=== PATIENT | male | born 1950 | race Caucasian/White ===

== ENCOUNTER 2019-10-09 19:00 | Observation (INO) | payer MEDICARE ==
[2019-10-09] MEDS ORDERED: MECLIZINE 25 MG TAB PO STA (19:27)
[2019-10-09 19:47] LABS: Basophils # (A) 0.1 k/uL (0-0.2); Basophils % (A) 1 %; Eosinophils # (A) 0.2 k/uL (0-0.7); Eosinophils % (A) 3 %; HCT 42.6 % (39.0-53.0); HGB 14.5 gm/dL (13.0-17.5); Lymphocytes # (A) 2.7 k/uL (1.0-4.8); Lymphocytes % (A) 36 %; MCH 31.7 pg (25.0-35.0); MCV 93.2 fL (80.0-100.0); Monocytes # (A) 0.6 k/uL (0-1.0); Monocytes % (A) 8 %; Neutrophils # (A) 3.7 k/uL (1.3-7.7); Neutrophils % (A) 49 %; Platelet Count 371 k/uL (150-450); RBC 4.57 m/uL (4.30-5.90); RDW 12.8 % (11.5-15.5); WBC 7.6 k/uL (3.8-10.6)
[2019-10-09 19:49] LABS: ALT 38 U/L (4-49); AST 36 U/L (17-59); African American GFR (CKD) >90 (>60 ml/min/1.73 sqM); Albumin 4.3 g/dL (3.5-5.0); Alkaline Phosphatase 101 U/L (38-126); Anion Gap 11 mmol/L; Blood Urea Nitrogen 11 mg/dL (9-20); Carbon Dioxide 23 mmol/L (22-30); Chloride 105 mmol/L (98-107); Glucose 142 mg/dL (74-99); Non-African American GFR(CKD) 87 (>60 ml/min/1.73 sqM); Potassium 4.5 mmol/L (3.5-5.1); Sodium 139 mmol/L (137-145); Total Bilirubin 0.5 mg/dL (0.2-1.3); Total Protein 7.1 g/dL (6.3-8.2)
--- NOTE | 2019-10-09 19:49 | ED ---
General Adult HPI - General Chief complaint: Dizziness Stated complaint: Dizziness,Nausea Time Seen by Provider: 10/09/19 19:05 Source: patient, EMS, RN notes reviewed, old records reviewed Mode of arrival: EMS Limitations: no limitations - History of Present Illness Initial comments: This is a 69-year-old male who comes in stating he's been dizzy for the last couple weeks. Patient states he is unsteady wasn't sure if it was going to pass out. Patient states he was recently admitted the hospital for heat exhaustion. Patient states he went home still hasn't been feeling well followed up with his doctor and continues to be dizzy and became dizzy and very nauseated. Patient states he had no pain at any time. Patient states he has had a couple episodes of significant diaphoresis. Patient denies a headache. Patient denies numbness weakness. Patient denies chest pain palpitations difficulty breathing first breath. Patient denies abdominal pain. Patient denies vomiting or diarrhea. Patient denies any recent fever chills or cough. Patient denies any swelling to the legs or calf tenderness. Patient states while lying in bed it doesn't seem like he is that dizzy but when he sits up it does get dizzy - Related Data Allergies Allergy/AdvReac Type Severity Reaction Status Date / Time No Known Allergies Allergy Verified 10/09/19 20:34 Review of Systems ROS Statement: Those systems with pertinent positive or pertinent negative responses have been documented in the HPI. ROS Other: All systems not noted in ROS Statement are negative. Past Medical History Past Medical History: Hypertension, Myocardial Infarction ([place]) History of Any Multi-Drug Resistant Organisms: None Reported Past Surgical History: Appendectomy Past Psychological History: No Psychological Hx Reported Smoking Status: Former smoker Past Alcohol Use History: None Reported Past Drug Use History: None Reported General Exam - General Exam Comments Initial Comments: GENERAL: Patient is well-developed and well-nourished. Patient is nontoxic and well- hydrated and is in mild distress. ENT: Neck is soft and supple. No significant lymphadenopathy is noted. Oropharynx is clear. Moist mucous membranes. Neck has full range of motion without eliciting any pain. EYES: The sclera were anicteric and conjunctiva were pink and moist. Extraocular movements were intact and pupils were equal round and reactive to light. Eyelids were unremarkable. PULMONARY: Unlabored respirations. Good breath sounds bilaterally. No audible rales rhonchi or wheezing was noted. CARDIOVASCULAR: There is a regular rate and rhythm without any murmurs gallops or rubs. ABDOMEN: Soft and nontender with normal bowel sounds. SKIN: Skin is clear with no lesions or rashes and otherwise unremarkable. NEUROLOGIC: Patient is alert and oriented x3. Cranial nerves II through XII are grossly intact. Motor and sensory are also intact. Normal speech, volume and content. Symmetrical smile. MUSCULOSKELETAL: Normal extremities with adequate strength and full range of motion. LYMPHATICS: No significant lymphadenopathy is noted PSYCHIATRIC: Normal psychiatric evaluation. Limitations: no limitations Course Vital Signs 10/09/19 19:03 Temperature 98.8 F Pulse Rate 78 Respiratory 18 Rate Blood Pressure 152/92 O2 Sat by Pulse 91 L Oximetry Medical Decision Making - Medical Decision Making EKG shows a normal sinus rhythm at 76 bpm KS interval is on a 52 QRS is 90 QT intervals 46 QTC is 456. There is no ST segment elevation or depression. CT of the brain shows no acute normalities. Chest x-ray shows no acute abnormality. - Lab Data Result diagrams: 10/09/19 19:27 10/09/19 19:27 Lab Results 10/09/19 10/09/19 10/09/19 Range/Units 19:27 19:27 19:27 WBC 7.6 (3.8-10.6) k/uL RBC 4.57 (4.30-5.90) m/uL Hgb 14.5 (13.0-17.5) gm/dL Hct 42.6 (39.0-53.0) % MCV 93.2 (80.0-100.0) fL MCH 31.7 (25.0-35.0) pg MCHC 34.0 (31.0-37.0) g/dL RDW 12.8 (11.5-15.5) % Plt Count 371 (150-450) k/uL Neutrophils % 49 % Lymphocytes % 36 % Monocytes % 8 % Eosinophils % 3 % Basophils % 1 % Neutrophils # 3.7 (1.3-7.7) k/uL Lymphocytes # 2.7 (1.0-4.8) k/uL Monocytes # 0.6 (0-1.0) k/uL Eosinophils # 0.2 (0-0.7) k/uL Basophils # 0.1 (0-0.2) k/uL PT 10.0 (9.0-12.0) sec INR 1.0 (<1.2) APTT 22.7 (22.0-30.0) sec Sodium 139 (137-145) mmol/L Potassium 4.5 (3.5-5.1) mmol/L Chloride 105 (98-107) mmol/L Carbon Dioxide 23 (22-30) mmol/L Anion Gap 11 mmol/L BUN 11 (9-20) mg/dL Creatinine 0.89 (0.66-1.25) mg/dL Est GFR (CKD-EPI)AfAm >90 (>60 ml/min/1.73 sqM) Est GFR (CKD-EPI)NonAf 87 (>60 ml/min/1.73 sqM) Glucose 142 H (74-99) mg/dL Calcium 9.0 (8.4-10.2) mg/dL Magnesium 2.0 (1.6-2.3) mg/dL Total Bilirubin 0.5 (0.2-1.3) mg/dL AST 36 (17-59) U/L ALT 38 (4-49) U/L Alkaline Phosphatase 101 (38-126) U/L Troponin I (0.000-0.034) ng/mL Total Protein 7.1 (6.3-8.2) g/dL Albumin 4.3 (3.5-5.0) g/dL 10/09/19 Range/Units 19:27 WBC (3.8-10.6) k/uL RBC (4.30-5.90) m/uL Hgb (13.0-17.5) gm/dL Hct (39.0-53.0) % MCV (80.0-100.0) fL MCH (25.0-35.0) pg MCHC (31.0-37.0) g/dL RDW (11.5-15.5) % Plt Count (150-450) k/uL Neutrophils % % Lymphocytes % % Monocytes % % Eosinophils % % Basophils % % Neutrophils # (1.3-7.7) k/uL Lymphocytes # (1.0-4.8) k/uL Monocytes # (0-1.0) k/uL Eosinophils # (0-0.7) k/uL Basophils # (0-0.2) k/uL PT (9.0-12.0) sec INR (<1.2) APTT (22.0-30.0) sec Sodium (137-145) mmol/L Potassium (3.5-5.1) mmol/L Chloride (98-107) mmol/L Carbon Dioxide (22-30) mmol/L Anion Gap mmol/L BUN (9-20) mg/dL Creatinine (0.66-1.25) mg/dL Est GFR (CKD-EPI)AfAm (>60 ml/min/1.73 sqM) Est GFR (CKD-EPI)NonAf (>60 ml/min/1.73 sqM) Glucose (74-99) mg/dL Calcium (8.4-10.2) mg/dL Magnesium (1.6-2.3) mg/dL Total Bilirubin (0.2-1.3) mg/dL AST (17-59) U/L ALT (4-49) U/L Alkaline Phosphatase (38-126) U/L Troponin I <0.012 (0.000-0.034) ng/mL Total Protein (6.3-8.2) g/dL Albumin (3.5-5.0) g/dL Disposition Clinical Impression: Near syncope, Diaphoresis Disposition: ADMITTED IP TO THIS HOSP Referrals: Sandy Frey DO [Primary Care Provider] - 1-2 days Time of Disposition: 20:31
[2019-10-09 19:50] LABS: Partial Thromboplastin Time 22.7 sec (22.0-30.0)
--- NOTE | 2019-10-09 19:53 | XR ---
EXAMINATION TYPE: XR chest 2V DATE OF EXAM: 10/09/2019 COMPARISON: NONE HISTORY: Dizziness and nausea TECHNIQUE: FINDINGS: Heart and mediastinum are normal. There is some linear density in the left midlung. This is probably calcified cartilage. The other lung allen are clear. There are no hilar masses. There is n o pulmonary consolidation. There is no pleural effusion. Bony thorax is intact.. IMPRESSION: No active cardiopulmonary disease. Normal heart.
--- NOTE | 2019-10-09 20:04 | CT ---
EXAMINATION TYPE: CT brain wo con DATE OF EXAM: 10/09/2019 COMPARISON: None HISTORY: Dizziness and nausea. CT DLP: 1098.4 mGycm Automated exposure control for dose reduction was used. There is cerebral cortical atrophy. There is no mass effect nor midline shift. There is no sign of in tracranial hemorrhage. The calvarium is intact. There is no evidence of cerebral edema. IMPRESSION: Cerebral atrophy. No acute intracranial abnormality.
[2019-10-09] MEDS ORDERED: SODIUM CHLORIDE 0.9% 1,000 ML IV ONE (20:32)
[2019-10-09] MEDS ORDERED: ACETAMINOPHEN TAB 500 MG TAB PO PRN (23:27)
[2019-10-09] MEDS ORDERED: TEMAZEPAM 15 MG CAP PO PRN (23:27)
[2019-10-09] MEDS ORDERED: ALPRAZolam 0.25 MG TAB PO PRN (23:27)
[2019-10-09 23:52] LABS: Appearance,Urine Clear (Clear); Bilirubin,Urine Negative (Negative); Blood,Urine Negative (Negative); Color,Urine Light Yellow; Glucose,Urine (UA) Negative (Negative); Ketones,Urine Negative (Negative); Leukocyte Esterase,Urine Negative (Negative); Nitrite,Urine Negative (Negative); Protein,Urine Negative (Negative); Specific Gravity,Urine 1.008 (1.001-1.035); Urobilinogen,Urine <2.0 mg/dL (<2.0)
[2019-10-10] MEDS ORDERED: HYDROcodone/APAP 5-325MG 1 EACH TAB PO PRN
[2019-10-10] MEDS: SODIUM CHLORIDE 0.9% 1,000 ML IV SCH ×3 (00:08→21:35)
[2019-10-10] MEDS: PANTOPRAZOLE 40 MG/10 ML VIAL IVP SCH ×2 (00:09→10:46)
--- NOTE | 2019-10-10 00:25 | HP ---
HISTORY AND PHYSICAL DATE OF SERVICE: 10/09/2019 CHIEF COMPLAINT: Dizziness and nausea. HISTORY OF PRESENT ILLNESS: This 69-year-old gentleman with a past medical history of multiple medical problems including hypertension, myocardial infarction, appendectomy, remote history of nicotine dependence, being followed by Dr. 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 The patient went to [place]. About 2 weeks ago, the patient had episode of heat exhaustion and was admitted in the hospital, but subsequently patient also recently went to [place] and went to [facility] and recently came back like 2 days ago. The patient was feeling more dizzy and nauseous and was unable to keep anything down and because of weakness and patient also had a couple episodes of significant diaphoresis, patient came to [facility] and admitted for further evaluation and treatment. There is no history of chest pain, palpitation. No history of cough, sputum. No history of any contact with any ill individuals even though patient has been to [place]. The patient reports the patient apparently spends time in his truck. PAST MEDICAL HISTORY: Hypertension, myocardial infarction, appendectomy. MEDICATIONS: Medications prior to admission include: 1. Norvasc 5 mg p.o. daily. 2. Prilosec 20 mg p.o. daily. 3. Ecotrin 81 mg. 4. Zyloprim 300 mg daily. ALLERGIES: None. FAMILY HISTORY: No history of heart disease or strokes in the family. SOCIAL HISTORY: Previous history of smoking. No history of alcohol intake. REVIEW OF SYSTEMS: ENT: No diminished hearing or diminished vision CARDIOVASCULAR SYSTEM: As mentioned earlier. RESPIRATORY SYSTEM: As mentioned earlier. GI: No nausea. : No dysuria. NERVOUS SYSTEM: No numbness or weakness. ALLERGY/IMMUNOLOGY: No asthma. MUSCULOSKELETAL: As mentioned earlier. HEMATOLOGY/ONCOLOGY: No history of anemia. ENDOCRINE: No history of diabetes or hypothyroidism. CONSTITUTIONAL: As mentioned earlier. DERMATOLOGY: Negative. RHEUMATOLOGY: Negative. PSYCHIATRY: As mentioned earlier. PHYSICAL EXAMINATION: The patient is alert and oriented x3. Pulse 86, blood pressure is 158/92, respiration 18, temperature 97.4, pulse ox 97% on 2 L. HEENT: Conjunctivae normal. NECK: No jugular venous distention. CARDIOVASCULAR: S1, S2 muffled. RESPIRATORY: Breath sounds diminished at the bases. No rhonchi, no crackles. ABDOMEN: Soft, nontender. LEGS: No edema, no swelling. NERVOUS SYSTEM: Higher functions as mentioned. Moves all 4 limbs. No focal motor or sensory deficit. LYMPHATICS: No lymphadenopathy of the neck, axillae or groin. SKIN: No ulcer, rash or bleeding. JOINTS: No active deforming arthropathy. LABS: CBC within normal limits. Glucose 142. ASSESSMENT: 1. Dizziness and nausea for evaluation, rule out acute coronary syndrome. 2. Rule out COVID-19. 3. Hypertension. 4. History of myocardial infarction. 5. History of appendectomy. 6. Remote history of nicotine dependence. 7. Obesity with body mass of 38.7. RECOMMENDATIONS AND DISCUSSION: This 69-year-old gentleman who presented with multiple complex medical issues, will monitor the patient closely. Continue the current medications. Continues symptomatic treatment. Will obtain cardiology consultation. Otherwise, IV fluids. COVID-19 as requested. Resume the home medications. Symptomatic treatment. Prognosis guarded because of multiple complex medical issues. Further recommendations to follow. A copy of dictation forwarded to Dr. Frey, who is the primary physician. MMODL / IJN: [id number] /
[2019-10-10 01:03] LABS: Uric Acid 4.8 mg/dL (3.5-8.5)
[2019-10-10 06:24] LABS: Basophils # (A) 0.1 k/uL (0-0.2); Basophils % (A) 1 %; Eosinophils # (A) 0.2 k/uL (0-0.7); Eosinophils % (A) 3 %; HGB 13.8 gm/dL (13.0-17.5); Lymphocytes # (A) 1.9 k/uL (1.0-4.8); Lymphocytes % (A) 33 %; MCH 31.8 pg (25.0-35.0); MCHC 32.9 g/dL (31.0-37.0); MCV 96.5 fL (80.0-100.0); Mean Platelet Volume 6.9; Monocytes # (A) 0.5 k/uL (0-1.0); Monocytes % (A) 9 %; Neutrophils # (A) 3.1 k/uL (1.3-7.7); Neutrophils % (A) 52 %; Platelet Count 339 k/uL (150-450); RBC 4.35 m/uL (4.30-5.90); RDW 12.8 % (11.5-15.5); WBC 5.8 k/uL (3.8-10.6)
[2019-10-10 06:39] LABS: African American GFR (CKD) >90 (>60 ml/min/1.73 sqM); Anion Gap 8 mmol/L; Blood Urea Nitrogen 12 mg/dL (9-20); C Reactive Protein 6.9 mg/L (<10.0); Calcium 8.8 mg/dL (8.4-10.2); Carbon Dioxide 25 mmol/L (22-30); Chloride 104 mmol/L (98-107); Creatine Kinase 51 U/L (55-170); Glucose 172 mg/dL (74-99); LDH 447 U/L (313-618); Non-African American GFR(CKD) 79 (>60 ml/min/1.73 sqM); Potassium 4.3 mmol/L (3.5-5.1); Sodium 137 mmol/L (137-145)
[2019-10-10 07:08] LABS: Erythrocyte Sedimentation Rate 22 mm/hr (0-15)
[2019-10-10] MEDS ORDERED: REGADENOSON 0.4 MG/5 ML SYRINGE IV ONE (08:24)
[2019-10-10] MEDS ORDERED: AMINOPHYLLINE 500 MG/20 ML VIAL IV PRN (08:24)
[2019-10-10] MEDS ORDERED: CAFFEINE CITRATE 60 MG/3 ML VIAL IV PRN (08:24)
--- NOTE | 2019-10-10 08:37 | US ---
EXAMINATION TYPE: US carotid duplex BILAT DATE OF EXAM: 10/10/2019 COMPARISON: NONE CLINICAL HISTORY: stroke. Dizziness, nausea EXAM MEASUREMENTS: RIGHT: Peak Systolic Velocity (PSV) cm/sec ----- Right CCA: 66.3 ----- Right ICA: 80.7 ----- Right ECA: 77.6 ICA/CCA ratio: 1.2 RIGHT: End Diastole cm/sec ----- Right CCA: 17.6 ----- Right ICA: 29.5 ----- Right ECA: 17.1 LEFT: Peak Systolic Velocity (PSV) cm/sec ----- Left CCA: 72.7 ----- Left ICA: 85.6 ----- Left ECA: 106.8 ICA/CCA ratio: 1.2 LEFT: End Diastole cm/sec ----- Left CCA: 19.3 ----- Left ICA: 35.1 ----- Left ECA: 16.9 VERTEBRALS (direction of flow): Right Vertebral: Antegrade Left Vertebral: Antegrade Rhythm: Normal Bilateral intimal thickening, minimal plaque bilateral bulb, no elevated velocities, no significant s tenosis. IMPRESSION: 1. Bilateral intimal thickening with no significant hemodynamic stenosis by carotid Doppler ultrasoun d. Criteria for Assigning % of Stenosis / Diameter reduction (Estimation based on the indirect measurements of the internal carotid artery velocities (ICA PSV). 1. Normal (no stenosis)=ICA PSV < 125 cm/s: ratio < 2.0: ICA EDV<40 cm/s. 2. Less than 50% stenosis=ICA PSV < 125 cm/s: ratio < 2.0: ICA EDV<40 cm/s. 3. 50 to 69% stenosis=ICA PSV of 125 to 230 cm/s: ration 2.0 ? 4.0: ICA EDV 40-100 cm/s. 4. Greater than 70% stenosis to near occlusion= ICA PSV > 230 cm/s: ratio > 4.0: ICA EDV > 100 cm/s. 5. Near occlusion= ICA PSV velocities may be low or undetectable: variable ratio and ICA EDV. 6. Total occlusion=unable to detect flow.
[2019-10-10] MEDS ORDERED: PANTOPRAZOLE 40 MG TABLET PO SCH (09:00)
[2019-10-10] MEDS ORDERED: HEPARIN SODIUM,PORCINE 5,000 UNIT/ML 1 ML VIAL SQ SCH (09:00)
--- NOTE | 2019-10-10 09:22 | CT ---
EXAMINATION TYPE: CT angio chest DATE OF EXAM: 10/10/2019 9:12 AM COMPARISON: HISTORY: Elevated d-dimer CT DLP: 544.4 mGycm Automated exposure control for dose reduction was used. CONTRAST: CTA scan of the thorax is performed with IV Contrast, patient injected with 100 mL of Isovue 370, pul monary embolism protocol. . FINDINGS: LUNGS: Biapical pleural thickening and diffuse emphysematous changes. There is a suspicious mass in t he right upper lobe on axial image 45 measuring 1.4 cm. Additional nodule right upper lobe axial imag e 79 measuring 2 mm no pleural effusion or pneumothorax. No overt failure. Groundglass changes quality control tech iorly most typical of atelectasis. This MEDIASTINUM: There is pathologic adenopathy in the right hilum measuring short axis of 1.4 cm. Aguiar ry artery calcification is seen in the heart is enlarged. Atherosclerotic change of the aorta but no evidence of aneurysm. Trace of pericardial fluid noted. Assessment of the pulmonary arteries is somewhat limited due to artifact. Within the left upper lobe branch there is incomplete filling of the pulmonary artery distally suggestive of a small left upper lobe pulmonary embolism. OTHER: Hypertrophic and degenerative change of the spine. No obvious destructive changes. Low attenu ation in the liver and suggestive of fatty infiltration. There is a small hiatal hernia. Right upper pole right renal lesion measures 10 Hounsfield units suggestive of a cyst. IMPRESSION: 1. There is a filling defect within a left upper lobe pulmonary arterial branch suspicious for a smal l pulmonary embolism correlate clinically. 2. There is a mass in the right upper lobe suspicious for malignancy measuring 1.4 cm. Recommend PET scan and pulmonology consultation. Right hilar adenopathy noted. 3. Additional 2 mm nodule lateral segment right upper lobe. 4. COPD.
--- NOTE | 2019-10-10 10:00 | ECHOF ---
Referral Reason:Stroke MEASUREMENTS -------- HEIGHT: 182.9 cm WEIGHT: 122.5 kg BP: RVIDd: 3.8 cm (< 3.3) IVSd: 1.3 cm (0.6 - 1.1) LVIDd: 4.9 cm (3.9 - 5.3) LVPWd: 1.7 cm (0.6 - 1.1) IVSs: 1.6 cm LVIDs: 3.5 cm LVPWs: 2.1 cm LA Diam: 3.8 cm (2.7 - 3.8) LAESV Index (A-L): 25.87 ml/m Ao Diam: 3.1 cm (2.0 - 3.7) AV Cusp: 2.3 cm (1.5 - 2.6) LA Diam: 3.9 cm (2.7 - 3.8) MV EXCURSION: 22.646 mm (> 18.000) MV EF SLOPE: 72 mm/s (70 - 150) EPSS: 1.4 cm MV E Jer: 0.52 m/s MV DecT: 237 ms MV A Jer: 0.65 m/s MV E/A Ratio: 0.80 RAP: 5.00 mmHg RVSP: 12.36 mmHg FINDINGS -------- Sinus rhythm. Morbid Obesity The left ventricular size is normal. There is mild concentric left ventricular hypertrophy. Overa ll left ventricular systolic function is low-normal with, an EF between 50 - 55 %. The right ventricle is normal in size. The left atrial size is normal. The right atrial size is normal. 5.0mg OF Lumason UTLIZED: 2 OR MORE WALL SEGMENTS NOT VISUALIZED. The aortic valve was not well visualized. Mild mitral regurgitation is present. Mild tricuspid regurgitation present. Right ventricular systolic pressure is normal at < 35 mmHg. The pulmonic valve was not well visualized. The aortic root size is normal. There is no pericardial effusion. CONCLUSIONS -------- 1. Sinus rhythm. 2. Morbid Obesity 3. The left ventricular size is normal. 4. There is mild concentric left ventricular hypertrophy. 5. Overall left ventricular systolic function is low-normal with, an EF between 50 - 55 %. 6. The right ventricle is normal in size. 7. The left atrial size is normal. 8. The right atrial size is normal. 9. 5.0mg OF Lumason UTLIZED: 2 OR MORE WALL SEGMENTS NOT VISUALIZED. 10. The aortic valve was not well visualized. 11. Mild mitral regurgitation is present. 12. Mild tricuspid regurgitation present. 13. Right ventricular systolic pressure is normal at < 35 mmHg. 14. The pulmonic valve was not well visualized. PRODUCT SAFETY TECHNICIAN: Sandrita Fournier RDCS
--- NOTE | 2019-10-10 10:01 | P.CRDCN ---
History of Present Illness History of present illness: HISTORY OF PRESENTING ILLNESS This is a pleasant 69-year-old male past medical history significant for coronary artery disease according to the patient he had a cardiac catheteri zation in [place] about 6 years ago he was told he had a myocardial infarction but had collateral circulation. He also has been diagnosed with hypertension in the past. 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 We have been asked to see in consultation for syncope. He states approximately 2 weeks ago he had an episode of feeling overheated. He was dizzy and light headed for no particular reason. Since that time he has been feeling fatigued and having persistent dizziness when he changes positions. No chest pain, shortness of breath, palpitations, diaphoresis or nausea. Yesterday he had another episode of feeling dizzy and lightheaded and he changes positions. He has had no loss of consciousness or syncopal episodes. 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 He states his symptoms he is experiencing are similar to what he experienced 6 years ago when he had a myocardial infarction. DIAGNOSTICS EKG reveals sinus mechanism with left axis deviation. Chest xray negative for an acute cardiopulmonary process. CT of the brain is negative for an acute intracranial process. Laboratory reviewed, CBC unremarkable, d-dimer 1.19, sodium 137, potassium 4.3, creatinine 0.97, magnesium 2.0, cardiac enzymes negative 3. Current cardiac medications include amlodipine 5 mg daily and aspirin 81 mg daily. REVIEW OF SYSTEMS At the time of my exam: CONSTITUTIONAL: Denies fever or chills. CARDIOVASCULAR: Denies chest pain, shortness of breath, orthopnea, PND or palpitations. RESPIRATORY: Denies cough. GASTROINTESTINAL: Denies abdominal pain, diarrhea, constipation, nausea or vomiting. MUSCULOSKELETAL: Denies myalgias. NEUROLOGIC: Denies numbness, tingling or weakness. ENDOCRINE: Denies fatigue, weight change, polydipsia or polyurina. GENITOURINARY: Denies burning, hematuria or urgency with micturation. HEMATOLOGIC: Denies history of anemia or bleeding. PHYSICAL EXAMINATION Blood pressure 157/91 heart rate 74 afebrile and maintaining oxygen saturation on room air. CONSTITUTIONAL: No apparent distress. Obese. HEENT: Head is normocephalic. Pupils are equal, round. Sclerae anicteric. Mucous membranes of the mouth are moist. No JVD. No carotid bruit. CHEST EXAMINATION: Lungs are clear to auscultation. No chest wall tenderness is noted on palpation or with deep breathing. HEART EXAMINATION: Regular rate and rhythm. S1, S2 heard. No murmurs, gallops or rub. ABDOMEN: Soft, nontender. Positive bowel sounds. EXTREMITIES: 2+ peripheral pulses, no lower extremity edema and no calf tenderness. NEUROLOGIC EXAMINATION: Patient is awake, alert and oriented x3. ASSESSMENT Dizziness History of myocardial infarction Hypertension Obesity, BMI 38 PLAN Acute coronary event has been ruled out. D-dimer is elevated we will obtain a CT angios the chest to rule out pulmonary embolism. If negative for pulmonary embolism we will proceed with a Lexiscan stress test to assess for reversible cardiac ischemia. Echocardiogram has been ordered and will reviewed. Thank you kindly for this consultation. Nurse Practitioner note has been reviewed, I agree with a documented findings and plan of care. Patient was seen and examined. Past Medical History Past Medical History: Hypertension, Myocardial Infarction ([place]) Last Myocardial Infarction Date:: History of Any Multi-Drug Resistant Organisms: None Reported Past Surgical History: Appendectomy Additional Past Surgical History / Comment(s): pt states appendectomy 30-40 years ago. 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 Past Psychological History: No Psychological Hx Reported Smoking Status: Former smoker Past Alcohol Use History: None Reported Past Drug Use History: None Reported Medications and Allergies Home Medications Medication Instructions Recorded Confirmed Type Allopurinol [Zyloprim] 300 mg PO DAILY 10/09/19 10/09/19 History Aspirin EC [Ecotrin Low Dose] 81 mg PO DAILY 10/09/19 10/09/19 History Omeprazole Magnesium [PriLOSEC OTC] 20 mg PO DAILY 10/09/19 10/09/19 History amLODIPine [Norvasc] 5 mg PO DAILY 10/09/19 10/09/19 History Allergies Allergy/AdvReac Type Severity Reaction Status Date / Time No Known Allergies Allergy Verified 10/09/19 20:34 Physical Exam Vitals: Vital Signs Temp Pulse Pulse Resp BP BP BP 10/10/19 07:49 98.1 F 74 16 157/91 10/10/19 03:00 76 10/10/19 02:29 98 F 76 138/78 10/09/19 23:23 163/90 10/09/19 22:05 97.5 F L 86 158/92 10/09/19 21:06 98.4 F 76 18 146/86 10/09/19 19:03 98.8 F 78 18 152/92 BP BP Pulse Ox 10/10/19 07:49 98 10/10/19 03:00 10/10/19 02:29 98 10/09/19 23:23 135/84 151/82 10/09/19 22:05 97 10/09/19 21:06 98 10/09/19 19:03 91 L Intake and Output 10/09/19 10/10/19 10/10/19 22:59 06:59 14:59 Output Total 1100 Balance -1100 Output: Urine 1100 Other: Voiding Method Toilet # Voids 1 Weight 122.47 kg Results 10/10/19 06:06 10/10/19 06:06 Cardiac Enzymes 10/09/19 10/09/19 10/09/19 Range/Units 19:27 19:27 21:19 AST 36 (17-59) U/L Lactate Dehydrogenase (313-618) U/L Troponin I <0.012 <0.012 (0.000-0.034) ng/mL 10/10/19 10/10/19 Range/Units 00:40 06:06 AST (17-59) U/L Lactate Dehydrogenase 447 (313-618) U/L Troponin I <0.012 (0.000-0.034) ng/mL Coagulation 10/09/19 Range/Units 19:27 PT 10.0 (9.0-12.0) sec APTT 22.7 (22.0-30.0) sec CBC 10/09/19 10/10/19 Range/Units 19:27 06:06 WBC 7.6 5.8 (3.8-10.6) k/uL RBC 4.57 4.35 (4.30-5.90) m/uL Hgb 14.5 13.8 (13.0-17.5) gm/dL Hct 42.6 42.0 (39.0-53.0) % Plt Count 371 339 (150-450) k/uL Comprehensive Metabolic Panel 10/09/19 10/10/19 Range/Units 19:27 06:06 Sodium 139 137 (137-145) mmol/L Potassium 4.5 4.3 (3.5-5.1) mmol/L Chloride 105 104 (98-107) mmol/L Carbon Dioxide 23 25 (22-30) mmol/L BUN 11 12 (9-20) mg/dL Creatinine 0.89 0.97 (0.66-1.25) mg/dL Glucose 142 H 172 H (74-99) mg/dL Calcium 9.0 8.8 (8.4-10.2) mg/dL AST 36 (17-59) U/L ALT 38 (4-49) U/L Alkaline Phosphatase 101 (38-126) U/L Total Protein 7.1 (6.3-8.2) g/dL Albumin 4.3 (3.5-5.0) g/dL Current Medications Generic Name Dose Route Start Last Admin Trade Name Freq PRN Reason Stop Dose Admin Acetaminophen 500 mg 10/09/19 23:27 Tylenol Tab PO Q6HR PRN Fever and/ or Pain Hydrocodone Bitart/Acetaminophen 1 each 10/10/19 00:00 [place] 5-325 PO Q6HR PRN Pain Allopurinol 300 mg 10/10/19 09:00 Zyloprim PO DAILY [facility] Alprazolam 0.25 mg 10/09/19 23:27 Xanax PO TID PRN Anxiety Amlodipine Besylate 5 mg 10/10/19 09:00 Norvasc PO DAILY [facility] Aspirin 81 mg 10/10/19 09:00 Aspirin PO DAILY [facility] Heparin Sodium (Porcine) 5,000 unit 10/10/19 09:00 Heparin SQ Q12HR [facility] Sodium Chloride 1,000 mls @ 100 mls/hr 10/09/19 23:30 10/10/19 00:08 Saline 0.9% IV 100 mls/hr .Q10H [facility]IL[facility] Administration Pantoprazole Sodium 40 mg 10/09/19 23:30 10/10/19 00:09 Protonix IVP 40 mg DAILY [facility]ILC[facility] Administration Temazepam 15 mg 10/09/19 23:27 Restoril PO HS PRN Insomnia Intake and Output 10/09/19 10/10/19 10/10/19 22:59 06:59 14:59 Output Total 1100 Balance -1100 Output: Urine 1100 Other: Voiding Method Toilet # Voids 1 Weight 122.47 kg 10/10/19 06:06 10/10/19 06:06
[2019-10-10] MEDS: allopurinoL 300 MG TAB PO SCH (10:45)
[2019-10-10] MEDS: ASPIRIN 81 MG PO SCH (10:46)
[2019-10-10] MEDS: amLODIPine 5 MG TAB PO SCH (10:46)
--- NOTE | 2019-10-10 11:00 | US ---
EXAMINATION TYPE: US venous doppler duplex LE DATE OF EXAM: 10/10/2019 10:47 AM COMPARISON: CT chest CLINICAL HISTORY: pe, assess for dvt. SIDE PERFORMED: Bilateral TECHNIQUE: The lower extremity deep venous system is examined utilizing real time linear array sonog reanna with graded compression, doppler sonography and color-flow sonography. VESSELS IMAGED: Common Femoral Vein Deep Femoral Vein Greater Saphenous Vein * Femoral Vein Popliteal Vein Small Saphenous Vein * Proximal Calf Veins (* superficial vessels) Right Leg: Negative for DVT Left Leg: Negative for DVT IMPRESSION: Grayscale, color doppler, spectral doppler imaging performed of the deep veins of the lo wer extremities. There is normal flow, compressibility, vascular waveforms.
--- NOTE | 2019-10-10 12:10 | P.CNPUL ---
History of Present Illness Consult date: 10/10/19 Requesting physician: Shawn Omalley Reason for consult: dyspnea, abnormal CXR/CT Chief complaint: Shortness of breath, weakness History of present illness: This is a very pleasant 69-year-old gentleman who follows with Dr. Elliott as his primary care provider. He has a history of hypertension, gastroesophageal reflux disease, gout. Over the past couple of weeks he was having complaints of increasing weakness and fatigue. He felt he may have developed heat stroke. 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 He was feeling unsteady and feeling as though he may pass out. He's also had issues with nausea. He did have some diaphoresis as well. Computed tomography scan of the brain revealed no acute intracranial abnormality. Chest x-ray revealed no acute cardiopulmonary process. EKG revealed normal sinus rhythm. Echocardiogram revealed preserved left ventricular systolic function with ejection fraction 50-50%. No significant valvular abnormalities. Carotid Dopplers revealed no significant hemodynamic stenosis. White count 5.8. Hemoglobin 13.8. Platelets 339. D- dimer 1.19. Sodium 137. Potassium 4.3. Bicarb 25. Creatinine 0.97. Blood glucose 172. Troponins negative 3. Amylase 49. Lipase 116. LDH 447. Creatinine kinase 51. Dopplers of the lower extremity were negative for DVT. CT angiogram revealed a filling defect within the left upper lobe pulmonary arterial branch suspicious for a small pulmonary embolism. There was incidental finding of a mass in the right upper lobe suspicious for malignancy measuring 1.4 cm. Additional 2 mm nodule lateral segment right upper lobe. Evidence of COPD. We're consulted for the same. He is seen today in consultation on the cardiac observation unit. He is awake and alert in no acute distress. Sitting up in a chair at the bedside. Maintaining O2 saturations in the upper 90s on room air. He's been having afebrile. Hemodynamically stable. No current chest pain or palpitations. No worsening shortness of breath. No recent weight loss. No hemoptysis. The patient has remote history of chronic tobacco dependence however quit over 30 years ago. Review of Systems REVIEW OF SYSTEMS: CONSTITUTIONAL: Denies any recent significant weight loss or weight gain. EYES: Denies change in vision. EARS, NOSE, MOUTH, THROAT: Denies headaches, denies sore throat. CARDIOVASCULAR: Positive for dizziness, lightheadedness, near syncope. Denies chest pain, palpitations. RESPIRATORY: Positive for shortness of breath, no cough, congestion or hemoptysis. GASTROINTESTINAL: Denies change in appetite, denies abdominal pain GENITOURINARY: Denies hematuria, denies infections. MUSKULOSKELETAL: Denies pain, denies swelling. INTEGUMENTARY: Denies rash, denies eczema. NEUROLOGICAL: Denies recent memory loss, no recent seizure activity. PSYCHIATRIC: Denies anxiety, denies depression. HEMATOLOGIC/LYMPHATIC: Denies anemia, denies enlarged lymph nodes. Past Medical History Past Medical History: Hypertension, Myocardial Infarction ([place]) Additional Past Medical History / Comment(s): Gout Last Myocardial Infarction Date:: History of Any Multi-Drug Resistant Organisms: None Reported Past Surgical History: Appendectomy Additional Past Surgical History / Comment(s): pt states appendectomy 30-40 years ago. pt states he doesn't know when his last [place] was, because he was in jail at the time he also said it was about 6 years ago. Past Psychological History: No Psychological Hx Reported Smoking Status: Former smoker Past Alcohol Use History: None Reported Past Drug Use History: None Reported Additional History: Denies any significant family history. Medications and Allergies Home Medications Medication Instructions Recorded Confirmed Type Allopurinol [Zyloprim] 300 mg PO DAILY 10/09/19 10/09/19 History Aspirin EC [Ecotrin Low Dose] 81 mg PO DAILY 10/09/19 10/09/19 History Omeprazole Magnesium [PriLOSEC OTC] 20 mg PO DAILY 10/09/19 10/09/19 History amLODIPine [Norvasc] 5 mg PO DAILY 10/09/19 10/09/19 History Allergies Allergy/AdvReac Type Severity Reaction Status Date / Time No Known Allergies Allergy Verified 10/09/19 20:34 Physical Exam Vitals: Vital Signs Temp Pulse Pulse Resp BP BP BP 10/10/19 08:11 74 16 10/10/19 07:49 98.1 F 74 16 157/91 10/10/19 03:00 76 10/10/19 02:29 98 F 76 138/78 10/09/19 23:23 163/90 10/09/19 22:05 97.5 F L 86 158/92 10/09/19 21:06 98.4 F 76 18 146/86 10/09/19 19:03 98.8 F 78 18 152/92 BP BP Pulse Ox 10/10/19 08:11 10/10/19 07:49 98 10/10/19 03:00 10/10/19 02:29 98 10/09/19 23:23 135/84 151/82 10/09/19 22:05 97 10/09/19 21:06 98 10/09/19 19:03 91 L Intake and Output 10/09/19 10/10/19 10/10/19 22:59 06:59 14:59 Output Total 1100 Balance -1100 Output: Urine 1100 Other: Voiding Method Toilet Toilet # Voids 1 Weight 122.47 kg GENERAL EXAM: Alert, active, comfortable 69-year-old gentleman, on room air, in no apparent distress. HEAD: Normocephalic. EYES: Normal reaction of pupils, equal size. NOSE: Clear with pink turbinates. THROAT: No erythema or exudates. NECK: No masses, no JVD. CHEST: No chest wall deformity. LUNGS: Equal air entry with no crackles, wheeze, rhonchi or dullness. CVS: S1 and S2 normal with no audible murmur, regular rhythm. ABDOMEN: No hepatosplenomegaly, normal bowel sounds, no guarding or rigidity. SPINE: No scoliosis or deformity SKIN: No rashes CENTRAL NERVOUS SYSTEM: No focal deficits, tone is normal in all 4 extremities. EXTREMITIES: There is no peripheral edema. No clubbing, no cyanosis. Peripheral pulses are intact. Results - Laboratory Findings CBC and BMP: 10/10/19 06:06 10/10/19 06:06 PT/INR, D-dimer PT 10.0 sec (9.0-12.0) 10/09/19 19:27 INR 1.0 (<1.2) 10/09/19 19: D-Dimer 1.19 mg/L FEU (<0.60) H 10/10/19 06:06 Abnormal lab findings: Abnormal Labs 10/09/19 10/10/19 10/10/19 19:27 06:06 06:06 ESR 22 H D-Dimer Glucose 142 H 172 H Creatine Kinase 51 L 10/10/19 06:06 ESR D-Dimer 1.19 H Glucose Creatine Kinase - Diagnostic Findings Chest x-ray: image reviewed CT scan - chest: image reviewed Assessment and Plan Assessment: 1 Dizziness with nausea of unclear etiology. Doubt related to a possible small pulmonary emboli in the left upper lobe 2 1.4 cm mass in the right upper lobe suspicious for malignancy 3 Remote history of chronic tobacco dependence 4 Hypertension 5 History of gout 6 History of coronary artery disease, troponins negative, preserved left ventricular systolic function Plan: The patient was seen and evaluated by Dr. Kim Chest x-ray, CAT scan and labs reviewed Possible small pulmonary emboli in the left upper lobe Initiated Xarelto Will need follow-up regarding the suspicious right upper lobe mass We'll plan for a PET scan in the outpatient setting and possible navigational bronchoscopy with biopsy Cleared for discharge once cleared by cardiology Follow-up in our office in 1-2 weeks' time I, the cosigning physician, performed a history & physical examination of the patient. Lungs sounds are clear. Maintaining good O2 saturations in the 90s on room air. I discussed the assessment and plan of care with my nurse Magdalena galvan. I attest to the above consultation as dictated by her. Time with Patient: Greater than 30
[2019-10-10] MEDS: RIVAROXABAN 15 MG TAB PO SCH ×2 (14:18→21:29)
--- NOTE | 2019-10-10 16:20 | PN ---
PROGRESS NOTE DATE OF SERVICE: 10/10/2019 This 69-year-old gentleman who was admitted with dizziness and nausea was thought to have some dehydration also. The patient had multiple evaluations and a 2D echo with Doppler was done today that showed ejection fraction about 50% to 55% and no other major abnormalities. The patient had a carotid Doppler which showed bilateral intimal thickening with no hemodynamically significant stenosis. A chest CT was also done which showed evidence of a filling defect in the left upper lobe pulmonary artery branch suspicious for a small pulmonary embolism and a mass in the right upper lobe suspicious for malignancy measuring about 1.4 cm. A 2 mm nodule in the lateral segment of the right upper lobe was also noted. COPD was also re-demonstrated. A venous study in the lower legs was done which was negative for DVT. The patient was also seen by Cardiology as well as Pulmonology. Dr. Kim has recommended PET scan in the outpatient setting and possibly navigational bronchoscopy and biopsy. The basic labs: ESR is 22. D-dimer was 1.19. Uric acid was 4.8, glucose 172. The CRP was only 6.9. Amylase and lipase were also normal. Troponins are negative. LDH was only 447, which is within normal limits. Past medical history reviewed. REVIEW OF SYSTEMS: CARDIOVASCULAR SYSTEM: No angina, palpitations. RESPIRATORY SYSTEM: As mentioned earlier. GI: Nausea is slightly better. NERVOUS SYSTEM: As mentioned earlier. Still weak. CURRENT MEDICATIONS: 1. Tylenol. 2. Lane. 3. Zyloprim. 4. Xanax. 5. Norvasc. 6. Aspirin. 7. Protonix. 8. Xarelto. 9. Restoril. PHYSICAL EXAMINATION: Patient is alert, oriented x3. Pulse 75, blood pressure 157/91, respirations 16, temperature 98.1, pulse ox 98% on room air. HEENT: Conjunctivae normal. NECK: No jugular venous distention. CARDIOVASCULAR SYSTEM: S1, S2 muffled. RESPIRATORY SYSTEM: Breath sounds diminished at the bases. A few scattered rhonchi. ABDOMEN: Soft, non-tender. NERVOUS SYSTEM: No focal deficit. LABS: CBC within normal limits. ESR is 22. D-dimer is 1.19 and glucose is 172. Troponins are negative. Creatine kinase was normal. LDH was normal. ASSESSMENT: 1. Dizziness and nausea of undetermined etiology. 2. Small pulmonary embolism in the left upper lobe, pulmonary artery branch. 3. Mass in the right upper lobe suspicious for malignancy measuring 1.4 cm; in addition, a 2 mm nodule in the lateral segment of the right upper lobe. 4. Rule out COVID-19. 5. Hypertension. 6. History of myocardial infarction. 7. History of appendectomy. 8. Remote history of nicotine dependence. 9. Obesity with body mass index of 38.7. 10.Possible dehydration, present on admission. 11.History of recent heat exhaustion. RECOMMENDATIONS AND DISCUSSION: In this 69-year-old gentleman who presented with multiple complex medical issues, we will monitor the patient closely, continue the current medications, continue symptomatic treatment. Xarelto has been initiated. We will continue the IV fluids at this time. Repeat labs in the morning. Increase ambulation. Otherwise, continue to follow with multiple consultants, including Neurology, Pulmonology and Cardiology. The prognosis is guarded because of multiple complex medical issues. Further recommendations to follow. MMODL / IJN: [id number] /
--- NOTE | 2019-10-10 18:52 | P.CNNES ---
History of Present Illness Consult date: 10/10/19 Requesting physician: Shawn Omalley Reason for Consult: Near syncope History of Present Illness: Patient is a 69-year-old male who came to the hospital because he has been feeling dizzy for the last couple weeks. Patient states that about couple weeks ago he was overheated. He did not seek any medical attention for that. 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 Since that episode of overheating, he has not been feeling well, felt woozy, felt "blah", and as if would blackout. Also has been feeling nauseous. As his symptoms persisted, he decided to come to the ER. His blood pressure on arrival was 152/92, pulse rate 78, temperature 98.8. Patient underwent CT head showed cerebral atrophy with no acute intracranial abnormality. Chest x-ray showed no active cardiopulmonary disease. Normal heart. 2-D echo showed sinus rhythm, morbid obesity. Normal liver left- ventricular size. Mild concentric LVH. EF is 50-55%. Right ventricle is normal in size. Left atrial size is normal. Aortic valve was not well- visualized. Carotid Doppler showed bilateral intimal thickening with no significant hemodynamic stenosis. Antegrade flow in both vertebral arteries. CT of the chest showed a filling defect within the left upper lobe pulmonary arterial branches suspicious for a small pulmonary embolism. There is a mass in the right upper lobe suspicious for malignancy 1.4 cm. Recommend PET scan in pulmonary consultation. I'd hilar adenopathy noted. Additional 2 mm no unilateral segment right upper lobe. COPD. Venous Doppler of bilateral lower limbs negative for DVT. EKG shows normal sinus rhythm with left axis deviation. Patient has been seen by pulmonary, who are recommending Xarelto for PE and also recommending outpatient PET scan for lung mass. Patient denies diabetes. He has hypertension. He has smoked 1 pack per day for 10-15 years, quit 34 years ago. Review of Systems Completely unremarkable except as mentioned above. All 14 point of review of systems unremarkable. Patient denies any slurred speech facial droop, double vision, loss of vision or blurred vision. Denies any focal numbness tingling, focal weakness. No syncopal spell. No seizure. Past Medical History Past Medical History: Hypertension, Myocardial Infarction ([place]) Additional Past Medical History / Comment(s): Gout Last Myocardial Infarction Date:: History of Any Multi-Drug Resistant Organisms: None Reported Past Surgical History: Appendectomy Additional Past Surgical History / Comment(s): pt states appendectomy 30-40 years ago. pt states he doesn't know when his last [place] was, because he was in [facility] at the time he also said it was about 6 years ago. Past Psychological History: No Psychological Hx Reported Smoking Status: Former smoker Past Alcohol Use History: None Reported Past Drug Use History: None Reported Medications and Allergies Home Medications Medication Instructions Recorded Confirmed Type Allopurinol [Zyloprim] 300 mg PO DAILY 10/09/19 10/09/19 History Aspirin EC [Ecotrin Low Dose] 81 mg PO DAILY 10/09/19 10/09/19 History Omeprazole Magnesium [PriLOSEC OTC] 20 mg PO DAILY 10/09/19 10/09/19 History amLODIPine [Norvasc] 5 mg PO DAILY 10/09/19 10/09/19 History Allergies Allergy/AdvReac Type Severity Reaction Status Date / Time No Known Allergies Allergy Verified 10/09/19 20:34 Physical Examination - Vital Signs Vital Signs: Vital Signs Temp Pulse Pulse Resp BP BP BP 10/10/19 15:00 98.9 F 87 16 149/88 10/10/19 08:11 74 16 10/10/19 07:49 98.1 F 74 16 157/91 10/10/19 03:00 76 10/10/19 02:29 98 F 76 138/78 10/09/19 23:23 163/90 10/09/19 22:05 97.5 F L 86 158/92 10/09/19 21:06 98.4 F 76 18 146/86 10/09/19 19:03 98.8 F 78 18 152/92 BP BP Pulse Ox 10/10/19 15:00 96 10/10/19 08:11 10/10/19 07:49 98 10/10/19 03:00 10/10/19 02:29 98 10/09/19 23:23 135/84 151/82 10/09/19 22:05 97 10/09/19 21:06 98 10/09/19 19:03 91 L Intake and Output 10/10/19 10/10/19 10/10/19 06:59 14:59 22:59 Output Total 1100 1500 Balance -1100 -1500 Output: Urine 1100 1500 Other: Voiding Method Toilet Toilet Toilet # Voids 1 1 On examination patient is an elderly male, in no acute distress. Shauna ent is alert and awake oriented to time place and person. Speech and language functions are normal. Attention and concentration, fund of knowledge is adequate. On cranial nerve examination pupils are round and reacting to light. Visual allen are full. Extraocular muscles are intact with no nystagmus. Face is symmetric, tongue protrudes the midline. Palatal elevation and sensation normal. Hearing and shoulder shrug normal. On muscle strength testing there is no pronator drift and the strength is normal in arms and legs distally and proximally. Reflexes are 1+ and plantars downgoing. Sensory touch is equal. No ataxia for [id number] testing. Tone and bulk of muscles normal. Gait normal. No carotid bruit, S1 and S2 audible. Abdomen soft nontender, chest is clear. Results - Laboratory Findings CBC and BMP: 10/10/19 06:06 10/10/19 06:06 Abnormal Lab Findings: Abnormal Labs 10/09/19 10/10/19 10/10/19 19:27 06:06 06:06 ESR 22 H D-Dimer Glucose 142 H 172 H Creatine Kinase 51 L 10/10/19 06:06 ESR D-Dimer 1.19 H Glucose Creatine Kinase Assessment and Plan Assessment: * Dizziness, with near syncopal spell. * Pulmonary embolism * Lung mass * Obesity. Plan: * Patient had a normal carotid Doppler and computed tomography scan of the head. No further workup indicated. Patient's neurological examination is normal. * Patient has been started on Xarelto for PE. * Patient undergoing placement of event monitor to rule out arrhythmia. * Neurology will sign off. Please call neurology if any other concerns.
[2019-10-11] MEDS: SODIUM CHLORIDE 0.9% 1,000 ML IV SCH (00:30)
[2019-10-11] MEDS: RIVAROXABAN 15 MG TAB PO SCH (06:33)
[2019-10-11 07:16] LABS: Basophils # (A) 0.1 k/uL (0-0.2); Basophils % (A) 1 %; Eosinophils # (A) 0.2 k/uL (0-0.7); Eosinophils % (A) 3 %; HCT 43.9 % (39.0-53.0); HGB 14.8 gm/dL (13.0-17.5); Lymphocytes # (A) 1.9 k/uL (1.0-4.8); Lymphocytes % (A) 29 %; MCH 32.2 pg (25.0-35.0); MCHC 33.7 g/dL (31.0-37.0); MCV 95.3 fL (80.0-100.0); Mean Platelet Volume 6.8; Monocytes # (A) 0.4 k/uL (0-1.0); Monocytes % (A) 6 %; Neutrophils # (A) 3.9 k/uL (1.3-7.7); Neutrophils % (A) 59 %; Platelet Count 336 k/uL (150-450); RDW 12.8 % (11.5-15.5); WBC 6.5 k/uL (3.8-10.6)
[2019-10-11 07:29] LABS: African American GFR (CKD) >90 (>60 ml/min/1.73 sqM); Anion Gap 8 mmol/L; Blood Urea Nitrogen 13 mg/dL (9-20); Calcium 8.8 mg/dL (8.4-10.2); Carbon Dioxide 24 mmol/L (22-30); Chloride 106 mmol/L (98-107); Glucose 162 mg/dL (74-99); Non-African American GFR(CKD) 89 (>60 ml/min/1.73 sqM); Potassium 4.4 mmol/L (3.5-5.1); Sodium 138 mmol/L (137-145)
[2019-10-11] MEDS: allopurinoL 300 MG TAB PO SCH (09:30)
[2019-10-11] MEDS: ASPIRIN 81 MG PO SCH (09:30)
[2019-10-11] MEDS: PANTOPRAZOLE 40 MG/10 ML VIAL IVP SCH (09:31)
[2019-10-11] MEDS: amLODIPine 5 MG TAB PO SCH (09:31)
[2019-10-11 10:38] VITALS: BP 165/96; PULSE 73; RESP 14; TEMP 98
--- NOTE | 2019-10-11 11:27 | P.PN ---
Subjective Progress Note Date: 10/11/19 Principal diagnosis: Dizziness This is a very pleasant 69-year-old gentleman who follows with Dr. Elliott as his primary care provider. He has a history of hypertension, gastroesophageal reflux disease, gout. Over the past couple of weeks he was having complaints of increasing weakness and fatigue. He felt he may have developed heat stroke. 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 He was feeling unsteady and feeling as though he may pass out. He's also had issues with nausea. He did have some diaphoresis as well. Computed tomography scan of the brain revealed no acute intracranial abnormality. Chest x-ray revealed no acute cardiopulmonary process. EKG revealed normal sinus rhythm. Echocardiogram revealed preserved left ventricular systolic function with ejection fraction 50-50%. No significant valvular abnormalities. Carotid Dopplers revealed no significant hemodynamic stenosis. White count 5.8. Hemoglobin 13.8. Platelets 339. D- dimer 1.19. Sodium 137. Potassium 4.3. Bicarb 25. Creatinine 0.97. Blood glucose 172. Troponins negative 3. Amylase 49. Lipase 116. LDH 447. Creatinine kinase 51. Dopplers of the lower extremity were negative for DVT. CT angiogram revealed a filling defect within the left upper lobe pulmonary arterial branch suspicious for a small pulmonary embolism. There was incidental finding of a mass in the right upper lobe suspicious for malignancy measuring 1.4 cm. Additional 2 mm nodule lateral segment right upper lobe. Evidence of COPD. We're consulted for the same. He is seen today in consultation on the cardiac observation unit. He is awake and alert in no acute distress. Sitting up in a chair at the bedside. Maintaining O2 saturations in the upper 90s on room air. He's been having afebrile. Hemodynamically stable. No current chest pain or palpitations. No worsening shortness of breath. No recent weight loss. No hemoptysis. The patient has remote history of chronic tobacco dependence however quit over 30 years ago. The patient is seen today 10/11/2019 in follow-up on the cardiac observation unit. He is resting comfortably in bed. Awake and alert in no acute distress. No shortness of breath, cough or congestion. No hemoptysis. No further dizziness or lightheadedness. He is maintaining good O2 saturations in the mid 90s on room air. He's been afebrile. White count 6.5. Hemoglobin 14.8. Sodium 138. Potassium 4.4. Creatinine 0.84. He has been initiated on Xarelto. Objective - Vital Signs Vital signs: Vital Signs Temp 98.0 F 10/11/19 07:41 Pulse 73 10/11/19 09:00 Resp 14 10/11/19 09:00 BP 165/96 10/11/19 07:41 Pulse Ox 94 L 10/11/19 07:41 Intake & Output 10/10/19 10/11/19 10/11/19 18:59 06:59 18:59 Intake Total 100 240 Output Total 1500 Balance -1500 100 240 Intake: Oral 100 240 Output: Urine 1500 Other: Voiding Method Toilet Toilet Toilet # Voids 1 2 - Exam GENERAL EXAM: Alert, pleasant 69-year-old gentleman, on room air, comfortable in no apparent distress. HEAD: Normocephalic. EYES: Normal reaction of pupils, equal size. NOSE: Clear with pink turbinates. THROAT: No erythema or exudates. NECK: No masses, no JVD. CHEST: No chest wall deformity. LUNGS: Equal air entry with no crackles, wheeze, rhonchi or dullness. CVS: S1 and S2 normal with no audible murmur, regular rhythm. ABDOMEN: No hepatosplenomegaly, normal bowel sounds, no guarding or rigidity. SPINE: No scoliosis or deformity SKIN: No rashes CENTRAL NERVOUS SYSTEM: No focal deficits, tone is normal in all 4 extremities. EXTREMITIES: There is no peripheral edema. No clubbing, no cyanosis. Peripheral pulses are intact. - Labs CBC & Chem 7: 10/11/19 06:46 10/11/19 06:46 Labs: Abnormal Lab Results - Last 24 Hours (Table) 10/11/19 Range/Units 06:46 Glucose 162 H (74-99) mg/dL Assessment and Plan Assessment: 1 Dizziness with nausea of unclear etiology. Doubt related to a possible small pulmonary emboli in the left upper lobe 2 1.4 cm mass in the right upper lobe suspicious for malignancy 3 Remote history of chronic tobacco dependence 4 Hypertension 5 History of gout 6 History of coronary artery disease, troponins negative, preserved left ventricular systolic function Plan: The patient was seen and evaluated by Dr. Julio Mariscal for discharge from the pulmonary standpoint Initiated on Xarelto He will need follow-up regarding the suspicious right upper lobe mass We'll plan for a PET scan in the outpatient setting and possible navigational bronchoscopy with biopsy Follow-up in our office in 1-2 weeks' time I, the cosigning physician, performed a history & physical examination of the patient. Lungs sounds are clear. Maintaining good O2 saturations in the 90s on room air. I discussed the assessment and plan of care with my nurse practitioner, Magdalena Hutchison. I attest to the above consultation as dictated by her.
--- NOTE | 2019-10-11 13:02 | P.PN ---
Subjective HISTORY OF PRESENTING ILLNESS This is a pleasant 69-year-old male past medical history significant for coronary artery disease according to the patient he had a cardiac catheterization in [place] about 6 years ago he was told he had a myocardial infarction but had collateral circulation. He also has been diagnosed with hypertension in the past. 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 computed tomography scan performed yesterday revealed evidence of small pulmonary embolism. He has been seen by pulmonology and started on Xarelto. There was also a pulmonary nodule that they plan to follow as an outpatient. Bilateral lower extremity Doppler was negative for DVT. He is seen and examined resting comfortably sitting up in bed in no acute distress. He states he has been up and ambulating to the bathroom and has had no symptoms of dizziness. He denies chest pain, shortness of breath or palpitations. Blood pressure 165/96 heart rate 73 afebrile maintaining oxygen saturation on nasal cannula. Laboratory data reviewed, CBC unremarkable, sodium 138, potassium 4.4, creatinine 0.84. Echocardiogram reveals preserved LV systolic function with ejection fraction 50-55%, mild concentric LVH, mild MR and mild TR. PHYSICAL EXAMINATION CONSTITUTIONAL: No apparent distress. Obese. HEENT: Head is normocephalic. Pupils are equal, round. Sclerae anicteric. Mucous membranes of the mouth are moist. No JVD. No carotid bruit. CHEST EXAMINATION: Lungs are clear to auscultation. No chest wall tenderness is noted on palpation or with deep breathing. HEART EXAMINATION: Regular rate and rhythm. S1, S2 heard. No murmurs, gallops or rub. EXTREMITIES: 2+ peripheral pulses, no lower extremity edema and no calf tenderness. ASSESSMENT Dizziness Acute pulmonary embolism History of myocardial infarction Hypertension Obesity, BMI 38 PLAN Stable from a cardiac perspective. Recommend outpatient follow-up and stress testing in 3-4 weeks. Nurse Practitioner note has been reviewed, I agree with a documented findings and plan of care. Patient was seen and examined. Objective - Vital Signs Vital signs: Vital Signs Temp 98.0 F 10/11/19 07:41 Pulse 73 10/11/19 09:00 Resp 14 10/11/19 09:00 BP 165/96 10/11/19 07:41 Pulse Ox 94 L 10/11/19 07:41 Intake & Output 10/10/19 10/11/19 10/11/19 18:59 06:59 18:59 Intake Total 100 240 Output Total 1500 Balance -1500 100 240 Intake: Oral 100 240 Output: Urine 1500 Other: Voiding Method Toilet Toilet Toilet # Voids 1 2 - Labs CBC & Chem 7: 10/11/19 06:46 10/11/19 06:46 Labs: Abnormal Lab Results - Last 24 Hours (Table) 10/11/19 Range/Units 06:46 Glucose 162 H (74-99) mg/dL
--- NOTE | 2019-10-12 05:09 | DS ---
DISCHARGE SUMMARY DATE OF SERVICE: 10/11/2019 FINAL DIAGNOSES: 1. Dizziness and nausea, possible acute gastritis, improved. 2. Small pulmonary embolism in the left upper lobe pulmonary artery branch. 3. Mass in the right upper lobe suspicious for malignancy measuring 1.4 cm; in addition, a 2 mm nodule in the lateral segment of the right upper lobe. 4. COVID-19 ruled out. 5. Hypertension. 6. History of myocardial infarction. 7. History of appendectomy. 8. Remote history of nicotine dependence. 9. Obesity with body mass index of 38.7. 10.Dehydration, present on admission. 11.History of recent heat exhaustion. DISCHARGE DISPOSITION: The patient will be discharged in stable condition with guarded prognosis. HISTORY OF PRESENT ILLNESS: This 69-year-old gentleman with a past medical history of multiple medical problems admitted with dizziness and nausea with acute gastritis. Further evaluation showed possibility of pulmonary embolism and as well as mass in the right upper lobe. Dr. Kim recommended outpatient followup and as well as further evaluation including PET scan. Otherwise, Neurology saw the patient. Patient improved significantly. On exam, vitals are stable. CARDIOVASCULAR: S1, S2 muffled. ABDOMEN: Soft. NERVOUS SYSTEM: No focal deficits. D-Dimer was 1.19. DISCHARGE ADVICE: 1. Diet is cardiac diet. 2. Activity limited until followup. 3. Follow up with Dr. Frey in 2 to 3 days. 4. Follow up with Dr. Kim as recommended. 5. Follow up with Cardiology as recommended. Medications are: 1. Ecotrin 81 mg p.o. daily. 2. Norvasc 5 mg p.o. daily. 3. Zyloprim 300 mg p.o. daily. 4. Protonix 40 mg p.o. b.i.d. 5. Xarelto starter pack 15 mg p.o. b.i.d. for 3 weeks and then 20 mg p.o. daily. Once again, the patient will be discharged in a stable condition with guarded prognosis. MMODL / IJN: [id number] /
[2019-10-12] MEDS ORDERED: PANTOPRAZOLE 40 MG TABLET PO SCH (07:30)
== END 2019-10-11 13:17 | disposition home or self-care (01) ==
LOC: EC 19:00 → 3NCARDOBS 20:32 → OBSVTOIN 10-10 15:10 → INTOOBSV 10-10 15:10 → UNDODISIN 10-11 13:17
PROVIDERS: ADMIT Hospitalist; ATTEND Hospitalist
DX: R42 Dizziness and giddiness (principal); R11.0 Nausea; R55 Syncope and collapse; R61 Generalized hyperhidrosis; I26.99 Other pulmonary embolism without acute cor pulmonale; R91.1 Solitary pulmonary nodule; Z20.828 Contact with and (suspected) exposure to other viral communicable diseases; I10 Essential (primary) hypertension; I25.2 Old myocardial infarction; E66.01 Morbid (severe) obesity due to excess calories; Z68.38 Body mass index [BMI] 38.0-38.9, adult; E86.0 Dehydration; R91.8 Other nonspecific abnormal finding of lung field; K21.9 Gastro-esophageal reflux disease without esophagitis; M10.9 Gout, unspecified; I25.10 Atherosclerotic heart disease of native coronary artery without angina pectoris; Z90.49 Acquired absence of other specified parts of digestive tract; Z79.899 Other long term (current) drug therapy; Z79.82 Long term (current) use of aspirin; Z87.891 Personal history of nicotine dependence
CPT/HCPCS: 96361; 96372; 96374; 96376 ×2; 99285; 36415; 93005; 85379; 80053; 80048 ×2; 85652; 82150; 82550; 83615; 83690; 83735; 84550; 84484 ×2; 85025 ×3; 85610; 85730; 86140; 81003; 71046; 93880; 93970; 70450; 71275; G0378 ×3; C8929; U0003; J1644; J2785; C9113 ×2; Q9950; Q9967; 93306

== ENCOUNTER → 2019-10-26 | Outpatient (CLI) | payer MEDICARE ==
--- NOTE | 2019-10-29 07:48 | PE ---
Nuclear medicine PET/CT HISTORY: Lung carcinoma, solitary pulmonary nodule, initial Patient received 10 mCi F-18 FDG intravenously in delayed scanning was performed from the skull base to the mid thighs. Localization and attenuation correction CT scan was performed. Correlation to CT scan of the chest dated 10/10/2019 Chest and neck: There is no cervical or supraclavicular adenopathy. Superior mediastinal adenopathy w ith associated hypermetabolic uptake is noted, superior mediastinal node anterior to the innominate v ein shows uptake. There is right hilar uptake present, right hilar adenopathy. Left upper lobe lung n odule shows associated uptake. There are coronary artery calcifications present. Emphysematous change s are present within the lungs, there is no pleural or pericardial effusion. ABDOMEN: There is no evident adrenal mass or liver mass. There is no ascites. There is a node present in the portal region which shows some mild uptake. Aorta shows atheromatous change. There is a small hiatal hernia. Upper pole the right kidney shows an exophytic probable cyst. Osseous structures are within normal limits. IMPRESSION: Findings compatible with lung carcinoma as described.
== END | disposition home or self-care (01) ==
LOC: RADPETMAIN 15:36
PROVIDERS: ATTEND Family Medicine
DX: R91.8 Other nonspecific abnormal finding of lung field (principal)
CPT/HCPCS: 78815; A9552

== ENCOUNTER → 2020-01-11 | Outpatient (CLI) | payer MEDICARE ==
[2020-01-11 10:29] LABS: African American GFR (CKD) >90 (>60 ml/min/1.73 sqM); Blood Urea Nitrogen 13 mg/dL (9-20); Non-African American GFR(CKD) 80 (>60 ml/min/1.73 sqM)
--- NOTE | 2020-01-11 12:36 | CT ---
EXAMINATION TYPE: CT chest w con DATE OF EXAM: 01/11/2020 COMPARISON: Prior chest CT dated 10/10/2019, chest x-ray 12/18/2019, PET/CT 10/26/2019 HISTORY: Abnormal lung field, prior CT and PET CT DLP: 660.8 mGycm Automated exposure control for dose reduction was used. CONTRAST: CT scan of the chest is performed with IV Contrast, patient injected with 100 mL of Isovue 300. FINDINGS: LUNGS: The right upper lobe lung nodule is decreased slightly in size measuring only approximately 1 cm down from approximately 16 to 17 mm. On axial image 14 in the right upper lobe there is a 8mm nodu le which was not seen on prior exam, irregular margins are present There is no pleural effusion or pn eumothorax seen. The tracheobronchial tree is patent. Emphysematous changes are again noted. There i s some pleural thickening the right upper lobe, axial image #17 not seen on prior exams MEDIASTINUM: There are no greater than 1 cm hilar or mediastinal lymph nodes. Mild prominence of pul monary artery, consider pulmonary artery hypertension, there are coronary artery calcifications. No p ericardial effusion is seen. AORTA: No additional significant abnormality is seen. OTHER: No additional significant abnormality is seen. IMPRESSION: There is decreased size of the right upper lobe pulmonary nodule, improvement in mediast inal and right hilar adenopathy. New subcentimeter nodule right upper lobe.
== END | disposition home or self-care (01) ==
LOC: RADCTMAIN 09:36
PROVIDERS: ATTEND Internal Medicine
DX: R91.1 Solitary pulmonary nodule (principal); R59.0 Localized enlarged lymph nodes
CPT/HCPCS: 82565; 84520; 71260; 36415; Q9967

== ENCOUNTER 2020-02-23 12:48 | Inpatient (IN) | payer MEDICARE ==
[2020-02-23 13:13] LABS: Glucose,Whole Blood 343 mg/dL (75-99)
[2020-02-23] MEDS ORDERED: SODIUM CHLORIDE 0.9% 500 ML 500 ML IV STA (13:35)
[2020-02-23] MEDS ORDERED: SODIUM CHLORIDE 0.9% 1,000 ML IV STA (13:35)
--- NOTE | 2020-02-23 13:56 | ED ---
General Adult HPI - General Chief complaint: Weakness Stated complaint: Weakness Time Seen by Provider: 02/23/20 13:26 Source: patient, EMS, RN notes reviewed, old records reviewed Mode of arrival: EMS Limitations: no limitations - History of Present Illness Initial comments: 69-year-old male with 1 week of fatigue, generalized weakness. States he has been sleeping upwards of 20 hours a day. He has had a poor appetite and has not had much to eat. Denies cough or URI symptoms. Denies dysuria or hematuria. Denies abdominal pain. Denies chest pain. He was noted to have blood sugar over 400 by EMS. He does not have history of diabetes. Not currently on steroids. He does report fever over this time. - Related Data Home Medications Medication Instructions Recorded Confirmed Allopurinol [Zyloprim] 300 mg PO DAILY 10/09/19 02/23/20 amLODIPine [Norvasc] 5 mg PO BID 10/09/19 02/23/20 Metoprolol Succinate [Toprol XL] 50 mg PO DAILY 02/23/20 02/23/20 Naproxen Sodium [Naprelan] 500 mg PO BID PRN 02/23/20 02/23/20 Omeprazole 20 mg PO DAILY 02/23/20 02/23/20 Rivaroxaban [Xarelto] 20 mg PO DAILY 02/23/20 02/23/20 Allergies Allergy/AdvReac Type Severity Reaction Status Date / Time No Known Allergies Allergy Verified 02/23/20 15:10 Review of Systems ROS Statement: Those systems with pertinent positive or pertinent negative responses have been documented in the HPI. ROS Other: All systems not noted in ROS Statement are negative. Past Medical History Past Medical History: Hypertension, Myocardial Infarction (UT) Additional Past Medical History / Comment(s): Gout Last Myocardial Infarction Date:: History of Any Multi-Drug Resistant Organisms: None Reported Past Surgical History: Appendectomy Additional Past Surgical History / Comment(s): pt states appendectomy 30-40 years ago. pt states he doesn't know when his last UT was, because he was in custodial at the time he also said it was about 6 years ago. Past Psychological History: No Psychological Hx Reported Smoking Status: Former smoker Past Alcohol Use History: None Reported Past Drug Use History: None Reported General Exam Limitations: no limitations General appearance: alert, in no apparent distress Head exam: Present: atraumatic, normocephalic Eye exam: Present: normal appearance ENT exam: Present: normal exam. Absent: mucous membranes dry Neck exam: Present: normal inspection Respiratory exam: Present: normal lung sounds bilaterally. Absent: respiratory distress, wheezes Cardiovascular Exam: Present: regular rate, normal rhythm GI/Abdominal exam: Present: soft. Absent: distended, tenderness, guarding, rebound Extremities exam: Present: normal inspection, normal capillary refill. Absent: pedal edema Neurological exam: Present: alert, oriented X3, CN II-XII intact. Absent: motor sensory deficit Psychiatric exam: Present: normal affect, normal mood Skin exam: Present: warm, dry, intact. Absent: cyanosis, diaphoretic Course Vital Signs 02/23/20 02/23/20 12:53 14:38 Temperature 99.7 F H Pulse Rate 90 87 Respiratory 18 18 Rate Blood Pressure 145/83 150/94 O2 Sat by Pulse 95 96 Oximetry EKG Findings - EKG Comments: EKG Findings:: EKG: Normal sinus rhythm, low voltage, rate of 89, WV interval 150, QRS duration 86, QTC [address] segment elevation. Medical Decision Making - Medical Decision Making 69-year-old male with generalized weakness, fatigue, hyperglycemia. No cough or dyspnea. Patient does have coronavirus this was suspected given his symptoms. He is hyperglycemic with initial blood sugar in the 400s. This is down trending with insulin and IV fluids. Patient does not feel that he can manage at home given the level of weakness and fatigue. His chest x-ray is negative for focal pneumonia. He will be admitted for rehydration, glucose monitoring. Case discussed with Dr. Kaur who will admit. - Lab Data Result diagrams: 02/23/20 13:35 02/23/20 13:35 Lab Results 02/23/20 02/23/20 02/23/20 Range/Units 13:01 13:35 13:35 WBC 3.9 (3.8-10.6) k/uL RBC 4.52 (4.30-5.90) m/uL Hgb 14.1 (13.0-17.5) gm/dL Hct 40.7 (39.0-53.0) % MCV 90.2 (80.0-100.0) fL MCH 31.1 (25.0-35.0) pg MCHC 34.5 (31.0-37.0) g/dL RDW 12.0 (11.5-15.5) % Plt Count 166 (150-450) k/uL MPV 7.3 Neutrophils % 73 % Lymphocytes % 18 % Monocytes % 6 % Eosinophils % 0 % Basophils % 2 % Neutrophils # 2.8 (1.3-7.7) k/uL Lymphocytes # 0.7 L (1.0-4.8) k/uL Monocytes # 0.2 (0-1.0) k/uL Eosinophils # 0.0 (0-0.7) k/uL Basophils # 0.1 (0-0.2) k/uL PT 11.2 (9.0-12.0) sec INR 1.1 (<1.2) APTT 29.2 (22.0-30.0) sec Sodium (137-145) mmol/L Potassium (3.5-5.1) mmol/L Chloride (98-107) mmol/L Carbon Dioxide (22-30) mmol/L Anion Gap mmol/L BUN (9-20) mg/dL Creatinine (0.66-1.25) mg/dL Est GFR (CKD-EPI)AfAm (>60 ml/min/1.73 sqM) Est GFR (CKD-EPI)NonAf (>60 ml/min/1.73 sqM) Glucose (74-99) mg/dL POC Glucose (mg/dL) 343 H (75-99) mg/dL POC Glu Egyptologist ID Vivi Ordoñez Plasma Lactic Acid Fredy (0.7-2.0) mmol/L Calcium (8.4-10.2) mg/dL Magnesium (1.6-2.3) mg/dL Total Bilirubin (0.2-1.3) mg/dL AST (17-59) U/L ALT (4-49) U/L Alkaline Phosphatase (38-126) U/L Troponin I (0.000-0.034) ng/mL Total Protein (6.3-8.2) g/dL Albumin (3.5-5.0) g/dL Acetone, Qual (Negative) Coronavirus (PCR) (Not Detectd) 02/23/20 02/23/20 02/23/20 Range/Units 13:35 13:35 13:35 WBC (3.8-10.6) k/uL RBC (4.30-5.90) m/uL Hgb (13.0-17.5) gm/dL Hct (39.0-53.0) % MCV (80.0-100.0) fL MCH (25.0-35.0) pg MCHC (31.0-37.0) g/dL RDW (11.5-15.5) % Plt Count (150-450) k/uL MPV Neutrophils % % Lymphocytes % % Monocytes % % Eosinophils % % Basophils % % Neutrophils # (1.3-7.7) k/uL Lymphocytes # (1.0-4.8) k/uL Monocytes # (0-1.0) k/uL Eosinophils # (0-0.7) k/uL Basophils # (0-0.2) k/uL PT (9.0-12.0) sec INR (<1.2) APTT (22.0-30.0) sec Sodium 131 L (137-145) mmol/L Potassium 3.9 (3.5-5.1) mmol/L Chloride 103 (98-107) mmol/L Carbon Dioxide 20 L (22-30) mmol/L Anion Gap 8 mmol/L BUN 15 (9-20) mg/dL Creatinine 0.93 (0.66-1.25) mg/dL Est GFR (CKD-EPI)AfAm >90 (>60 ml/min/1.73 sqM) Est GFR (CKD-EPI)NonAf 83 (>60 ml/min/1.73 sqM) Glucose 331 H (74-99) mg/dL POC Glucose (mg/dL) (75-99) mg/dL POC Glu Egyptologist ID Plasma Lactic Acid Fredy 2.0 (0.7-2.0) mmol/L Calcium 7.5 L (8.4-10.2) mg/dL Magnesium 1.5 L (1.6-2.3) mg/dL Total Bilirubin 0.6 (0.2-1.3) mg/dL AST 30 (17-59) U/L ALT 17 (4-49) U/L Alkaline Phosphatase 53 (38-126) U/L Troponin I <0.012 (0.000-0.034) ng/mL Total Protein 6.1 L (6.3-8.2) g/dL Albumin 3.3 L (3.5-5.0) g/dL Acetone, Qual Negative (Negative) Coronavirus (PCR) (Not Detectd) 02/23/20 Range/Units 14:06 WBC (3.8-10.6) k/uL RBC (4.30-5.90) m/uL Hgb (13.0-17.5) gm/dL Hct (39.0-53.0) % MCV (80.0-100.0) fL MCH (25.0-35.0) pg MCHC (31.0-37.0) g/dL RDW (11.5-15.5) % Plt Count (150-450) k/uL MPV Neutrophils % % Lymphocytes % % Monocytes % % Eosinophils % % Basophils % % Neutrophils # (1.3-7.7) k/uL Lymphocytes # (1.0-4.8) k/uL Monocytes # (0-1.0) k/uL Eosinophils # (0-0.7) k/uL Basophils # (0-0.2) k/uL PT (9.0-12.0) sec INR (<1.2) APTT (22.0-30.0) sec Sodium (137-145) mmol/L Potassium (3.5-5.1) mmol/L Chloride (98-107) mmol/L Carbon Dioxide (22-30) mmol/L Anion Gap mmol/L BUN (9-20) mg/dL Creatinine (0.66-1.25) mg/dL Est GFR (CKD-EPI)AfAm (>60 ml/min/1.73 sqM) Est GFR (CKD-EPI)NonAf (>60 ml/min/1.73 sqM) Glucose (74-99) mg/dL POC Glucose (mg/dL) (75-99) mg/dL POC Glu Egyptologist ID Plasma Lactic Acid Fredy (0.7-2.0) mmol/L Calcium (8.4-10.2) mg/dL Magnesium (1.6-2.3) mg/dL Total Bilirubin (0.2-1.3) mg/dL AST (17-59) U/L ALT (4-49) U/L Alkaline Phosphatase (38-126) U/L Troponin I (0.000-0.034) ng/mL Total Protein (6.3-8.2) g/dL Albumin (3.5-5.0) g/dL Acetone, Qual (Negative) Coronavirus (PCR) Detected A (Not Detectd) Disposition Clinical Impression: Dehydration, Hyperglycemia, COVID-19 Disposition: ADMITTED IP TO THIS [facility] Condition: Stable Is patient prescribed a controlled substance at d/c from ED?: No Referrals: Sandy Frey DO [Primary Care Provider] - 1-2 days Decision to Admit Reason: Admit from EC Decision Date: 02/23/20 Decision Time: 15:37
[2020-02-23 14:10] LABS: Basophils # (A) 0.1 k/uL (0-0.2); Basophils % (A) 2 %; Eosinophils % (A) 0 %; HCT 40.7 % (39.0-53.0); HGB 14.1 gm/dL (13.0-17.5); Lymphocytes # (A) 0.7 k/uL (1.0-4.8); Lymphocytes % (A) 18 %; MCH 31.1 pg (25.0-35.0); MCHC 34.5 g/dL (31.0-37.0); MCV 90.2 fL (80.0-100.0); Mean Platelet Volume 7.3; Monocytes # (A) 0.2 k/uL (0-1.0); Monocytes % (A) 6 %; Neutrophils # (A) 2.8 k/uL (1.3-7.7); Neutrophils % (A) 73 %; Platelet Count 166 k/uL (150-450); RBC 4.52 m/uL (4.30-5.90); WBC 3.9 k/uL (3.8-10.6)
[2020-02-23 14:18] LABS: INR 1.1 (<1.2); Partial Thromboplastin Time 29.2 sec (22.0-30.0); Prothrombin Time 11.2 sec (9.0-12.0)
[2020-02-23 14:25] LABS: ALT 17 U/L (4-49); AST 30 U/L (17-59); African American GFR (CKD) >90 (>60 ml/min/1.73 sqM); Albumin 3.3 g/dL (3.5-5.0); Alkaline Phosphatase 53 U/L (38-126); Anion Gap 8 mmol/L; Blood Urea Nitrogen 15 mg/dL (9-20); Calcium 7.5 mg/dL (8.4-10.2); Carbon Dioxide 20 mmol/L (22-30); Chloride 103 mmol/L (98-107); Glucose 331 mg/dL (74-99); Magnesium 1.5 mg/dL (1.6-2.3); Non-African American GFR(CKD) 83 (>60 ml/min/1.73 sqM); Sodium 131 mmol/L (137-145); Total Bilirubin 0.6 mg/dL (0.2-1.3); Total Protein 6.1 g/dL (6.3-8.2)
[2020-02-23 14:26] LABS: Potassium 3.9 mmol/L (3.5-5.1)
--- NOTE | 2020-02-23 14:30 | XR ---
EXAMINATION TYPE: XR chest 2V DATE OF EXAM: 02/23/2020 COMPARISON: 12/18/2019 HISTORY: Weakness TECHNIQUE: 2 views FINDINGS: Heart and mediastinum are normal. Lungs are clear. Diaphragm is normal. Bony thorax is norm al. There are chest leads. IMPRESSION: Normal chest. Normal heart. No change.
[2020-02-23] MEDS ORDERED: MAGNESIUM SULFATE-D5W PMX 1 GM in DEXTROSE/WATER 1 100ML.BAG IVPB ONE (14:38)
[2020-02-23] MEDS ORDERED: INSULIN REGULAR 100 UNIT/ML VIAL IV ONE (15:22)
[2020-02-23] MEDS ORDERED: NALOXONE 0.4 MG/ML 1 ML VIAL IV PRN (15:32)
[2020-02-23 15:34] LABS: Appearance,Urine Clear (Clear); Bilirubin,Urine Negative (Negative); Blood,Urine Trace (Negative); Color,Urine Yellow; Glucose,Urine (UA) 4+ (Negative); Hyaline Casts,Urine 1 /lpf (0-2); Leukocyte Esterase,Urine Negative (Negative); Mucus,Urine Rare /hpf; Nitrite,Urine Negative (Negative); PH, Urine 5.5 (5.0-8.0); Protein,Urine 1+ (Negative); RBC,Urine 2 /hpf (0-5); Specific Gravity,Urine 1.038 (1.001-1.035); Urobilinogen,Urine <2.0 mg/dL (<2.0); WBC,Urine <1 /hpf (0-5)
[2020-02-23 15:41] LABS: Ketones,Urine 2+ (Negative)
[2020-02-23] MEDS ORDERED: SODIUM CHLORIDE 0.9% 1,000 ML IV SCH (15:45)
[2020-02-23] MEDS: ACETAMINOPHEN TAB 325 MG TAB PO PRN (21:18)
[2020-02-23] MEDS ORDERED: NAPROXEN 250 MG TAB PO PRN (23:05)
--- NOTE | 2020-02-23 23:46 | P.HPIM ---
History of Present Illness H&P Date: 02/23/20 Chief Complaint: Fatigue and generalized weakness Mr. Davis is a 69-year-old male, who is a patient of Dr. Frey with a past medical history of hypertension,OR coming in with a chief complaint of fatigue and generalized weakness that have been ongoing for past 1 week. Patient states that he has been having poor appetite loss of smell and loss of taste for the past 1 week. He states that he has been sleeping for more than 20 hours a day. Patient denies having any cough or difficulty in breathing. He denies having any chest pain or palpitations. He denies having any dysuria or hematuria. Patient denies having any history of diabetes but his blood sugars are in 300s to 400s. In the emergency room patient had a chest x-ray showing no acute cardiopulmonary process and an EKG showing normal sinus rhythm. He had labs done showing white count of 3.9, hemoglobin 14.4, platelets 166. Sodium 131, potassium 3.9, chloride. BUN 15, creatinine 0.93 C-reactive protein 59, albumin 3.3 coronavirus PCR positive. Review of Systems Constitutional: + ve for generalized weakness HEENT: Denies blurred vision, vision changes, or eye pain. GI: Patient denied nausea vomiting and diarrhea and abdominal pain. Cardiovascular: Patient denies any chest pain or short of breath no palpitations. Respiratory: patient denied any cough or sputum production. No shortness of breath Neurologic: Patient denied any numbness or tingling headache. Musculoskeletal: myalgia Skin: No rash Psychiatric: No anxiety or depression Endocrine: No heat or cold intolerance. Genitourinary: No dysuria or hematuria. All other 14 point ROS negative except the above Past Medical History Past Medical History: Hypertension, Myocardial Infarction ([place]) Additional Past Medical History / Comment(s): Gout Last Myocardial Infarction Date:: History of Any Multi-Drug Resistant Organisms: None Reported Past Surgical History: Appendectomy Additional Past Surgical History / Comment(s): pt states appendectomy 30-40 years ago. pt states he doesn't know when his last OR was, because he was in [place] at the time he also said it was about 6 years ago. Past Psychological History: No Psychological Hx Reported Smoking Status: Former smoker Past Alcohol Use History: None Reported Past Drug Use History: None Reported Medications and Allergies Home Medications Medication Instructions Recorded Confirmed Type Allopurinol [Zyloprim] 300 mg PO DAILY 10/09/19 02/23/20 History amLODIPine [Norvasc] 5 mg PO BID 10/09/19 02/23/20 History Metoprolol Succinate [Toprol XL] 50 mg PO DAILY 02/23/20 02/23/20 History Naproxen Sodium [Naprelan] 500 mg PO BID PRN 02/23/20 02/23/20 History Omeprazole 20 mg PO DAILY 02/23/20 02/23/20 History Rivaroxaban [Xarelto] 20 mg PO DAILY 02/23/20 02/23/20 History Allergies Allergy/AdvReac Type Severity Reaction Status Date / Time No Known Allergies Allergy Verified 02/23/20 15:10 Physical Exam Vitals: Vital Signs Temp Pulse Pulse Resp BP BP Pulse Ox 02/23/20 21:50 101.4 F H 85 142/79 93 L 02/23/20 21:16 102.8 F H 02/23/20 21:00 87 16 137/71 92 L 02/23/20 20:11 16 02/23/20 14:38 87 18 150/94 96 02/23/20 12:53 99.7 F H 90 18 145/83 95 Intake and Output 02/23/20 02/23/20 02/24/20 14:59 22:59 06:59 Other: Weight 113.398 kg PHYSICAL EXAMINATION: Patient is lying in the bed comfortably, no acute distress, awake alert and oriented. HEENT: Normocephalic. Neck is supple. Pupils reactive. Nostrils clear. Oral cavity is moist. Neck reveals no JVD, carotid bruits, or thyromegaly. CHEST EXAMINATION: Trachea is central. Symmetrical expansion. Lung allen clear to auscultation and percussion. CARDIAC: Normal S1, S2 with no gallops. No murmurs ABDOMEN: Soft. Bowel sounds normal. No organomegaly. No abdominal bruits. Extremities: reveal no edema. No clubbing or cyanosis Neurologically awake, alert, oriented x3 with well-coordinated movements. No focal deficits noted Skin: No rash or skin lesions. Psychiatric: Coperative. normal mood an effect Musculoskeletal: No joint swelling or deformity. Normal range of motion. Results CBC & Chem 7: 02/23/20 13:35 02/23/20 13:35 Labs: Abnormal Lab Results - Last 24 Hours (Table) 02/23/20 02/23/20 02/23/20 Range/Units 13:01 13:35 13:35 Lymphocytes # 0.7 L (1.0-4.8) k/uL Sodium (137-145) mmol/L Carbon Dioxide (22-30) mmol/L Glucose (74-99) mg/dL POC Glucose (mg/dL) 343 H (75-99) mg/dL Calcium (8.4-10.2) mg/dL Magnesium (1.6-2.3) mg/dL C-Reactive Protein (<10.0) mg/L Total Protein (6.3-8.2) g/dL Albumin (3.5-5.0) g/dL Ur Specific [place] 1.038 H (1.001-1.035) Urine Protein 1+ H (Negative) Urine Glucose (UA) 4+ H (Negative) Urine Ketones 2+ H (Negative) Urine Blood Trace H (Negative) Urine Mucus Rare H (None) /hpf Coronavirus (PCR) (Not Detectd) 02/23/20 02/23/20 02/23/20 Range/Units 13:35 13:35 14:06 Lymphocytes # (1.0-4.8) k/uL Sodium 131 L (137-145) mmol/L Carbon Dioxide 20 L (22-30) mmol/L Glucose 331 H (74-99) mg/dL POC Glucose (mg/dL) (75-99) mg/dL Calcium 7.5 L (8.4-10.2) mg/dL Magnesium 1.5 L (1.6-2.3) mg/dL C-Reactive Protein 59.0 H (<10.0) mg/L Total Protein 6.1 L (6.3-8.2) g/dL Albumin 3.3 L (3.5-5.0) g/dL Ur Specific [place] (1.001-1.035) Urine Protein (Negative) Urine Glucose (UA) (Negative) Urine Ketones (Negative) Urine Blood (Negative) Urine Mucus (None) /hpf Coronavirus (PCR) Detected A (Not Detectd) Assessment and Plan Assessment: ASSESSMENT Fatigue generalized weakness secondary to Covid infection Hyperglycemia Hyponatremia due to dehydration Hypomagnesemia Elevated inflammatory markers Hypertension History of OR PLAN: We will start the patient on Decadron and remdesivir. As the patient's blood sugars have been running high, will add moderate sliding scale of insulin. Pulmonary consult will be obtained. Patient on Xarelto, his home medication for DVT prophylaxis. Protonix for GI prophylaxis. Tylenol for fevers. Continue with the rest of his current medication regimen. Overall prognosis is guarded. Further recommendations depending on the progress of the patient.
[2020-02-24 07:20] LABS: Glucose,Whole Blood 248 mg/dL (75-99)
[2020-02-24] MEDS: allopurinoL 300 MG TAB PO SCH (07:34)
[2020-02-24] MEDS: PANTOPRAZOLE 40 MG TABLET PO SCH (07:35)
[2020-02-24] MEDS: amLODIPine 5 MG TAB PO SCH ×2 (07:35→20:13)
[2020-02-24] MEDS: METOPROLOL SUCCINATE (ER) 50 MG TAB.ER.24H PO SCH (07:35)
[2020-02-24] MEDS: INSULIN ASPART (NovoLOG) 100 UNIT/ML VIAL SQ SCH ×4 (07:38→20:12)
[2020-02-24] MEDS: ACETAMINOPHEN TAB 325 MG TAB PO PRN ×2 (10:16→17:02)
[2020-02-24 11:49] LABS: Glucose,Whole Blood 223 mg/dL (75-99)
[2020-02-24] MEDS ORDERED: IBUPROFEN 600 MG TAB PO STA (15:05)
--- NOTE | 2020-02-24 15:43 | P.CNPUL ---
History of Present Illness Consult date: 02/24/20 Requesting physician: Maye Tran Reason for consult: other (CoVID 19 infection) Chief complaint: Generalized weakness, fatigue, poor appetite History of present illness: This is a very pleasant 69-year-old gentleman who follows with Dr. Elliott as his primary care provider. He has a history of hypertension, gastroesophageal reflux disease, gout. He was also seen in consultation by our group back in September 2019 for a left upper lobe pulmonary embolism. He has been maintained on Xarelto. He followed up with Dr. Kim in our office because there was an incidental finding of a right upper lobe lung mass. PET scan had revealed some uptake. Follow-up CAT scan revealed no significant change and the plan was to see Dr. Neves in follow-up with a CAT scan in 6 months from his last office visit in January 2020. Over the past week the patient had complaints of increasing fatigue generalized weakness, sleeping up to 20 hours per day. Poor appetite. No shortness of breath, cough or congestion. No hemoptysis. He presented here to the emergency room for the same. He was noted to have a blood sugar of greater than 400. No previous history of diabetes mellitus. No outpatient steroids. He was also found to be positive for the anguiano virus. We are consulted for the same. He is seen today in consultation on the regular medical floor. He is currently resting comfortably in bed. Awake and alert in no acute distress. No shortness of breath, cough or congestion. Chest x-ray revealed normal chest. Normal heart. No acute process. He is maintaining O2 saturations in the low 90s on room air. He's afebrile. Hemodynamically stable. White count 3.9. Hemoglobin 14.1. Lymphocytes 0.7. Sodium 131. Potassium 3.9. Creatinine 0.93. Glucose 223. C-reactive protein 59. Urinalysis with 4+ glucose, 2+ ketones, acetone negative. Review of Systems REVIEW OF SYSTEMS: CONSTITUTIONAL: Positive for generalized weakness, fatigue, poor appetite. Denies any recent significant weight loss or weight gain. EYES: Denies change in vision. EARS, NOSE, MOUTH, THROAT: Denies headaches, denies sore throat. CARDIOVASCULAR: Denies chest pain, palpitations or syncopal episodes. RESPIRATORY: Denies shortness of breath, cough, congestion or hemoptysis. GASTROINTESTINAL: Poor appetite, denies abdominal pain GENITOURINARY: Denies hematuria, denies infections. MUSKULOSKELETAL: Denies pain, denies swelling. INTEGUMENTARY: Denies rash, denies eczema. NEUROLOGICAL: Denies recent memory loss, no recent seizure activity. PSYCHIATRIC: Denies anxiety, denies depression. HEMATOLOGIC/LYMPHATIC: Denies anemia, denies enlarged lymph nodes. Past Medical History Past Medical History: Hypertension, Myocardial Infarction (CT), Pulmonary Embolus (PE) Additional Past Medical History / Comment(s): Gout, right upper lobe lung nodule being monitored in the outpatient setting, left upper lobe pulmonary embolism in September 2019, on Xarelto Last Myocardial Infarction Date:: History of Any Multi-Drug Resistant Organisms: None Reported Past Surgical History: Appendectomy Additional Past Surgical History / Comment(s): pt states appendectomy 30-40 years ago. pt states he doesn't know when his last CT was, because he was in half-way at the time he also said it was about 6 years ago. Past Psychological History: No Psychological Hx Reported Smoking Status: Former smoker Past Alcohol Use History: None Reported Past Drug Use History: None Reported Medications and Allergies Home Medications Medication Instructions Recorded Confirmed Type Allopurinol [Zyloprim] 300 mg PO DAILY 10/09/19 02/23/20 History amLODIPine [Norvasc] 5 mg PO BID 10/09/19 02/23/20 History Metoprolol Succinate [Toprol XL] 50 mg PO DAILY 02/23/20 02/23/20 History Naproxen Sodium [Naprelan] 500 mg PO BID PRN 02/23/20 02/23/20 History Omeprazole 20 mg PO DAILY 02/23/20 02/23/20 History Rivaroxaban [Xarelto] 20 mg PO DAILY 02/23/20 02/23/20 History Allergies Allergy/AdvReac Type Severity Reaction Status Date / Time No Known Allergies Allergy Verified 02/23/20 15:10 Physical Exam Vitals: Vital Signs Temp Pulse Pulse Resp BP BP Pulse Ox 02/24/20 09:57 99.6 F 81 18 142/83 91 L 02/24/20 05:54 99.4 F 80 155/79 92 L 02/24/20 02:32 98.9 F 76 150/79 93 L 02/23/20 21:50 101.4 F H 85 142/79 93 L 02/23/20 21:16 102.8 F H 02/23/20 21:00 87 16 137/71 92 L 02/23/20 20:11 16 Intake and Output 02/24/20 02/24/20 02/24/20 06:59 14:59 22:59 Other: Weight 113.398 kg GENERAL EXAM: Alert, pleasant 69-year-old gentleman, on room air, comfortable in no apparent distress. HEAD: Normocephalic. EYES: Normal reaction of pupils, equal size. NOSE: Clear with pink turbinates. THROAT: No erythema or exudates. NECK: No masses, no JVD. CHEST: No chest wall deformity. LUNGS: Equal air entry with no crackles, wheeze, rhonchi or dullness. CVS: S1 and S2 normal with no audible murmur, regular rhythm. ABDOMEN: No hepatosplenomegaly, normal bowel sounds, no guarding or rigidity. SPINE: No scoliosis or deformity SKIN: No rashes CENTRAL NERVOUS SYSTEM: No focal deficits, tone is normal in all 4 extremities. EXTREMITIES: There is no peripheral edema. No clubbing, no cyanosis. Peripheral pulses are intact. Results - Laboratory Findings CBC and BMP: 02/23/20 13:35 02/23/20 13:35 PT/INR, D-dimer PT 11.2 sec (9.0-12.0) 02/23/20 13:35 INR 1.1 (<1.2) 02/23/20 13:35 Abnormal lab findings: Abnormal Labs 02/23/20 02/23/20 02/23/20 13:01 13:35 13:35 Lymphocytes # 0.7 L Sodium Carbon Dioxide Glucose POC Glucose (mg/dL) 343 H Calcium Magnesium C-Reactive Protein Total Protein Albumin Ur Specific [place] 1.038 H Urine Protein 1+ H Urine Glucose (UA) 4+ H Urine Ketones 2+ H Urine Blood Trace H Urine Mucus Rare H Coronavirus (PCR) 02/23/20 02/23/20 02/23/20 13:35 13:35 14:06 Lymphocytes # Sodium 131 L Carbon Dioxide 20 L Glucose 331 H POC Glucose (mg/dL) Calcium 7.5 L Magnesium 1.5 L C-Reactive Protein 59.0 H Total Protein 6.1 L Albumin 3.3 L Ur Specific [place] Urine Protein Urine Glucose (UA) Urine Ketones Urine Blood Urine Mucus Coronavirus (PCR) Detected A 02/24/20 02/24/20 07:19 11:47 Lymphocytes # Sodium Carbon Dioxide Glucose POC Glucose (mg/dL) 248 H 223 H Calcium Magnesium C-Reactive Protein Total Protein Albumin Ur Specific [place] Urine Protein Urine Glucose (UA) Urine Ketones Urine Blood Urine Mucus Coronavirus (PCR) Assessment and Plan Assessment: 1 Generalized weakness, fatigue, poor appetite secondary to new onset diabetes mellitus 2 Anguiano virus which may be contributing to some of the above 3 Febrile illness secondary to above 4 Known right upper lobe lung nodule being followed in the outpatient setting 5 History of left upper lobe pulmonary embolism, anticoagulated with Xarelto 6 Hypertension 7 Former smoker 8 History of coronary disease 9 History of gout 10 GERD Plan: The patient was seen and evaluated by Dr. Dr. Valladares No pulmonary complaints, on room air Not a candidate for Remdesivir No dexamethasone Cleared for discharge from the pulmonary standpoint Keep scheduled appointment with Dr. Kim and follow-up computed tomography scan Education regarding new-onset diabetes, follow-up within 1-2 days with his PCP I, the cosigning physician, performed a history & physical examination of the patient. Lungs sounds are clear. Maintaining good O2 saturations in the 90s on room air. I discussed the assessment and plan of care with my nurse practitioner, Magdalena Hutchison. I attest to the above consultation as dictated by her. Time with Patient: Greater than 30
[2020-02-24 16:47] LABS: Glucose,Whole Blood 252 mg/dL (75-99)
[2020-02-24] MEDS: dexAMETHasone 2 MG TAB PO SCH (17:03)
[2020-02-24] MEDS: RIVAROXABAN 20 MG TAB PO SCH (17:06)
[2020-02-24 20:07] LABS: Glucose,Whole Blood 289 mg/dL (75-99)
--- NOTE | 2020-02-25 01:06 | P.PN ---
Subjective Progress Note Date: 02/24/20 Principal diagnosis: COVID Pneumonia Mr. Davis is a 69-year-old male, who is a patient of Dr. Frey with a past medical history of hypertension,CA coming in with a chief complaint of fatigue and generalized weakness that have been ongoing for past 1 week. Patient states that he has been having poor appetite loss of smell and loss of taste for the past 1 week. He states that he has been sleeping for more than 20 hours a day. Patient denies having any cough or difficulty in breathing. He denies having any chest pain or palpitations. He denies having any dysuria or hematuria. Patient denies having any history of diabetes but his blood sugars are in 300s to 400s. In the emergency room patient had a chest x-ray showing no acute cardiopulmonary process and an EKG showing normal sinus rhythm. He had labs done showing white count of 3.9, hemoglobin 14.4, platelets 166. Sodium 131, potassium 3.9, chloride. BUN 15, creatinine 0.93 C-reactive protein 59, albumin 3.3 coronavirus PCR positive. On 02/24/2020 patient was seen and examined. He is currently resting comfortably in bed. Appears to be no acute distress. On reviewing the vitals patient continues to fever as high as 102.3. His blood pressure has been stable around 130s 80s and he saturating at 95% on room air. Patient's blood sugars have been running on the higher side. Active Medications Acetaminophen (Acetaminophen Tab 325 Mg Tab) 650 mg PO Q6HR PRN PRN Reason: Mild Pain or Fever > 100.5 Last Admin: 02/24/20 17:02 Dose: 650 mg Documented by: Allopurinol (Allopurinol 300 Mg Tab) 300 mg PO DAILY REPLACED BY [facility] Last Admin: 02/24/20 07:34 Dose: 300 mg Documented by: Amlodipine Besylate (Amlodipine 5 Mg Tab) 5 mg PO BID REPLACED BY [facility] Last Admin: 02/24/20 20:13 Dose: 5 mg Documented by: Dexamethasone (Dexamethasone 2 Mg Tab) 6 mg PO DAILY REPLACED BY [facility] Last Admin: 02/24/20 17:03 Dose: 6 mg Documented by: Insulin Aspart (Insulin Aspart (Novolog) 100 Unit/Ml Vial) 0 unit SQ ACHS REPLACED BY [facility]; Protocol Last Admin: 02/24/20 20:12 Dose: 7 unit Documented by: Metoprolol Succinate (Metoprolol Succinate (Er) 50 Mg Tab.Er.24h) 50 mg PO DAILY REPLACED BY [facility] Last Admin: 02/24/20 07:35 Dose: 50 mg Documented by: Naloxone HCl (Naloxone 0.4 Mg/Ml 1 Ml Vial) 0.2 mg IV Q2M PRN PRN Reason: Opioid Reversal Naproxen (Naproxen 250 Mg Tab) 500 mg PO BID PRN PRN Reason: Pain Pantoprazole Sodium (Pantoprazole 40 Mg Tablet) 40 mg PO DAILY REPLACED BY [facility] Last Admin: 02/24/20 07:35 Dose: 40 mg Documented by: Rivaroxaban (Rivaroxaban 20 Mg Tab) 20 mg PO DAILY@1700 REPLACED BY [facility] Last Admin: 02/24/20 17:06 Dose: 20 mg Documented by: Objective - Vital Signs Vital signs: Vital Signs Temp 102.3 F H 02/24/20 16:49 Pulse 89 02/24/20 16:49 Resp 18 02/24/20 16:49 BP 135/75 02/24/20 16:49 Pulse Ox 94 L 02/24/20 16:49 Intake & Output 02/23/20 02/24/20 02/24/20 18:59 06:59 18:59 Weight 113.398 kg 113.398 kg - Exam PHYSICAL EXAMINATION: Patient is lying in the bed comfortably, no acute distress, awake alert and oriented. HEENT: Normocephalic. Neck is supple. Pupils reactive. Nostrils clear. Oral cavity is moist. Neck reveals no JVD, carotid bruits, or thyromegaly. CHEST EXAMINATION: Trachea is central. Symmetrical expansion. Lung allen clear to auscultation and percussion. CARDIAC: Normal S1, S2 with no gallops. No murmurs ABDOMEN: Soft. Bowel sounds normal. No organomegaly. No abdominal bruits. Extremities: reveal no edema. No clubbing or cyanosis Neurologically awake, alert, oriented x3 with well-coordinated movements. No focal deficits noted Skin: No rash or skin lesions. Psychiatric: Coperative. normal mood an effect - Labs CBC & Chem 7: 02/23/20 13:35 02/23/20 13:35 Labs: Abnormal Lab Results - Last 24 Hours (Table) 02/23/20 02/24/20 02/24/20 Range/Units 13:35 07:19 11:47 POC Glucose (mg/dL) 248 H 223 H (75-99) mg/dL C-Reactive Protein 59.0 H (<10.0) mg/L 02/24/20 Range/Units 16:46 POC Glucose (mg/dL) 252 H (75-99) mg/dL C-Reactive Protein (<10.0) mg/L Microbiology - Last 24 Hours (Table) 02/23/20 13:35 Blood Culture - Preliminary Blood No Growth after 24 hours Assessment and Plan Assessment: ASSESSMENT Fatigue generalized weakness secondary to Covid infection Hyperglycemia Hyponatremia due to dehydration Hypomagnesemia Elevated inflammatory markers Hypertension History of CA PLAN: Patient has been running high fevers, to be continued on Tylenol on as needed basis. Patient to be continued on Decadron.Will adjust the dose of insulin depending on the blood sugars. Patient on Xarelto, his home medication for DVT prophylaxis. Protonix for GI prophylaxis. Continue with the rest of his current medication regimen. Overall prognosis is guarded. Further recommendations depending on the progress of the patient.
[2020-02-25 07:13] LABS: Basophils % (A) 0 %; Eosinophils % (A) 0 %; HCT 41.9 % (39.0-53.0); HGB 14.4 gm/dL (13.0-17.5); Lymphocytes # (A) 0.5 k/uL (1.0-4.8); Lymphocytes % (A) 17 %; MCH 31.2 pg (25.0-35.0); MCHC 34.3 g/dL (31.0-37.0); MCV 90.9 fL (80.0-100.0); Mean Platelet Volume 7.3; Monocytes # (A) 0.1 k/uL (0-1.0); Monocytes % (A) 4 %; Neutrophils # (A) 2.2 k/uL (1.3-7.7); Neutrophils % (A) 78 %; Platelet Count 189 k/uL (150-450); RDW 12.1 % (11.5-15.5); WBC 2.8 k/uL (3.8-10.6)
[2020-02-25 07:22] LABS: Glucose,Whole Blood 295 mg/dL (75-99)
[2020-02-25] MEDS: amLODIPine 5 MG TAB PO SCH ×2 (07:27→21:00)
[2020-02-25] MEDS: allopurinoL 300 MG TAB PO SCH (07:27)
[2020-02-25] MEDS: dexAMETHasone 2 MG TAB PO SCH (07:27)
[2020-02-25] MEDS: PANTOPRAZOLE 40 MG TABLET PO SCH (07:27)
[2020-02-25] MEDS: METOPROLOL SUCCINATE (ER) 50 MG TAB.ER.24H PO SCH (07:27)
[2020-02-25] MEDS: INSULIN ASPART (NovoLOG) 100 UNIT/ML VIAL SQ SCH ×4 (07:27→21:00)
[2020-02-25 09:27] LABS: Anion Gap 11.1 mmol/L (4.00-12.00); C Reactive Protein 7.5 mg/dL (0.0-0.8); Calcium 9.1 mg/dL (8.7-10.3); Carbon Dioxide 22.9 mmol/L (21.6-31.8); Non-African American GFR(CKD) 75.9 (60.0-200.0); Potassium 4.6 mmol/L (3.5-5.5)
[2020-02-25 11:12] LABS: Glucose,Whole Blood 277 mg/dL (75-99)
--- NOTE | 2020-02-25 11:30 | P.PN ---
Subjective Progress Note Date: 02/25/20 on 02/25/2020, the patient is doing well. No specific complaints. The patient is on room air oxygen. The patient has an acute anguiano virus Covid 19 infection.no reported shortness of breath. No cough or sputum production. No nausea vomiting or diarrhea or abdominal pain. No other significant events overnight. Labs are all within normal limits. He was not found to be a candidate for Decadron or Remdesivir Objective - Vital Signs Vital signs: Vital Signs Temp 98.3 F 02/25/20 10:00 Pulse 71 02/25/20 10:00 Resp 20 02/25/20 10:00 BP 144/79 02/25/20 10:00 Pulse Ox 93 L 02/25/20 10:00 Intake & Output 02/24/20 02/25/20 02/25/20 18:59 06:59 18:59 Intake Total 540 Balance 540 Weight 113.398 kg Intake: Oral 540 Other: Voiding Method Toilet # Voids 2 3 - Exam GENERAL EXAM: Alert, pleasant 69-year-old gentleman, on room air, comfortable in no apparent distress. HEAD: Normocephalic. EYES: Normal reaction of pupils, equal size. NOSE: Clear with pink turbinates. THROAT: No erythema or exudates. NECK: No masses, no JVD. CHEST: No chest wall deformity. LUNGS: Equal air entry with no crackles, wheeze, rhonchi or dullness. CVS: S1 and S2 normal with no audible murmur, regular rhythm. ABDOMEN: No hepatosplenomegaly, normal bowel sounds, no guarding or rigidity. SPINE: No scoliosis or deformity SKIN: No rashes CENTRAL NERVOUS SYSTEM: No focal deficits, tone is normal in all 4 extremities. EXTREMITIES: There is no peripheral edema. No clubbing, no cyanosis. Peripheral pulses are intact. - Labs CBC & Chem 7: 02/25/20 06:51 02/25/20 06:51 Labs: Abnormal Lab Results - Last 24 Hours (Table) 02/23/20 02/24/20 02/24/20 Range/Units 13:35 11:47 16:46 WBC (3.8-10.6) k/uL Lymphocytes # (1.0-4.8) k/uL BUN/Creatinine Ratio (12.00-20.00) Ratio Glucose (70-110) mg/dL POC Glucose (mg/dL) 223 H 252 H (75-99) mg/dL Hemoglobin A1c 14.0 H (4.0-6.0) % C-Reactive Protein (0.0-0.8) mg/dL 02/24/20 02/25/20 02/25/20 Range/Units 20:04 06:51 06:51 WBC 2.8 L (3.8-10.6) k/uL Lymphocytes # 0.5 L (1.0-4.8) k/uL BUN/Creatinine Ratio 23.00 H (12.00-20.00) Ratio Glucose 288 H (70-110) mg/dL POC Glucose (mg/dL) 289 H (75-99) mg/dL Hemoglobin A1c (4.0-6.0) % C-Reactive Protein 7.5 H (0.0-0.8) mg/dL 02/25/20 02/25/20 Range/Units 07:16 11:10 WBC (3.8-10.6) k/uL Lymphocytes # (1.0-4.8) k/uL BUN/Creatinine Ratio (12.00-20.00) Ratio Glucose (70-110) mg/dL POC Glucose (mg/dL) 295 H 277 H (75-99) mg/dL Hemoglobin A1c (4.0-6.0) % C-Reactive Protein (0.0-0.8) mg/dL Microbiology - Last 24 Hours (Table) 02/23/20 13:35 Blood Culture - Preliminary Blood No Growth after 24 hours Assessment and Plan Plan: 1 Generalized weakness, fatigue, poor appetite secondary to new onset diabetes mellitus, currently on sliding scale Coverage 2 Acute COVID 19-Anguiano virus which may be contributing to some of the above 3 Febrile illness secondary to above 4 Known right upper lobe lung nodule being followed in the outpatient setting 5 History of left upper lobe pulmonary embolism, anticoagulated with Xarelto 6 Hypertension 7 Former smoker 8 History of coronary disease 9 History of gout 10 GERD Plan: No pulmonary complaints, on room air Not a candidate for Remdesivir No dexamethasone Cleared for discharge from the pulmonary standpoint tthe patient will most likely need blood sugar coverage with possibly an oral hypoglycemic medication. I will leave the choice of the medication to the medical team. Otherwise the patient is clear for discharge from a pulmonary standpoint.meanwhile, I believe that discontinuing the Decadron will improve the sugar control. I'm going to stop the Decadron for now as the patient is currently on room air oxygen and he does not have any evidence of pneumonia and there is no role for steroids in his condition. Keep scheduled appointment with Dr. Kim and follow-up computed tomography scan Education regarding new-onset diabetes, follow-up within 1-2 days with his PCP
[2020-02-25] MEDS ORDERED: INSULIN DETEMIR (LEVEMIR) 100 UNIT/ML SYR SQ SCH (11:50)
--- NOTE | 2020-02-25 15:22 | P.PN ---
Subjective Progress Note Date: 02/25/20 Principal diagnosis: COVID Pneumonia Mr. Davis is a 69-year-old male, who is a patient of Dr. Frey with a past medical history of hypertension,[place] coming in with a chief complaint of fatigue and generalized weakness that have been ongoing for past 1 week. Patient states that he has been having poor appetite loss of smell and loss of taste for the past 1 week. He states that he has been sleeping for more than 20 hours a day. Patient denies having any cough or difficulty in breathing. He denies having any chest pain or palpitations. He denies having any dysuria or hematuria. Patient denies having any history of diabetes but his blood sugars are in 300s to 400s. In the emergency room patient had a chest x-ray showing no acute cardiopulmonary process and an EKG showing normal sinus rhythm. He had labs done showing white count of 3.9, hemoglobin 14.4, platelets 166. Sodium 131, potassium 3.9, chloride. BUN 15, creatinine 0.93 C-reactive protein 59, albumin 3.3 coronavirus PCR positive. On 02/24/2020 patient was seen and examined. He is currently resting comfortably in bed. Appears to be no acute distress. On reviewing the vitals patient continues to fever as high as 102.3. His blood pressure has been stable around 130s 80s and he saturating at 95% on room air. Patient's blood sugars have been running on the higher side. On 02/25/2020- patient was seen and examined and the general medical floors. He is resting comfortably in bed. Overnight active issues reported by nursing staff. Patient states that his difficulty in breathing is improving. On reviewing the vitals patient's T-max is 98.4, heart rate 72, respiratory rate 127-79 and saturating at 93% on room air. On reviewing vitals patient's white count of 2.8, hemoglobin 14.4, platelets 189. Sodium 136, potassium 4.6, chloride 102. BUN 23 and creatinine of 1.0. Blood sugars have been running high in 200s to 300s. C-reactive protein 7.5. Active Medications Acetaminophen (Acetaminophen Tab 325 Mg Tab) 650 mg PO Q6HR PRN PRN Reason: Mild Pain or Fever > 100.5 Last Admin: 02/24/20 17:02 Dose: 650 mg Documented by: Allopurinol (Allopurinol 300 Mg Tab) 300 mg PO DAILY [facility] Last Admin: 02/25/20 07:27 Dose: 300 mg Documented by: Amlodipine Besylate (Amlodipine 5 Mg Tab) 5 mg PO BID [facility] Last Admin: 02/25/20 07:27 Dose: 5 mg Documented by: Insulin Aspart (Insulin Aspart (Novolog) 100 Unit/Ml Vial) 0 unit SQ [facility]; Protocol Last Admin: 02/25/20 11:57 Dose: 7 unit Documented by: Insulin Detemir (Insulin Detemir (Levemir) 100 Unit/Ml Syr) 10 unit SQ DAILY@0700 [facility] Last Admin: 02/25/20 11:57 Dose: 10 unit Documented by: Metoprolol Succinate (Metoprolol Succinate (Er) 50 Mg Tab.Er.24h) 50 mg PO DAILY [facility] Last Admin: 02/25/20 07:27 Dose: 50 mg Documented by: Naloxone HCl (Naloxone 0.4 Mg/Ml 1 Ml Vial) 0.2 mg IV Q2M PRN PRN Reason: Opioid Reversal Naproxen (Naproxen 250 Mg Tab) 500 mg PO BID PRN PRN Reason: Pain Pantoprazole Sodium (Pantoprazole 40 Mg Tablet) 40 mg PO DAILY [facility] Last Admin: 02/25/20 07:27 Dose: 40 mg Documented by: Rivaroxaban (Rivaroxaban 20 Mg Tab) 20 mg PO DAILY@1700 [facility] Last Admin: 02/24/20 17:06 Dose: 20 mg Documented by: Objective - Vital Signs Vital signs: Vital Signs Temp 98.3 F 02/25/20 10:00 Pulse 71 02/25/20 10:00 Resp 20 02/25/20 10:00 BP 144/79 02/25/20 10:00 Pulse Ox 93 L 02/25/20 10:00 Intake & Output 02/24/20 02/25/20 02/25/20 18:59 06:59 18:59 Intake Total 540 Balance 540 Weight 113.398 kg Intake: Oral 540 Other: Voiding Method Toilet # Voids 2 3 - Exam PHYSICAL EXAMINATION: Patient is lying in the bed comfortably, no acute distress, awake alert and oriented. HEENT: Normocephalic. Neck is supple. Pupils reactive. Nostrils clear. Oral cavity is moist. Neck reveals no JVD, carotid bruits, or thyromegaly. CHEST EXAMINATION: Trachea is central. Lung allen clear to auscultation and percussion. CARDIAC: Normal S1, S2 with no gallops. No murmurs ABDOMEN: Soft. Bowel sounds normal. No organomegaly. No abdominal bruits. Extremities: reveal no edema. No clubbing or cyanosis Neurologically awake, alert, oriented x3 with well-coordinated movements. No focal deficits noted - Labs CBC & Chem 7: 02/25/20 06:51 02/25/20 06:51 Labs: Abnormal Lab Results - Last 24 Hours (Table) 02/23/20 02/24/20 02/24/20 Range/Units 13:35 16:46 20:04 WBC (3.8-10.6) k/uL Lymphocytes # (1.0-4.8) k/uL BUN/Creatinine Ratio (12.00-20.00) Ratio Glucose (70-110) mg/dL POC Glucose (mg/dL) 252 H 289 H (75-99) mg/dL Hemoglobin A1c 14.0 H (4.0-6.0) % C-Reactive Protein (0.0-0.8) mg/dL 02/25/20 02/25/20 02/25/20 Range/Units 06:51 06:51 07:16 WBC 2.8 L (3.8-10.6) k/uL Lymphocytes # 0.5 L (1.0-4.8) k/uL BUN/Creatinine Ratio 23.00 H (12.00-20.00) Ratio Glucose 288 H (70-110) mg/dL POC Glucose (mg/dL) 295 H (75-99) mg/dL Hemoglobin A1c (4.0-6.0) % C-Reactive Protein 7.5 H (0.0-0.8) mg/dL 02/25/20 Range/Units 11:10 WBC (3.8-10.6) k/uL Lymphocytes # (1.0-4.8) k/uL BUN/Creatinine Ratio (12.00-20.00) Ratio Glucose (70-110) mg/dL POC Glucose (mg/dL) 277 H (75-99) mg/dL Hemoglobin A1c (4.0-6.0) % C-Reactive Protein (0.0-0.8) mg/dL Microbiology - Last 24 Hours (Table) 02/23/20 13:35 Blood Culture - Preliminary Blood No Growth after 24 hours Assessment and Plan Assessment: ASSESSMENT Fatigue generalized weakness secondary to Covid infection Hyperglycemia Hyponatremia due to dehydration Hypomagnesemia Elevated inflammatory markers Hypertension History of IN PLAN: Patient has been afebrile for the past 24 hours. He is currently saturating at 93% on room air. Patient's blood sugars have been running on the higher side, adjusting the dose of insulin. Decadron was discontinued. Patient on Xarelto, his home medication for DVT prophylaxis. Protonix for GI prophylaxis. Continue with the rest of his current medication regimen. Overall prognosis is guarded. Further recommendations depending on the progress of the patient.
[2020-02-25 16:23] LABS: Glucose,Whole Blood 286 mg/dL (75-99)
[2020-02-25] MEDS: RIVAROXABAN 20 MG TAB PO SCH (17:37)
[2020-02-25 20:24] LABS: Glucose,Whole Blood 266 mg/dL (75-99)
[2020-02-25] MEDS: ACETAMINOPHEN TAB 325 MG TAB PO PRN (22:54)
[2020-02-25] MEDS: metFORMIN 500 MG TAB PO SCH (22:54)
[2020-02-26] MEDS ORDERED: INSULIN DETEMIR (LEVEMIR) 100 UNIT/ML SYR SQ SCH (07:00)
[2020-02-26 07:24] LABS: Glucose,Whole Blood 243 mg/dL (75-99)
[2020-02-26] MEDS: INSULIN DETEMIR (LEVEMIR) 100 UNIT/ML SYR SQ SCH (08:07)
[2020-02-26] MEDS: ACETAMINOPHEN TAB 325 MG TAB PO PRN ×2 (08:08→17:10)
[2020-02-26] MEDS: metFORMIN 500 MG TAB PO SCH ×2 (08:08→16:32)
[2020-02-26] MEDS: allopurinoL 300 MG TAB PO SCH (08:08)
[2020-02-26] MEDS: INSULIN ASPART (NovoLOG) 100 UNIT/ML VIAL SQ SCH ×4 (08:08→21:30)
[2020-02-26] MEDS: METOPROLOL SUCCINATE (ER) 50 MG TAB.ER.24H PO SCH (08:09)
[2020-02-26] MEDS: amLODIPine 5 MG TAB PO SCH ×2 (08:09→21:30)
[2020-02-26] MEDS: PANTOPRAZOLE 40 MG TABLET PO SCH (08:09)
[2020-02-26 11:59] LABS: Glucose,Whole Blood 229 mg/dL (75-99)
[2020-02-26] MEDS: SODIUM CHLORIDE 0.9% 1,000 ML IV SCH (12:29)
[2020-02-26] MEDS: RIVAROXABAN 20 MG TAB PO SCH (16:32)
[2020-02-26 16:56] LABS: Glucose,Whole Blood 244 mg/dL (75-99)
[2020-02-26 20:41] LABS: Glucose,Whole Blood 230 mg/dL (75-99)
[2020-02-26] MEDS ORDERED: metFORMIN 500 MG TAB PO STA (21:21)
--- NOTE | 2020-02-26 21:38 | P.PN ---
Subjective From Records Mr. Davis is a 69-year-old male, who is a patient of Dr. Frey with a past medical history of hypertension,[place] coming in with a chief complaint of fatigue and generalized weakness that have been ongoing for past 1 week. Patient states that he has been having poor appetite loss of smell and loss of taste for the past 1 week. He states that he has been sleeping for more than 20 hours a day. Patient denies having any cough or difficulty in breathing. He denies having any chest pain or palpitations. He denies having any dysuria or hematuria. Patient denies having any history of diabetes but his blood sugars are in 300s to 400s. In the emergency room patient had a chest x-ray showing no acute cardiopulmonary process and an EKG showing normal sinus rhythm. He had labs done showing white count of 3.9, hemoglobin 14.4, platelets 166. Sodium 131, potassium 3.9, chloride. BUN 15, creatinine 0.93 C-reactive protein 59, albumin 3.3 coronavirus PCR positive. On 02/24/2020 patient was seen and examined. He is currently resting comfortably in bed. Appears to be no acute distress. On reviewing the vitals patient sami nues to fever as high as 102.3. His blood pressure has been stable around 130s 80s and he saturating at 95% on room air. Patient's blood sugars have been running on the higher side. On 02/25/2020- patient was seen and examined and the general medical floors. He is resting comfortably in bed. Overnight active issues reported by nursing staff. Patient states that his difficulty in breathing is improving. On reviewing the vitals patient's T-max is 98.4, heart rate 72, respiratory rate 127-79 and saturating at 93% on room air. On reviewing vitals patient's white count of 2.8, hemoglobin 14.4, platelets 189. Sodium 136, potassium 4.6, chloride 102. BUN 23 and creatinine of 1.0. Blood sugars have been running high in 200s to 300s. C-reactive protein 7.5. 02/26/2020 This is a pleasant 69 years old male who presents with cough with infection and found to have new onset diabetes with elevated hemoglobin A1c at 14%. Patient currently with no respiratory symptoms, no chest pain or dyspnea coughing. Yesterday he has a regular bowel movement but today he had 1 loose bowel movement but no significant abdominal pain or nausea vomiting. Also he is running a fever of 101. He saturating 90% at room air. BMP and CBC were reviewed and they were unremarkable except for mild leukopenia 2.8K. D-dimer is negative at 0.34. Coronavirus is detected. 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 Normal saline at 75 mL/h was added. Also Levemir 10 units daily and metformin 1000 mg twice daily has been added because his sugar still not controlled Patient is able to eat 75-100% of his meal CONSTITUTIONAL: No fever, no malaise, no fatigue. HEENT: No recent visual problems or hearing problems. Denied any sore throat. CARDIOVASCULAR: No orthopnea, PND, no palpitations, no syncope. PULMONARY: No shortness of breath, no cough, no hemoptysis. GASTROINTESTINAL: No diarrhea, no nausea, no vomiting, no abdominal pain. Normoactive bowel sounds. NEUROLOGICAL: No headaches, no weakness, no numbness. Active Medications Generic Name Dose Route Start Last Admin Trade Name Freq PRN Reason Stop Dose Admin Acetaminophen 650 mg 02/23/20 15:32 02/26/20 17:10 Acetaminophen Tab 325 Mg Tab PO 650 mg Q6HR PRN Administration Mild Pain or Fever > 100.5 Allopurinol 300 mg 02/24/20 09:00 02/26/20 08:08 Allopurinol 300 Mg Tab PO 300 mg DAILY DILCIA Administration Amlodipine Besylate 5 mg 02/24/20 09:00 02/26/20 08:09 Amlodipine 5 Mg Tab PO 5 mg BID DILCIA Administration Sodium Chloride 1,000 mls @ 75 mls/hr 02/26/20 11:00 02/26/20 12:29 Saline 0.9% IV 75 mls/hr .[id number] DILCIA Administration Insulin Aspart 0 unit 02/24/20 07:30 02/26/20 17:10 Insulin Aspart (Novolog) 100 Unit/Ml Vial SQ 5 unit ACHS DILCIA Administration Protocol Insulin Detemir 10 unit 02/26/20 07:00 02/26/20 08:07 Insulin Detemir (Levemir) 100 Unit/Ml Syr SQ 10 unit DAILY@0700 DILCIA Administration Metformin HCl 1,000 mg 02/27/20 07:30 Metformin 500 Mg Tab PO BID-W/MEALS DILCIA Metoprolol Succinate 50 mg 02/24/20 09:00 02/26/20 08:09 Metoprolol Succinate (Er) 50 Mg Tab.Er.24h PO 50 mg DAILY DILCIA Administration Naloxone HCl 0.2 mg 02/23/20 15:32 Naloxone 0.4 Mg/Ml 1 Ml Vial IV Q2M PRN Opioid Reversal Naproxen 500 mg 02/23/20 23:05 Naproxen 250 Mg Tab PO BID PRN Pain Pantoprazole Sodium 40 mg 02/24/20 09:00 02/26/20 08:09 Pantoprazole 40 Mg Tablet PO 40 mg DAILY DILCIA Administration Rivaroxaban 20 mg 02/24/20 17:00 02/26/20 16:32 Rivaroxaban 20 Mg Tab PO 20 mg DAILY@1700 DILCIA Administration Objective - Vital Signs Vital signs: Vital Signs Temp 100.1 F H 02/26/20 10:00 Pulse 81 02/26/20 10:00 Resp 16 02/26/20 10:00 BP 126/77 02/26/20 10:00 Pulse Ox 91 L 02/26/20 10:00 Intake & Output 02/25/20 02/26/20 02/26/20 18:59 06:59 18:59 Intake Total 400 Balance 400 Weight 113.398 kg Intake: Oral 400 Other: # Voids 3 1 - Exam GENERAL: The patient is alert and oriented x3, not in any acute distress. Well developed, well nourished. HEENT: Pupils are round and equally reacting to light. EOMI. No scleral icterus. No conjunctival pallor. Normocephalic, atraumatic. No pharyngeal erythema. No thyromegaly. CARDIOVASCULAR: S1 and S2 present. No murmurs, rubs, or gallops. PULMONARY: Chest is clear to auscultation, no wheezing or crackles. ABDOMEN: Soft, nontender, nondistended, normoactive bowel sounds. No palpable organomegaly. MUSCULOSKELETAL: No joint swelling or deformity. EXTREMITIES: No cyanosis, clubbing, or pedal edema. NEUROLOGICAL: Gross neurological examination did not reveal any focal deficits. SKIN: No rashes. no petechiae. - Labs CBC & Chem 7: 02/25/20 06:51 02/25/20 06:51 Labs: Abnormal Lab Results - Last 24 Hours (Table) 02/25/20 02/25/20 02/26/20 Range/Units 16:22 20:21 07:22 POC Glucose (mg/dL) 286 H 266 H 243 H (75-99) mg/dL 02/26/20 Range/Units 11:56 POC Glucose (mg/dL) 229 H (75-99) mg/dL Microbiology - Last 24 Hours (Table) 02/23/20 13:35 Blood Culture - Preliminary Blood No Growth after 48 hours Assessment and Plan Assessment: Fatigue generalized weakness secondary to Covid infection New-onset diabetes Hyponatremia due to dehydration Dehydration Gastroenteritis secondary to covid infection Hypomagnesemia Hypertension History of [place] Plan: This is a pleasant 69 years old male who presents with complete infection without pneumonia, mild gastroenteritis and new diabetes. Continue with zinc and ascorbic acid, continue with gentle hydration. Continue with metformin 1000 mg twice daily and Amaryl 1 mg daily and also he is on Levemir 10 units daily. Patient has persistent fever and is not getting Tylenol when necessary, Soma going to put him on a small dose of scheduled Tylenol and monitor Labs and medication were reviewed.. Continue same treatment. Continue with symptomatic treatment. Resume home medication. Monitor lytes and vitals. DVT and GI prophylaxis. Further recommendationsas per clinical course of the patient DVT prophylaxis: Subcutaneous heparin GI Prophylaxis: Pepcid Prognosis is guarded
[2020-02-26] MEDS ORDERED: ACETAMINOPHEN TAB 325 MG TAB PO PRN (22:00)
[2020-02-26] MEDS ORDERED: REMDESIVIR 200 MG in SODIUM CHLORIDE 0.9% 250 ML IVPB ONE (23:00)
[2020-02-26] MEDS: ASCORBIC ACID 500 MG TAB PO SCH (23:33)
[2020-02-26] MEDS: DEXAMETHASONE SOD PHOSPHATE 10 MG/ML 1 ML VIAL IV SCH (23:34)
[2020-02-26] MEDS: ACETAMINOPHEN TAB 325 MG TAB PO SCH (23:34)
[2020-02-26] MEDS: ZINC SULFATE 220 MG CAP PO SCH (23:36)
--- NOTE | 2020-02-27 01:26 | CONS ---
CONSULTATION DATE OF SERVICE: 02/26/2020. REASON FOR CONSULTATION: Fever and COVID-19 infection. HISTORY OF PRESENT ILLNESS: The patient is a 69-year-old man presented to hospital at [facility] on 02/23/2020 for evaluation of generalized weakness and fatigue and sleepy, poor appetite. The patient's symptoms have been going on for about a week before presentation hospital the patient. She also noted to have elevated blood pressure by EMS. On presentation to the hospital, the patient did have a fever of 102.8 degrees Fahrenheit and the patient has been spiking a fever on a daily basis since 02/23/2020. The patient has been complaining of shortness of breath. The patient did have a cough which is mild to moderate intensity, not bringing up any sputum. Denies any nausea, vomiting. No abdominal pain. No diarrhea. With persistent fever. Infectious Disease was consulted for further management. The patient did have a Covid test on admission which was positive. However, the patient has not been treated with steroids and concern for elevated blood sugar. REVIEW OF SYSTEMS: Positive points have been mentioned in HPI. Rest of the systems are negative. PAST MEDICAL HISTORY: Hypertension, MD and gout. PAST SURGICAL HISTORY: Appendectomy. SOCIAL HISTORY: Remote history of smoking. No drinking or drug use. FAMILY HISTORY: No pertinent findings noticed. ALLERGIES: No known drug allergies. MEDICATIONS: The patient is currently on Tylenol, Norvasc, vitamin C, Elavil, and NovoLog, Glucophage, Toprol-XL, naproxen, Xarelto, IV fluid and zinc. PHYSICAL EXAMINATION: Blood pressure 149/78 with a pulse of 89. Temperature 101.2. He is 90% on room air. General description: The patient is an elderly male lying in bed in no distress. No tachypnea or accessory muscles of respiration use. HEENT: Examination shows no pallor or scleral icterus. Oral mucous membranes dry. Lungs unlabored breathing, decreased breath sounds in the bases. No wheeze or crackles. Heart S1, S2. Regular rate and rhythm. ABDOMEN: Soft, no tenderness. No guarding and no rigidity. Extremities: No edema of the feet. Skin examination: No rash or mass palpable. Neurological: Patient is awake, alert, oriented times three. Mood and affect normal. LABS: Hemoglobin 14.4, white count . D.dimer 0.34, BUN of 23, creatinine 1.0. CRP 7.5. Urine is negative. was negative. DIAGNOSTIC IMPRESSION AND PLAN: Patient with fever, source is likely acute Covid 19 infection/pneumonia in this patient, now with evidence of hypoxemia with O2 sats of 90% on room air and complaining of worsening shortness of breath and cough. No other obvious focus of infection. Urine was negative. Abdomen soft on clinical examination. No evidence of any cellulitis. PLAN: 1. We will start the patient on Decadron 6 mg IV daily. Continue Xarelto and Zinc. 2. The patient is started on Remdesivir, 7 days per protocol. 3. respiratory support. 4. We will follow on clinical condition and investigations to further adjust medication if needed. Thank you for this consultation. Will follow this patient along with you. MMODL / IJN: [id number] /
[2020-02-27] MEDS: SODIUM CHLORIDE 0.9% 1,000 ML IV SCH ×2 (02:55→11:49)
[2020-02-27 07:04] LABS: Glucose,Whole Blood 325 mg/dL (75-99)
[2020-02-27] MEDS: INSULIN DETEMIR (LEVEMIR) 100 UNIT/ML SYR SQ SCH (07:44)
[2020-02-27] MEDS: INSULIN ASPART (NovoLOG) 100 UNIT/ML VIAL SQ SCH ×4 (07:44→21:26)
[2020-02-27] MEDS: PANTOPRAZOLE 40 MG TABLET PO SCH (07:45)
[2020-02-27] MEDS: amLODIPine 5 MG TAB PO SCH ×2 (07:45→21:26)
[2020-02-27] MEDS: ASCORBIC ACID 500 MG TAB PO SCH (07:45)
[2020-02-27] MEDS: GLIMEPIRIDE 1 MG TAB PO SCH (07:45)
[2020-02-27] MEDS: ACETAMINOPHEN TAB 325 MG TAB PO SCH ×4 (07:46→23:30)
[2020-02-27] MEDS: metFORMIN 500 MG TAB PO SCH ×2 (07:46→17:28)
[2020-02-27] MEDS: ZINC SULFATE 220 MG CAP PO SCH (07:46)
[2020-02-27] MEDS: allopurinoL 300 MG TAB PO SCH (07:46)
[2020-02-27] MEDS: METOPROLOL SUCCINATE (ER) 50 MG TAB.ER.24H PO SCH (07:46)
[2020-02-27] MEDS: DEXAMETHASONE SOD PHOSPHATE 10 MG/ML 1 ML VIAL IV SCH (07:47)
--- NOTE | 2020-02-27 08:12 | XR ---
EXAMINATION TYPE: XR chest 1V portable DATE OF EXAM: 02/27/2020 COMPARISON: 02/23/2020 INDICATION: Pneumonia TECHNIQUE: Single frontal view of the chest is obtained. FINDINGS: The heart size is normal. The pulmonary vasculature is prominent. Mild diffuse increased lung markings are in the upper peripheral lung allen, developing from prior s tudy. Mild left lower lobe infiltrate may be present IMPRESSION: 1. Patchy increasing lung markings are nonspecific. Correlate for atypical pneumonia. Pulmonary edema could be considered.
[2020-02-27 08:40] LABS: Basophils # (A) 0.1 k/uL (0-0.2); Basophils % (A) 1 %; Eosinophils % (A) 0 %; HCT 45.6 % (39.0-53.0); HGB 15.5 gm/dL (13.0-17.5); Lymphocytes # (A) 0.7 k/uL (1.0-4.8); Lymphocytes % (A) 9 %; MCH 31.4 pg (25.0-35.0); MCV 92.2 fL (80.0-100.0); Mean Platelet Volume 8.6; Monocytes # (A) 0.2 k/uL (0-1.0); Monocytes % (A) 2 %; Neutrophils % (A) 86 %; Platelet Count 296 k/uL (150-450); RBC 4.94 m/uL (4.30-5.90); RDW 12.2 % (11.5-15.5); WBC 8.2 k/uL (3.8-10.6)
[2020-02-27 11:51] LABS: Glucose,Whole Blood 341 mg/dL (75-99)
[2020-02-27 17:06] LABS: Glucose,Whole Blood 336 mg/dL (75-99)
[2020-02-27 17:25] LABS: African American GFR (CKD) 64.1 (60.0-200.0); Albumin 4.2 g/dL (3.80-4.90); Albumin/Globulin Ratio 1.91 (1.60-3.17); Anion Gap 17.1 mmol/L (4.00-12.00); BUN/Creat Ratio 16.15 Ratio (12.00-20.00); C Reactive Protein 12.5 mg/dL (0.0-0.8); Calcium 9.1 mg/dL (8.7-10.3); Carbon Dioxide 17.9 mmol/L (21.6-31.8); Globulin 2.2 g/dL (1.6-3.3); Magnesium 1.7 mg/dL (1.5-2.4); Non-African American GFR(CKD) 55.3 (60.0-200.0); Potassium 4.1 mmol/L (3.5-5.5); Total Bilirubin 0.7 mg/dL (0.3-1.2); Total Protein 6.4 g/dL (6.2-8.2)
[2020-02-27] MEDS: RIVAROXABAN 20 MG TAB PO SCH (17:27)
[2020-02-27] MEDS ORDERED: AZITHROMYCIN 500 MG in SODIUM CHLORIDE 0.9% 250 ML IVPB STA (19:53)
--- NOTE | 2020-02-27 19:55 | P.PN ---
Subjective From Records Mr. Davis is a 69-year-old male, who is a patient of Dr. Frey with a past medical history of hypertension,[place] coming in with a chief complaint of fatigue and generalized weakness that have been ongoing for past 1 week. Patient states that he has been having poor appetite loss of smell and loss of taste for the past 1 week. He states that he has been sleeping for more than 20 hours a day. Patient denies having any cough or difficulty in breathing. He denies having any chest pain or palpitations. He denies having any dysuria or hematuria. Patient denies having any history of diabetes but his blood sugars are in 300s to 400s. In the emergency room patient had a chest x-ray showing no acute cardiopulmonary process and an EKG showing normal sinus rhythm. He had labs done showing white count of 3.9, hemoglobin 14.4, platelets 166. Sodium 131, potassium 3.9, chloride. BUN 15, creatinine 0.93 C-reactive protein 59, albumin 3.3 coronavirus PCR positive. On 02/24/2020 patient was seen and examined. He is currently resting comfortably in bed. Appears to be no acute distress. On reviewing the vitals patient sami nues to fever as high as 102.3. His blood pressure has been stable around 130s 80s and he saturating at 95% on room air. Patient's blood sugars have been running on the higher side. On 02/25/2020- patient was seen and examined and the general medical floors. He is resting comfortably in bed. Overnight active issues reported by nursing staff. Patient states that his difficulty in breathing is improving. On reviewing the vitals patient's T-max is 98.4, heart rate 72, respiratory rate 127-79 and saturating at 93% on room air. On reviewing vitals patient's white count of 2.8, hemoglobin 14.4, platelets 189. Sodium 136, potassium 4.6, chloride 102. BUN 23 and creatinine of 1.0. Blood sugars have been running high in 200s to 300s. C-reactive protein 7.5. 02/26/2020 This is a pleasant 69 years old male who presents with cough with infection and found to have new onset diabetes with elevated hemoglobin A1c at 14%. Patient currently with no respiratory symptoms, no chest pain or dyspnea coughing. Yesterday he has a regular bowel movement but today he had 1 loose bowel movement but no significant abdominal pain or nausea vomiting. Also he is running a fever of 101. He saturating 90% at room air. BMP and CBC were reviewed and they were unremarkable except for mild leukopenia 2.8K. D-dimer is negative at 0.34. Coronavirus is detected. 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 Normal saline at 75 mL/h was added. Also Levemir 10 units daily and metformin 1000 mg twice daily has been added because his sugar still not controlled Patient is able to eat 75-100% of his meal 02/27/20 Patient had a rough night because of fever, his breathing is quiet and stable and he's only on 2 L oxygen. Is still have diarrhea about twice per day which is similar to the day before. No abdominal pain or vomiting. No significant coughing. unstable Chest x-ray: Worsening infiltrates, Pronecalcitonin is elevated at 0.27, patient is started on Rocephin and Zithromax. He is new onset diabetes and also is on dexamethasone and his sugar more than 300, so Levemir was decreased from 10-30 units daily. Also he is on metformin 1000 and Amaryl 1 mg. Continue on Xarelto, normocephalic 75, remedisivr, dexamethasone 6 mg daily. CONSTITUTIONAL: No fever, no malaise, no fatigue. HEENT: No recent visual problems or hearing problems. Denied any sore throat. CARDIOVASCULAR: No orthopnea, PND, no palpitations, no syncope. PULMONARY: No shortness of breath, no cough, no hemoptysis. GASTROINTESTINAL: No diarrhea, no nausea, no vomiting, no abdominal pain. Normoactive bowel sounds. NEUROLOGICAL: No headaches, no weakness, no numbness. Active Medications Generic Name Dose Route Start Last Admin Trade Name Freq PRN Reason Stop Dose Admin Acetaminophen 325 mg 02/26/20 22:00 02/26/20 23:48 Acetaminophen Tab 325 Mg Tab PO 325 mg Q6HR PRN Administration Mild Pain or Fever > 100.5 Acetaminophen 325 mg 02/27/20 12:00 02/27/20 17:27 Acetaminophen Tab 325 Mg Tab PO 325 mg Q6HR DILCIA Administration Allopurinol 300 mg 02/24/20 09:00 02/27/20 07:46 Allopurinol 300 Mg Tab PO 300 mg DAILY DILCIA Administration Amlodipine Besylate 5 mg 02/24/20 09:00 02/27/20 07:45 Amlodipine 5 Mg Tab PO 5 mg BID DILCIA Administration Ascorbic Acid 1,000 mg 02/26/20 22:00 02/27/20 07:45 Ascorbic Acid 500 Mg Tab PO 1,000 mg DAILY DILCIA Administration Dexamethasone Sodium Phosphate 6 mg 02/26/20 22:30 02/27/20 07:47 Dexamethasone Sod Phosphate 10 Mg/Ml 1 Ml Vial IV 6 mg DAILY DILCIA Administration Glimepiride 1 mg 02/27/20 07:30 02/27/20 07:45 Glimepiride 1 Mg Tab PO 1 mg [id number] DILCIA Administration Sodium Chloride 1,000 mls @ 75 mls/hr 02/26/20 11:00 02/27/20 11:49 Saline 0.9% IV 75 mls/hr .[id number] DILCIA Administration Remdesivir 100 mg/ Sodium 250 mls @ 250 mls/hr 02/27/20 22:00 Chloride IVPB 03/01/20 22:59 Q24H DILCIA Ceftriaxone Sodium 1 gm/ 50 mls @ 100 mls/hr 02/27/20 20:00 Sodium Chloride IVPB Q24HR DILCIA Azithromycin 500 mg/ Sodium 250 mls @ 250 mls/hr 02/27/20 19:49 Chloride IVPB 02/27/20 20:48 ONCE STA Azithromycin 500 mg/ Sodium 250 mls @ 250 mls/hr 02/28/20 09:00 Chloride IVPB DAILY DILCIA Insulin Aspart 0 unit 02/24/20 07:30 02/27/20 17:27 Insulin Aspart (Novolog) 100 Unit/Ml Vial SQ 9 unit ACHS DILCIA Administration Protocol Insulin Detemir 30 unit 02/28/20 07:00 Insulin Detemir (Levemir) 100 Unit/Ml Syr SQ DAILY@0700 [facility] Insulin Detemir 10 unit 02/27/20 21:00 Insulin Detemir (Levemir) 100 Unit/Ml Syr SQ 02/27/20 21:01 HS [facility] Metformin HCl 1,000 mg 02/27/20 07:30 02/27/20 17:28 Metformin 500 Mg Tab PO 1,000 mg BID-W/MEALS DILCIA Administration Metoprolol Succinate 50 mg 02/24/20 09:00 02/27/20 07:46 Metoprolol Succinate (Er) 50 Mg Tab.Er.24h PO 50 mg DAILY DILCIA Administration Naloxone HCl 0.2 mg 02/23/20 15:32 Chest x-ray showing worsening infiltrates. Naloxone 0.4 Mg/Ml 1 Ml Vial IV Q2M PRN Opioid Reversal Naproxen 500 mg 02/23/20 23:05 Naproxen 250 Mg Tab PO BID PRN Pain Pantoprazole Sodium 40 mg 02/24/20 09:00 02/27/20 07:45 Pantoprazole 40 Mg Tablet PO 40 mg DAILY DILCIA Administration Rivaroxaban 20 mg 02/24/20 17:00 02/27/20 17:27 Rivaroxaban 20 Mg Tab PO 20 mg DAILY@1700 DILCIA Administration Zinc Sulfate 220 mg 02/26/20 22:00 02/27/20 07:46 Zinc Sulfate 220 Mg Cap PO 220 mg DAILY DILCIA Administration Objective - Vital Signs Vital signs: Vital Signs Temp 97 F L 02/27/20 17:30 Pulse 83 02/27/20 17:30 Resp 17 02/27/20 17:30 BP 128/85 02/27/20 17:30 Pulse Ox 90 L 02/27/20 17:30 Intake & Output 02/27/20 02/27/20 02/28/20 06:59 18:59 06:59 Intake Total 100 Output Total 650 Balance 100 -650 Intake: Oral 100 Output: Urine 650 - Exam GENERAL: The patient is alert and oriented x3, not in any acute distress. Well developed, well nourished. HEENT: Pupils are round and equally reacting to light. EOMI. No scleral icterus. No conjunctival pallor. Normocephalic, atraumatic. No pharyngeal erythema. No thyromegaly. CARDIOVASCULAR: S1 and S2 present. No murmurs, rubs, or gallops. PULMONARY: Chest is clear to auscultation, no wheezing or crackles. ABDOMEN: Soft, nontender, nondistended, normoactive bowel sounds. No palpable organomegaly. MUSCULOSKELETAL: No joint swelling or deformity. EXTREMITIES: No cyanosis, clubbing, or pedal edema. NEUROLOGICAL: Gross neurological examination did not reveal any focal deficits. SKIN: No rashes. no petechiae. - Labs CBC & Chem 7: 02/27/20 07:19 02/27/20 07:19 Labs: Abnormal Lab Results - Last 24 Hours (Table) 02/26/20 02/27/20 02/27/20 Range/Units 20:39 07:02 07:19 Lymphocytes # (1.0-4.8) k/uL D-Dimer (<0.60) mg/L FEU Carbon Dioxide (21.6-31.8) mmol/L Anion Gap (4.00-12.00) mmol/L Est GFR (CKD-EPI)NonAf (60.0-200.0) Glucose (70-110) mg/dL POC Glucose (mg/dL) 230 H 325 H (75-99) mg/dL AST (14-35) U/L ALT (10-49) U/L Lactate Dehydrogenase (120-246) U/L C-Reactive Protein (0.0-0.8) mg/dL Procalcitonin 0.27 H (0.02-0.09) ng/mL 02/27/20 02/27/20 02/27/20 Range/Units 07:19 07:19 07:19 Lymphocytes # 0.7 L (1.0-4.8) k/uL D-Dimer 0.88 H (<0.60) mg/L FEU Carbon Dioxide 17.9 L (21.6-31.8) mmol/L Anion Gap 17.10 H (4.00-12.00) mmol/L Est GFR (CKD-EPI)NonAf 55.3 L (60.0-200.0) Glucose 354 H (70-110) mg/dL POC Glucose (mg/dL) (75-99) mg/dL AST 54 H (14-35) U/L ALT 55 H (10-49) U/L Lactate Dehydrogenase 364 H (120-246) U/L C-Reactive Protein 12.5 H (0.0-0.8) mg/dL Procalcitonin (0.02-0.09) ng/mL 02/27/20 02/27/20 Range/Units 11:41 17:03 Lymphocytes # (1.0-4.8) k/uL D-Dimer (<0.60) mg/L FEU Carbon Dioxide (21.6-31.8) mmol/L Anion Gap (4.00-12.00) mmol/L Est GFR (CKD-EPI)NonAf (60.0-200.0) Glucose (70-110) mg/dL POC Glucose (mg/dL) 341 H 336 H (75-99) mg/dL AST (14-35) U/L ALT (10-49) U/L Lactate Dehydrogenase (120-246) U/L C-Reactive Protein (0.0-0.8) mg/dL Procalcitonin (0.02-0.09) ng/mL Microbiology - Last 24 Hours (Table) 02/23/20 13:35 Blood Culture - Preliminary Blood No Growth after 96 hours Assessment and Plan Assessment: Fatigue generalized weakness secondary to Covid infection New-onset diabetes Hyponatremia due to dehydration Dehydration Gastroenteritis secondary to covid infection Hypomagnesemia Hypertension History of [place] Plan: This is a pleasant 69 years old male who presents with complete infection without pneumonia, mild gastroenteritis and new diabetes. Continue with zinc and ascorbic acid, continue with gentle hydration. Continue with metformin 1000 mg twice daily and Amaryl 1 mg daily and also he is on Levemir 30 units daily. Continue with antibiotic ceftriaxone and Zithromax. Patient has persistent fever and is not getting Tylenol when necessary, Soma going to put him on a small dose of scheduled Tylenol and monitor Labs and medication were reviewed.. Continue same treatment. Continue with symptomatic treatment. Resume home medication. Monitor lytes and vitals. DVT and GI prophylaxis. Further recommendationsas per clinical course of the patient DVT prophylaxis: Subcutaneous heparin GI Prophylaxis: Pepcid Prognosis is guarded
[2020-02-27 20:44] LABS: Glucose,Whole Blood 475 mg/dL (75-99)
[2020-02-27] MEDS ORDERED: INSULIN DETEMIR (LEVEMIR) 100 UNIT/ML SYR SQ SCH (21:00)
[2020-02-27 23:30] LABS: Glucose,Whole Blood 337 mg/dL (75-99)
[2020-02-27] MEDS: REMDESIVIR 100 MG in SODIUM CHLORIDE 0.9% 250 ML IVPB SCH (23:30)
--- NOTE | 2020-02-28 00:05 | PN ---
PROGRESS NOTE DATE OF SERVICE: 02/27/2020 REASON FOR FOLLOWUP: COVID-19 pneumonia. INTERVAL HISTORY: The patient overall fever pattern has improved. has been 102 last night. No fever since then. The patient is feeling slightly better. He is breathing more comfortably. Still requiring supplemental oxygen. No chest pain. Minimal cough. No abdominal pain. No diarrhea. PHYSICAL EXAMINATION: Blood pressure 122/85 with a pulse of 83. Temperature is 97.1. He is 90% on 2 L nasal cannula. General description is an elderly male lying in bed in no distress. Respiratory system: Unlabored breathing with decreased breath sounds in the base, with no wheeze. Heart S1, S2. Regular rate and rhythm. Abdomen soft, no tenderness. LABS: Hemoglobin 15.5, white count 8.2, D. dimer 0.88, creatinine 1.3. Procalcitonin was also elevated. DIAGNOSTIC IMPRESSION/PLAN: Patient with fever, source likely pneumonia likely COVID-19 in this patient clinically responded to Remdesivir and Dexamethasone to continue with elevated procalcitonin. Antibiotic has been added to continue. Try to obtain a sputum to narrow down his antibiotics. Continue supportive care. MMODL / IJN: [id number] /
[2020-02-28] MEDS: SODIUM CHLORIDE 0.9% 1,000 ML IV SCH ×2 (03:11→17:30)
[2020-02-28] MEDS: ACETAMINOPHEN TAB 325 MG TAB PO SCH ×3 (05:20→17:29)
[2020-02-28 07:15] LABS: Glucose,Whole Blood 283 mg/dL (75-99)
[2020-02-28] MEDS: DEXAMETHASONE SOD PHOSPHATE 10 MG/ML 1 ML VIAL IV SCH (08:50)
[2020-02-28] MEDS: allopurinoL 300 MG TAB PO SCH (08:51)
[2020-02-28] MEDS: ASCORBIC ACID 500 MG TAB PO SCH (08:51)
[2020-02-28] MEDS: amLODIPine 5 MG TAB PO SCH ×2 (08:51→21:49)
[2020-02-28] MEDS: ZINC SULFATE 220 MG CAP PO SCH (08:51)
[2020-02-28] MEDS: METOPROLOL SUCCINATE (ER) 50 MG TAB.ER.24H PO SCH (08:51)
[2020-02-28] MEDS: metFORMIN 500 MG TAB PO SCH ×2 (08:51→17:26)
[2020-02-28] MEDS: PANTOPRAZOLE 40 MG TABLET PO SCH (08:51)
[2020-02-28] MEDS: INSULIN DETEMIR (LEVEMIR) 100 UNIT/ML SYR SQ SCH (08:52)
[2020-02-28] MEDS: INSULIN ASPART (NovoLOG) 100 UNIT/ML VIAL SQ SCH ×4 (08:52→21:49)
[2020-02-28] MEDS: GLIMEPIRIDE 1 MG TAB PO SCH (08:53)
[2020-02-28 11:59] LABS: Glucose,Whole Blood 285 mg/dL (75-99)
[2020-02-28 17:00] LABS: Glucose,Whole Blood 331 mg/dL (75-99)
[2020-02-28] MEDS: RIVAROXABAN 20 MG TAB PO SCH (17:26)
[2020-02-28] MEDS: AZITHROMYCIN 500 MG in SODIUM CHLORIDE 0.9% 250 ML IVPB SCH (17:26)
[2020-02-28 20:36] LABS: Glucose,Whole Blood 230 mg/dL (75-99)
[2020-02-28] MEDS: REMDESIVIR 100 MG in SODIUM CHLORIDE 0.9% 250 ML IVPB SCH (21:50)
--- NOTE | 2020-02-28 22:22 | P.PN ---
Subjective From Records Mr. Davis is a 69-year-old male, who is a patient of Dr. Frey with a past medical history of hypertension,[place] coming in with a chief complaint of fatigue and generalized weakness that have been ongoing for past 1 week. Patient states that he has been having poor appetite loss of smell and loss of taste for the past 1 week. He states that he has been sleeping for more than 20 hours a day. Patient denies having any cough or difficulty in breathing. He denies having any chest pain or palpitations. He denies having any dysuria or hematuria. Patient denies having any history of diabetes but his blood sugars are in 300s to 400s. In the emergency room patient had a chest x-ray showing no acute cardiopulmonary process and an EKG showing normal sinus rhythm. He had labs done showing white count of 3.9, hemoglobin 14.4, platelets 166. Sodium 131, potassium 3.9, chloride. BUN 15, creatinine 0.93 C-reactive protein 59, albumin 3.3 coronavirus PCR positive. On 02/24/2020 patient was seen and examined. He is currently resting comfortably in bed. Appears to be no acute distress. On reviewing the vitals patient sami nues to fever as high as 102.3. His blood pressure has been stable around 130s 80s and he saturating at 95% on room air. Patient's blood sugars have been running on the higher side. On 02/25/2020- patient was seen and examined and the general medical floors. He is resting comfortably in bed. Overnight active issues reported by nursing staff. Patient states that his difficulty in breathing is improving. On reviewing the vitals patient's T-max is 98.4, heart rate 72, respiratory rate 127-79 and saturating at 93% on room air. On reviewing vitals patient's white count of 2.8, hemoglobin 14.4, platelets 189. Sodium 136, potassium 4.6, chloride 102. BUN 23 and creatinine of 1.0. Blood sugars have been running high in 200s to 300s. C-reactive protein 7.5. 02/26/2020 This is a pleasant 69 years old male who presents with cough with infection and found to have new onset diabetes with elevated hemoglobin A1c at 14%. Patient currently with no respiratory symptoms, no chest pain or dyspnea coughing. Yesterday he has a regular bowel movement but today he had 1 loose bowel movement but no significant abdominal pain or nausea vomiting. Also he is running a fever of 101. He saturating 90% at room air. BMP and CBC were reviewed and they were unremarkable except for mild leukopenia 2.8K. D-dimer is negative at 0.34. Coronavirus is detected. 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 Normal saline at 75 mL/h was added. Also Levemir 10 units daily and metformin 1000 mg twice daily has been added because his sugar still not controlled Patient is able to eat 75-100% of his meal 02/27/20 Patient had a rough night because of fever, his breathing is quiet and stable and he's only on 2 L oxygen. Is still have diarrhea about twice per day which is similar to the day before. No abdominal pain or vomiting. No significant coughing. unstable Chest x-ray: Worsening infiltrates, Pronecalcitonin is elevated at 0.27, patient is started on Rocephin and Zithromax. He is new onset diabetes and also is on dexamethasone and his sugar more than 300, so Levemir was decreased from 10-30 units daily. Also he is on metformin 1000 and Amaryl 1 mg. Continue on Xarelto, normocephalic 75, remedisivr, dexamethasone 6 mg daily. 02/28/2020 Patient hadn't 9 because he could not sleep. No respiratory symptoms, ongoing generalized weakness. Yesterday he has watery diarrhea but this morning he had small more formed bowel movement. No abdominal pain. Persistent fever have subsided and his been afebrile for more than 24 hours. We will check Tylenol as needed His sugar is better controlled after increasing his insulin to 30 units. Antibiotics with ceftriaxone and Zithromax were admitted with high proteincalcitonin. We will try to check sputum culture. Check labs in the morning CONSTITUTIONAL: No fever, no malaise, no fatigue. HEENT: No recent visual problems or hearing problems. Denied any sore throat. CARDIOVASCULAR: No orthopnea, PND, no palpitations, no syncope. PULMONARY: No shortness of breath, no cough, no hemoptysis. GASTROINTESTINAL: No diarrhea, no nausea, no vomiting, no abdominal pain. Normoactive bowel sounds. NEUROLOGICAL: No headaches, no weakness, no numbness. Active Medications Generic Name Dose Route Start Last Admin Trade Name Freq PRN Reason Stop Dose Admin Acetaminophen 325 mg 02/26/20 22:00 02/26/20 23:48 Acetaminophen Tab 325 Mg Tab PO 325 mg Q6HR PRN Administration Mild Pain or Fever > 100.5 Acetaminophen 325 mg 02/27/20 12:00 02/28/20 17:29 Acetaminophen Tab 325 Mg Tab PO Not Given Q6HR DILCIA Allopurinol 300 mg 02/24/20 09:00 02/28/20 08:51 Allopurinol 300 Mg Tab PO 300 mg DAILY DILCIA Administration Amlodipine Besylate 5 mg 02/24/20 09:00 02/28/20 21:49 Amlodipine 5 Mg Tab PO 5 mg BID DILCIA Administration Ascorbic Acid 1,000 mg 02/26/20 22:00 02/28/20 08:51 Ascorbic Acid 500 Mg Tab PO 1,000 mg DAILY DILCIA Administration Dexamethasone Sodium Phosphate 6 mg 02/26/20 22:30 02/28/20 08:50 Dexamethasone Sod Phosphate 10 Mg/Ml 1 Ml Vial IV 6 mg DAILY DILCIA Administration Glimepiride 1 mg 02/27/20 07:30 02/28/20 08:53 Glimepiride 1 Mg Tab PO 1 mg [id number] DILCIA Administration Sodium Chloride 1,000 mls @ 75 mls/hr 02/26/20 11:00 02/28/20 17:30 Saline 0.9% IV 75 mls/hr .[id number] DILCIA Administration Remdesivir 100 mg/ Sodium 250 mls @ 250 mls/hr 02/27/20 22:00 02/28/20 21:50 Chloride IVPB 03/01/20 22:59 250 mls/hr Q24H DILCIA Administration Ceftriaxone Sodium 1 gm/ 50 mls @ 100 mls/hr 02/27/20 20:15 02/28/20 08:53 Sodium Chloride IVPB 100 mls/hr Q24HR DILCIA Administration Azithromycin 500 mg/ Sodium 250 mls @ 250 mls/hr 02/28/20 18:00 02/28/20 17:26 Chloride IVPB 250 mls/hr DAILY@1800 DILCIA Administration Insulin Aspart 0 unit 02/24/20 07:30 02/28/20 21:49 Insulin Aspart (Novolog) 100 Unit/Ml Vial SQ 5 unit ACHS DILCIA Administration Protocol Insulin Detemir 30 unit 02/28/20 07:00 02/28/20 08:52 Insulin Detemir (Levemir) 100 Unit/Ml Syr SQ 30 unit DAILY@0700 DILCIA Administration Metformin HCl 1,000 mg 02/27/20 07:30 02/28/20 17:26 Metformin 500 Mg Tab PO 1,000 mg BID-W/MEALS DILCIA Administration Metoprolol Succinate 50 mg 02/24/20 09:00 02/28/20 08:51 Metoprolol Succinate (Er) 50 Mg Tab.Er.24h PO 50 mg DAILY DILCIA Administration Naloxone HCl 0.2 mg 02/23/20 15:32 Naloxone 0.4 Mg/Ml 1 Ml Vial IV Q2M PRN Opioid Reversal Naproxen 500 mg 02/23/20 23:05 Naproxen 250 Mg Tab PO BID PRN Pain Pantoprazole Sodium 40 mg 02/24/20 09:00 02/28/20 08:51 Pantoprazole 40 Mg Tablet PO 40 mg DAILY DILCIA Administration Rivaroxaban 20 mg 02/24/20 17:00 02/28/20 17:26 Rivaroxaban 20 Mg Tab PO 20 mg DAILY@1700 DILCIA Administration Zinc Sulfate 220 mg 02/26/20 22:00 02/28/20 08:51 Zinc Sulfate 220 Mg Cap PO 220 mg DAILY DILCIA Administration Objective - Vital Signs Vital signs: Vital Signs Temp 97.2 F L 02/28/20 16:50 Pulse 66 02/28/20 16:50 Resp 18 02/28/20 19:47 BP 138/82 02/28/20 16:50 Pulse Ox 90 L 02/28/20 16:50 Intake & Output 02/28/20 02/28/20 02/29/20 06:59 18:59 06:59 Intake Total 100 Balance 100 Intake: Oral 100 Other: Voiding Method Toilet Toilet Toilet # Voids 1 2 1 # Bowel Movements 1 1 - Exam GENERAL: The patient is alert and oriented x3, not in any acute distress. Well developed, well nourished. HEENT: Pupils are round and equally reacting to light. EOMI. No scleral icterus. No conjunctival pallor. Normocephalic, atraumatic. No pharyngeal erythema. No thyromegaly. CARDIOVASCULAR: S1 and S2 present. No murmurs, rubs, or gallops. PULMONARY: Chest is clear to auscultation, no wheezing or crackles. ABDOMEN: Soft, nontender, nondistended, normoactive bowel sounds. No palpable organomegaly. MUSCULOSKELETAL: No joint swelling or deformity. EXTREMITIES: No cyanosis, clubbing, or pedal edema. NEUROLOGICAL: Gross neurological examination did not reveal any focal deficits. SKIN: No rashes. no petechiae. - Labs CBC & Chem 7: 02/27/20 07:19 02/27/20 07:19 Labs: Abnormal Lab Results - Last 24 Hours (Table) 02/27/20 02/28/20 02/28/20 Range/Units 23:29 07:11 11:55 POC Glucose (mg/dL) 337 H 283 H 285 H (75-99) mg/dL 02/28/20 02/28/20 Range/Units 16:54 20:34 POC Glucose (mg/dL) 331 H 230 H (75-99) mg/dL Microbiology - Last 24 Hours (Table) 02/23/20 13:35 Blood Culture - Preliminary Blood No Growth after 120 hours Assessment and Plan Assessment: Fatigue generalized weakness secondary to Covid infection New-onset diabetes Hyponatremia due to dehydration Dehydration Gastroenteritis secondary to covid infection Hypomagnesemia Hypertension History of [place] Plan: This is a pleasant 69 years old male who presents with complete infection without pneumonia, mild gastroenteritis and new diabetes. Continue with zinc and ascorbic acid, continue with gentle hydration. Continue with metformin 1000 mg twice daily and Amaryl 1 mg daily and also he is on Levemir 30 units daily. Continue with antibiotic ceftriaxone and Zithromax. Patient has persistent fever and is not getting Tylenol when necessary, Soma going to put him on a small dose of scheduled Tylenol and monitor Labs and medication were reviewed.. Continue same treatment. Continue with symptomatic treatment. Resume home medication. Monitor lytes and vitals. DVT and GI prophylaxis. Further recommendationsas per clinical course of the patient DVT prophylaxis: Subcutaneous heparin GI Prophylaxis: Pepcid Prognosis is guarded
--- NOTE | 2020-02-28 22:44 | PN ---
PROGRESS NOTE DATE OF SERVICE: 02/28/2020 REASON FOR FOLLOWUP: COVID-19 pneumonia. INTERVAL HISTORY: The patient overall fever pattern has improved. No fever last 48 hours. The patient is feeling slightly better. He is breathing more comfortably. Denies any chest pain. Did have a cough, not bringing any sputum. No nausea, no vomiting. No abdominal pain or diarrhea. PHYSICAL EXAMINATION: Blood pressure 132/82 with a pulse of 66, temperature 97.2. He is 90% on 2 L nasal cannula. General description is an elderly male up in the chair in no distress. Respiratory system: Unlabored breathing with decreased intensity in breath sounds in the base, with no wheeze. Heart S1, S2. Regular rate and rhythm. Abdomen soft. No tenderness. LABS: No new labs have been obtained today. DIAGNOSTIC IMPRESSION AND PLAN: Patient with acute COVID-19 infection pneumonia. This patient has seemed to show overall clinical improvement. Currently being treated with Remdesivir, Xarelto, zinc sulfate and Decadron with overall improvement in his symptoms. The patient did have an elevated procalcitonin and is covered with Rocephin and Zithromax as well. Continue supportive care. MMODL / IJN: [id number] /
[2020-02-29] MEDS: SODIUM CHLORIDE 0.9% 1,000 ML IV SCH ×2 (04:21→20:23)
[2020-02-29 06:59] LABS: Glucose,Whole Blood 168 mg/dL (75-99)
[2020-02-29 07:38] LABS: Basophils # (A) 0.1 k/uL (0-0.2); Basophils % (A) 1 %; Eosinophils % (A) 0 %; HCT 41.4 % (39.0-53.0); HGB 13.7 gm/dL (13.0-17.5); Lymphocytes # (A) 0.7 k/uL (1.0-4.8); Lymphocytes % (A) 6 %; MCH 30.3 pg (25.0-35.0); MCV 91.8 fL (80.0-100.0); Mean Platelet Volume 7.8; Monocytes # (A) 0.5 k/uL (0-1.0); Monocytes % (A) 4 %; Neutrophils # (A) 10.1 k/uL (1.3-7.7); Neutrophils % (A) 87 %; Platelet Count 359 k/uL (150-450); RBC 4.52 m/uL (4.30-5.90); RDW 12.5 % (11.5-15.5); WBC 11.6 k/uL (3.8-10.6)
[2020-02-29] MEDS: amLODIPine 5 MG TAB PO SCH ×2 (08:07→21:10)
[2020-02-29] MEDS: ZINC SULFATE 220 MG CAP PO SCH (08:07)
[2020-02-29] MEDS: ASCORBIC ACID 500 MG TAB PO SCH (08:07)
[2020-02-29] MEDS: METOPROLOL SUCCINATE (ER) 50 MG TAB.ER.24H PO SCH (08:08)
[2020-02-29] MEDS: allopurinoL 300 MG TAB PO SCH (08:08)
[2020-02-29] MEDS: PANTOPRAZOLE 40 MG TABLET PO SCH (08:08)
[2020-02-29] MEDS: DEXAMETHASONE SOD PHOSPHATE 10 MG/ML 1 ML VIAL IV SCH (08:08)
[2020-02-29] MEDS: metFORMIN 500 MG TAB PO SCH ×2 (08:08→17:35)
[2020-02-29] MEDS: INSULIN ASPART (NovoLOG) 100 UNIT/ML VIAL SQ SCH ×4 (08:09→21:10)
[2020-02-29] MEDS: INSULIN DETEMIR (LEVEMIR) 100 UNIT/ML SYR SQ SCH (08:09)
[2020-02-29] MEDS: GLIMEPIRIDE 1 MG TAB PO SCH (08:17)
[2020-02-29 11:13] LABS: African American GFR (CKD) 78.4 (60.0-200.0); Anion Gap 9.9 mmol/L (4.00-12.00); BUN/Creat Ratio 23.64 Ratio (12.00-20.00); C Reactive Protein 3.2 mg/dL (0.0-0.8); Calcium 8.8 mg/dL (8.7-10.3); Carbon Dioxide 21.1 mmol/L (21.6-31.8); Non-African American GFR(CKD) 67.7 (60.0-200.0); Potassium 3.9 mmol/L (3.5-5.5)
[2020-02-29 11:32] LABS: Glucose,Whole Blood 204 mg/dL (75-99)
--- NOTE | 2020-02-29 14:41 | P.PN ---
Subjective From Records Mr. Davis is a 69-year-old male, who is a patient of Dr. Frey with a past medical history of hypertension,[place] coming in with a chief complaint of fatigue and generalized weakness that have been ongoing for past 1 week. Patient states that he has been having poor appetite loss of smell and loss of taste for the past 1 week. He states that he has been sleeping for more than 20 hours a day. Patient denies having any cough or difficulty in breathing. He denies having any chest pain or palpitations. He denies having any dysuria or hematuria. Patient denies having any history of diabetes but his blood sugars are in 300s to 400s. In the emergency room patient had a chest x-ray showing no acute cardiopulmonary process and an EKG showing normal sinus rhythm. He had labs done showing white count of 3.9, hemoglobin 14.4, platelets 166. Sodium 131, potassium 3.9, chloride. BUN 15, creatinine 0.93 C-reactive protein 59, albumin 3.3 coronavirus PCR positive. On 02/24/2020 patient was seen and examined. He is currently resting comfortably in bed. Appears to be no acute distress. On reviewing the vitals patient sami nues to fever as high as 102.3. His blood pressure has been stable around 130s 80s and he saturating at 95% on room air. Patient's blood sugars have been running on the higher side. On 02/25/2020- patient was seen and examined and the general medical floors. He is resting comfortably in bed. Overnight active issues reported by nursing staff. Patient states that his difficulty in breathing is improving. On reviewing the vitals patient's T-max is 98.4, heart rate 72, respiratory rate 127-79 and saturating at 93% on room air. On reviewing vitals patient's white count of 2.8, hemoglobin 14.4, platelets 189. Sodium 136, potassium 4.6, chloride 102. BUN 23 and creatinine of 1.0. Blood sugars have been running high in 200s to 300s. C-reactive protein 7.5. 02/26/2020 This is a pleasant 69 years old male who presents with cough with infection and found to have new onset diabetes with elevated hemoglobin A1c at 14%. Patient currently with no respiratory symptoms, no chest pain or dyspnea coughing. Yesterday he has a regular bowel movement but today he had 1 loose bowel movement but no significant abdominal pain or nausea vomiting. Also he is running a fever of 101. He saturating 90% at room air. BMP and CBC were reviewed and they were unremarkable except for mild leukopenia 2.8K. D-dimer is negative at 0.34. Coronavirus is detected. 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 Normal saline at 75 mL/h was added. Also Levemir 10 units daily and metformin 1000 mg twice daily has been added because his sugar still not controlled Patient is able to eat 75-100% of his meal 02/27/20 Patient had a rough night because of fever, his breathing is quiet and stable and he's only on 2 L oxygen. Is still have diarrhea about twice per day which is similar to the day before. No abdominal pain or vomiting. No significant coughing. unstable Chest x-ray: Worsening infiltrates, Pronecalcitonin is elevated at 0.27, patient is started on Rocephin and Zithromax. He is new onset diabetes and also is on dexamethasone and his sugar more than 300, so Levemir was decreased from 10-30 units daily. Also he is on metformin 1000 and Amaryl 1 mg. Continue on Xarelto, normocephalic 75, remedisivr, dexamethasone 6 mg daily. 02/28/2020 Patient hadn't good night because he could not sleep. No respiratory symptoms, ongoing generalized weakness. Yesterday he has watery diarrhea but this morning he had small more formed bowel movement. No abdominal pain. Persistent fever have subsided and his been afebrile for more than 24 hours. We will check Tylenol as needed His sugar is better controlled after increasing his insulin to 30 units. Antibiotics with ceftriaxone and Zithromax were admitted with high proteincalcitonin. We will try to check sputum culture. Check labs in the morning 02/29/2020 Patient feels much better today, his fever subsided and his on Tylenol as needed currently. No respiratory issue or symptom. He had a little formed bowel movement today. Currently patient remains on the same cocktail for comfort infection besides remedisivr Hemodynamically stable. Vitals are stable showing mild leukocytosis of 11.6 K CONSTITUTIONAL: No fever, no malaise, no fatigue. HEENT: No recent visual problems or hearing problems. Denied any sore throat. CARDIOVASCULAR: No orthopnea, PND, no palpitations, no syncope. PULMONARY: No shortness of breath, no cough, no hemoptysis. GASTROINTESTINAL: No diarrhea, no nausea, no vomiting, no abdominal pain. Normoactive bowel sounds. NEUROLOGICAL: No headaches, no weakness, no numbness. Active Medications Generic Name Dose Route Start Last Admin Trade Name Freq PRN Reason Stop Dose Admin Acetaminophen 325 mg 02/26/20 22:00 02/26/20 23:48 Acetaminophen Tab 325 Mg Tab PO 325 mg Q6HR PRN Administration Mild Pain or Fever > 100.5 Allopurinol 300 mg 02/24/20 09:00 02/29/20 08:08 Allopurinol 300 Mg Tab PO 300 mg DAILY DILCIA Administration Amlodipine Besylate 5 mg 02/24/20 09:00 02/29/20 08:07 Amlodipine 5 Mg Tab PO 5 mg BID DILCIA Administration Ascorbic Acid 1,000 mg 02/26/20 22:00 02/29/20 08:07 Ascorbic Acid 500 Mg Tab PO 1,000 mg DAILY DILCIA Administration Dexamethasone Sodium Phosphate 6 mg 02/26/20 22:30 02/29/20 08:08 Dexamethasone Sod Phosphate 10 Mg/Ml 1 Ml Vial IV 6 mg DAILY DILCIA Administration Glimepiride 1 mg 02/27/20 07:30 02/29/20 08:17 Glimepiride 1 Mg Tab PO 1 mg [id number] DILCIA Administration Sodium Chloride 1,000 mls @ 75 mls/hr 02/26/20 11:00 02/29/20 04:21 Saline 0.9% IV Not Given .[id number] DILCIA Remdesivir 100 mg/ Sodium 250 mls @ 250 mls/hr 02/27/20 22:00 02/28/20 21:50 Chloride IVPB 03/01/20 22:59 250 mls/hr Q24H DILCIA Administration Ceftriaxone Sodium 1 gm/ 50 mls @ 100 mls/hr 02/27/20 20:15 02/29/20 08:18 Sodium Chloride IVPB 100 mls/hr Q24HR DILCIA Administration Azithromycin 500 mg/ Sodium 250 mls @ 250 mls/hr 02/28/20 18:00 02/28/20 17:26 Chloride IVPB 250 mls/hr DAILY@1800 DILCIA Administration Insulin Aspart 0 unit 02/24/20 07:30 12/11/20 12:45 Insulin Aspart (Novolog) 100 Unit/Ml Vial SQ 4 unit ACHS DILCIA Administration Protocol Insulin Detemir 30 unit 02/28/20 07:00 02/29/20 08:09 Insulin Detemir (Levemir) 100 Unit/Ml Syr SQ 30 unit DAILY@0700 DILCIA Administration Metformin HCl 1,000 mg 02/27/20 07:30 02/29/20 08:08 Metformin 500 Mg Tab PO 1,000 mg BID-W/MEALS DILCIA Administration Metoprolol Succinate 50 mg 02/24/20 09:00 02/29/20 08:08 Metoprolol Succinate (Er) 50 Mg Tab.Er.24h PO 50 mg DAILY DILCIA Administration Naloxone HCl 0.2 mg 02/23/20 15:32 Naloxone 0.4 Mg/Ml 1 Ml Vial IV Q2M PRN Opioid Reversal Naproxen 500 mg 02/23/20 23:05 Naproxen 250 Mg Tab PO BID PRN Pain Pantoprazole Sodium 40 mg 02/24/20 09:00 02/29/20 08:08 Pantoprazole 40 Mg Tablet PO 40 mg DAILY DILCIA Administration Rivaroxaban 20 mg 02/24/20 17:00 02/28/20 17:26 Rivaroxaban 20 Mg Tab PO 20 mg DAILY@1700 [facility] Administration Zinc Sulfate 220 mg 02/26/20 22:00 02/29/20 08:07 Zinc Sulfate 220 Mg Cap PO 220 mg DAILY DILCIA Administration Objective - Vital Signs Vital signs: Vital Signs Temp 97.6 F 02/29/20 14:00 Pulse 70 02/29/20 14:00 Resp 18 02/29/20 14:00 BP 127/73 02/29/20 14:00 Pulse Ox 92 L 02/29/20 14:00 Intake & Output 02/28/20 02/29/20 02/29/20 18:59 06:59 18:59 Intake Total 950 Balance 950 Intake: Intake, IV Titration 250 Amount Remdesivir 100 mg In 250 Sodium Chloride 0.9% 250 ml @ 250 mls/hr IVPB Q24H [facility] Rx#:[id number] Oral 700 Other: Voiding Method Toilet Toilet Toilet # Voids 2 1 1 # Bowel Movements 1 - Exam GENERAL: The patient is alert and oriented x3, not in any acute distress. Well developed, well nourished. HEENT: Pupils are round and equally reacting to light. EOMI. No scleral icterus. No conjunctival pallor. Normocephalic, atraumatic. No pharyngeal erythema. No thyromegaly. CARDIOVASCULAR: S1 and S2 present. No murmurs, rubs, or gallops. PULMONARY: Chest is clear to auscultation, no wheezing or crackles. ABDOMEN: Soft, nontender, nondistended, normoactive bowel sounds. No palpable organomegaly. MUSCULOSKELETAL: No joint swelling or deformity. EXTREMITIES: No cyanosis, clubbing, or pedal edema. NEUROLOGICAL: Gross neurological examination did not reveal any focal deficits. SKIN: No rashes. no petechiae. - Labs CBC & Chem 7: 02/29/20 06:55 02/29/20 06:55 Labs: Abnormal Lab Results - Last 24 Hours (Table) 02/28/20 02/28/20 02/29/20 Range/Units 16:54 20:34 06:55 WBC 11.6 H (3.8-10.6) k/uL Neutrophils # 10.1 H (1.3-7.7) k/uL Lymphocytes # 0.7 L (1.0-4.8) k/uL D-Dimer (<0.60) mg/L FEU Carbon Dioxide (21.6-31.8) mmol/L BUN/Creatinine Ratio (12.00-20.00) Ratio Glucose (70-110) mg/dL POC Glucose (mg/dL) 331 H 230 H (75-99) mg/dL Lactate Dehydrogenase (120-246) U/L C-Reactive Protein (0.0-0.8) mg/dL 02/29/20 02/29/20 02/29/20 Range/Units 06:55 06:55 06:57 WBC (3.8-10.6) k/uL Neutrophils # (1.3-7.7) k/uL Lymphocytes # (1.0-4.8) k/uL D-Dimer 0.63 H (<0.60) mg/L FEU Carbon Dioxide 21.1 L (21.6-31.8) mmol/L BUN/Creatinine Ratio 23.64 H (12.00-20.00) Ratio Glucose 186 H (70-110) mg/dL POC Glucose (mg/dL) 168 H (75-99) mg/dL Lactate Dehydrogenase 314 H (120-246) U/L C-Reactive Protein 3.2 H (0.0-0.8) mg/dL 02/29/20 Range/Units 11:31 WBC (3.8-10.6) k/uL Neutrophils # (1.3-7.7) k/uL Lymphocytes # (1.0-4.8) k/uL D-Dimer (<0.60) mg/L FEU Carbon Dioxide (21.6-31.8) mmol/L BUN/Creatinine Ratio (12.00-20.00) Ratio Glucose (70-110) mg/dL POC Glucose (mg/dL) 204 H (75-99) mg/dL Lactate Dehydrogenase (120-246) U/L C-Reactive Protein (0.0-0.8) mg/dL Microbiology - Last 24 Hours (Table) 02/23/20 13:35 Blood Culture - Preliminary Blood No Growth after 120 hours Assessment and Plan Assessment: Fatigue generalized weakness secondary to Covid infection New-onset diabetes Hyponatremia due to dehydration Dehydration Gastroenteritis secondary to covid infection Hypomagnesemia Hypertension History of [place] Plan: This is a pleasant 69 years old male who presents with complete infection without pneumonia, mild gastroenteritis and new diabetes. Continue with zinc a nd ascorbic acid, continue with gentle hydration. Continue with metformin 1000 mg twice daily and Amaryl 1 mg daily and also he is on Levemir 30 units daily. Continue with antibiotic ceftriaxone and Zithromax. Patient has persistent fever and is not getting Tylenol when necessary, Soma going to put him on a small dose of scheduled Tylenol and monitor Labs and medication were reviewed.. Continue same treatment. Continue with symptomatic treatment. Resume home medication. Monitor lytes and vitals. DVT and GI prophylaxis. Further recommendationsas per clinical course of the patient DVT prophylaxis: Subcutaneous heparin GI Prophylaxis: Pepcid Prognosis is guarded
[2020-02-29 16:34] LABS: Glucose,Whole Blood 257 mg/dL (75-99)
[2020-02-29] MEDS: RIVAROXABAN 20 MG TAB PO SCH (17:35)
[2020-02-29] MEDS: AZITHROMYCIN 500 MG in SODIUM CHLORIDE 0.9% 250 ML IVPB SCH (17:57)
[2020-02-29 20:54] LABS: Glucose,Whole Blood 217 mg/dL (75-99)
[2020-02-29] MEDS: REMDESIVIR 100 MG in SODIUM CHLORIDE 0.9% 250 ML IVPB SCH (21:11)
[2020-02-29] MEDS ORDERED: DILTIAZEM DRIP BOLUS FROM BAG 1 MG SOLN IV ONE (22:29)
[2020-02-29] MEDS: DILTIAZEM 125 MG in SODIUM CHLORIDE 0.9% 100 ML IV SCH (23:13)
--- NOTE | 2020-03-01 00:33 | PN ---
PROGRESS NOTE DATE OF SERVICE: 02/29/2020 REASON FOR FOLLOWUP: COVID-19 pneumonia. INTERVAL HISTORY: Patient is currently afebrile. The patient is breathing more comfortably. The patient denies having any chest pain. He did have a cough, not bringing up any sputum. No nausea, no vomiting. No abdominal pain. No diarrhea. PHYSICAL EXAMINATION: Blood pressure 120/88 with a pulse of 77, temperature 97.8. He is 90% on 3 L nasal cannula. General description is an elderly male lying in bed in no distress. Respiratory system: Unlabored breathing, decreased intensity of breath sounds. No wheeze. HEART: S1, S2. Regular rate and rhythm. ABDOMEN: Soft, no tenderness. LABS: He did have a slightly down white count 11.6, BUN of 26, creatinine 1.1. DIAGNOSTIC IMPRESSION/PLAN: Patient with acute COVID-19 infection in this patient with clinical response to the dexamethasone, Xarelto, Remdesivir and zinc. The patient is also covered with antibiotics has the patient did have elevated Procalcitonin. Continue current treatment protocol. Monitor clinical course closely. MMODL / IJN: [id number] /
[2020-03-01] MEDS ORDERED: METOPROLOL SUCCINATE (ER) 50 MG TAB.ER.24H PO STA (01:09)
[2020-03-01] MEDS ORDERED: AMIODARONE 300 MG in DEXTROSE 5% IN WATER 250 ML IV SCH ×2 (05:00)
[2020-03-01] MEDS ORDERED: DEXTROSE 5% IN WATER 250 ML with AMIODARONE 300 MG IV ONE (05:00)
[2020-03-01] MEDS: DILTIAZEM 125 MG in SODIUM CHLORIDE 0.9% 100 ML IV SCH ×4 (05:16→22:17)
[2020-03-01 06:17] LABS: Glucose,Whole Blood 154 mg/dL (75-99)
[2020-03-01] MEDS: GLIMEPIRIDE 1 MG TAB PO SCH (06:53)
[2020-03-01] MEDS: INSULIN DETEMIR (LEVEMIR) 100 UNIT/ML SYR SQ SCH (06:54)
[2020-03-01] MEDS: metFORMIN 500 MG TAB PO SCH ×2 (06:54→17:28)
[2020-03-01] MEDS: INSULIN ASPART (NovoLOG) 100 UNIT/ML VIAL SQ SCH ×4 (06:54→20:28)
[2020-03-01] MEDS ORDERED: AMIODARONE 360 MG in DEXTROSE 5% IN WATER 200 ML IV ONE ×2 (07:00)
[2020-03-01] MEDS: amLODIPine 5 MG TAB PO SCH (08:03)
[2020-03-01] MEDS: ZINC SULFATE 220 MG CAP PO SCH (08:03)
[2020-03-01] MEDS: PANTOPRAZOLE 40 MG TABLET PO SCH (08:03)
[2020-03-01] MEDS: SODIUM CHLORIDE 0.9% 1,000 ML IV SCH (08:03)
[2020-03-01] MEDS: ASCORBIC ACID 500 MG TAB PO SCH (08:03)
[2020-03-01] MEDS: allopurinoL 300 MG TAB PO SCH (08:03)
[2020-03-01] MEDS: DEXAMETHASONE SOD PHOSPHATE 10 MG/ML 1 ML VIAL IV SCH ×2 (08:04→20:27)
[2020-03-01] MEDS ORDERED: METOPROLOL SUCCINATE (ER) 50 MG TAB.ER.24H PO SCH (09:00)
[2020-03-01] MEDS ORDERED: METOPROLOL TARTRATE 25 MG TAB PO STA (09:25)
[2020-03-01 10:08] LABS: HCT 41.6 % (39.0-53.0); HGB 14.5 gm/dL (13.0-17.5); MCH 31.7 pg (25.0-35.0); MCHC 34.9 g/dL (31.0-37.0); Mean Platelet Volume 8.7; Platelet Count 442 k/uL (150-450); RBC 4.57 m/uL (4.30-5.90); RDW 12.5 % (11.5-15.5); WBC 14.4 k/uL (3.8-10.6)
[2020-03-01 10:12] LABS: African American GFR (CKD) >90 (>60 ml/min/1.73 sqM); Anion Gap 11 mmol/L; Blood Urea Nitrogen 21 mg/dL (9-20); Calcium 8.5 mg/dL (8.4-10.2); Carbon Dioxide 16 mmol/L (22-30); Chloride 109 mmol/L (98-107); Glucose 268 mg/dL (74-99); Non-African American GFR(CKD) 90 (>60 ml/min/1.73 sqM); Potassium 4.4 mmol/L (3.5-5.1); Sodium 136 mmol/L (137-145)
[2020-03-01] MEDS ORDERED: DILTIAZEM 5 MG/ML 5 ML VIAL IVP STA (10:44)
--- NOTE | 2020-03-01 11:36 | P.CRDCN ---
History of Present Illness History of present illness: HISTORY OF PRESENTING ILLNESS This is a pleasant 69-year-old male past medical history significant for ischemic heart disease exact details unavailable at this occurred in [place] according to the patient he had a catheterization 6 years ago and has natural collateral flow no PCI required, pulmonary embolism and hypertension. He follows in the office with Dr. Ochoa. We have been asked to see in consultation for atrial fibrillation with rapid ventricular rates. Is currently being treated for acute visit 19. Telemetry tracings indicate he went into atrial fibrillation yesterday evening with heart rates as high as 160. He has been initiated on IV Cardizem, IV amiodarone and oral beta blockers have been increased. He had a recent echocardiogram in September of this year revealing preserved LV systolic function with ejection fraction 50-55%. DIAGNOSTICS EKG reveals fibrillation with rapid ventricular rate. Telemetry tracings indicate atrial fibrillation with rapid ventricular rate. Chest xray reveals a patchy increasing lung markings, atypical pneumonia. Laboratory reviewed, to BC 14.4, hemoglobin 14.5, platelets 442, sodium 136, potassium 4.4, creatinine 0.82,. Current cardiac medications include amlodipine 5 mg twice a day, Xarelto 20 mg daily and Toprol 50 mg daily. REVIEW OF SYSTEMS At the time of my exam: CONSTITUTIONAL: Denies fever or chills. CARDIOVASCULAR: Denies chest pain, shortness of breath, orthopnea, PND or palpitations. RESPIRATORY: Denies cough. GASTROINTESTINAL: Denies abdominal pain, diarrhea, constipation, nausea or vomiting. MUSCULOSKELETAL: Denies myalgias. NEUROLOGIC: Denies numbness, tingling or weakness. ENDOCRINE: Denies fatigue, weight change, polydipsia or polyurina. GENITOURINARY: Denies burning, hematuria or urgency with micturation. HEMATOLOGIC: Denies history of anemia or bleeding. PHYSICAL EXAMINATION Blood pressure 120/88 heart rate 117 afebrile and maintaining oxygen saturation on nasal cannula. CONSTITUTIONAL: No apparent distress. HEENT: Head is normocephalic. Pupils are equal, round. Sclerae anicteric. Mucous membranes of the mouth are moist. No JVD. No carotid bruit. CHEST EXAMINATION: Lungs are clear to auscultation. No chest wall tenderness is noted on palpation or with deep breathing. HEART EXAMINATION: Irregular rate and rhythm. S1, S2 heard. No murmurs, gallops or rub. ABDOMEN: Soft, nontender. Positive bowel sounds. EXTREMITIES: 2+ peripheral pulses, no lower extremity edema and no calf tenderness. NEUROLOGIC EXAMINATION: Patient is awake, alert and oriented x3. ASSESSMENT New onset paroxysmal atrial fibrillation with rapid ventricular rate Acute Covid 19 infection New-onset diabetes mellitus History of pulmonary embolism maintained on Xarelto Hypertension PLAN Continue xarelto for thromboembolic protection. Given additional dose of lopressor 75 mg now and change toprol to lopressor 75 mg TID. Continue cardizem and amiodarone as previously ordered. Give cardizem 10 mg IVP now and increase infusion to 20 mg. Further recommendations to follow based on clinical course. Thank you kindly for this consultation. Nurse Practitioner note has been reviewed, I agree with a documented findings and plan of care. Patient was seen and examined. Past Medical History Past Medical History: Hypertension, Myocardial Infarction (AK), Pulmonary Embolus (PE) Additional Past Medical History / Comment(s): Gout, right upper lobe lung nodule being monitored in the outpatient setting, left upper lobe pulmonary embolism in September 2019, on Xarelto Last Myocardial Infarction Date:: History of Any Multi-Drug Resistant Organisms: None Reported Past Surgical History: Appendectomy Additional Past Surgical History / Comment(s): pt states appendectomy 30-40 years ago. pt states he doesn't know when his last AK was, because he was in assisted at the time he also said it was about 6 years ago. Past Psychological History: No Psychological Hx Reported Smoking Status: Former smoker Past Alcohol Use History: None Reported Past Drug Use History: None Reported Medications and Allergies Home Medications Medication Instructions Recorded Confirmed Type Allopurinol [Zyloprim] 300 mg PO DAILY 10/09/19 02/23/20 History amLODIPine [Norvasc] 5 mg PO BID 10/09/19 02/23/20 History Metoprolol Succinate [Toprol XL] 50 mg PO DAILY 02/23/20 02/23/20 History Naproxen Sodium [Naprelan] 500 mg PO BID PRN 02/23/20 02/23/20 History Omeprazole 20 mg PO DAILY 02/23/20 02/23/20 History Rivaroxaban [Xarelto] 20 mg PO DAILY 02/23/20 02/23/20 History Allergies Allergy/AdvReac Type Severity Reaction Status Date / Time No Known Allergies Allergy Verified 02/23/20 15:10 Physical Exam Vitals: Vital Signs Temp Pulse Resp BP Pulse Ox 03/01/20 08:00 144 H 03/01/20 07:58 97.6 F 144 H 18 116/86 94 L 03/01/20 04:10 92 L 03/01/20 04:05 93 L 03/01/20 04:00 97.4 F L 141 H 22 118/70 86 L 03/01/20 00:00 98.7 F 168 H 22 120/83 91 L 02/29/20 21:55 97.8 F 117 H 20 120/88 90 L 02/29/20 19:45 16 02/29/20 18:03 97.3 F L 02/29/20 17:56 89 16 120/81 90 L 02/29/20 14:00 97.6 F 70 18 127/73 92 L Intake and Output 02/29/20 03/01/20 03/01/20 22:59 06:59 14:59 Intake Total 700 321.167 Output Total 325 Balance 700 -3.833 Intake: Intake, IV Titration 100 81.167 Amount Diltiazem 125 mg In 81.167 Sodium Chloride 0.9% 100 ml @ 10 MG/HR 10 mls/hr IV .[id number] [facility] Rx#: [id number] cefTRIAXone 1 gm In 100 Sodium Chloride 0.9% 50 ml @ 100 mls/hr IVPB Q24HR [facility] Rx#:[id number] Oral 600 240 Output: Urine 325 Other: Voiding Method Toilet # Voids 2 1 Weight 92.5 kg Results 03/01/20 09:11 03/01/20 09:11 Cardiac Enzymes 02/29/20 Range/Units 06:55 Lactate Dehydrogenase 314 H (120-246) U/L CBC 03/01/20 Range/Units 09:11 WBC 14.4 H (3.8-10.6) k/uL RBC 4.57 (4.30-5.90) m/uL Hgb 14.5 (13.0-17.5) gm/dL Hct 41.6 (39.0-53.0) % Plt Count 442 (150-450) k/uL Comprehensive Metabolic Panel 02/29/20 03/01/20 Range/Units 06:55 09:11 Sodium 137 136 L (135-145) mmol/L Potassium 3.9 4.4 (3.5-5.5) mmol/L Chloride 106 109 H (96-109) mmol/L Carbon Dioxide 21.1 L 16 L (21.6-31.8) mmol/L BUN 26.0 21 H (9.0-27.0) mg/dL Creatinine 1.1 0.82 (0.6-1.5) mg/dL Glucose 186 H 268 H (70-110) mg/dL Calcium 8.8 8.5 (8.7-10.3) mg/dL Current Medications Generic Name Dose Route Start Last Admin Trade Name Freq PRN Reason Stop Dose Admin Acetaminophen 325 mg 02/26/20 22:00 02/26/20 23:48 Acetaminophen Tab 325 Mg Tab PO 325 mg Q6HR PRN Administration Mild Pain or Fever > 100.5 Allopurinol 300 mg 02/24/20 09:00 03/01/20 08:03 Allopurinol 300 Mg Tab PO 300 mg DAILY [facility] Administration Amlodipine Besylate 5 mg 02/24/20 09:00 03/01/20 08:03 Amlodipine 5 Mg Tab PO 5 mg BID [facility] Administration Ascorbic Acid 1,000 mg 02/26/20 22:00 03/01/20 08:03 Ascorbic Acid 500 Mg Tab PO 1,000 mg DAILY [facility] Administration Dexamethasone Sodium Phosphate 6 mg 02/26/20 22:30 03/01/20 08:04 Dexamethasone Sod Phosphate 10 Mg/Ml 1 Ml Vial IV 6 mg DAILY [facility] Administration Glimepiride 1 mg 02/27/20 07:30 03/01/20 06:53 Glimepiride 1 Mg Tab PO 1 mg [id number] [facility] Administration Sodium Chloride 1,000 mls @ 50 mls/hr 02/26/20 11:00 03/01/20 08:03 Saline 0.9% IV 50 mls/hr .Q20H [facility] Administration Remdesivir 100 mg/ Sodium 250 mls @ 250 mls/hr 02/27/20 22:00 02/29/20 21:11 Chloride IVPB 03/01/20 22:59 250 mls/hr Q24H [facility] Administration Ceftriaxone Sodium 1 gm/ 50 mls @ 100 mls/hr 02/27/20 20:15 03/01/20 08:09 Sodium Chloride IVPB 100 mls/hr Q24HR [facility] Administration Azithromycin 500 mg/ Sodium 250 mls @ 250 mls/hr 02/28/20 18:00 02/29/20 17:57 Chloride IVPB 250 mls/hr DAILY@1800 [facility] Administration Diltiazem HCl 125 mg/ Sodium 125 mls @ 10 mls/hr 02/29/20 23:00 03/01/20 05:16 Chloride IV 15 mg/hr .[id number] [facility] 15 mls/hr Administration 10 MG/HR Amiodarone HCl 360 mg/ 200 mls @ 33.333 mls/hr 03/01/20 07:00 03/01/20 07:04 Dextrose/Water IV 03/01/20 12:59 1 mg/min .Q6H ONE 33.333 mls/hr Administration Protocol 1 MG/MIN Insulin Aspart 0 unit 02/24/20 07:30 03/01/20 06:54 Insulin Aspart (Novolog) 100 Unit/Ml Vial SQ 2 unit ACHS [facility] Administration Protocol Insulin Detemir 30 unit 02/28/20 07:00 03/01/20 06:54 Insulin Detemir (Levemir) 100 Unit/Ml Syr SQ 30 unit DAILY@0700 [facility] Administration Metformin HCl 1,000 mg 02/27/20 07:30 03/01/20 06:54 Metformin 500 Mg Tab PO 1,000 mg BID-W/MEALS [facility] Administration Metoprolol Succinate 50 mg 03/01/20 09:00 03/01/20 08:03 Metoprolol Succinate (Er) 50 Mg Tab.Er.24h PO 50 mg BID [facility] Administration Naloxone HCl 0.2 mg 02/23/20 15:32 Naloxone 0.4 Mg/Ml 1 Ml Vial IV Q2M PRN Opioid Reversal Naproxen 500 mg 02/23/20 23:05 Naproxen 250 Mg Tab PO BID PRN Pain Pantoprazole Sodium 40 mg 02/24/20 09:00 03/01/20 08:03 Pantoprazole 40 Mg Tablet PO 40 mg DAILY [facility] Administration Rivaroxaban 20 mg 02/24/20 17:00 02/29/20 17:35 Rivaroxaban 20 Mg Tab PO 20 mg DAILY@1700 [facility] Administration Zinc Sulfate 220 mg 02/26/20 22:00 03/01/20 08:03 Zinc Sulfate 220 Mg Cap PO 220 mg DAILY [facility] Administration Intake and Output 02/29/20 03/01/20 03/01/20 22:59 06:59 14:59 Intake Total 700 321.167 Output Total 325 Balance 700 -3.833 Intake: Intake, IV Titration 100 81.167 Amount Diltiazem 125 mg In 81.167 Sodium Chloride 0.9% 100 ml @ 10 MG/HR 10 mls/hr IV .[id number] [facility] Rx#: [id number] cefTRIAXone 1 gm In 100 Sodium Chloride 0.9% 50 ml @ 100 mls/hr IVPB Q24HR [facility] Rx#:[id number] Oral 600 240 Output: Urine 325 Other: Voiding Method Toilet # Voids 2 1 Weight 92.5 kg 03/01/20 09:11 03/01/20 09:11
[2020-03-01 11:42] LABS: Magnesium 1.8 mg/dL (1.6-2.3)
[2020-03-01 12:00] LABS: Glucose,Whole Blood 271 mg/dL (75-99)
[2020-03-01] MEDS ORDERED: SODIUM CHLORIDE 0.9% 500 ML 150 ML IV ONE (14:38)
[2020-03-01] MEDS ORDERED: FUROSEMIDE 10 MG/ML 2 ML VIAL IV STA (14:39)
[2020-03-01] MEDS ORDERED: FUROSEMIDE 10 MG/ML 4 ML VIAL IV STA (14:39)
[2020-03-01] MEDS ORDERED: FUROSEMIDE 10 MG/ML 4 ML VIAL ONE (14:39)
[2020-03-01] MEDS ORDERED: AMIODARONE 200 MG TAB PO STA (14:40)
[2020-03-01] MEDS: METOPROLOL TARTRATE 25 MG TAB PO SCH ×2 (14:50→20:28)
--- NOTE | 2020-03-01 14:53 | XR ---
EXAMINATION TYPE: XR chest 1V portable DATE OF EXAM: 03/01/2020 COMPARISON: 02/27/2020. HISTORY: Follow-up shortness of breath. TECHNIQUE: Single frontal view of the chest is obtained. FINDINGS: There are persistent bilateral moderate peripheral based opacities throughout the lungs. N o pleural effusion, or pneumothorax seen. The cardiac silhouette size is mildly enlarged. The osse ous structures are intact. IMPRESSION: Moderate peripheral based opacities.
[2020-03-01 14:54] LABS: ABG Base Excess -7.1 mmol/L; ABG HCO3 16 mmol/L (21-25); ABG Oxygen Saturation 89.4 % (94-97); ABG PCO2 22 mmHg (35-45); ABG PH 7.48 (7.35-7.45); ABG TCO2 17 mmol/L (19-24); Allen Test Performed? Yes
[2020-03-01 14:54] LABS: Basophils # (A) 0.1 k/uL (0-0.2); Basophils % (A) 1 %; Eosinophils % (A) 0 %; HCT 42.4 % (39.0-53.0); HGB 14.4 gm/dL (13.0-17.5); Lymphocytes # (A) 0.8 k/uL (1.0-4.8); Lymphocytes % (A) 5 %; MCHC 33.9 g/dL (31.0-37.0); MCV 91.6 fL (80.0-100.0); Mean Platelet Volume 8.2; Monocytes # (A) 0.5 k/uL (0-1.0); Monocytes % (A) 3 %; Neutrophils # (A) 13.4 k/uL (1.3-7.7); Neutrophils % (A) 90 %; Platelet Count 502 k/uL (150-450); RBC 4.62 m/uL (4.30-5.90); RDW 12.6 % (11.5-15.5); WBC 14.9 k/uL (3.8-10.6)
--- NOTE | 2020-03-01 14:59 | P.PN ---
Subjective Progress Note Date: 03/01/20 We will ask to evaluate the patient again because of an acute shortness of breath that occurred overnight. The patient became acutely dyspneic. He was placed on 15 L of oxygen by nasal cannula. Following that he was placed on 100% nonrebreather facemask. Note that during this time the patient also whether atrial fibrillation with rapid ventricular response. Cardiology is involved and the patient has been on amiodarone drip and later on Cardizem drip and subsequently amiodarone has been drop down to oral form. Patient was also kept on Cardizem 20 mg an hour in addition to oral Lopressor. The less, the patient continues to be in A. fib and he continues to be tachycardic and heart disease in the 130 range. No fever. No chills. He has a dry cough. Repeat chest x- ray was done and the patient shows worsening in the bilateral pulmonary infiltrates and his presentation was consistent respiratory insufficiency and decompensation due to A. fib RVR in addition to coronavirus/COVID related p neumonia. The patient has been treated with Decadron the lung and the patient is currently also on Remdesivir. Despite all this, the patient has remained hemodynamically stable. No reported hypotension. The electrolytes are all within normal limits.. The white cell count is at 14.4 with hemoglobin 14.5. Objective - Vital Signs Vital signs: Vital Signs Temp 97.5 F L 03/01/20 11:35 Pulse 131 H 03/01/20 14:44 Resp 20 03/01/20 14:44 BP 108/71 03/01/20 14:44 Pulse Ox 90 L 03/01/20 14:44 Intake & Output 02/29/20 03/01/20 03/01/20 18:59 06:59 18:59 Intake Total 100 921.167 900.5 Output Total 325 800 Balance 100 596.167 100.5 Weight 92.5 kg Intake: Intake, IV Titration 100 81.167 120.5 Amount Diltiazem 125 mg In 81.167 120.5 Sodium Chloride 0.9% 100 ml @ 10 MG/HR 10 mls/hr IV .[id number] [facility] Rx#: [id number] cefTRIAXone 1 gm In 100 Sodium Chloride 0.9% 50 ml @ 100 mls/hr IVPB Q24HR [facility] Rx#:[id number] Oral 840 780 Output: Urine 325 800 Other: Voiding Method Toilet Toilet Toilet # Voids 3 1 # Bowel Movements 1 - Exam GENERAL EXAM: Alert, pleasant 69-year-old gentleman, the patient is currently on 100% nonrebreather facemask. The patient is a mild degree of respiratory distress. HEAD: Normocephalic. EYES: Normal reaction of pupils, equal size. NOSE: Clear with pink turbinates. THROAT: No erythema or exudates. NECK: No masses, no JVD. CHEST: No chest wall deformity. LUNGS: Equal air entry with no crackles, wheeze, rhonchi or dullness. CVS: Irregular rhythm with rapid ventricular response with atrial fibrillation, irregular S1-S2. No significant murmurs appreciated. ABDOMEN: No hepatosplenomegaly, normal bowel sounds, no guarding or rigidity. SPINE: No scoliosis or deformity SKIN: No rashes CENTRAL NERVOUS SYSTEM: No focal deficits, tone is normal in all 4 extremities. EXTREMITIES: There is no peripheral edema. No clubbing, no cyanosis. Peripheral pulses are intact. - Labs CBC & Chem 7: 03/01/20 14:32 03/01/20 09:11 Labs: Abnormal Lab Results - Last 24 Hours (Table) 02/29/20 02/29/20 03/01/20 Range/Units 16:31 20:52 06:10 WBC (3.8-10.6) k/uL Plt Count (150-450) k/uL Neutrophils # (1.3-7.7) k/uL Lymphocytes # (1.0-4.8) k/uL Sodium (137-145) mmol/L Chloride (98-107) mmol/L Carbon Dioxide (22-30) mmol/L BUN (9-20) mg/dL Glucose (74-99) mg/dL POC Glucose (mg/dL) 257 H 217 H 154 H (75-99) mg/dL TSH (0.465-4.680) mIU/L 03/01/20 03/01/20 03/01/20 Range/Units 09:11 09:11 09:11 WBC 14.4 H (3.8-10.6) k/uL Plt Count (150-450) k/uL Neutrophils # (1.3-7.7) k/uL Lymphocytes # (1.0-4.8) k/uL Sodium 136 L (137-145) mmol/L Chloride 109 H (98-107) mmol/L Carbon Dioxide 16 L (22-30) mmol/L BUN 21 H (9-20) mg/dL Glucose 268 H (74-99) mg/dL POC Glucose (mg/dL) (75-99) mg/dL TSH 0.403 L (0.465-4.680) mIU/L 03/01/20 03/01/20 Range/Units 12:00 14:32 WBC 14.9 H (3.8-10.6) k/uL Plt Count 502 H (150-450) k/uL Neutrophils # 13.4 H (1.3-7.7) k/uL Lymphocytes # 0.8 L (1.0-4.8) k/uL Sodium (137-145) mmol/L Chloride (98-107) mmol/L Carbon Dioxide (22-30) mmol/L BUN (9-20) mg/dL Glucose (74-99) mg/dL POC Glucose (mg/dL) 271 H (75-99) mg/dL TSH (0.465-4.680) mIU/L Microbiology - Last 24 Hours (Table) 02/23/20 13:35 Blood Culture - Final Blood No Growth after 144 hours Assessment and Plan Plan: 1 acute hypoxic respiratory failure with development of peripheral bilateral pulmonary infiltrates, most likely consistent with progression of acute coronavirus/Covid 19 related pneumonia. The patient was receiving a combination of Decadron and Remdesivir. There may be also further decompensation in his respiratory status because of A. fib/RVR. No overt signs of decompensated heart failure at this point in time. 2 new onset atrial fibrillation with rapid ventricular response currently on a combination of metoprolol, Cardizem drip and oral amiodarone. Cardiology on the case. LV function is preserved. 3 dyspnea secondary to above 4 right upper lobe lung nodule being followed in the outpatient setting 5 History of left upper lobe pulmonary embolism, anticoagulated with Xarelto 6 Hypertension 7 Former smoker 8 History of coronary disease 9 History of gout 10 GERD Plan: Continue Decadron and Remdesivir Keep the patient on the 100% percent nonrebreather facemask Obtain a blood gas Give the patient dose of Lasix 40 mg IV push Check cardiac enzymes Check proBNP level Given additional dose of amiodarone 150 mg bolus and consider cardioversion. Keep Cardizem drip Keep oral beta blockers may need to come to the ICU and later stage. We'll continue to follow.
[2020-03-01 15:11] LABS: ABG PO2 58 mmHg (83-108)
[2020-03-01 15:16] LABS: African American GFR (CKD) >90 (>60 ml/min/1.73 sqM); Anion Gap 11 mmol/L; Blood Urea Nitrogen 22 mg/dL (9-20); C Reactive Protein 24.5 mg/L (<10.0); Calcium 8.9 mg/dL (8.4-10.2); Carbon Dioxide 17 mmol/L (22-30); Chloride 107 mmol/L (98-107); Glucose 274 mg/dL (74-99); LDH 858 U/L (313-618); Non-African American GFR(CKD) 79 (>60 ml/min/1.73 sqM); Potassium 4.5 mmol/L (3.5-5.1); Sodium 135 mmol/L (137-145)
[2020-03-01] MEDS ORDERED: DEXTROSE 5% IN WATER 100 ML with AMIODARONE 150 MG IV ONE (15:30)
--- NOTE | 2020-03-01 16:12 | P.PN ---
Subjective From Records Mr. Davis is a 69-year-old male, who is a patient of Dr. Frey with a past medical history of hypertension,[place] coming in with a chief complaint of fatigue and generalized weakness that have been ongoing for past 1 week. Patient states that he has been having poor appetite loss of smell and loss of taste for the past 1 week. He states that he has been sleeping for more than 20 hours a day. Patient denies having any cough or difficulty in breathing. He denies having any chest pain or palpitations. He denies having any dysuria or hematuria. Patient denies having any history of diabetes but his blood sugars are in 300s to 400s. In the emergency room patient had a chest x-ray showing no acute cardiopulmonary process and an EKG showing normal sinus rhythm. He had labs done showing white count of 3.9, hemoglobin 14.4, platelets 166. Sodium 131, potassium 3.9, chloride. BUN 15, creatinine 0.93 C-reactive protein 59, albumin 3.3 coronavirus PCR positive. On 02/24/2020 patient was seen and examined. He is currently resting comfortably in bed. Appears to be no acute distress. On reviewing the vitals patient sami nues to fever as high as 102.3. His blood pressure has been stable around 130s 80s and he saturating at 95% on room air. Patient's blood sugars have been running on the higher side. On 02/25/2020- patient was seen and examined and the general medical floors. He is resting comfortably in bed. Overnight active issues reported by nursing staff. Patient states that his difficulty in breathing is improving. On reviewing the vitals patient's T-max is 98.4, heart rate 72, respiratory rate 127-79 and saturating at 93% on room air. On reviewing vitals patient's white count of 2.8, hemoglobin 14.4, platelets 189. Sodium 136, potassium 4.6, chloride 102. BUN 23 and creatinine of 1.0. Blood sugars have been running high in 200s to 300s. C-reactive protein 7.5. 02/26/2020 This is a pleasant 69 years old male who presents with cough with infection and found to have new onset diabetes with elevated hemoglobin A1c at 14%. Patient currently with no respiratory symptoms, no chest pain or dyspnea coughing. Yesterday he has a regular bowel movement but today he had 1 loose bowel movement but no significant abdominal pain or nausea vomiting. Also he is running a fever of 101. He saturating 90% at room air. BMP and CBC were reviewed and they were unremarkable except for mild leukopenia 2.8K. D-dimer is negative at 0.34. Coronavirus is detected. 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 Normal saline at 75 mL/h was added. Also Levemir 10 units daily and metformin 1000 mg twice daily has been added because his sugar still not controlled Patient is able to eat 75-100% of his meal 02/27/20 Patient had a rough night because of fever, his breathing is quiet and stable and he's only on 2 L oxygen. Is still have diarrhea about twice per day which is similar to the day before. No abdominal pain or vomiting. No significant coughing. unstable Chest x-ray: Worsening infiltrates, Pronecalcitonin is elevated at 0.27, patient is started on Rocephin and Zithromax. He is new onset diabetes and also is on dexamethasone and his sugar more than 300, so Levemir was decreased from 10-30 units daily. Also he is on metformin 1000 and Amaryl 1 mg. Continue on Xarelto, normocephalic 75, remedisivr, dexamethasone 6 mg daily. 02/28/2020 Patient hadn't good night because he could not sleep. No respiratory symptoms, ongoing generalized weakness. Yesterday he has watery diarrhea but this morning he had small more formed bowel movement. No abdominal pain. Persistent fever have subsided and his been afebrile for more than 24 hours. We will check Tylenol as needed His sugar is better controlled after increasing his insulin to 30 units. Antibiotics with ceftriaxone and Zithromax were admitted with high proteincalcitonin. We will try to check sputum culture. Check labs in the morning 02/29/2020 Patient feels much better today, his fever subsided and his on Tylenol as needed currently. No respiratory issue or symptom. He had a little formed bowel movement today. Currently patient remains on the same cocktail for comfort infection besides remedisivr Hemodynamically stable. Vitals are stable showing mild leukocytosis of 11.6 K 03/01/2020 pt is moved to [facility] , pt developed a fib and RVR and he was started on Cardizem and amiodarone drip and is already on Xarelto. Also patient on Lopressor 75 mg 3 times a day Also he developed more hypoxic and is currently on 50 L oxygen via nasal cannula saturating 90%. Repeat chest x-ray Moderate peripheral-based opacities throughout both lungs with no pleural effusion. Blood gas on BOTH HIS WITH PH 7.48, LOW PCO2 OF 22 AND LOW PO2 AT 58 PATIENT HAS BEEN EVALUATED BY PULMONARY SERVICE AND PATIENT MAY NEED TO GO TO THE ICU WELL. LEFT SHOWING STABLE LEUKOCYTOSIS AT 14.9 K, ELEVATED D-DIMER 3.1, BMP IS UNREMARKABLE AND WORSENING OF THE EDGE AND C-REACTIVE PROTEIN Patient is kept on remedisivr, dexamethasone 6 mg daily. However patient diarrhea has improved CONSTITUTIONAL: No fever, no malaise, no fatigue. HEENT: No recent visual problems or hearing problems. Denied any sore throat. CARDIOVASCULAR: No orthopnea, PND, no palpitations, no syncope. PULMONARY: No shortness of breath, no cough, no hemoptysis. GASTROINTESTINAL: No diarrhea, no nausea, no vomiting, no abdominal pain. Normoactive bowel sounds. NEUROLOGICAL: No headaches, no weakness, no numbness. Active Medications Generic Name Dose Route Start Last Admin Trade Name Freq PRN Reason Stop Dose Admin Acetaminophen 325 mg 02/26/20 22:00 02/26/20 23:48 Acetaminophen Tab 325 Mg Tab PO 325 mg Q6HR PRN Administration Mild Pain or Fever > 100.5 Allopurinol 300 mg 02/24/20 09:00 03/01/20 08:03 Allopurinol 300 Mg Tab PO 300 mg DAILY DILCIA Administration Amiodarone HCl 400 mg 03/01/20 21:00 Amiodarone 200 Mg Tab PO BID DILCIA Ascorbic Acid 1,000 mg 02/26/20 22:00 03/01/20 08:03 Ascorbic Acid 500 Mg Tab PO 1,000 mg DAILY DILCIA Administration Dexamethasone Sodium Phosphate 6 mg 03/01/20 21:00 Dexamethasone Sod Phosphate 10 Mg/Ml 1 Ml Vial IV Q12HR DILCIA Glimepiride 1 mg 02/27/20 07:30 03/01/20 06:53 Glimepiride 1 Mg Tab PO 1 mg [id number] DILCIA Administration Sodium Chloride 1,000 mls @ 50 mls/hr 02/26/20 11:00 03/01/20 08:03 Saline 0.9% IV 50 mls/hr .Q20H DILCIA Administration Remdesivir 100 mg/ Sodium 250 mls @ 250 mls/hr 02/27/20 22:00 02/29/20 21:11 Chloride IVPB 03/01/20 22:59 250 mls/hr Q24H DILCIA Administration Ceftriaxone Sodium 1 gm/ 50 mls @ 100 mls/hr 02/27/20 20:15 03/01/20 08:09 Sodium Chloride IVPB 100 mls/hr Q24HR DILCIA Administration Azithromycin 500 mg/ Sodium 250 mls @ 250 mls/hr 02/28/20 18:00 02/29/20 17:57 Chloride IVPB 250 mls/hr DAILY@1800 DILCIA Administration Diltiazem HCl 125 mg/ Sodium 125 mls @ 20 mls/hr 02/29/20 23:00 03/01/20 13:18 Chloride IV 20 mg/hr .Q6H15M DILCIA 20 mls/hr Administration 20 MG/HR Insulin Aspart 0 unit 02/24/20 07:30 03/01/20 12:05 Insulin Aspart (Novolog) 100 Unit/Ml Vial SQ 6 unit ACHS [facility] Administration Protocol Insulin Detemir 30 unit 02/28/20 07:00 03/01/20 06:54 Insulin Detemir (Levemir) 100 Unit/Ml Syr SQ 30 unit DAILY@0700 [facility] Administration Metformin HCl 1,000 mg 02/27/20 07:30 03/01/20 06:54 Metformin 500 Mg Tab PO 1,000 mg BID-W/MEALS DILCIA Administration Metoprolol Tartrate 75 mg 03/01/20 16:00 03/01/20 14:50 Metoprolol Tartrate 25 Mg Tab PO 75 mg TID DILCIA Administration Naloxone HCl 0.2 mg 02/23/20 15:32 Naloxone 0.4 Mg/Ml 1 Ml Vial IV Q2M PRN Opioid Reversal Naproxen 500 mg 02/23/20 23:05 Naproxen 250 Mg Tab PO BID PRN Pain Pantoprazole Sodium 40 mg 02/24/20 09:00 03/01/20 08:03 Pantoprazole 40 Mg Tablet PO 40 mg DAILY DILCIA Administration Rivaroxaban 20 mg 02/24/20 17:00 02/29/20 17:35 Rivaroxaban 20 Mg Tab PO 20 mg DAILY@1700 [facility] Administration Zinc Sulfate 220 mg 02/26/20 22:00 03/01/20 08:03 Zinc Sulfate 220 Mg Cap PO 220 mg DAILY DILCIA Administration Objective - Vital Signs Vital signs: Vital Signs Temp 97.5 F L 03/01/20 11:35 Pulse 131 H 03/01/20 14:44 Resp 20 03/01/20 14:44 BP 108/71 03/01/20 14:44 Pulse Ox 90 L 03/01/20 14:44 Intake & Output 02/29/20 03/01/20 03/01/20 18:59 06:59 18:59 Intake Total 100 921.167 900.5 Output Total 325 800 Balance 100 596.167 100.5 Weight 92.5 kg Intake: Intake, IV Titration 100 81.167 120.5 Amount Diltiazem 125 mg In 81.167 120.5 Sodium Chloride 0.9% 100 ml @ 10 MG/HR 10 mls/hr IV .[id number] [facility] Rx#: [id number] cefTRIAXone 1 gm In 100 Sodium Chloride 0.9% 50 ml @ 100 mls/hr IVPB Q24HR [facility] Rx#:[id number] Oral 840 780 Output: Urine 325 800 Other: Voiding Method Toilet Toilet Toilet # Voids 3 1 # Bowel Movements 1 - Exam GENERAL: The patient is alert and oriented x3, not in any acute distress. Well developed, well nourished. HEENT: Pupils are round and equally reacting to light. EOMI. No scleral icterus. No conjunctival pallor. Normocephalic, atraumatic. No pharyngeal erythema. No thyromegaly. CARDIOVASCULAR: S1 and S2 present. No murmurs, rubs, or gallops. PULMONARY: Chest is clear to auscultation, no wheezing or crackles. ABDOMEN: Soft, nontender, nondistended, normoactive bowel sounds. No palpable organomegaly. MUSCULOSKELETAL: No joint swelling or deformity. EXTREMITIES: No cyanosis, clubbing, or pedal edema. NEUROLOGICAL: Gross neurological examination did not reveal any focal deficits. SKIN: No rashes. no petechiae. - Labs CBC & Chem 7: 03/01/20 14:32 03/01/20 14:32 Labs: Abnormal Lab Results - Last 24 Hours (Table) 02/29/20 02/29/20 03/01/20 Range/Units 16:31 20:52 06:10 WBC (3.8-10.6) k/uL Plt Count (150-450) k/uL Neutrophils # (1.3-7.7) k/uL Lymphocytes # (1.0-4.8) k/uL D-Dimer (<0.60) mg/L FEU ABG pH (7.35-7.45) ABG pCO2 (35-45) mmHg ABG pO2 (83-108) mmHg ABG HCO3 (21-25) mmol/L ABG Total CO2 (19-24) mmol/L ABG O2 Saturation (94-97) % Sodium (137-145) mmol/L Chloride (98-107) mmol/L Carbon Dioxide (22-30) mmol/L BUN (9-20) mg/dL Glucose (74-99) mg/dL POC Glucose (mg/dL) 257 H 217 H 154 H (75-99) mg/dL Lactate Dehydrogenase (313-618) U/L C-Reactive Protein (<10.0) mg/L TSH (0.465-4.680) mIU/L 03/01/20 03/01/20 03/01/20 Range/Units 09:11 09:11 09:11 WBC 14.4 H (3.8-10.6) k/uL Plt Count (150-450) k/uL Neutrophils # (1.3-7.7) k/uL Lymphocytes # (1.0-4.8) k/uL D-Dimer (<0.60) mg/L FEU ABG pH (7.35-7.45) ABG pCO2 (35-45) mmHg ABG pO2 (83-108) mmHg ABG HCO3 (21-25) mmol/L ABG Total CO2 (19-24) mmol/L ABG O2 Saturation (94-97) % Sodium 136 L (137-145) mmol/L Chloride 109 H (98-107) mmol/L Carbon Dioxide 16 L (22-30) mmol/L BUN 21 H (9-20) mg/dL Glucose 268 H (74-99) mg/dL POC Glucose (mg/dL) (75-99) mg/dL Lactate Dehydrogenase (313-618) U/L C-Reactive Protein (<10.0) mg/L TSH 0.403 L (0.465-4.680) mIU/L 03/01/20 03/01/20 03/01/20 Range/Units 12:00 14:32 14:32 WBC 14.9 H (3.8-10.6) k/uL Plt Count 502 H (150-450) k/uL Neutrophils # 13.4 H (1.3-7.7) k/uL Lymphocytes # 0.8 L (1.0-4.8) k/uL D-Dimer 3.15 H (<0.60) mg/L FEU ABG pH (7.35-7.45) ABG pCO2 (35-45) mmHg ABG pO2 (83-108) mmHg ABG HCO3 (21-25) mmol/L ABG Total CO2 (19-24) mmol/L ABG O2 Saturation (94-97) % Sodium (137-145) mmol/L Chloride (98-107) mmol/L Carbon Dioxide (22-30) mmol/L BUN (9-20) mg/dL Glucose (74-99) mg/dL POC Glucose (mg/dL) 271 H (75-99) mg/dL Lactate Dehydrogenase (313-618) U/L C-Reactive Protein (<10.0) mg/L TSH (0.465-4.680) mIU/L 03/01/20 03/01/20 Range/Units 14:32 14:42 WBC (3.8-10.6) k/uL Plt Count (150-450) k/uL Neutrophils # (1.3-7.7) k/uL Lymphocytes # (1.0-4.8) k/uL D-Dimer (<0.60) mg/L FEU ABG pH 7.48 H (7.35-7.45) ABG pCO2 22 L (35-45) mmHg ABG pO2 58 L* (83-108) mmHg ABG HCO3 16 L (21-25) mmol/L ABG Total CO2 17 L (19-24) mmol/L ABG O2 Saturation 89.4 L (94-97) % Sodium 135 L (137-145) mmol/L Chloride (98-107) mmol/L Carbon Dioxide 17 L (22-30) mmol/L BUN 22 H (9-20) mg/dL Glucose 274 H (74-99) mg/dL POC Glucose (mg/dL) (75-99) mg/dL Lactate Dehydrogenase 858 H (313-618) U/L C-Reactive Protein 24.5 H (<10.0) mg/L TSH (0.465-4.680) mIU/L Microbiology - Last 24 Hours (Table) 02/23/20 13:35 Blood Culture - Final Blood No Growth after 144 hours Assessment and Plan Assessment: Worsening pneumonia Worsening acute hypoxic respiratory failure A. fib with RVR Fatigue generalized weakness secondary to Covid infection New-onset diabetes Hyponatremia due to dehydration Dehydration Gastroenteritis secondary to covid infection Hypomagnesemia Hypertension History of [place] Plan: This is a pleasant 69 years old male who presents with complete infection without pneumonia, mild gastroenteritis and new diabetes. Continue with zinc a nd ascorbic acid, continue with gentle hydration. Continue with metformin 1000 mg twice daily and Amaryl 1 mg daily and also he is on Levemir 30 units daily. Continue with antibiotic ceftriaxone and Zithromax. Pulmonary consult and continue with oxygen to keep saturation more than 20%. Cardiology input is appreciated, continue with Cardizem and amiodarone drip and continue with Lopressor and Xarelto Labs and medication were reviewed.. Continue same treatment. Continue with symptomatic treatment. Resume home medication. Monitor lytes and vitals. DVT and GI prophylaxis. Further recommendationsas per clinical course of the patient DVT prophylaxis: XARELTO GI Prophylaxis: Pepcid Prognosis is guarded
[2020-03-01 16:37] LABS: Glucose,Whole Blood 228 mg/dL (75-99)
[2020-03-01] MEDS: AZITHROMYCIN 500 MG in SODIUM CHLORIDE 0.9% 250 ML IVPB SCH (17:26)
[2020-03-01] MEDS: RIVAROXABAN 20 MG TAB PO SCH (17:28)
[2020-03-01 20:13] LABS: Glucose,Whole Blood 227 mg/dL (75-99)
[2020-03-01] MEDS: REMDESIVIR 100 MG in SODIUM CHLORIDE 0.9% 250 ML IVPB SCH (20:28)
[2020-03-01] MEDS: AMIODARONE 200 MG TAB PO SCH (20:28)
--- NOTE | 2020-03-01 22:39 | PN ---
PROGRESS NOTE DATE OF SERVICE: 03/01/2020 REASON FOR FOLLOWUP: Acute COVID-19 infection. INTERVAL HISTORY: Patient apparently did have atrial fibrillation with RVR and worsening of his respiratory status for which the patient will be transferred to the telemetry unit. The patient was started on amiodarone followed by Missy stoner and the patient did have worsening respiratory status requiring non-rebreather. The patient denies having any chest pain. He did have a cough which is mild. No sputum. No nausea, no vomiting. No abdominal pain or diarrhea. PHYSICAL EXAMINATION: Blood pressure 125/88 with a pulse of 84, temperature 96.1. He is 92% on nonrebreather. General description is an elderly male lying in bed in no distress. Respiratory system: Unlabored breathing with decreased intensity of breath sounds. No wheeze. HEART: S1, S2. Irregular rate and rhythm. ABDOMEN: Soft, no tenderness. EXTREMITIES: No edema of the feet. LABS: Hemoglobin is 14.4, white count 14.9, BUN of 22, creatinine 0.97. DIAGNOSTIC IMPRESSION/PLAN: Patient with acute COVID-19 pneumonia in this patient treated with Remdesivir, dexamethasone, Eliquis, in this patient did have worsening of his respiratory status, possibly due to fluid overload from his underlying atrial fibrillation with RVR. The patient to continue with Remdesivir. Dexamethasone dose has been adjusted up. To continue Xarelto and monitor clinical course closely. MMODL / IJN: [id number] /
[2020-03-02 00:01] LABS: Glucose,Whole Blood 155 mg/dL (75-99)
[2020-03-02] MEDS: DILTIAZEM 125 MG in SODIUM CHLORIDE 0.9% 100 ML IV SCH ×3 (04:12→20:32)
[2020-03-02] MEDS: SODIUM CHLORIDE 0.9% 1,000 ML IV SCH ×2 (04:13→09:50)
[2020-03-02 05:03] LABS: Basophils # (A) 0.1 k/uL (0-0.2); Basophils % (A) 1 %; Eosinophils # (A) 0.1 k/uL (0-0.7); Eosinophils % (A) 1 %; HCT 38.8 % (39.0-53.0); HGB 12.7 gm/dL (13.0-17.5); Lymphocytes # (A) 0.6 k/uL (1.0-4.8); Lymphocytes % (A) 5 %; MCH 30.8 pg (25.0-35.0); MCHC 32.8 g/dL (31.0-37.0); Mean Platelet Volume 7.7; Monocytes # (A) 0.5 k/uL (0-1.0); Monocytes % (A) 3 %; Neutrophils # (A) 12.1 k/uL (1.3-7.7); Neutrophils % (A) 90 %; Platelet Count 312 k/uL (150-450); RBC 4.13 m/uL (4.30-5.90); RDW 12.7 % (11.5-15.5); WBC 13.5 k/uL (3.8-10.6)
[2020-03-02 05:09] LABS: ALT 36 U/L (4-49); AST 30 U/L (17-59); African American GFR (CKD) >90 (>60 ml/min/1.73 sqM); Albumin 2.8 g/dL (3.5-5.0); Alkaline Phosphatase 65 U/L (38-126); Anion Gap 7 mmol/L; Blood Urea Nitrogen 25 mg/dL (9-20); C Reactive Protein 31.2 mg/L (<10.0); Calcium 8.3 mg/dL (8.4-10.2); Carbon Dioxide 20 mmol/L (22-30); Chloride 108 mmol/L (98-107); Glucose 169 mg/dL (74-99); LDH 904 U/L (313-618); Non-African American GFR(CKD) 81 (>60 ml/min/1.73 sqM); Potassium 4.1 mmol/L (3.5-5.1); Sodium 135 mmol/L (137-145); Total Bilirubin 0.6 mg/dL (0.2-1.3); Total Protein 5.5 g/dL (6.3-8.2)
[2020-03-02 05:27] LABS: D-Dimer 5.77 mg/L FEU (<0.60)
[2020-03-02 07:04] LABS: Glucose,Whole Blood 184 mg/dL (75-99)
[2020-03-02] MEDS: INSULIN ASPART (NovoLOG) 100 UNIT/ML VIAL SQ SCH ×4 (07:12→22:04)
[2020-03-02] MEDS: GLIMEPIRIDE 1 MG TAB PO SCH (07:12)
[2020-03-02] MEDS: metFORMIN 500 MG TAB PO SCH (07:12)
--- NOTE | 2020-03-02 08:04 | XR ---
EXAMINATION TYPE: XR chest 1V DATE OF EXAM: 03/02/2020 COMPARISON: 03/01/2020 INDICATION: Follow-up previous abnormal TECHNIQUE: Single frontal view of the chest is obtained. FINDINGS: The heart size is mildly prominent. The pulmonary vasculature is prominent. Diffuse peripheral infiltrates are present bilaterally. Findings are stable IMPRESSION: 1. Stable bilateral lung infiltrates. 2. Mild stable cardiomegaly
[2020-03-02] MEDS ORDERED: FUROSEMIDE 10 MG/ML 4 ML VIAL IV STA (08:19)
--- NOTE | 2020-03-02 08:24 | P.PN ---
Subjective Progress Note Date: 03/02/20 On 03/02/2020, the patient got transferred to the intensive care unit overnight. I saw him in a medical floor and the patient was having acute hypoxic respiratory failure secondary to coronavirus/Covid 19 related pneumonia. The patient was in the 100%. After arriving to the intensive care unit, the patient had to be placed on a BiPAP which is currently running at a pressure of 12/6 cm of water with an FiO2 of 20%. His pulse ox currently is 96%. Blood gases are pending from this morning. He is resting comfortably on the BiPAP and he is able to tolerated without any major difficulties. His cardiac rhythm has slowed down. He remains on atrial fibrillation. He is on a Cardizem drip running at 20 mg an hour. He is also on metoprolol at a dose of 75 mg by mouth three a day and amiodarone 400 mg by mouth twice a day. Patient is on Xarelto. D-dimer is elevated which is consistent with his coronavirus/Covid 19 related infection. His white cell count of 13.5. His LDH level is at 904. The proBNP level was 3940 and his troponin was at 0.142. I gave him a dose of Lasix yesterday. His fluid balance over the past 24 hours has been -996 mL. The chest x-ray still showing diffuse bilateral pulmonary infiltrates which is essentially unchanged compared to yesterday. There are diffuse peripheral infiltrates bilaterally. Objective - Vital Signs Vital signs: Vital Signs Temp 97.2 F L 03/02/20 08:00 Pulse 80 03/02/20 08:00 Resp 22 03/02/20 08:00 BP 117/76 03/02/20 08:00 Pulse Ox 96 03/02/20 08:00 Intake & Output 03/01/20 03/02/20 03/02/20 18:59 06:59 18:59 Intake Total 1059.833 778.666 100 Output Total 2100 725 0 Balance -1040.167 53.666 100 Intake: IV 300 100 Sodium Chloride 0.9% 1, 300 100 000 ml @ 50 mls/hr IV . Q20H [facility] Rx#:[id number] Intake, IV Titration 179.833 238.666 Amount Diltiazem 125 mg In 179.833 238.666 Sodium Chloride 0.9% 100 ml @ 20 MG/HR 20 mls/hr IV .Q6H15M [facility] Rx#: [id number] Oral 880 240 Output: Urine 2100 725 0 Other: Voiding Method Toilet Urinal # Voids 1 # Bowel Movements 1 - Exam GENERAL EXAM: Alert, pleasant 69-year-old gentleman, the patient is currently on 100% nonrebreather facemask. The patient is a mild degree of respiratory distress. The patient is on a BiPAP which she is tolerating it well at a pressure of 12/60 cm of water HEAD: Normocephalic. EYES: Normal reaction of pupils, equal size. NOSE: Clear with pink turbinates. THROAT: No erythema or exudates. NECK: No masses, no JVD. CHEST: No chest wall deformity. LUNGS: Equal air entry with no crackles, wheeze, rhonchi or dullness. CVS: Irregular rhythm with a slower ventricular response with atrial fibrillation, irregular S1-S2. No significant murmurs appreciated. ABDOMEN: No hepatosplenomegaly, normal bowel sounds, no guarding or rigidity. SPINE: No scoliosis or deformity SKIN: No rashes CENTRAL NERVOUS SYSTEM: No focal deficits, tone is normal in all 4 extremities. EXTREMITIES: There is no peripheral edema. No clubbing, no cyanosis. Peripheral pulses are intact. - Labs CBC & Chem 7: 03/02/20 04:13 03/02/20 04:13 Labs: Abnormal Lab Results - Last 24 Hours (Table) 03/01/20 03/01/20 03/01/20 Range/Units 09:11 09:11 09:11 WBC 14.4 H (3.8-10.6) k/uL RBC (4.30-5.90) m/uL Hgb (13.0-17.5) gm/dL Hct (39.0-53.0) % Plt Count (150-450) k/uL Neutrophils # (1.3-7.7) k/uL Lymphocytes # (1.0-4.8) k/uL Fibrinogen (200-500) mg/dL D-Dimer (<0.60) mg/L FEU ABG pH (7.35-7.45) ABG pCO2 (35-45) mmHg ABG pO2 (83-108) mmHg ABG HCO3 (21-25) mmol/L ABG Total CO2 (19-24) mmol/L ABG O2 Saturation (94-97) % Sodium 136 L (137-145) mmol/L Chloride 109 H (98-107) mmol/L Carbon Dioxide 16 L (22-30) mmol/L BUN 21 H (9-20) mg/dL Glucose 268 H (74-99) mg/dL POC Glucose (mg/dL) (75-99) mg/dL Calcium (8.4-10.2) mg/dL Lactate Dehydrogenase (313-618) U/L Troponin I (0.000-0.034) ng/mL C-Reactive Protein (<10.0) mg/L Total Protein (6.3-8.2) g/dL Albumin (3.5-5.0) g/dL TSH 0.403 L (0.465-4.680) mIU/L 03/01/20 03/01/20 03/01/20 Range/Units 12:00 14:32 14:32 WBC 14.9 H (3.8-10.6) k/uL RBC (4.30-5.90) m/uL Hgb (13.0-17.5) gm/dL Hct (39.0-53.0) % Plt Count 502 H (150-450) k/uL Neutrophils # 13.4 H (1.3-7.7) k/uL Lymphocytes # 0.8 L (1.0-4.8) k/uL Fibrinogen (200-500) mg/dL D-Dimer 3.15 H (<0.60) mg/L FEU ABG pH (7.35-7.45) ABG pCO2 (35-45) mmHg ABG pO2 (83-108) mmHg ABG HCO3 (21-25) mmol/L ABG Total CO2 (19-24) mmol/L ABG O2 Saturation (94-97) % Sodium (137-145) mmol/L Chloride (98-107) mmol/L Carbon Dioxide (22-30) mmol/L BUN (9-20) mg/dL Glucose (74-99) mg/dL POC Glucose (mg/dL) 271 H (75-99) mg/dL Calcium (8.4-10.2) mg/dL Lactate Dehydrogenase (313-618) U/L Troponin I (0.000-0.034) ng/mL C-Reactive Protein (<10.0) mg/L Total Protein (6.3-8.2) g/dL Albumin (3.5-5.0) g/dL TSH (0.465-4.680) mIU/L 03/01/20 03/01/20 03/01/20 Range/Units 14:32 14:32 14:42 WBC (3.8-10.6) k/uL RBC (4.30-5.90) m/uL Hgb (13.0-17.5) gm/dL Hct (39.0-53.0) % Plt Count (150-450) k/uL Neutrophils # (1.3-7.7) k/uL Lymphocytes # (1.0-4.8) k/uL Fibrinogen (200-500) mg/dL D-Dimer (<0.60) mg/L FEU ABG pH 7.48 H (7.35-7.45) ABG pCO2 22 L (35-45) mmHg ABG pO2 58 L* (83-108) mmHg ABG HCO3 16 L (21-25) mmol/L ABG Total CO2 17 L (19-24) mmol/L ABG O2 Saturation 89.4 L (94-97) % Sodium 135 L (137-145) mmol/L Chloride (98-107) mmol/L Carbon Dioxide 17 L (22-30) mmol/L BUN 22 H (9-20) mg/dL Glucose 274 H (74-99) mg/dL POC Glucose (mg/dL) (75-99) mg/dL Calcium (8.4-10.2) mg/dL Lactate Dehydrogenase 858 H (313-618) U/L Troponin I 0.142 H* (0.000-0.034) ng/mL C-Reactive Protein 24.5 H (<10.0) mg/L Total Protein (6.3-8.2) g/dL Albumin (3.5-5.0) g/dL TSH (0.465-4.680) mIU/L 03/01/20 03/01/20 03/02/20 Range/Units 16:34 20:00 00:00 WBC (3.8-10.6) k/uL RBC (4.30-5.90) m/uL Hgb (13.0-17.5) gm/dL Hct (39.0-53.0) % Plt Count (150-450) k/uL Neutrophils # (1.3-7.7) k/uL Lymphocytes # (1.0-4.8) k/uL Fibrinogen (200-500) mg/dL D-Dimer (<0.60) mg/L FEU ABG pH (7.35-7.45) ABG pCO2 (35-45) mmHg ABG pO2 (83-108) mmHg ABG HCO3 (21-25) mmol/L ABG Total CO2 (19-24) mmol/L ABG O2 Saturation (94-97) % Sodium (137-145) mmol/L Chloride (98-107) mmol/L Carbon Dioxide (22-30) mmol/L BUN (9-20) mg/dL Glucose (74-99) mg/dL POC Glucose (mg/dL) 228 H 227 H 155 H (75-99) mg/dL Calcium (8.4-10.2) mg/dL Lactate Dehydrogenase (313-618) U/L Troponin I (0.000-0.034) ng/mL C-Reactive Protein (<10.0) mg/L Total Protein (6.3-8.2) g/dL Albumin (3.5-5.0) g/dL TSH (0.465-4.680) mIU/L 03/02/20 03/02/20 03/02/20 Range/Units 04:13 04:13 04:13 WBC 13.5 H (3.8-10.6) k/uL RBC 4.13 L (4.30-5.90) m/uL Hgb 12.7 L (13.0-17.5) gm/dL Hct 38.8 L (39.0-53.0) % Plt Count (150-450) k/uL Neutrophils # 12.1 H (1.3-7.7) k/uL Lymphocytes # 0.6 L (1.0-4.8) k/uL Fibrinogen 538 H (200-500) mg/dL D-Dimer 5.77 H (<0.60) mg/L FEU ABG pH (7.35-7.45) ABG pCO2 (35-45) mmHg ABG pO2 (83-108) mmHg ABG HCO3 (21-25) mmol/L ABG Total CO2 (19-24) mmol/L ABG O2 Saturation (94-97) % Sodium 135 L (137-145) mmol/L Chloride 108 H (98-107) mmol/L Carbon Dioxide 20 L (22-30) mmol/L BUN 25 H (9-20) mg/dL Glucose 169 H (74-99) mg/dL POC Glucose (mg/dL) (75-99) mg/dL Calcium 8.3 L (8.4-10.2) mg/dL Lactate Dehydrogenase 904 H (313-618) U/L Troponin I (0.000-0.034) ng/mL C-Reactive Protein 31.2 H (<10.0) mg/L Total Protein 5.5 L (6.3-8.2) g/dL Albumin 2.8 L (3.5-5.0) g/dL TSH (0.465-4.680) mIU/L 03/02/20 Range/Units 07:03 WBC (3.8-10.6) k/uL RBC (4.30-5.90) m/uL Hgb (13.0-17.5) gm/dL Hct (39.0-53.0) % Plt Count (150-450) k/uL Neutrophils # (1.3-7.7) k/uL Lymphocytes # (1.0-4.8) k/uL Fibrinogen (200-500) mg/dL D-Dimer (<0.60) mg/L FEU ABG pH (7.35-7.45) ABG pCO2 (35-45) mmHg ABG pO2 (83-108) mmHg ABG HCO3 (21-25) mmol/L ABG Total CO2 (19-24) mmol/L ABG O2 Saturation (94-97) % Sodium (137-145) mmol/L Chloride (98-107) mmol/L Carbon Dioxide (22-30) mmol/L BUN (9-20) mg/dL Glucose (74-99) mg/dL POC Glucose (mg/dL) 184 H (75-99) mg/dL Calcium (8.4-10.2) mg/dL Lactate Dehydrogenase (313-618) U/L Troponin I (0.000-0.034) ng/mL C-Reactive Protein (<10.0) mg/L Total Protein (6.3-8.2) g/dL Albumin (3.5-5.0) g/dL TSH (0.465-4.680) mIU/L Assessment and Plan Plan: 1 acute hypoxic respiratory failure with development of peripheral bilateral pulmonary infiltrates, most likely consistent with progression of acute coronavirus/Covid 19 related pneumonia. The patient was receiving a combination of Decadron and Remdesivir and he has completed his course and the patient received his day #5 yesterday. Because of worsening shortness of breath and hypoxemia, increase his Decadron dose to 60 mg IV every 12 hours. He is currently on a BiPAP at a pressure of 12/6 cm of water. Blood gases is pending. No overt signs of heart failure. The patient has peripheral bilateral pul monary infiltrates which is very much consistent with coronavirus/Covid 19 related infection.. 2 new onset atrial fibrillation with rapid ventricular response currently on a combination of metoprolol, Cardizem drip and oral amiodarone. Cardiology on the case. LV function is preserved. The patient's heart is under slower rate at this point in time. 3 dyspnea secondary to above 4 right upper lobe lung nodule being followed in the outpatient setting 5 History of left upper lobe pulmonary embolism, anticoagulated with Xarelto 6 Hypertension 7 Former smoker 8 History of coronary disease 9 History of gout 10 GERD 11 troponin leak Plan: Continue Decadron and Remdesivir was completed yesterday. Keep the patient on the BiPAP and obtain a blood gas and try to wean down FiO2 Give the patient dose another dose of of Lasix 40 mg IV push Check cardiac enzymes show some mild troponin leak Check proBNP level was elevated and this was likely due to A. fib RVR and a component of mild CHF. The predominance failure however is related to Covid 19 related pneumonia. Keep Cardizem drip at 20 mg an hour and gradually wean it off to maintain a heart rate of less than 100 Keep oral beta blockers Continue Xarelto and d-dimer was noted. The patient is currently taking Xarelto 20 mg once a day. Keep the patient ICU for now. CC management, >30 min Time with Patient: Greater than 30
[2020-03-02 08:37] LABS: ABG Base Excess -5.6 mmol/L; ABG HCO3 18 mmol/L (21-25); ABG Oxygen Saturation 93.8 % (94-97); ABG PCO2 27 mmHg (35-45); ABG PH 7.45 (7.35-7.45); ABG PO2 77 mmHg (83-108); ABG TCO2 19 mmol/L (19-24); Allen Test Performed? Yes
[2020-03-02] MEDS: INSULIN DETEMIR (LEVEMIR) 100 UNIT/ML SYR SQ SCH (09:38)
[2020-03-02] MEDS: DEXAMETHASONE SOD PHOSPHATE 10 MG/ML 1 ML VIAL IV SCH ×2 (09:50→20:31)
[2020-03-02] MEDS: allopurinoL 300 MG TAB PO SCH (09:51)
[2020-03-02] MEDS: ASCORBIC ACID 500 MG TAB PO SCH (09:51)
[2020-03-02] MEDS: METOPROLOL TARTRATE 25 MG TAB PO SCH ×3 (09:51→21:28)
[2020-03-02] MEDS: ZINC SULFATE 220 MG CAP PO SCH (09:51)
[2020-03-02] MEDS: AMIODARONE 200 MG TAB PO SCH ×2 (09:51→20:31)
[2020-03-02] MEDS: PANTOPRAZOLE 40 MG TABLET PO SCH (09:51)
[2020-03-02 10:19] LABS: Ferritin 639.9 ng/mL (22.0-322.0)
[2020-03-02 11:40] LABS: Glucose,Whole Blood 171 mg/dL (75-99)
--- NOTE | 2020-03-02 14:19 | P.PN ---
Subjective From Records Mr. Davis is a 69-year-old male, who is a patient of Dr. Frey with a past medical history of hypertension,OK coming in with a chief complaint of fatigue and generalized weakness that have been ongoing for past 1 week. Patient states that he has been having poor appetite loss of smell and loss of taste for the past 1 week. He states that he has been sleeping for more than 20 hours a day. Patient denies having any cough or difficulty in breathing. He denies having any chest pain or palpitations. He denies having any dysuria or hematuria. Patient denies having any history of diabetes but his blood sugars are in 300s to 400s. In the emergency room patient had a chest x-ray showing no acute cardiopulmonary process and an EKG showing normal sinus rhythm. He had labs done showing white count of 3.9, hemoglobin 14.4, platelets 166. Sodium 131, potassium 3.9, chloride. BUN 15, creatinine 0.93 C-reactive protein 59, albumin 3.3 coronavirus PCR positive. On 02/24/2020 patient was seen and examined. He is currently resting comfortably in bed. Appears to be no acute distress. On reviewing the vitals patient sami nues to fever as high as 102.3. His blood pressure has been stable around 130s 80s and he saturating at 95% on room air. Patient's blood sugars have been running on the higher side. On 02/25/2020- patient was seen and examined and the general medical floors. He is resting comfortably in bed. Overnight active issues reported by nursing staff. Patient states that his difficulty in breathing is improving. On reviewing the vitals patient's T-max is 98.4, heart rate 72, respiratory rate 127-79 and saturating at 93% on room air. On reviewing vitals patient's white count of 2.8, hemoglobin 14.4, platelets 189. Sodium 136, potassium 4.6, chloride 102. BUN 23 and creatinine of 1.0. Blood sugars have been running high in 200s to 300s. C-reactive protein 7.5. 02/26/2020 This is a pleasant 69 years old male who presents with cough with infection and found to have new onset diabetes with elevated hemoglobin A1c at 14%. Patient currently with no respiratory symptoms, no chest pain or dyspnea coughing. Yesterday he has a regular bowel movement but today he had 1 loose bowel movement but no significant abdominal pain or nausea vomiting. Also he is running a fever of 101. He saturating 90% at room air. BMP and CBC were reviewed and they were unremarkable except for mild leukopenia 2.8K. D-dimer is negative at 0.34. Coronavirus is detected. 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 Normal saline at 75 mL/h was added. Also Levemir 10 units daily and metformin 1000 mg twice daily has been added because his sugar still not controlled Patient is able to eat 75-100% of his meal 02/27/20 Patient had a rough night because of fever, his breathing is quiet and stable and he's only on 2 L oxygen. Is still have diarrhea about twice per day which is similar to the day before. No abdominal pain or vomiting. No significant coughing. unstable Chest x-ray: Worsening infiltrates, Pronecalcitonin is elevated at 0.27, patient is started on Rocephin and Zithromax. He is new onset diabetes and also is on dexamethasone and his sugar more than 300, so Levemir was decreased from 10-30 units daily. Also he is on metformin 1000 and Amaryl 1 mg. Continue on Xarelto, normocephalic 75, remedisivr, dexamethasone 6 mg daily. 02/28/2020 Patient hadn't good night because he could not sleep. No respiratory symptoms, ongoing generalized weakness. Yesterday he has watery diarrhea but this morning he had small more formed bowel movement. No abdominal pain. Persistent fever have subsided and his been afebrile for more than 24 hours. We will check Tylenol as needed His sugar is better controlled after increasing his insulin to 30 units. Antibiotics with ceftriaxone and Zithromax were admitted with high proteincalcitonin. We will try to check sputum culture. Check labs in the morning 02/29/2020 Patient feels much better today, his fever subsided and his on Tylenol as needed currently. No respiratory issue or symptom. He had a little formed bowel movement today. Currently patient remains on the same cocktail for comfort infection besides remedisivr Hemodynamically stable. Vitals are stable showing mild leukocytosis of 11.6 K 03/01/2020 pt is moved to [facility] unit , pt developed a fib and RVR and he was started on Cardizem and amiodarone drip and is already on Xarelto. Also patient on Lopressor 75 mg 3 times a day Also he developed more hypoxic and is currently on 50 L oxygen via nasal cannula saturating 90%. Repeat chest x-ray Moderate peripheral-based opacities throughout both lungs with no pleural effusion. Blood gas on BOTH HIS WITH PH 7.48, LOW PCO2 OF 22 AND LOW PO2 AT 58 PATIENT HAS BEEN EVALUATED BY PULMONARY SERVICE AND PATIENT MAY NEED TO GO TO THE ICU WELL. LEFT SHOWING STABLE LEUKOCYTOSIS AT 14.9 K, ELEVATED D-DIMER 3.1, BMP IS UNREMARKABLE AND WORSENING OF THE EDGE AND C-REACTIVE PROTEIN Patient is kept on remedisivr, dexamethasone 6 mg daily. However patient diarrhea has improved 03/02/2020 Patient today kept in the ICU on BiPAP saturating 100% however he looks comfortable. Distal short of breath and dyspneic Rest of vitals are stable Laps looks stable, inflammatory markers LDH and C-reactive protein still trending up slowly compared to yesterday.proCalcitonin is negative. D-dimer is trending up at 5.7 Chest x-ray showing stable bilateral lung infiltrates He remains on Decadron and remdesivir Also I kept on Cardizem drip at 20 mg an hour and amiodarone 400 mg twice daily and metoprolol 75 mg 3 times a day, vitamin C and A. fib and heart rate ranging between 80-100. He has an echo from 10/10/2019 showed ejection fraction of 50-55%. BNP is elevated at 3940. Discontinue ceftriaxone. Keep Zithromax for now. Patient to continue on Xarelto patient is nothing by mouth WE'LL KEEP HIM ON GENTLE HYDRATION AT 50 ML/H. ALSO GOT 1 DOSE OF LASIX CONSTITUTIONAL: No fever, no malaise, no fatigue. HEENT: No recent visual problems or hearing problems. Denied any sore throat. CARDIOVASCULAR: No orthopnea, PND, no palpitations, no syncope. PULMONARY: No shortness of breath, no cough, no hemoptysis. GASTROINTESTINAL: No diarrhea, no nausea, no vomiting, no abdominal pain. Normoactive bowel sounds. NEUROLOGICAL: No headaches, no weakness, no numbness. Active Medications Generic Name Dose Route Start Last Admin Trade Name Freq PRN Reason Stop Dose Admin Acetaminophen 325 mg 02/26/20 22:00 02/26/20 23:48 Acetaminophen Tab 325 Mg Tab PO 325 mg Q6HR PRN Administration Mild Pain or Fever > 100.5 Allopurinol 300 mg 02/24/20 09:00 03/02/20 09:51 Allopurinol 300 Mg Tab PO 300 mg DAILY DILCIA Administration Amiodarone HCl 400 mg 03/01/20 21:00 03/02/20 09:51 Amiodarone 200 Mg Tab PO 400 mg BID DILCIA Administration Ascorbic Acid 1,000 mg 02/26/20 22:00 03/02/20 09:51 Ascorbic Acid 500 Mg Tab PO 1,000 mg DAILY DILCIA Administration Dexamethasone Sodium Phosphate 6 mg 03/01/20 21:00 03/02/20 09:50 Dexamethasone Sod Phosphate 10 Mg/Ml 1 Ml Vial IV 6 mg Q12HR DILCIA Administration Sodium Chloride 1,000 mls @ 50 mls/hr 02/26/20 11:00 03/02/20 09:50 Saline 0.9% IV 50 mls/hr .Q20H DILCIA Administration Ceftriaxone Sodium 1 gm/ 50 mls @ 100 mls/hr 02/27/20 20:15 03/02/20 09:12 Sodium Chloride IVPB 100 mls/hr Q24HR DILCIA Administration Azithromycin 500 mg/ Sodium 250 mls @ 250 mls/hr 02/28/20 18:00 03/01/20 17:26 Chloride IVPB 250 mls/hr DAILY@1800 DILCIA Administration Diltiazem HCl 125 mg/ Sodium 125 mls @ 20 mls/hr 02/29/20 23:00 03/02/20 11:22 Chloride IV 20 mg/hr .Q6H15M DILCIA 20 mls/hr Administration 20 MG/HR Insulin Aspart 0 unit 02/24/20 07:30 03/02/20 11:54 Insulin Aspart (Novolog) 100 Unit/Ml Vial SQ 2 unit ACHS DILCIA Administration Protocol Metoprolol Tartrate 75 mg 03/01/20 16:00 03/02/20 09:51 Metoprolol Tartrate 25 Mg Tab PO 75 mg TID DILCIA Administration Naloxone HCl 0.2 mg 02/23/20 15:32 Naloxone 0.4 Mg/Ml 1 Ml Vial IV Q2M PRN Opioid Reversal Naproxen 500 mg 02/23/20 23:05 Naproxen 250 Mg Tab PO BID PRN Pain Pantoprazole Sodium 40 mg 02/24/20 09:00 03/02/20 09:51 Pantoprazole 40 Mg Tablet PO 40 mg DAILY DILCIA Administration Rivaroxaban 20 mg 02/24/20 17:00 03/01/20 17:28 Rivaroxaban 20 Mg Tab PO 20 mg DAILY@1700 DILCIA Administration Zinc Sulfate 220 mg 02/26/20 22:00 03/02/20 09:51 Zinc Sulfate 220 Mg Cap PO 220 mg DAILY DILCIA Administration Objective - Vital Signs Vital signs: Vital Signs Temp 97.0 F L 03/02/20 12:00 Pulse 86 03/02/20 13:00 Resp 16 03/02/20 13:00 BP 113/95 03/02/20 13:00 Pulse Ox 92 L 03/02/20 13:00 Intake & Output 03/01/20 03/02/20 03/02/20 18:59 06:59 18:59 Intake Total 1059.833 778.666 525 Output Total 2100 725 1500 Balance -1040.167 53.666 -975 Weight 92.5 kg Intake: IV 300 350 Sodium Chloride 0.9% 1, 300 350 000 ml @ 50 mls/hr IV . Q20H [facility] Rx#:[id number] Intake, IV Titration 179.833 238.666 175 Amount Diltiazem 125 mg In 179.833 238.666 125 Sodium Chloride 0.9% 100 ml @ 20 MG/HR 20 mls/hr IV .Q6H15M [facility] Rx#: [id number] cefTRIAXone 1 gm In 50 Sodium Chloride 0.9% 50 ml @ 100 mls/hr IVPB Q24HR [facility] Rx#:[id number] Oral 880 240 Output: Urine 2100 725 1500 Other: Voiding Method Toilet Urinal Urinal # Voids 1 # Bowel Movements 1 - Exam GENERAL: The patient is alert and oriented x3, not in any acute distress. Well developed, well nourished. HEENT: Pupils are round and equally reacting to light. EOMI. No scleral icterus. No conjunctival pallor. Normocephalic, atraumatic. No pharyngeal erythema. No thyromegaly. CARDIOVASCULAR: S1 and S2 present. No murmurs, rubs, or gallops. PULMONARY: Chest is clear to auscultation, no wheezing or crackles. ABDOMEN: Soft, nontender, nondistended, normoactive bowel sounds. No palpable organomegaly. MUSCULOSKELETAL: No joint swelling or deformity. EXTREMITIES: No cyanosis, clubbing, or pedal edema. NEUROLOGICAL: Gross neurological examination did not reveal any focal deficits. SKIN: No rashes. no petechiae. - Labs CBC & Chem 7: 03/02/20 04:13 03/02/20 04:13 Labs: Abnormal Lab Results - Last 24 Hours (Table) 03/01/20 03/01/20 03/01/20 Range/Units 14:32 14:32 14:32 WBC 14.9 H (3.8-10.6) k/uL RBC (4.30-5.90) m/uL Hgb (13.0-17.5) gm/dL Hct (39.0-53.0) % Plt Count 502 H (150-450) k/uL Neutrophils # 13.4 H (1.3-7.7) k/uL Lymphocytes # 0.8 L (1.0-4.8) k/uL Fibrinogen (200-500) mg/dL D-Dimer 3.15 H (<0.60) mg/L FEU ABG pH (7.35-7.45) ABG pCO2 (35-45) mmHg ABG pO2 (83-108) mmHg ABG HCO3 (21-25) mmol/L ABG Total CO2 (19-24) mmol/L ABG O2 Saturation (94-97) % Sodium 135 L (137-145) mmol/L Chloride (98-107) mmol/L Carbon Dioxide 17 L (22-30) mmol/L BUN 22 H (9-20) mg/dL Glucose 274 H (74-99) mg/dL POC Glucose (mg/dL) (75-99) mg/dL Calcium (8.4-10.2) mg/dL Ferritin (22.0-322.0) ng/mL Lactate Dehydrogenase 858 H (313-618) U/L Troponin I (0.000-0.034) ng/mL C-Reactive Protein 24.5 H (<10.0) mg/L Total Protein (6.3-8.2) g/dL Albumin (3.5-5.0) g/dL 03/01/20 03/01/20 03/01/20 Range/Units 14:32 14:42 16:34 WBC (3.8-10.6) k/uL RBC (4.30-5.90) m/uL Hgb (13.0-17.5) gm/dL Hct (39.0-53.0) % Plt Count (150-450) k/uL Neutrophils # (1.3-7.7) k/uL Lymphocytes # (1.0-4.8) k/uL Fibrinogen (200-500) mg/dL D-Dimer (<0.60) mg/L FEU ABG pH 7.48 H (7.35-7.45) ABG pCO2 22 L (35-45) mmHg ABG pO2 58 L* (83-108) mmHg ABG HCO3 16 L (21-25) mmol/L ABG Total CO2 17 L (19-24) mmol/L ABG O2 Saturation 89.4 L (94-97) % Sodium (137-145) mmol/L Chloride (98-107) mmol/L Carbon Dioxide (22-30) mmol/L BUN (9-20) mg/dL Glucose (74-99) mg/dL POC Glucose (mg/dL) 228 H (75-99) mg/dL Calcium (8.4-10.2) mg/dL Ferritin (22.0-322.0) ng/mL Lactate Dehydrogenase (313-618) U/L Troponin I 0.142 H* (0.000-0.034) ng/mL C-Reactive Protein (<10.0) mg/L Total Protein (6.3-8.2) g/dL Albumin (3.5-5.0) g/dL 03/01/20 03/02/20 03/02/20 Range/Units 20:00 00:00 04:13 WBC 13.5 H (3.8-10.6) k/uL RBC 4.13 L (4.30-5.90) m/uL Hgb 12.7 L (13.0-17.5) gm/dL Hct 38.8 L (39.0-53.0) % Plt Count (150-450) k/uL Neutrophils # 12.1 H (1.3-7.7) k/uL Lymphocytes # 0.6 L (1.0-4.8) k/uL Fibrinogen (200-500) mg/dL D-Dimer (<0.60) mg/L FEU ABG pH (7.35-7.45) ABG pCO2 (35-45) mmHg ABG pO2 (83-108) mmHg ABG HCO3 (21-25) mmol/L ABG Total CO2 (19-24) mmol/L ABG O2 Saturation (94-97) % Sodium (137-145) mmol/L Chloride (98-107) mmol/L Carbon Dioxide (22-30) mmol/L BUN (9-20) mg/dL Glucose (74-99) mg/dL POC Glucose (mg/dL) 227 H 155 H (75-99) mg/dL Calcium (8.4-10.2) mg/dL Ferritin (22.0-322.0) ng/mL Lactate Dehydrogenase (313-618) U/L Troponin I (0.000-0.034) ng/mL C-Reactive Protein (<10.0) mg/L Total Protein (6.3-8.2) g/dL Albumin (3.5-5.0) g/dL 03/02/20 03/02/20 03/02/20 Range/Units 04:13 04:13 07:03 WBC (3.8-10.6) k/uL RBC (4.30-5.90) m/uL Hgb (13.0-17.5) gm/dL Hct (39.0-53.0) % Plt Count (150-450) k/uL Neutrophils # (1.3-7.7) k/uL Lymphocytes # (1.0-4.8) k/uL Fibrinogen 538 H (200-500) mg/dL D-Dimer 5.77 H (<0.60) mg/L FEU ABG pH (7.35-7.45) ABG pCO2 (35-45) mmHg ABG pO2 (83-108) mmHg ABG HCO3 (21-25) mmol/L ABG Total CO2 (19-24) mmol/L ABG O2 Saturation (94-97) % Sodium 135 L (137-145) mmol/L Chloride 108 H (98-107) mmol/L Carbon Dioxide 20 L (22-30) mmol/L BUN 25 H (9-20) mg/dL Glucose 169 H (74-99) mg/dL POC Glucose (mg/dL) 184 H (75-99) mg/dL Calcium 8.3 L (8.4-10.2) mg/dL Ferritin 639.9 H (22.0-322.0) ng/mL Lactate Dehydrogenase 904 H (313-618) U/L Troponin I (0.000-0.034) ng/mL C-Reactive Protein 31.2 H (<10.0) mg/L Total Protein 5.5 L (6.3-8.2) g/dL Albumin 2.8 L (3.5-5.0) g/dL 03/02/20 03/02/20 03/02/20 Range/Units 08:34 08:40 11:38 WBC (3.8-10.6) k/uL RBC (4.30-5.90) m/uL Hgb (13.0-17.5) gm/dL Hct (39.0-53.0) % Plt Count (150-450) k/uL Neutrophils # (1.3-7.7) k/uL Lymphocytes # (1.0-4.8) k/uL Fibrinogen (200-500) mg/dL D-Dimer (<0.60) mg/L FEU ABG pH (7.35-7.45) ABG pCO2 27 L (35-45) mmHg ABG pO2 77 L (83-108) mmHg ABG HCO3 18 L (21-25) mmol/L ABG Total CO2 (19-24) mmol/L ABG O2 Saturation 93.8 L (94-97) % Sodium (137-145) mmol/L Chloride (98-107) mmol/L Carbon Dioxide (22-30) mmol/L BUN (9-20) mg/dL Glucose (74-99) mg/dL POC Glucose (mg/dL) 171 H (75-99) mg/dL Calcium (8.4-10.2) mg/dL Ferritin (22.0-322.0) ng/mL Lactate Dehydrogenase (313-618) U/L Troponin I 0.066 H* (0.000-0.034) ng/mL C-Reactive Protein (<10.0) mg/L Total Protein (6.3-8.2) g/dL Albumin (3.5-5.0) g/dL Assessment and Plan Assessment: Worsening pneumonia Worsening acute hypoxic respiratory failure A. fib with RVR Fatigue generalized weakness secondary to Covid infection New-onset diabetes Hyponatremia due to dehydration Dehydration Gastroenteritis secondary to covid infection Hypomagnesemia Hypertension History of [place] Plan: This is a pleasant 69 years old male who presents with complete infection without pneumonia, mild gastroenteritis and new diabetes. Also A. fib with RVR Continue with zinc and ascorbic acid, continue with gentle hydration. Continue with metformin 1000 mg twice daily and Amaryl 1 mg daily and also he is on L evemir 30 units daily. Continue with antibiotic ceftriaxone and Zithromax. Pulmonary consult and continue with oxygen to keep saturation more than 20%. Cardiology input is appreciated, continue with Cardizem and amiodarone drip and continue with Lopressor and Xarelto Labs and medication were reviewed.. Continue same treatment. Continue with symptomatic treatment. Resume home medication. Monitor lytes and vitals. DVT and GI prophylaxis. Further recommendationsas per clinical course of the patient DVT prophylaxis: XARELTO GI Prophylaxis: Pepcid Prognosis is guarded
--- NOTE | 2020-03-02 14:31 | P.PN ---
Subjective HISTORY OF PRESENTING ILLNESS This is a pleasant 69-year-old male past medical history significant for ischemic heart disease exact details unavailable at this occurred in [place] according to the patient he had a catheterization 6 years ago and has natural collateral flow no PCI required, pulmonary embolism and hypertension. He follows in the office with Dr. Ochoa. We have been asked to see in consultation for atrial fibrillation with rapid ventricular rates. Is currently being treated for acute visit 19. Telemetry tracings indicate he went into atrial fibrillation yesterday evening with heart rates as high as 160. He has been initiated on IV Cardizem, IV amiodarone and oral beta blockers have been increased. He had a recent echocardiogram in September of this year revealing preserved LV systolic function with ejection fraction 50-55%. 03/02/2020: Patient seen and examined. Patient did have difficult to control heart rates yesterday and Cardizem was increased as well as his Lopressor and he was changed to by mouth amiodarone. Unfortunately he did have worsened shortness breath with increasing oxygen requirements and therefore was transferred to ICU. Heart rates have been better controlled, predominantly 90s to 110s. Patient denies any chest pain or pressure. Patient was placed on BiPAP and is feeling better than yesterday. He was given Lasix yesterday with approximately -1 L. Troponins were checked yesterday resulting at 0.142 and 0.06. Additionally proBNP noted to be at 3940. REVIEW OF SYSTEMS At the time of my exam: CONSTITUTIONAL: Denies fever or chills. CARDIOVASCULAR: Denies chest pain, +shortness of breath, no orthopnea, PND or palpitations. RESPIRATORY: Denies cough. GASTROINTESTINAL: Denies abdominal pain, diarrhea, constipation, nausea or vomiting. MUSCULOSKELETAL: Denies myalgias. NEUROLOGIC: Denies numbness, tingling or weakness. ENDOCRINE: Denies fatigue, weight change, polydipsia or polyurina. GENITOURINARY: Denies burning, hematuria or urgency with micturation. HEMATOLOGIC: Denies history of anemia or bleeding. PHYSICAL EXAMINATION Blood pressure 96/73 heart rate 103 afebrile and maintaining oxygen saturation on BiPAP. CONSTITUTIONAL: No apparent distress, comfortable on BiPAP. HEENT: Head is normocephalic. Pupils are equal, round. Sclerae anicteric. Mucous membranes of the mouth are moist. No JVD. No carotid bruit. CHEST EXAMINATION: Coarse breath sounds bilaterally with rhonchi HEART EXAMINATION: Irregular rate and rhythm. S1, S2 heard. No murmurs, gallops or rub. ABDOMEN: Soft, nontender. Positive bowel sounds. EXTREMITIES: 2+ peripheral pulses, no lower extremity edema and no calf tenderness. NEUROLOGIC EXAMINATION: Patient is awake, alert and oriented x3. ASSESSMENT New onset paroxysmal atrial fibrillation with rapid ventricular rate Acute Covid 19 infection New-onset diabetes mellitus History of pulmonary embolism maintained on Xarelto Hypertension Mildly elevated troponins, likely type II mechanism secondary to A. fib with RVR and Covid infection. No chest pain and do not suspect acute coronary syndrome Acute on chronic respiratory failure. Likely predominantly due to Covid 19 pneumonia however proBNP noted to be elevated and may be a component of acute diastolic heart failure. PLAN Continue xarelto for thromboembolic protection. Continue with Cardizem drip at 20, metoprolol 75 mg 3 times a day and amiodarone. Heart rates appears somewhat better controlled. Give cardizem 10 mg IVP now and increase infusion to 20 mg. Chest x-ray reviewed and continues bilateral diffuse infiltrates, no significant effusion. Agree with attempted diuresis given high oxygen requirements and possible mild heart failure. Continue supportive care. Hopeful change of Cardizem drip to by mouth medications however patient has been somewhat difficult to control heart rates. Continue current regimen at this time. Objective - Vital Signs Vital signs: Vital Signs Temp 97.0 F L 03/02/20 12:00 Pulse 103 H 03/02/20 14:00 Resp 22 03/02/20 14:00 BP 96/73 03/02/20 14:00 Pulse Ox 93 L 03/02/20 14:00 Intake & Output 03/01/20 03/02/20 03/02/20 18:59 06:59 18:59 Intake Total 1059.833 778.666 575 Output Total 2100 725 1500 Balance -1040.167 53.666 -925 Weight 92.5 kg Intake: IV 300 400 Sodium Chloride 0.9% 1, 300 400 000 ml @ 50 mls/hr IV . Q20H [facility] Rx#:[id number] Intake, IV Titration 179.833 238.666 175 Amount Diltiazem 125 mg In 179.833 238.666 125 Sodium Chloride 0.9% 100 ml @ 20 MG/HR 20 mls/hr IV .Q6H15M [facility] Rx#: [id number] cefTRIAXone 1 gm In 50 Sodium Chloride 0.9% 50 ml @ 100 mls/hr IVPB Q24HR [facility] Rx#:[id number] Oral 880 240 Output: Urine 2100 725 1500 Other: Voiding Method Toilet Urinal Urinal # Voids 1 # Bowel Movements 1 - Labs CBC & Chem 7: 03/02/20 04:13 03/02/20 04:13 Labs: Abnormal Lab Results - Last 24 Hours (Table) 03/01/20 03/01/20 03/01/20 Range/Units 14:32 14:32 14:32 WBC 14.9 H (3.8-10.6) k/uL RBC (4.30-5.90) m/uL Hgb (13.0-17.5) gm/dL Hct (39.0-53.0) % Plt Count 502 H (150-450) k/uL Neutrophils # 13.4 H (1.3-7.7) k/uL Lymphocytes # 0.8 L (1.0-4.8) k/uL Fibrinogen (200-500) mg/dL D-Dimer 3.15 H (<0.60) mg/L FEU ABG pH (7.35-7.45) ABG pCO2 (35-45) mmHg ABG pO2 (83-108) mmHg ABG HCO3 (21-25) mmol/L ABG Total CO2 (19-24) mmol/L ABG O2 Saturation (94-97) % Sodium 135 L (137-145) mmol/L Chloride (98-107) mmol/L Carbon Dioxide 17 L (22-30) mmol/L BUN 22 H (9-20) mg/dL Glucose 274 H (74-99) mg/dL POC Glucose (mg/dL) (75-99) mg/dL Calcium (8.4-10.2) mg/dL Ferritin (22.0-322.0) ng/mL Lactate Dehydrogenase 858 H (313-618) U/L Troponin I (0.000-0.034) ng/mL C-Reactive Protein 24.5 H (<10.0) mg/L Total Protein (6.3-8.2) g/dL Albumin (3.5-5.0) g/dL 03/01/20 03/01/20 03/01/20 Range/Units 14:32 14:42 16:34 WBC (3.8-10.6) k/uL RBC (4.30-5.90) m/uL Hgb (13.0-17.5) gm/dL Hct (39.0-53.0) % Plt Count (150-450) k/uL Neutrophils # (1.3-7.7) k/uL Lymphocytes # (1.0-4.8) k/uL Fibrinogen (200-500) mg/dL D-Dimer (<0.60) mg/L FEU ABG pH 7.48 H (7.35-7.45) ABG pCO2 22 L (35-45) mmHg ABG pO2 58 L* (83-108) mmHg ABG HCO3 16 L (21-25) mmol/L ABG Total CO2 17 L (19-24) mmol/L ABG O2 Saturation 89.4 L (94-97) % Sodium (137-145) mmol/L Chloride (98-107) mmol/L Carbon Dioxide (22-30) mmol/L BUN (9-20) mg/dL Glucose (74-99) mg/dL POC Glucose (mg/dL) 228 H (75-99) mg/dL Calcium (8.4-10.2) mg/dL Ferritin (22.0-322.0) ng/mL Lactate Dehydrogenase (313-618) U/L Troponin I 0.142 H* (0.000-0.034) ng/mL C-Reactive Protein (<10.0) mg/L Total Protein (6.3-8.2) g/dL Albumin (3.5-5.0) g/dL 03/01/20 03/02/20 03/02/20 Range/Units 20:00 00:00 04:13 WBC 13.5 H (3.8-10.6) k/uL RBC 4.13 L (4.30-5.90) m/uL Hgb 12.7 L (13.0-17.5) gm/dL Hct 38.8 L (39.0-53.0) % Plt Count (150-450) k/uL Neutrophils # 12.1 H (1.3-7.7) k/uL Lymphocytes # 0.6 L (1.0-4.8) k/uL Fibrinogen (200-500) mg/dL D-Dimer (<0.60) mg/L FEU ABG pH (7.35-7.45) ABG pCO2 (35-45) mmHg ABG pO2 (83-108) mmHg ABG HCO3 (21-25) mmol/L ABG Total CO2 (19-24) mmol/L ABG O2 Saturation (94-97) % Sodium (137-145) mmol/L Chloride (98-107) mmol/L Carbon Dioxide (22-30) mmol/L BUN (9-20) mg/dL Glucose (74-99) mg/dL POC Glucose (mg/dL) 227 H 155 H (75-99) mg/dL Calcium (8.4-10.2) mg/dL Ferritin (22.0-322.0) ng/mL Lactate Dehydrogenase (313-618) U/L Troponin I (0.000-0.034) ng/mL C-Reactive Protein (<10.0) mg/L Total Protein (6.3-8.2) g/dL Albumin (3.5-5.0) g/dL 03/02/20 03/02/20 03/02/20 Range/Units 04:13 04:13 07:03 WBC (3.8-10.6) k/uL RBC (4.30-5.90) m/uL Hgb (13.0-17.5) gm/dL Hct (39.0-53.0) % Plt Count (150-450) k/uL Neutrophils # (1.3-7.7) k/uL Lymphocytes # (1.0-4.8) k/uL Fibrinogen 538 H (200-500) mg/dL D-Dimer 5.77 H (<0.60) mg/L FEU ABG pH (7.35-7.45) ABG pCO2 (35-45) mmHg ABG pO2 (83-108) mmHg ABG HCO3 (21-25) mmol/L ABG Total CO2 (19-24) mmol/L ABG O2 Saturation (94-97) % Sodium 135 L (137-145) mmol/L Chloride 108 H (98-107) mmol/L Carbon Dioxide 20 L (22-30) mmol/L BUN 25 H (9-20) mg/dL Glucose 169 H (74-99) mg/dL POC Glucose (mg/dL) 184 H (75-99) mg/dL Calcium 8.3 L (8.4-10.2) mg/dL Ferritin 639.9 H (22.0-322.0) ng/mL Lactate Dehydrogenase 904 H (313-618) U/L Troponin I (0.000-0.034) ng/mL C-Reactive Protein 31.2 H (<10.0) mg/L Total Protein 5.5 L (6.3-8.2) g/dL Albumin 2.8 L (3.5-5.0) g/dL 03/02/20 03/02/20 03/02/20 Range/Units 08:34 08:40 11:38 WBC (3.8-10.6) k/uL RBC (4.30-5.90) m/uL Hgb (13.0-17.5) gm/dL Hct (39.0-53.0) % Plt Count (150-450) k/uL Neutrophils # (1.3-7.7) k/uL Lymphocytes # (1.0-4.8) k/uL Fibrinogen (200-500) mg/dL D-Dimer (<0.60) mg/L FEU ABG pH (7.35-7.45) ABG pCO2 27 L (35-45) mmHg ABG pO2 77 L (83-108) mmHg ABG HCO3 18 L (21-25) mmol/L ABG Total CO2 (19-24) mmol/L ABG O2 Saturation 93.8 L (94-97) % Sodium (137-145) mmol/L Chloride (98-107) mmol/L Carbon Dioxide (22-30) mmol/L BUN (9-20) mg/dL Glucose (74-99) mg/dL POC Glucose (mg/dL) 171 H (75-99) mg/dL Calcium (8.4-10.2) mg/dL Ferritin (22.0-322.0) ng/mL Lactate Dehydrogenase (313-618) U/L Troponin I 0.066 H* (0.000-0.034) ng/mL C-Reactive Protein (<10.0) mg/L Total Protein (6.3-8.2) g/dL Albumin (3.5-5.0) g/dL
[2020-03-02] MEDS: RIVAROXABAN 20 MG TAB PO SCH (16:56)
[2020-03-02] MEDS: AZITHROMYCIN 500 MG in SODIUM CHLORIDE 0.9% 250 ML IVPB SCH (16:57)
[2020-03-02 17:12] LABS: Glucose,Whole Blood 205 mg/dL (75-99)
[2020-03-02 21:57] LABS: Glucose,Whole Blood 220 mg/dL (75-99)
--- NOTE | 2020-03-02 23:54 | PN ---
PROGRESS NOTE DATE OF SERVICE: 03/02/2020 REASON FOR FOLLOWUP: COVID-19 infection. INTERVAL HISTORY: The patient has been transferred down to the ICU because of hypoxemia and need for the BiPAP. The patient denies having any chest pain. He did have minimal cough, not bringing up any sputum. No nausea, no vomiting, No abdominal pain, no diarrhea. PHYSICAL EXAMINATION: Blood pressure 128/80 with a pulse of 96, temperature 98. He is 95% on BiPAP. General description is an elderly male lying in bed in no distress. RESPIRATORY SYSTEM: Unlabored breathing with decreased intensity of breath sounds. No wheeze. HEART: S1, S2. Regular rate and rhythm. ABDOMEN: Soft, no tenderness. LABS: Hemoglobin is 12.7, white count of 13.5. D-dimer is elevated 5.77. Creatinine 0.95. DIAGNOSTIC IMPRESSION AND PLAN: Patient with acute COVID-19 infection in this patient treated with remdesivir, patient had completed his 5-day course. Also on Xarelto, zinc sulfate and dexamethasone. To continue with respiratory support and monitor his clinical course closely. MMODL / IJN: [id number] /
[2020-03-03 04:19] LABS: Basophils % (A) 0 %; Eosinophils % (A) 0 %; HCT 38.5 % (39.0-53.0); HGB 12.7 gm/dL (13.0-17.5); Lymphocytes # (A) 0.5 k/uL (1.0-4.8); Lymphocytes % (A) 4 %; MCH 31.1 pg (25.0-35.0); MCV 94.1 fL (80.0-100.0); Mean Platelet Volume 7.6; Monocytes # (A) 0.5 k/uL (0-1.0); Monocytes % (A) 4 %; Neutrophils # (A) 12.2 k/uL (1.3-7.7); Neutrophils % (A) 92 %; Platelet Count 267 k/uL (150-450); RBC 4.09 m/uL (4.30-5.90); RDW 12.9 % (11.5-15.5); WBC 13.3 k/uL (3.8-10.6)
[2020-03-03 04:31] LABS: Albumin 2.6 g/dL (3.5-5.0); C Reactive Protein 24.2 mg/L (<10.0); Calcium 7.8 mg/dL (8.4-10.2); Total Bilirubin 0.7 mg/dL (0.2-1.3); Total Protein 5.2 g/dL (6.3-8.2)
[2020-03-03 04:42] LABS: D-Dimer 11.67 mg/L FEU (<0.60)
[2020-03-03] MEDS: DILTIAZEM 125 MG in SODIUM CHLORIDE 0.9% 100 ML IV SCH ×2 (06:59→16:45)
[2020-03-03] MEDS ORDERED: INSULIN DETEMIR (LEVEMIR) 100 UNIT/ML SYR SQ SCH (07:00)
[2020-03-03] MEDS: SODIUM CHLORIDE 0.9% 1,000 ML IV SCH ×2 (07:00→20:21)
[2020-03-03 07:02] LABS: Glucose,Whole Blood 214 mg/dL (75-99)
[2020-03-03] MEDS: INSULIN ASPART (NovoLOG) 100 UNIT/ML VIAL SQ SCH ×2 (07:03→11:47)
--- NOTE | 2020-03-03 07:29 | XR ---
EXAMINATION TYPE: XR chest 1V portable DATE OF EXAM: 03/03/2020 CLINICAL HISTORY: Difficulty breathing progress study. Covid pneumonia. TECHNIQUE: Single AP portable upright view of the chest is obtained. COMPARISON: Chest x-ray from one day earlier and older studies. Chest CT January 11, 2020 FINDINGS: Background chronic emphysematous change with multifocal bilateral predominantly peripheral opacities remains present. Organizing consolidation lower lungs noted. Cardiac silhouette size is en larged currently. Osseous structures remain intact. IMPRESSION: Cardiomegaly with bilateral multifocal acute infiltrates greatest in the periphery, organ izing consolidations in the lower lungs noted. No significant change from most recent x-ray. Findings consistent with covid 19 infection progression.
[2020-03-03] MEDS: ASCORBIC ACID 500 MG TAB PO SCH (08:29)
[2020-03-03] MEDS: PANTOPRAZOLE 40 MG TABLET PO SCH (08:29)
[2020-03-03] MEDS: ZINC SULFATE 220 MG CAP PO SCH (08:29)
[2020-03-03] MEDS: AMIODARONE 200 MG TAB PO SCH ×2 (08:29→20:22)
[2020-03-03] MEDS: DEXAMETHASONE SOD PHOSPHATE 10 MG/ML 1 ML VIAL IV SCH ×2 (08:29→20:22)
[2020-03-03] MEDS: allopurinoL 300 MG TAB PO SCH (08:30)
[2020-03-03] MEDS: METOPROLOL TARTRATE 25 MG TAB PO SCH ×3 (08:33→22:55)
[2020-03-03 09:38] LABS: Ferritin 672.1 ng/mL (22.0-322.0)
[2020-03-03 11:43] LABS: Glucose,Whole Blood 258 mg/dL (75-99)
[2020-03-03] MEDS: INSULIN DETEMIR (LEVEMIR) 100 UNIT/ML SYR SQ SCH (11:47)
--- NOTE | 2020-03-03 12:30 | P.PN ---
Subjective Progress Note Date: 03/03/20 Principal diagnosis: Acute hypoxic respiratory failure secondary to covid 19 pneumonia. On 03/02/2020, the patient got transferred to the intensive care unit overnight. I saw him in a medical floor and the patient was having acute hypoxic respiratory failure secondary to coronavirus/Covid 19 related pneumonia. The patient was in the 100%. After arriving to the intensive care unit, the patient had to be placed on a BiPAP which is currently running at a pressure of 12/6 cm of water with an FiO2 of 20%. His pulse ox currently is 96%. Blood gases are pending from this morning. He is resting comfortably on the BiPAP and he is able to tolerated without any major difficulties. His cardiac rhythm has slowed down. He remains on atrial fibrillation. He is on a Cardizem drip running at 20 mg an hour. He is also on metoprolol at a dose of 75 mg by mouth three a day and amiodarone 400 mg by mouth twice a day. Patient is on Xarelto. D-dimer is elevated which is consistent with his coronavirus/Covid 19 related infection. His white cell count of 13.5. His LDH level is at 904. The proBNP level was 3940 and his troponin was at 0.142. I gave him a dose of Lasix yesterday. His fluid balance over the past 24 hours has been -996 mL. The chest x-ray still showing diffuse bilateral pulmonary infiltrates which is essentially unchanged compared to yesterday. There are diffuse peripheral infiltrates bilaterally. Reevaluated today on 03/03/20, patient is on BiPAP 12/6, FiO2 is 85%, patient seems to be comfortable, he is not in distress, asking to be fed, hence I will switch the patient to airvo, and continue to titrate accordingly to maintain O2 saturation above 90% possible. Patient remains on Cardizem drip for his atrial fibrillation, his rate is controlled, his IV fluid is a 0.9 normal saline. CBC is relatively normal. Inflammatory markers are elevated, LDH is 995 and his C- reactive protein is 24.2. *Normal renal profile is normal chest x-ray is quite abnormal showing diffuse interstitial infiltrates bilaterally. Objective - Vital Signs Vital signs: Vital Signs Temp 97.8 F 03/03/20 12:00 Pulse 70 03/03/20 12:00 Resp 14 03/03/20 12:00 BP 119/74 03/03/20 12:00 Pulse Ox 91 L 03/03/20 12:00 Intake & Output 03/02/20 03/03/20 03/03/20 18:59 06:59 18:59 Intake Total 1200 975 926 Output Total 1900 650 Balance -700 325 926 Weight 92.5 kg Intake: IV 650 550 300 Sodium Chloride 0.9% 1, 650 550 300 000 ml @ 50 mls/hr IV . Q20H [facility] Rx#:[id number] Intake, IV Titration 550 125 76 Amount Azithromycin 500 mg In 250 Sodium Chloride 0.9% 250 ml @ 250 mls/hr IVPB DAILY@1800 [facility] Rx#: [id number] Diltiazem 125 mg In 250 125 76 Sodium Chloride 0.9% 100 ml @ 10 MG/HR 10 mls/hr IV .[id number] [facility] Rx#: [id number] cefTRIAXone 1 gm In 50 Sodium Chloride 0.9% 50 ml @ 100 mls/hr IVPB Q24HR [facility] Rx#:[id number] Oral 300 550 Output: Urine 1900 650 Other: Voiding Method Urinal Urinal Urinal # Voids 1 - Exam GENERAL: The patient is alert and oriented x3, on BiPAP, comfortable HEENT: Pupils are round and equally reacting to light. EOMI. No scleral icterus. No conjunctival pallor. Normocephalic, atraumatic. No pharyngeal erythema. No thyromegaly. CARDIOVASCULAR: S1 and S2 present. No murmurs, rubs, or gallops. PULMONARY: Crackles at the bases, no rhonchi and no wheezes. ABDOMEN: Soft, nontender, nondistended, normoactive bowel sounds. No palpable organomegaly. MUSCULOSKELETAL: No joint swelling or deformity. EXTREMITIES: No clubbing edema or cyanosis NEUROLOGICAL: Alert and oriented 3, no gross focal deficits SKIN: No rashes. no petechiae. - Labs CBC & Chem 7: 03/03/20 03:54 03/03/20 03:54 Labs: Abnormal Lab Results - Last 24 Hours (Table) 03/02/20 03/02/20 03/03/20 Range/Units 17:11 21:56 03:54 WBC 13.3 H (3.8-10.6) k/uL RBC 4.09 L (4.30-5.90) m/uL Hgb 12.7 L (13.0-17.5) gm/dL Hct 38.5 L (39.0-53.0) % Neutrophils # 12.2 H (1.3-7.7) k/uL Lymphocytes # 0.5 L (1.0-4.8) k/uL D-Dimer (<0.60) mg/L FEU Sodium (137-145) mmol/L BUN (9-20) mg/dL Glucose (74-99) mg/dL POC Glucose (mg/dL) 205 H 220 H (75-99) mg/dL Calcium (8.4-10.2) mg/dL Ferritin (22.0-322.0) ng/mL Lactate Dehydrogenase (313-618) U/L C-Reactive Protein (<10.0) mg/L Total Protein (6.3-8.2) g/dL Albumin (3.5-5.0) g/dL 03/03/20 03/03/20 03/03/20 Range/Units 03:54 03:54 07:00 WBC (3.8-10.6) k/uL RBC (4.30-5.90) m/uL Hgb (13.0-17.5) gm/dL Hct (39.0-53.0) % Neutrophils # (1.3-7.7) k/uL Lymphocytes # (1.0-4.8) k/uL D-Dimer 11.67 H (<0.60) mg/L FEU Sodium 134 L (137-145) mmol/L BUN 29 H (9-20) mg/dL Glucose 219 H (74-99) mg/dL POC Glucose (mg/dL) 214 H (75-99) mg/dL Calcium 7.8 L (8.4-10.2) mg/dL Ferritin 672.1 H (22.0-322.0) ng/mL Lactate Dehydrogenase 995 H (313-618) U/L C-Reactive Protein 24.2 H (<10.0) mg/L Total Protein 5.2 L (6.3-8.2) g/dL Albumin 2.6 L (3.5-5.0) g/dL 12/14/20 Range/Units 11:41 WBC (3.8-10.6) k/uL RBC (4.30-5.90) m/uL Hgb (13.0-17.5) gm/dL Hct (39.0-53.0) % Neutrophils # (1.3-7.7) k/uL Lymphocytes # (1.0-4.8) k/uL D-Dimer (<0.60) mg/L FEU Sodium (137-145) mmol/L BUN (9-20) mg/dL Glucose (74-99) mg/dL POC Glucose (mg/dL) 258 H (75-99) mg/dL Calcium (8.4-10.2) mg/dL Ferritin (22.0-322.0) ng/mL Lactate Dehydrogenase (313-618) U/L C-Reactive Protein (<10.0) mg/L Total Protein (6.3-8.2) g/dL Albumin (3.5-5.0) g/dL Assessment and Plan Assessment: Impression: Acute hypoxic or short failure Acute covid 19 pneumonitis. New onset Atrial fibrillation with RVR. New-onset diabetes. Acute dehydration on presentation. Acute gastroenteritis secondary to Covid infection Benign essential hypertension. History of underlying coronary artery disease. Right upper lobe pulmonary embolism, patient is on Xarelto. Troponin leak. History of gout. History of right upper lobe nodule to be monitored on outpatient basis. Recommendation: Continue Decadron. Finished from this severe. Continue BiPAP, titrate FiO2 accordingly. Continue diuretics. Continue Cardizem for atrial fibrillation and RVR. Continue oral beta blockers. Continue Xarelto. Continue GI and DVT prophylaxis. Continue to monitor in the ICU, I have a feeling that the patient may potentially deteriorate and require intubation and mechanical ventilation Prognosis is definitely poor and guarded, and his chest x-ray findings are very concerning. Critical care time is over 30 minutes. Time with Patient: Greater than 30
--- NOTE | 2020-03-03 12:58 | P.PN ---
Subjective Progress Note Date: 03/03/20 From Records Mr. Davis is a 69-year-old male, who is a patient of Dr. Frey with a past medical history of hypertension,MT coming in with a chief complaint of fatigue and generalized weakness that have been ongoing for past 1 week. Patient states that he has been having poor appetite loss of smell and loss of taste for the past 1 week. He states that he has been sleeping for more than 20 hours a day. Patient denies having any cough or difficulty in breathing. He denies having any chest pain or palpitations. He denies having any dysuria or hematuria. Patient denies having any history of diabetes but his blood sugars are in 300s to 400s. In the emergency room patient had a chest x-ray showing no acute cardiopulmonary process and an EKG showing normal sinus rhythm. He had labs done showing white count of 3.9, hemoglobin 14.4, platelets 166. Sodium 131, potassium 3.9, chloride. BUN 15, creatinine 0.93 C-reactive protein 59, albumin 3.3 coronavirus PCR positive. On 02/24/2020 patient was seen and examined. He is currently resting comfortably in bed. Appears to be no acute distress. On reviewing the vitals patient continues to fever as high as 102.3. His blood pressure has been stable around 130s 80s and he saturating at 95% on room air. Patient's blood sugars have been running on the higher side. On 02/25/2020- patient was seen and examined and the general medical floors. He is resting comfortably in bed. Overnight active issues reported by nursing staff. Patient states that his difficulty in breathing is improving. On reviewing the vitals patient's T-max is 98.4, heart rate 72, respiratory rate 127-79 and saturating at 93% on room air. On reviewing vitals patient's white count of 2.8, hemoglobin 14.4, platelets 189. Sodium 136, potassium 4.6, chloride 102. BUN 23 and creatinine of 1.0. Blood sugars have been running high in 200s to 300s. C-reactive protein 7.5. 02/26/2020 This is a pleasant 69 years old male who presents with cough with infection and found to have new onset diabetes with elevated hemoglobin A1c at 14%. Patient currently with no respiratory symptoms, no chest pain or dyspnea coughing. Yesterday he has a regular bowel movement but today he had 1 loose bowel movement but no significant abdominal pain or nausea vomiting. Also he is running a fever of 101. He saturating 90% at room air. BMP and CBC were reviewed and they were unremarkable except for mild leukopenia 2.8K. D-dimer is negative at 0.34. Coronavirus is detected. 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 Normal saline at 75 mL/h was added. Also Levemir 10 units daily and metformin 1000 mg twice daily has been added because his sugar still not controlled Patient is able to eat 75-100% of his meal 02/27/20 Patient had a rough night because of fever, his breathing is quiet and stable and he's only on 2 L oxygen. Is still have diarrhea about twice per day which is similar to the day before. No abdominal pain or vomiting. No significant coughing. unstable Chest x-ray: Worsening infiltrates, Pronecalcitonin is elevated at 0.27, patient is started on Rocephin and Zithromax. He is new onset diabetes and also is on dexamethasone and his sugar more than 300, so Levemir was decreased from 10-30 units daily. Also he is on metformin 1000 and Amaryl 1 mg. Continue on Xarelto, normocephalic 75, remedisivr, dexamethasone 6 mg daily. 02/28/2020 Patient hadn't good night because he could not sleep. No respiratory symptoms, ongoing generalized weakness. Yesterday he has watery diarrhea but this morning he had small more formed bowel movement. No abdominal pain. Persistent fever have subsided and his been afebrile for more than 24 hours. We will check Tylenol as needed His sugar is better controlled after increasing his insulin to 30 units. Antibiotics with ceftriaxone and Zithromax were admitted with high protei ncalcitonin. We will try to check sputum culture. Check labs in the morning 02/29/2020 Patient feels much better today, his fever subsided and his on Tylenol as needed currently. No respiratory issue or symptom. He had a little formed bowel movement today. Currently patient remains on the same cocktail for comfort infection besides remedisivr Hemodynamically stable. Vitals are stable showing mild leukocytosis of 11.6 K 03/01/2020 pt is moved to select unit , pt developed a fib and RVR and he was started on Cardizem and amiodarone drip and is already on Xarelto. Also patient on Lopressor 75 mg 3 times a day Also he developed more hypoxic and is currently on 50 L oxygen via nasal cannula saturating 90%. Repeat chest x-ray Moderate peripheral-based opacities throughout both lungs w ith no pleural effusion. Blood gas on BOTH HIS WITH PH 7.48, LOW PCO2 OF 22 AND LOW PO2 AT 58 PATIENT HAS BEEN EVALUATED BY PULMONARY SERVICE AND PATIENT MAY NEED TO GO TO THE ICU WELL. LEFT SHOWING STABLE LEUKOCYTOSIS AT 14.9 K, ELEVATED D-DIMER 3.1, BMP IS UNREMARKABLE AND WORSENING OF THE EDGE AND C-REACTIVE PROTEIN Patient is kept on remedisivr, dexamethasone 6 mg daily. However patient diarrhea has improved 03/02/2020 Patient today kept in the ICU on BiPAP saturating 100% however he looks comfortable. Distal short of breath and dyspneic Rest of vitals are stable Laps looks stable, inflammatory markers LDH and C-reactive protein still trending up slowly compared to yesterday.proCalcitonin is negative. D-dimer is trending up at 5.7 Chest x-ray showing stable bilateral lung infiltrates He remains on Decadron and remdesivir Also I kept on Cardizem drip at 20 mg an hour and amiodarone 400 mg twice daily and metoprolol 75 mg 3 times a day, vitamin C and A. fib and heart rate ranging between 80-100. He has an echo from 10/10/2019 showed ejection fraction of 50-55%. BNP is el evated at 3940. Discontinue ceftriaxone. Keep Zithromax for now. Patient to continue on Xarelto patient is nothing by mouth WE'LL KEEP HIM ON GENTLE HYDRATION AT 50 ML/H. ALSO GOT 1 DOSE OF LASIX 03/03/2020 Patient is seen and evaluated and follow-up continues to be closely monitored in the ICU. Patient has been taken off the BiPAP and placed on Airvo with an oxygen rate of 60 and FiO2 at 85% and is currently 91%. To continue to wean as tolerated with the use of BiPAP as needed as well. Patient is afebrile. Patient's d-dimer continues to be elevated and has increased at 11.67 and bhakti ent is maintained on Xarelto and will continue at this time. Patient is eating today and tolerating with no reports of nausea or vomiting noted. Multiple medical consultations following including cardiology. Cardizem drip has been decreased to 10 and will continue to monitor this patient continues on amiodarone as well. Heart rate currently in the 70s. Blood sugars being controlled and will continue sliding scale along with long-acting at this time. Patient to continue with dexamethasone along with vitamin C and D and zinc supplements. Patient is currently off antibiotics and will continue to monitor closely. Chest x-ray today shows cardiomegaly with bilateral multifocal acute infiltrates greatest in the periphery, organizing consolidation in the lower lungs with no significant change. CONSTITUTIONAL: No fever, no malaise, no fatigue. HEENT: No recent visual problems or hearing problems. Denied any sore throat. CARDIOVASCULAR: No orthopnea, PND, no palpitations, no syncope. PULMONARY: No shortness of breath, no cough, no hemoptysis. GASTROINTESTINAL: No diarrhea, no nausea, no vomiting, no abdominal pain. Normoactive bowel sounds. NEUROLOGICAL: No headaches, no weakness, no numbness. Objective - Vital Signs Vital signs: Vital Signs Temp 97.7 F 03/03/20 08:00 Pulse 66 03/03/20 10:00 Resp 26 H 03/03/20 10:00 BP 116/76 03/03/20 10:00 Pulse Ox 95 03/03/20 10:00 Intake & Output 03/02/20 03/03/20 03/03/20 18:59 06:59 18:59 Intake Total 1200 975 526 Output Total 1900 650 Balance -700 325 526 Weight 92.5 kg Intake: IV 650 550 200 Sodium Chloride 0.9% 1, 650 550 200 000 ml @ 50 mls/hr IV . Q20H [facility] Rx#:[id number] Intake, IV Titration 550 125 76 Amount Azithromycin 500 mg In 250 Sodium Chloride 0.9% 250 ml @ 250 mls/hr IVPB DAILY@1800 [facility] Rx#: [id number] Diltiazem 125 mg In 250 125 76 Sodium Chloride 0.9% 100 ml @ 10 MG/HR 10 mls/hr IV .[id number] [facility] Rx#: [id number] cefTRIAXone 1 gm In 50 Sodium Chloride 0.9% 50 ml @ 100 mls/hr IVPB Q24HR [facility] Rx#:[id number] Oral 300 250 Output: Urine 1900 650 Other: Voiding Method Urinal Urinal Urinal # Voids 1 - Exam GENERAL: The patient is alert and oriented x3, not in any acute distress. Well developed, well nourished. Presently on an airvo with intermittent BiPAP HEENT: Pupils are round and equally reacting to light. EOMI. No scleral icterus. No conjunctival pallor. Normocephalic, atraumatic. No pharyngeal erythema. No thyromegaly. CARDIOVASCULAR: S1 and S2 present. No murmurs, rubs, or gallops. PULMONARY: Diminished breath sounds bilaterally with a few scattered crackles noted ABDOMEN: Soft, nontender, nondistended, normoactive bowel sounds. No palpable organomegaly. MUSCULOSKELETAL: No joint swelling or deformity. EXTREMITIES: No cyanosis, clubbing, or pedal edema. NEUROLOGICAL: Gross neurological examination did not reveal any focal deficits. SKIN: No rashes. no petechiae. - Labs CBC & Chem 7: 03/03/20 03:54 03/03/20 03:54 Labs: Abnormal Lab Results - Last 24 Hours (Table) 03/02/20 03/02/20 03/02/20 Range/Units 11:38 17:11 21:56 WBC (3.8-10.6) k/uL RBC (4.30-5.90) m/uL Hgb (13.0-17.5) gm/dL Hct (39.0-53.0) % Neutrophils # (1.3-7.7) k/uL Lymphocytes # (1.0-4.8) k/uL D-Dimer (<0.60) mg/L FEU Sodium (137-145) mmol/L BUN (9-20) mg/dL Glucose (74-99) mg/dL POC Glucose (mg/dL) 171 H 205 H 220 H (75-99) mg/dL Calcium (8.4-10.2) mg/dL Ferritin (22.0-322.0) ng/mL Lactate Dehydrogenase (313-618) U/L C-Reactive Protein (<10.0) mg/L Total Protein (6.3-8.2) g/dL Albumin (3.5-5.0) g/dL 03/03/20 03/03/20 03/03/20 Range/Units 03:54 03:54 03:54 WBC 13.3 H (3.8-10.6) k/uL RBC 4.09 L (4.30-5.90) m/uL Hgb 12.7 L (13.0-17.5) gm/dL Hct 38.5 L (39.0-53.0) % Neutrophils # 12.2 H (1.3-7.7) k/uL Lymphocytes # 0.5 L (1.0-4.8) k/uL D-Dimer 11.67 H (<0.60) mg/L FEU Sodium 134 L (137-145) mmol/L BUN 29 H (9-20) mg/dL Glucose 219 H (74-99) mg/dL POC Glucose (mg/dL) (75-99) mg/dL Calcium 7.8 L (8.4-10.2) mg/dL Ferritin 672.1 H (22.0-322.0) ng/mL Lactate Dehydrogenase 995 H (313-618) U/L C-Reactive Protein 24.2 H (<10.0) mg/L Total Protein 5.2 L (6.3-8.2) g/dL Albumin 2.6 L (3.5-5.0) g/dL 03/03/20 Range/Units 07:00 WBC (3.8-10.6) k/uL RBC (4.30-5.90) m/uL Hgb (13.0-17.5) gm/dL Hct (39.0-53.0) % Neutrophils # (1.3-7.7) k/uL Lymphocytes # (1.0-4.8) k/uL D-Dimer (<0.60) mg/L FEU Sodium (137-145) mmol/L BUN (9-20) mg/dL Glucose (74-99) mg/dL POC Glucose (mg/dL) 214 H (75-99) mg/dL Calcium (8.4-10.2) mg/dL Ferritin (22.0-322.0) ng/mL Lactate Dehydrogenase (313-618) U/L C-Reactive Protein (<10.0) mg/L Total Protein (6.3-8.2) g/dL Albumin (3.5-5.0) g/dL Assessment and Plan Assessment: Worsening pneumonia Worsening acute hypoxic respiratory failure A. fib with RVR Fatigue generalized weakness secondary to Covid infection New-onset diabetes Hyponatremia due to dehydration Dehydration Gastroenteritis secondary to covid infection Hypomagnesemia Hypertension History of MT DVT prophylaxis: Xarelto GI prophylaxis: Pepcid Full code Plan: This is a pleasant 69 years old male who presents with Covid 19 infection with pneumonia, mild gastroenteritis and new diabetes. Also A. fib with RVR Continue with zinc and ascorbic acid, continue with gentle hydration. Continue with sliding scale and also he is on Levemir 5 units daily. Patient is currently eating consistent carb and tolerating thus far. Antibiotics have been discontinued. Patient continues on Cardizem drip which is being titrated to 10 mL per hour and will continue to monitor patient continues on oral amiodarone. Cardiology is following along with multiple medical consultations. Patient was on a BiPAP and presently on Airvo and tolerating thus far. Will continue to monitor closely and continue BiPAP as needed. Pulmonary consult and continue with oxygen to keep saturation more than 90%. Cardiology input is appreciated, continue with Cardizem and amiodarone, Lopressor and Xarelto Labs, today's chest x-ray, and medication were reviewed.. Continue same treatment. Continue with symptomatic treatment. Resume home medication. Monitor lytes and vitals. DVT and GI prophylaxis. Further recommendationsas per clinical course of the patient Prognosis is guarded Time with Patient: Greater than 30
--- NOTE | 2020-03-03 16:32 | PN ---
PROGRESS NOTE Mr. Davis is a 69-year-old male patient seen by Dr. Chacko who has a history of ischemic heart disease, cardiac catheterization 6 years back, history of pulmonary embolism and hypertension. He follows with Dr. Ochoa. He is here being treated for COVID-19. His current issues are atrial fibrillation with RVR. He is on Cardizem drip as well as on oral Cardizem as well as oral amiodarone. He received IV amiodarone for his rates; still elevated. He is on 10 mg of IV Cardizem. His labs are reviewed. White count 13,000. Lymphocyte count low. Neutrophil count elevated. Sodium 134, potassium 4.0, BUN 29, creatinine 1.05. CRP 24, which is improving. His vitals are reviewed. Blood pressure 119/74 mmHg, afebrile 97.8 degrees Fahrenheit, pulse rate in the 70s. Respiratory rate 18 to 22. IMPRESSION: Atrial fibrillation with rapid ventricular response, currently on oral amiodarone and beta blockers. He is also on IV Cardizem. His beta jim dose was just increased. We will continue IV Cardizem at a high rate. I recommend anticoagulation. He is currently on rivaroxaban and rate control. MMODL / IJN: [id number] /
[2020-03-03] MEDS: RIVAROXABAN 20 MG TAB PO SCH (16:45)
[2020-03-03 16:51] LABS: Glucose,Whole Blood 338 mg/dL (75-99)
[2020-03-03] MEDS ORDERED: INSULIN REGULAR BOLUS (FROM DRIP BAG) IV PRN (16:52)
[2020-03-03] MEDS: INSULIN REGULAR 100 UNIT in SODIUM CHLORIDE 0.9% 100 ML IV SCH ×2 (17:16→20:43)
[2020-03-03 17:53] LABS: Glucose,Whole Blood 313 mg/dL (75-99)
[2020-03-03 18:55] LABS: Glucose,Whole Blood 274 mg/dL (75-99)
[2020-03-03 19:53] LABS: Glucose,Whole Blood 163 mg/dL (75-99)
[2020-03-03 20:53] LABS: Glucose,Whole Blood 129 mg/dL (75-99)
[2020-03-03 22:08] LABS: Glucose,Whole Blood 115 mg/dL (75-99)
[2020-03-03 23:06] LABS: Glucose,Whole Blood 141 mg/dL (75-99)
--- NOTE | 2020-03-03 23:20 | PN ---
PROGRESS NOTE DATE OF SERVICE: 03/03/2020 REASON FOR FOLLOWUP: COVID-19 infection. INTERVAL HISTORY: The patient is currently afebrile. The patient is breathing slightly comfortably; however, he remains denies having any chest pain. Minimal cough. No abdominal pain or diarrhea. PHYSICAL EXAMINATION: Blood pressure 116/60 with a pulse of 52, temperature 97.4. He is 93% on 60% FiO2. General description is an elderly male lying in bed in no distress. RESPIRATORY SYSTEM: Unlabored breathing with decreased intensity of breath sounds. No wheeze. HEART: S1, S2. Regular rate and rhythm. ABDOMEN: Soft. No tenderness. LABS: Hemoglobin is 12.6, white count 13.3, BUN of 29, creatinine 1.05. Electrolytes have been normal. Liver enzymes are normal. DIAGNOSTIC IMPRESSION AND PLAN: Patient with acute COVID-19 infection in this patient who did have worsening of the respiratory status and has been in the ICU with a possible component of in this patient who completed his 5-day course of remdesivir, currently on dexamethasone, Xarelto and zinc; to continue. Monitor his clinical course closely. MMODL / IJN: [id number] /
[2020-03-04 01:12] LABS: Glucose,Whole Blood 141 mg/dL (75-99)
[2020-03-04 02:18] LABS: Glucose,Whole Blood 137 mg/dL (75-99)
[2020-03-04 04:42] LABS: Glucose,Whole Blood 148 mg/dL (75-99)
[2020-03-04 05:07] LABS: Basophils # (A) 0.1 k/uL (0-0.2); Basophils % (A) 1 %; Eosinophils # (A) 0.1 k/uL (0-0.7); Eosinophils % (A) 1 %; HCT 40.6 % (39.0-53.0); HGB 13.4 gm/dL (13.0-17.5); Lymphocytes # (A) 0.4 k/uL (1.0-4.8); Lymphocytes % (A) 2 %; MCH 30.8 pg (25.0-35.0); MCV 93.3 fL (80.0-100.0); Mean Platelet Volume 7.5; Monocytes # (A) 0.4 k/uL (0-1.0); Monocytes % (A) 3 %; Neutrophils # (A) 14.8 k/uL (1.3-7.7); Neutrophils % (A) 93 %; Platelet Count 231 k/uL (150-450); RBC 4.35 m/uL (4.30-5.90); WBC 15.9 k/uL (3.8-10.6)
[2020-03-04 05:24] LABS: ALT 71 U/L (4-49); AST 58 U/L (17-59); African American GFR (CKD) >90 (>60 ml/min/1.73 sqM); Albumin 2.6 g/dL (3.5-5.0); Alkaline Phosphatase 90 U/L (38-126); Anion Gap 4 mmol/L; Blood Urea Nitrogen 27 mg/dL (9-20); Carbon Dioxide 23 mmol/L (22-30); Chloride 108 mmol/L (98-107); Glucose 150 mg/dL (74-99); Non-African American GFR(CKD) 88 (>60 ml/min/1.73 sqM); Potassium 4.3 mmol/L (3.5-5.1); Sodium 135 mmol/L (137-145); Total Bilirubin 0.9 mg/dL (0.2-1.3); Total Protein 5.4 g/dL (6.3-8.2)
[2020-03-04 06:17] LABS: Glucose,Whole Blood 145 mg/dL (75-99)
[2020-03-04 07:18] LABS: Glucose,Whole Blood 157 mg/dL (75-99)
--- NOTE | 2020-03-04 07:36 | XR ---
EXAMINATION TYPE: XR chest 1V portable DATE OF EXAM: 03/04/2020 CLINICAL HISTORY: Difficulty breathing and covid 19 pneumonia progress study. TECHNIQUE: Single AP portable semiupright view of the chest is obtained. COMPARISON: Chest x-ray from one day earlier and older studies. FINDINGS: Background chronic emphysematous change with multifocal bilateral predominantly peripheral opacities remains present. Organizing consolidation lower lungs noted and increasing in prominence i n the right lung base. Cardiac silhouette size is stable and enlarged. Multilevel spurring in thoraci c spine redemonstrated. IMPRESSION: Cardiomegaly with bilateral multifocal acute infiltrates greatest in the periphery, organ izing consolidations in the lower lungs noted. Worsening findings right lung base noted from one day earlier. Findings consistent with covid 19 infection progression.
[2020-03-04 08:04] LABS: Glucose,Whole Blood 162 mg/dL (75-99)
[2020-03-04] MEDS: INSULIN DETEMIR (LEVEMIR) 100 UNIT/ML SYR SQ SCH (08:57)
[2020-03-04] MEDS: AMIODARONE 200 MG TAB PO SCH ×2 (08:58→21:39)
[2020-03-04] MEDS: DEXAMETHASONE SOD PHOSPHATE 10 MG/ML 1 ML VIAL IV SCH ×2 (08:58→21:39)
[2020-03-04] MEDS: allopurinoL 300 MG TAB PO SCH (08:58)
[2020-03-04] MEDS: ASCORBIC ACID 500 MG TAB PO SCH (08:58)
[2020-03-04] MEDS: METOPROLOL TARTRATE 25 MG TAB PO SCH ×3 (08:59→21:39)
[2020-03-04] MEDS: ZINC SULFATE 220 MG CAP PO SCH (08:59)
[2020-03-04] MEDS: PANTOPRAZOLE 40 MG TABLET PO SCH (08:59)
[2020-03-04 09:10] LABS: Glucose,Whole Blood 185 mg/dL (75-99)
[2020-03-04 10:56] LABS: Glucose,Whole Blood 196 mg/dL (75-99)
[2020-03-04 12:00] LABS: Glucose,Whole Blood 185 mg/dL (75-99)
--- NOTE | 2020-03-04 13:10 | P.PN ---
Subjective Progress Note Date: 03/04/20 Principal diagnosis: Acute hypoxic respiratory failure secondary to covid 19 pneumonia. On 03/02/2020, the patient got transferred to the intensive care unit overnight. I saw him in a medical floor and the patient was having acute hypoxic respiratory failure secondary to coronavirus/Covid 19 related pneumonia. The patient was in the 100%. After arriving to the intensive care unit, the patient had to be placed on a BiPAP which is currently running at a pressure of 12/6 cm of water with an FiO2 of 20%. His pulse ox currently is 96%. Blood gases are pending from this morning. He is resting comfortably on the BiPAP and he is able to tolerated without any major difficulties. His cardiac rhythm has slowed down. He remains on atrial fibrillation. He is on a Cardizem drip running at 20 mg an hour. He is also on metoprolol at a dose of 75 mg by mouth three a day and amiodarone 400 mg by mouth twice a day. Patient is on Xarelto. D-dimer is elevated which is consistent with his coronavirus/Covid 19 related infection. His white cell count of 13.5. His LDH level is at 904. The proBNP level was 3940 and his troponin was at 0.142. I gave him a dose of Lasix yesterday. His fluid balance over the past 24 hours has been -996 mL. The chest x-ray still showing diffuse bilateral pulmonary infiltrates which is essentially unchanged compared to yesterday. There are diffuse peripheral infiltrates bilaterally. Reevaluated today on 03/03/20, patient is on BiPAP 12/6, FiO2 is 85%, patient seems to be comfortable, he is not in distress, asking to be fed, hence I will switch the patient to airvo, and continue to titrate accordingly to maintain O2 saturation above 90% possible. Patient remains on Cardizem drip for his atrial fibrillation, his rate is controlled, his IV fluid is a 0.9 normal saline. CBC is relatively normal. Inflammatory markers are elevated, LDH is 995 and his C- reactive protein is 24.2. *Normal renal profile is normal chest x-ray is quite abnormal showing diffuse interstitial infiltrates bilaterally. Reevaluated today on 03/04/20, patient remains in the ICU, his pulmonary status is marginal at best. Remains on high flow airvo, FiO2 of 85%, and 60 L flow. His O2 saturation is marginal between 90-93% at best. Patient is on insulin drip mostly, 2 units per hour, his Cardizem is off, and he is now in sinus rhythm. Patient completed his course of remdesivir, and he is on Decadron 6 mg every 12 hours, is also on Xarelto. Patient is complaining of shortness of breath with any activity. But looks comfortable at rest. Remains on the Covid 19 cocktail. CBC showed leukocytosis with WBC count of 15.9 hemoglobin is 13.4. Basic metabolic profile and renal profile are normal Objective - Vital Signs Vital signs: Vital Signs Temp 98.6 F 03/04/20 08:00 Pulse 68 03/04/20 12:00 Resp 24 03/04/20 12:00 BP 126/84 03/04/20 12:00 Pulse Ox 90 L 03/04/20 12:00 Intake & Output 03/03/20 03/04/20 03/04/20 18:59 06:59 18:59 Intake Total 1855.841 729.458 411.144 Output Total 700 1700 600 Balance 1155.841 -970.542 -188.856 Intake: IV 600 600 300 Sodium Chloride 0.9% 1, 600 600 300 000 ml @ 50 mls/hr IV . Q20H [facility] Rx#:[id number] Intake, IV Titration 155.841 29.458 11.144 Amount Diltiazem 125 mg In 126.5 Sodium Chloride 0.9% 100 ml @ 10 MG/HR 10 mls/hr IV .[id number] [facility] Rx#: [id number] Insulin Regular 100 unit 29.341 29.458 11.144 In Sodium Chloride 0.9% 100 ml @ Per Protocol IV .Q0M [facility] Rx#:[id number] Oral 1100 100 100 Output: Urine 700 1700 600 Other: Voiding Method Urinal Urinal Urinal # Voids 1 - Exam GENERAL: The patient is alert and oriented x3, on airvo HEENT: Pupils are round and equally reacting to light. EOMI. No scleral icterus. No conjunctival pallor. Normocephalic, atraumatic. No pharyngeal erythema. No thyromegaly. CARDIOVASCULAR: S1 and S2 present. No murmurs, rubs, or gallops. PULMONARY: Crackles at the bases, no rhonchi and no wheezes. ABDOMEN: Soft, nontender, nondistended, normoactive bowel sounds. No palpable organomegaly. MUSCULOSKELETAL: No joint swelling or deformity. EXTREMITIES: No clubbing edema or cyanosis NEUROLOGICAL: Alert and oriented 3, no gross focal deficits SKIN: No rashes. no petechiae. - Labs CBC & Chem 7: 03/04/20 04:42 03/04/20 04:42 Labs: Abnormal Lab Results - Last 24 Hours (Table) 03/03/20 03/03/20 03/03/20 Range/Units 16:49 17:51 18:53 WBC (3.8-10.6) k/uL Neutrophils # (1.3-7.7) k/uL Lymphocytes # (1.0-4.8) k/uL Sodium (137-145) mmol/L Chloride (98-107) mmol/L BUN (9-20) mg/dL Glucose (74-99) mg/dL POC Glucose (mg/dL) 338 H 313 H 274 H (75-99) mg/dL Calcium (8.4-10.2) mg/dL ALT (4-49) U/L Total Protein (6.3-8.2) g/dL Albumin (3.5-5.0) g/dL 03/03/20 03/03/20 03/03/20 Range/Units 19:52 20:52 22:07 WBC (3.8-10.6) k/uL Neutrophils # (1.3-7.7) k/uL Lymphocytes # (1.0-4.8) k/uL Sodium (137-145) mmol/L Chloride (98-107) mmol/L BUN (9-20) mg/dL Glucose (74-99) mg/dL POC Glucose (mg/dL) 163 H 129 H 115 H (75-99) mg/dL Calcium (8.4-10.2) mg/dL ALT (4-49) U/L Total Protein (6.3-8.2) g/dL Albumin (3.5-5.0) g/dL 03/03/20 03/04/20 03/04/20 Range/Units 23:05 01:10 02:17 WBC (3.8-10.6) k/uL Neutrophils # (1.3-7.7) k/uL Lymphocytes # (1.0-4.8) k/uL Sodium (137-145) mmol/L Chloride (98-107) mmol/L BUN (9-20) mg/dL Glucose (74-99) mg/dL POC Glucose (mg/dL) 141 H 141 H 137 H (75-99) mg/dL Calcium (8.4-10.2) mg/dL ALT (4-49) U/L Total Protein (6.3-8.2) g/dL Albumin (3.5-5.0) g/dL 03/04/20 03/04/20 03/04/20 Range/Units 04:40 04:42 04:42 WBC 15.9 H (3.8-10.6) k/uL Neutrophils # 14.8 H (1.3-7.7) k/uL Lymphocytes # 0.4 L (1.0-4.8) k/uL Sodium 135 L (137-145) mmol/L Chloride 108 H (98-107) mmol/L BUN 27 H (9-20) mg/dL Glucose 150 H (74-99) mg/dL POC Glucose (mg/dL) 148 H (75-99) mg/dL Calcium 8.0 L (8.4-10.2) mg/dL ALT 71 H (4-49) U/L Total Protein 5.4 L (6.3-8.2) g/dL Albumin 2.6 L (3.5-5.0) g/dL 03/04/20 03/04/20 03/04/20 Range/Units 06:15 07:16 08:02 WBC (3.8-10.6) k/uL Neutrophils # (1.3-7.7) k/uL Lymphocytes # (1.0-4.8) k/uL Sodium (137-145) mmol/L Chloride (98-107) mmol/L BUN (9-20) mg/dL Glucose (74-99) mg/dL POC Glucose (mg/dL) 145 H 157 H 162 H (75-99) mg/dL Calcium (8.4-10.2) mg/dL ALT (4-49) U/L Total Protein (6.3-8.2) g/dL Albumin (3.5-5.0) g/dL 03/04/20 03/04/20 03/04/20 Range/Units 09:08 10:55 11:58 WBC (3.8-10.6) k/uL Neutrophils # (1.3-7.7) k/uL Lymphocytes # (1.0-4.8) k/uL Sodium (137-145) mmol/L Chloride (98-107) mmol/L BUN (9-20) mg/dL Glucose (74-99) mg/dL POC Glucose (mg/dL) 185 H 196 H 185 H (75-99) mg/dL Calcium (8.4-10.2) mg/dL ALT (4-49) U/L Total Protein (6.3-8.2) g/dL Albumin (3.5-5.0) g/dL Assessment and Plan Assessment: Impression: Acute hypoxic or short failure Acute covid 19 pneumonitis. New onset Atrial fibrillation with RVR. New-onset diabetes. Acute dehydration on presentation. Acute gastroenteritis secondary to Covid infection Benign essential hypertension. History of underlying coronary artery disease. Right upper lobe pulmonary embolism, patient is on Xarelto. Troponin leak. History of gout. History of right upper lobe nodule to be monitored on outpatient basis. Recommendation: Continue Decadron. done with remdesivir Titrate FiO2 accordingly.. Continue diuretics. Off Cardizem. Continue oral beta blockers. Continue Xarelto. Continue GI and DVT prophylaxis. Continue to monitor in the ICU, his pulmonary status is marginal at best. Prognosis is definitely poor and guarded, and his chest x-ray findings are very concerning. Critical care time is over 30 minutes. Time with Patient: Greater than 30
[2020-03-04 13:53] LABS: Glucose,Whole Blood 211 mg/dL (75-99)
--- NOTE | 2020-03-04 14:30 | P.PN ---
Subjective Progress Note Date: 03/04/20 From Records Mr. Davis is a 69-year-old male, who is a patient of Dr. Frey with a past medical history of hypertension,[place] coming in with a chief complaint of fatigue and generalized weakness that have been ongoing for past 1 week. Patient states that he has been having poor appetite loss of smell and loss of taste for the past 1 week. He states that he has been sleeping for more than 20 hours a day. Patient denies having any cough or difficulty in breathing. He denies having any chest pain or palpitations. He denies having any dysuria or hematuria. Patient denies having any history of diabetes but his blood sugars are in 300s to 400s. In the emergency room patient had a chest x-ray showing no acute cardiopulmonary process and an EKG showing normal sinus rhythm. He had labs done showing white count of 3.9, hemoglobin 14.4, platelets 166. Sodium 131, potassium 3.9, chloride. BUN 15, creatinine 0.93 C-reactive protein 59, albumin 3.3 coronavirus PCR positive. On 02/24/2020 patient was seen and examined. He is currently resting comfortably in bed. Appears to be no acute distress. On reviewing the vitals patient continues to fever as high as 102.3. His blood pressure has been stable around 130s 80s and he saturating at 95% on room air. Patient's blood sugars have been running on the higher side. On 02/25/2020- patient was seen and examined and the general medical floors. He is resting comfortably in bed. Overnight active issues reported by nursing staff. Patient states that his difficulty in breathing is improving. On reviewing the vitals patient's T-max is 98.4, heart rate 72, respiratory rate 127-79 and saturating at 93% on room air. On reviewing vitals patient's white count of 2.8, hemoglobin 14.4, platelets 189. Sodium 136, potassium 4.6, chloride 102. BUN 23 and creatinine of 1.0. Blood sugars have been running high in 200s to 300s. C-reactive protein 7.5. 02/26/2020 This is a pleasant 69 years old male who presents with cough with infection and found to have new onset diabetes with elevated hemoglobin A1c at 14%. Patient currently with no respiratory symptoms, no chest pain or dyspnea coughing. Yesterday he has a regular bowel movement but today he had 1 loose bowel movement but no significant abdominal pain or nausea vomiting. Also he is running a fever of 101. He saturating 90% at room air. BMP and CBC were reviewed and they were unremarkable except for mild leukopenia 2.8K. D-dimer is negative at 0.34. Coronavirus is detected. 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 Normal saline at 75 mL/h was added. Also Levemir 10 units daily and metformin 1000 mg twice daily has been added because his sugar still not controlled Patient is able to eat 75-100% of his meal 02/27/20 Patient had a rough night because of fever, his breathing is quiet and stable and he's only on 2 L oxygen. Is still have diarrhea about twice per day which is similar to the day before. No abdominal pain or vomiting. No significant coughing. unstable Chest x-ray: Worsening infiltrates, Pronecalcitonin is elevated at 0.27, patient is started on Rocephin and Zithromax. He is new onset diabetes and also is on dexamethasone and his sugar more than 300, so Levemir was decreased from 10-30 units daily. Also he is on metformin 1000 and Amaryl 1 mg. Continue on Xarelto, normocephalic 75, remedisivr, dexamethasone 6 mg daily. 02/28/2020 Patient hadn't good night because he could not sleep. No respiratory symptoms, ongoing generalized weakness. Yesterday he has watery diarrhea but this morning he had small more formed bowel movement. No abdominal pain. Persistent fever have subsided and his been afebrile for more than 24 hours. We will check Tylenol as needed His sugar is better controlled after increasing his insulin to 30 units. Antibiotics with ceftriaxone and Zithromax were admitted with high protei ncalcitonin. We will try to check sputum culture. Check labs in the morning 02/29/2020 Patient feels much better today, his fever subsided and his on Tylenol as needed currently. No respiratory issue or symptom. He had a little formed bowel movement today. Currently patient remains on the same cocktail for comfort infection besides remedisivr Hemodynamically stable. Vitals are stable showing mild leukocytosis of 11.6 K 03/01/2020 pt is moved to select unit , pt developed a fib and RVR and he was started on Cardizem and amiodarone drip and is already on Xarelto. Also patient on Lopressor 75 mg 3 times a day Also he developed more hypoxic and is currently on 50 L oxygen via nasal cannula saturating 90%. Repeat chest x-ray Moderate peripheral-based opacities throughout both lungs w ith no pleural effusion. Blood gas on BOTH HIS WITH PH 7.48, LOW PCO2 OF 22 AND LOW PO2 AT 58 PATIENT HAS BEEN EVALUATED BY PULMONARY SERVICE AND PATIENT MAY NEED TO GO TO THE ICU WELL. LEFT SHOWING STABLE LEUKOCYTOSIS AT 14.9 K, ELEVATED D-DIMER 3.1, BMP IS UNREMARKABLE AND WORSENING OF THE EDGE AND C-REACTIVE PROTEIN Patient is kept on remedisivr, dexamethasone 6 mg daily. However patient diarrhea has improved 03/02/2020 Patient today kept in the ICU on BiPAP saturating 100% however he looks comfortable. Distal short of breath and dyspneic Rest of vitals are stable Laps looks stable, inflammatory markers LDH and C-reactive protein still trending up slowly compared to yesterday.proCalcitonin is negative. D-dimer is trending up at 5.7 Chest x-ray showing stable bilateral lung infiltrates He remains on Decadron and remdesivir Also I kept on Cardizem drip at 20 mg an hour and amiodarone 400 mg twice daily and metoprolol 75 mg 3 times a day, vitamin C and A. fib and heart rate ranging between 80-100. He has an echo from 10/10/2019 showed ejection fraction of 50-55%. BNP is el evated at 3940. Discontinue ceftriaxone. Keep Zithromax for now. Patient to continue on Xarelto patient is nothing by mouth WE'LL KEEP HIM ON GENTLE HYDRATION AT 50 ML/H. ALSO GOT 1 DOSE OF LASIX 03/03/2020 Patient is seen and evaluated and follow-up continues to be closely monitored in the ICU. Patient has been taken off the BiPAP and placed on Airvo with an oxygen rate of 60 and FiO2 at 85% and is currently 91%. To continue to wean as tolerated with the use of BiPAP as needed as well. Patient is afebrile. Patient's d-dimer continues to be elevated and has increased at 11.67 and bhakti ent is maintained on Xarelto and will continue at this time. Patient is eating today and tolerating with no reports of nausea or vomiting noted. Multiple medical consultations following including cardiology. Cardizem drip has been decreased to 10 and will continue to monitor this patient continues on amiodarone as well. Heart rate currently in the 70s. Blood sugars being controlled and will continue sliding scale along with long-acting at this time. Patient to continue with dexamethasone along with vitamin C and D and zinc supplements. Patient is currently off antibiotics and will continue to monitor closely. Chest x-ray today shows cardiomegaly with bilateral multifocal acute infiltrates greatest in the periphery, organizing consolidation in the lower lungs with no significant change. 03/04/2020 Patient seen in follow-up continues to be closely monitored in the ICU. Patient is maintained on BiPAP at night and transitioning to Airvo during the day. Patient was placed on insulin drip and will continue to monitor Accu-Cheks closely. Patient continues to be severely dyspneic with any exertion and is 89- 90% with an O2 flow of 60 and FiO2 of 85. IV Cardizem drip has been d iscontinued and patient is maintained on amiodarone oral and will continue at this time. Anticoagulation of Xarelto continues. Chest x-rays continue to show worsening and consistent with Covid 19 infection progression. CONSTITUTIONAL: No fever, no malaise, no fatigue. HEENT: No recent visual problems or hearing problems. Denied any sore throat. CARDIOVASCULAR: No orthopnea, PND, no palpitations, no syncope. PULMONARY: reports continued shortness of breath, no cough, no hemoptysis. GASTROINTESTINAL: No diarrhea, no nausea, no vomiting, no abdominal pain. Normoactive bowel sounds. NEUROLOGICAL: No headaches, reports weakness, no numbness. Objective - Vital Signs Vital signs: Vital Signs Temp 98.6 F 03/04/20 08:00 Pulse 71 03/04/20 09:00 Resp 22 03/04/20 09:00 BP 137/86 03/04/20 09:00 Pulse Ox 92 L 03/04/20 09:00 Intake & Output 03/03/20 03/04/20 03/04/20 18:59 06:59 18:59 Intake Total 1855.841 729.458 261.144 Output Total 700 1700 Balance 1155.841 -970.542 261.144 Intake: IV 600 600 150 Sodium Chloride 0.9% 1, 600 600 150 000 ml @ 50 mls/hr IV . Q20H [facility] Rx#:[id number] Intake, IV Titration 155.841 29.458 11.144 Amount Diltiazem 125 mg In 126.5 Sodium Chloride 0.9% 100 ml @ 10 MG/HR 10 mls/hr IV .[id number] [facility] Rx#: [id number] Insulin Regular 100 unit 29.341 29.458 11.144 In Sodium Chloride 0.9% 100 ml @ Per Protocol IV .Q0M [facility] Rx#:[id number] Oral 1100 100 100 Output: Urine 700 1700 Other: Voiding Method Urinal Urinal Urinal # Voids 1 - Exam GENERAL: The patient is alert and oriented x3, not in any acute distress. Well developed, well nourished. Presently on an airvo with intermittent BiPAP HEENT: Pupils are round and equally reacting to light. EOMI. No scleral icterus. No conjunctival pallor. Normocephalic, atraumatic. No pharyngeal erythema. No thyromegaly. CARDIOVASCULAR: S1 and S2 present. No murmurs, rubs, or gallops. PULMONARY: Diminished breath sounds bilaterally with a few scattered crackles noted ABDOMEN: Soft, nontender, nondistended, normoactive bowel sounds. No palpable organomegaly. MUSCULOSKELETAL: No joint swelling or deformity. EXTREMITIES: No cyanosis, clubbing, or pedal edema. NEUROLOGICAL: Gross neurological examination did not reveal any focal deficits. SKIN: No rashes. no petechiae. - Labs CBC & Chem 7: 03/04/20 04:42 03/04/20 04:42 Labs: Abnormal Lab Results - Last 24 Hours (Table) 03/03/20 03/03/20 03/03/20 Range/Units 11:41 16:49 17:51 WBC (3.8-10.6) k/uL Neutrophils # (1.3-7.7) k/uL Lymphocytes # (1.0-4.8) k/uL Sodium (137-145) mmol/L Chloride (98-107) mmol/L BUN (9-20) mg/dL Glucose (74-99) mg/dL POC Glucose (mg/dL) 258 H 338 H 313 H (75-99) mg/dL Calcium (8.4-10.2) mg/dL ALT (4-49) U/L Total Protein (6.3-8.2) g/dL Albumin (3.5-5.0) g/dL 03/03/20 03/03/20 03/03/20 Range/Units 18:53 19:52 20:52 WBC (3.8-10.6) k/uL Neutrophils # (1.3-7.7) k/uL Lymphocytes # (1.0-4.8) k/uL Sodium (137-145) mmol/L Chloride (98-107) mmol/L BUN (9-20) mg/dL Glucose (74-99) mg/dL POC Glucose (mg/dL) 274 H 163 H 129 H (75-99) mg/dL Calcium (8.4-10.2) mg/dL ALT (4-49) U/L Total Protein (6.3-8.2) g/dL Albumin (3.5-5.0) g/dL 03/03/20 03/03/20 03/04/20 Range/Units 22:07 23:05 01:10 WBC (3.8-10.6) k/uL Neutrophils # (1.3-7.7) k/uL Lymphocytes # (1.0-4.8) k/uL Sodium (137-145) mmol/L Chloride (98-107) mmol/L BUN (9-20) mg/dL Glucose (74-99) mg/dL POC Glucose (mg/dL) 115 H 141 H 141 H (75-99) mg/dL Calcium (8.4-10.2) mg/dL ALT (4-49) U/L Total Protein (6.3-8.2) g/dL Albumin (3.5-5.0) g/dL 03/04/20 03/04/20 03/04/20 Range/Units 02:17 04:40 04:42 WBC 15.9 H (3.8-10.6) k/uL Neutrophils # 14.8 H (1.3-7.7) k/uL Lymphocytes # 0.4 L (1.0-4.8) k/uL Sodium (137-145) mmol/L Chloride (98-107) mmol/L BUN (9-20) mg/dL Glucose (74-99) mg/dL POC Glucose (mg/dL) 137 H 148 H (75-99) mg/dL Calcium (8.4-10.2) mg/dL ALT (4-49) U/L Total Protein (6.3-8.2) g/dL Albumin (3.5-5.0) g/dL 03/04/20 03/04/20 03/04/20 Range/Units 04:42 06:15 07:16 WBC (3.8-10.6) k/uL Neutrophils # (1.3-7.7) k/uL Lymphocytes # (1.0-4.8) k/uL Sodium 135 L (137-145) mmol/L Chloride 108 H (98-107) mmol/L BUN 27 H (9-20) mg/dL Glucose 150 H (74-99) mg/dL POC Glucose (mg/dL) 145 H 157 H (75-99) mg/dL Calcium 8.0 L (8.4-10.2) mg/dL ALT 71 H (4-49) U/L Total Protein 5.4 L (6.3-8.2) g/dL Albumin 2.6 L (3.5-5.0) g/dL 03/04/20 03/04/20 Range/Units 08:02 09:08 WBC (3.8-10.6) k/uL Neutrophils # (1.3-7.7) k/uL Lymphocytes # (1.0-4.8) k/uL Sodium (137-145) mmol/L Chloride (98-107) mmol/L BUN (9-20) mg/dL Glucose (74-99) mg/dL POC Glucose (mg/dL) 162 H 185 H (75-99) mg/dL Calcium (8.4-10.2) mg/dL ALT (4-49) U/L Total Protein (6.3-8.2) g/dL Albumin (3.5-5.0) g/dL Assessment and Plan Assessment: Worsening Covid 19 pneumonia Worsening acute hypoxic respiratory failure A. fib with RVR Fatigue generalized weakness secondary to Covid infection New-onset diabetes Hyponatremia due to dehydration, improved Dehydration Gastroenteritis secondary to covid infection Hypomagnesemia Hypertension History of [place] DVT prophylaxis: Xarelto GI prophylaxis: Pepcid Full code Plan: This is a pleasant 69 years old male who presents with Covid 19 infection with pneumonia, mild gastroenteritis and new diabetes. Also A. fib with RVR Continue with zinc and ascorbic acid, continue with gentle hydration. Patient was placed on an insulin drip along with 5 units of Levemir daily and will continue Accu-Cheks closely. Cardizem has been discontinued and patient is maintained on oral amiodarone. Currently sinus rhythm. Pulmonary and Cardiology is following along Patient continues on BiPAP at night and presently on Airvo and tolerating thus far. Will continue to monitor closely. Further recommendations to follow as per clinical course of the patient. Prognosis is poor and extremely guarded.
[2020-03-04 15:47] LABS: Glucose,Whole Blood 178 mg/dL (75-99)
[2020-03-04] MEDS: RIVAROXABAN 20 MG TAB PO SCH ×2 (16:08→16:09)
[2020-03-04] MEDS: INSULIN ASPART (NovoLOG) 100 UNIT/ML VIAL SQ SCH ×3 (16:52→23:58)
[2020-03-04 21:11] LABS: Glucose,Whole Blood 280 mg/dL (75-99)
--- NOTE | 2020-03-04 22:10 | PN ---
PROGRESS NOTE DATE OF SERVICE: 03/04/2020 REASON FOR FOLLOWUP: COVID-19 pneumonia. INTERVAL HISTORY: The patient is currently afebrile. He remains short of breath and BiPAP-dependent. The patient denies having any chest pain. He did have some cough; no sputum. No abdominal pain or diarrhea. PHYSICAL EXAMINATION: Blood pressure 125/70 with pulse of 71, temperature 97. He is 93% on 60% FiO2. General description is an elderly male lying in bed in no distress. RESPIRATORY SYSTEM: Unlabored breathing. Coarse breath sounds at the bases bilaterally. HEART: S1, S2. Regular rate and rhythm. ABDOMEN: Soft. No tenderness. LABS: Hemoglobin is 13.4, white count 15.9, BUN of 27, creatinine 0.86. DIAGNOSTIC IMPRESSION AND PLAN: Patient with acute COVID-19 pneumonia in this patient who did have overall worsening and worsening findings in the right lung base. Patient is covered with dexamethasone, and zinc with concern for possible cytokine storm. Will repeat his inflammatory markers tomorrow and possible consideration for . Continue with supportive care. MMODL / IJN: [id number] /
[2020-03-04 23:41] LABS: Glucose,Whole Blood 291 mg/dL (75-99)
[2020-03-05 04:49] LABS: Glucose,Whole Blood 147 mg/dL (75-99)
[2020-03-05] MEDS: INSULIN ASPART (NovoLOG) 100 UNIT/ML VIAL SQ SCH ×5 (04:50→20:33)
[2020-03-05 04:51] LABS: Basophils % (A) 0 %; Eosinophils % (A) 0 %; HCT 39.8 % (39.0-53.0); HGB 13.2 gm/dL (13.0-17.5); Lymphocytes # (A) 0.4 k/uL (1.0-4.8); Lymphocytes % (A) 3 %; MCHC 33.2 g/dL (31.0-37.0); MCV 93.3 fL (80.0-100.0); Mean Platelet Volume 7.9; Monocytes # (A) 0.4 k/uL (0-1.0); Monocytes % (A) 3 %; Neutrophils # (A) 12.5 k/uL (1.3-7.7); Neutrophils % (A) 93 %; Platelet Count 195 k/uL (150-450); RBC 4.27 m/uL (4.30-5.90); RDW 13.2 % (11.5-15.5); WBC 13.4 k/uL (3.8-10.6)
[2020-03-05 05:06] LABS: ALT 55 U/L (4-49); AST 34 U/L (17-59); African American GFR (CKD) >90 (>60 ml/min/1.73 sqM); Albumin 2.5 g/dL (3.5-5.0); Alkaline Phosphatase 103 U/L (38-126); Anion Gap 5 mmol/L; Blood Urea Nitrogen 24 mg/dL (9-20); Calcium 8.1 mg/dL (8.4-10.2); Carbon Dioxide 24 mmol/L (22-30); Chloride 106 mmol/L (98-107); Creatine Kinase 55 U/L (55-170); Glucose 163 mg/dL (74-99); LDH 1456 U/L (313-618); Non-African American GFR(CKD) 88 (>60 ml/min/1.73 sqM); Potassium 4.1 mmol/L (3.5-5.1); Sodium 135 mmol/L (137-145); Total Bilirubin 0.8 mg/dL (0.2-1.3); Total Protein 5.3 g/dL (6.3-8.2)
[2020-03-05 05:17] LABS: D-Dimer 14.01 mg/L FEU (<0.60)
[2020-03-05] MEDS ORDERED: INSULIN DETEMIR (LEVEMIR) 100 UNIT/ML SYR SQ SCH (07:00)
--- NOTE | 2020-03-05 07:41 | XR ---
EXAMINATION TYPE: XR chest 1V portable DATE OF EXAM: 03/05/2020 CLINICAL HISTORY: Difficulty breathing and covid-19 infection progress study. TECHNIQUE: Single AP portable supine view of the chest is obtained. COMPARISON: Chest x-ray from one day earlier and older studies. FINDINGS: Background chronic emphysematous change with multifocal bilateral opacities with organizin g consolidation lower lungs redemonstrated. Cardiac silhouette size is stable and enlarged. Overlying EKG leads redemonstrated. Multilevel spurring in thoracic spine redemonstrated. IMPRESSION: Cardiomegaly with bilateral multifocal acute infiltrates greatest in the periphery and or ganizing consolidations in the lower lungs noted. Findings consistent with covid 19 infection . No si gnificant interval change from most recent x-ray.
[2020-03-05 09:41] LABS: Glucose,Whole Blood 193 mg/dL (75-99)
[2020-03-05 09:58] LABS: Ferritin 1019.2 ng/mL (22.0-322.0)
[2020-03-05] MEDS: PANTOPRAZOLE 40 MG TABLET PO SCH (10:12)
[2020-03-05] MEDS: ZINC SULFATE 220 MG CAP PO SCH (10:12)
[2020-03-05] MEDS: ASCORBIC ACID 500 MG TAB PO SCH (10:12)
[2020-03-05] MEDS: DEXAMETHASONE SOD PHOSPHATE 10 MG/ML 1 ML VIAL IV SCH ×2 (10:12→20:34)
[2020-03-05] MEDS: METOPROLOL TARTRATE 25 MG TAB PO SCH ×3 (10:13→21:58)
[2020-03-05] MEDS: allopurinoL 300 MG TAB PO SCH (10:13)
[2020-03-05] MEDS: AMIODARONE 200 MG TAB PO SCH ×2 (10:13→20:34)
[2020-03-05 11:28] LABS: Glucose,Whole Blood 321 mg/dL (75-99)
[2020-03-05] MEDS ORDERED: INSULIN DETEMIR (LEVEMIR) 100 UNIT/ML SYR SQ STA (12:30)
[2020-03-05] MEDS ORDERED: INSULIN ASPART (NovoLOG) 100 UNIT/ML VIAL SQ ONE (12:30)
[2020-03-05] MEDS: SODIUM CHLORIDE 0.9% 1,000 ML IV SCH (12:49)
--- NOTE | 2020-03-05 12:51 | P.PN ---
Subjective Progress Note Date: 03/05/20 From Records Mr. Davis is a 69-year-old male, who is a patient of Dr. Frey with a past medical history of hypertension,GA coming in with a chief complaint of fatigue and generalized weakness that have been ongoing for past 1 week. Patient states that he has been having poor appetite loss of smell and loss of taste for the past 1 week. He states that he has been sleeping for more than 20 hours a day. Patient denies having any cough or difficulty in breathing. He denies having any chest pain or palpitations. He denies having any dysuria or hematuria. Patient denies having any history of diabetes but his blood sugars are in 300s to 400s. In the emergency room patient had a chest x-ray showing no acute cardiopulmonary process and an EKG showing normal sinus rhythm. He had labs done showing white count of 3.9, hemoglobin 14.4, platelets 166. Sodium 131, potassium 3.9, chloride. BUN 15, creatinine 0.93 C-reactive protein 59, albumin 3.3 coronavirus PCR positive. On 02/24/2020 patient was seen and examined. He is currently resting comfortably in bed. Appears to be no acute distress. On reviewing the vitals patient continues to fever as high as 102.3. His blood pressure has been stable around 130s 80s and he saturating at 95% on room air. Patient's blood sugars have been running on the higher side. On 02/25/2020- patient was seen and examined and the general medical floors. He is resting comfortably in bed. Overnight active issues reported by nursing staff. Patient states that his difficulty in breathing is improving. On reviewing the vitals patient's T-max is 98.4, heart rate 72, respiratory rate 127-79 and saturating at 93% on room air. On reviewing vitals patient's white count of 2.8, hemoglobin 14.4, platelets 189. Sodium 136, potassium 4.6, chloride 102. BUN 23 and creatinine of 1.0. Blood sugars have been running high in 200s to 300s. C-reactive protein 7.5. 02/26/2020 This is a pleasant 69 years old male who presents with cough with infection and found to have new onset diabetes with elevated hemoglobin A1c at 14%. Patient currently with no respiratory symptoms, no chest pain or dyspnea coughing. Yesterday he has a regular bowel movement but today he had 1 loose bowel movement but no significant abdominal pain or nausea vomiting. Also he is running a fever of 101. He saturating 90% at room air. BMP and CBC were reviewed and they were unremarkable except for mild leukopenia 2.8K. D-dimer is negative at 0.34. Coronavirus is detected. 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 Normal saline at 75 mL/h was added. Also Levemir 10 units daily and metformin 1000 mg twice daily has been added because his sugar still not controlled Patient is able to eat 75-100% of his meal 02/27/20 Patient had a rough night because of fever, his breathing is quiet and stable and he's only on 2 L oxygen. Is still have diarrhea about twice per day which is similar to the day before. No abdominal pain or vomiting. No significant coughing. unstable Chest x-ray: Worsening infiltrates, Pronecalcitonin is elevated at 0.27, patient is started on Rocephin and Zithromax. He is new onset diabetes and also is on dexamethasone and his sugar more than 300, so Levemir was decreased from 10-30 units daily. Also he is on metformin 1000 and Amaryl 1 mg. Continue on Xarelto, normocephalic 75, remedisivr, dexamethasone 6 mg daily. 02/28/2020 Patient hadn't good night because he could not sleep. No respiratory symptoms, ongoing generalized weakness. Yesterday he has watery diarrhea but this morning he had small more formed bowel movement. No abdominal pain. Persistent fever have subsided and his been afebrile for more than 24 hours. We will check Tylenol as needed His sugar is better controlled after increasing his insulin to 30 units. Antibiotics with ceftriaxone and Zithromax were admitted with high protei ncalcitonin. We will try to check sputum culture. Check labs in the morning 02/29/2020 Patient feels much better today, his fever subsided and his on Tylenol as needed currently. No respiratory issue or symptom. He had a little formed bowel movement today. Currently patient remains on the same cocktail for comfort infection besides remedisivr Hemodynamically stable. Vitals are stable showing mild leukocytosis of 11.6 K 03/01/2020 pt is moved to select unit , pt developed a fib and RVR and he was started on Cardizem and amiodarone drip and is already on Xarelto. Also patient on Lopressor 75 mg 3 times a day Also he developed more hypoxic and is currently on 50 L oxygen via nasal cannula saturating 90%. Repeat chest x-ray Moderate peripheral-based opacities throughout both lungs w ith no pleural effusion. Blood gas on BOTH HIS WITH PH 7.48, LOW PCO2 OF 22 AND LOW PO2 AT 58 PATIENT HAS BEEN EVALUATED BY PULMONARY SERVICE AND PATIENT MAY NEED TO GO TO THE ICU WELL. LEFT SHOWING STABLE LEUKOCYTOSIS AT 14.9 K, ELEVATED D-DIMER 3.1, BMP IS UNREMARKABLE AND WORSENING OF THE EDGE AND C-REACTIVE PROTEIN Patient is kept on remedisivr, dexamethasone 6 mg daily. However patient diarrhea has improved 03/02/2020 Patient today kept in the ICU on BiPAP saturating 100% however he looks comfortable. Distal short of breath and dyspneic Rest of vitals are stable Laps looks stable, inflammatory markers LDH and C-reactive protein still trending up slowly compared to yesterday.proCalcitonin is negative. D-dimer is trending up at 5.7 Chest x-ray showing stable bilateral lung infiltrates He remains on Decadron and remdesivir Also I kept on Cardizem drip at 20 mg an hour and amiodarone 400 mg twice daily and metoprolol 75 mg 3 times a day, vitamin C and A. fib and heart rate ranging between 80-100. He has an echo from 10/10/2019 showed ejection fraction of 50-55%. BNP is el evated at 3940. Discontinue ceftriaxone. Keep Zithromax for now. Patient to continue on Xarelto patient is nothing by mouth WE'LL KEEP HIM ON GENTLE HYDRATION AT 50 ML/H. ALSO GOT 1 DOSE OF LASIX 03/03/2020 Patient is seen and evaluated and follow-up continues to be closely monitored in the ICU. Patient has been taken off the BiPAP and placed on Airvo with an oxygen rate of 60 and FiO2 at 85% and is currently 91%. To continue to wean as tolerated with the use of BiPAP as needed as well. Patient is afebrile. Patient's d-dimer continues to be elevated and has increased at 11.67 and bhakti ent is maintained on Xarelto and will continue at this time. Patient is eating today and tolerating with no reports of nausea or vomiting noted. Multiple medical consultations following including cardiology. Cardizem drip has been decreased to 10 and will continue to monitor this patient continues on amiodarone as well. Heart rate currently in the 70s. Blood sugars being controlled and will continue sliding scale along with long-acting at this time. Patient to continue with dexamethasone along with vitamin C and D and zinc supplements. Patient is currently off antibiotics and will continue to monitor closely. Chest x-ray today shows cardiomegaly with bilateral multifocal acute infiltrates greatest in the periphery, organizing consolidation in the lower lungs with no significant change. 03/04/2020 Patient seen in follow-up continues to be closely monitored in the ICU. Patient is maintained on BiPAP at night and transitioning to Airvo during the day. Patient was placed on insulin drip and will continue to monitor Accu-Cheks closely. Patient continues to be severely dyspneic with any exertion and is 89- 90% with an O2 flow of 60 and FiO2 of 85. IV Cardizem drip has been d iscontinued and patient is maintained on amiodarone oral and will continue at this time. Anticoagulation of Xarelto continues. Chest x-rays continue to show worsening and consistent with Covid 19 infection progression. 03/05/2020 Patient continues to be in the ICU and maintained on BiPAP with airvo during the day and not really showing any improvements as far as oxygenation. Patient states his breathing has not worsened but is also not improved. Patient is hungry and awaiting to be switched to airvo so he can eat. Blood sugars continue to be elevated and insulin drip was discontinued. Will increase Levemir to 20 units daily and continue with sliding scale. Patient remains off Cardizem drip and is currently on oral amiodarone and will continue at this time. D-dimer also continues to be elevated and is currently 14.01. Patient is maintained on Xarelto. Current sodium is 135, potassium is 4.1, creatinine is 0.85, WBC is 13.4. Discussed with the patient about CODE STATUS and patient wishes to remain a full code. Chest x-ray continues to show no improvement from previous x-ray. CONSTITUTIONAL: No fever, no malaise, no fatigue. HEENT: No recent visual problems or hearing problems. Denied any sore throat. CARDIOVASCULAR: No orthopnea, PND, no palpitations, no syncope. PULMONARY: reports continued shortness of breath, no cough, no hemoptysis. GASTROINTESTINAL: No diarrhea, no nausea, no vomiting, no abdominal pain. Normoactive bowel sounds. NEUROLOGICAL: No headaches, reports weakness, no numbness. Objective - Vital Signs Vital signs: Vital Signs Temp 98.5 F 03/05/20 00:00 Pulse 68 03/05/20 09:00 Resp 23 03/05/20 09:00 BP 148/85 03/05/20 09:00 Pulse Ox 97 03/05/20 09:00 Intake & Output 03/04/20 03/05/20 03/05/20 18:59 06:59 18:59 Intake Total 0036.828 2993 150 Output Total 1500 1450 Balance -454.937 -350 150 Weight 93.6 kg Intake: IV 600 600 150 Sodium Chloride 0.9% 1, 600 600 150 000 ml @ 50 mls/hr IV . Q20H [facility] Rx#:[id number] Intake, IV Titration 45.063 Amount Insulin Regular 100 unit 45.063 In Sodium Chloride 0.9% 100 ml @ Per Protocol IV .Q0M [facility] Rx#:[id number] Oral 400 500 Output: Urine 1500 1450 Other: Voiding Method Urinal Urinal - Exam GENERAL: The patient is alert and oriented x3, not in any acute distress. Well developed, well nourished. Presently on an airvo with intermittent BiPAP HEENT: Pupils are round and equally reacting to light. EOMI. No scleral icterus. No conjunctival pallor. Normocephalic, atraumatic. No pharyngeal erythema. No thyromegaly. CARDIOVASCULAR: S1 and S2 present. No murmurs, rubs, or gallops. PULMONARY: Diminished breath sounds bilaterally with a few scattered crackles noted ABDOMEN: Soft, nontender, nondistended, normoactive bowel sounds. No palpable organomegaly. MUSCULOSKELETAL: No joint swelling or deformity. EXTREMITIES: No cyanosis, clubbing, or pedal edema. NEUROLOGICAL: Gross neurological examination did not reveal any focal deficits. SKIN: No rashes. no petechiae. - Labs CBC & Chem 7: 03/05/20 04:05 03/05/20 04:05 Labs: Abnormal Lab Results - Last 24 Hours (Table) 03/04/20 03/04/20 03/04/20 Range/Units 10:55 11:58 13:52 WBC (3.8-10.6) k/uL RBC (4.30-5.90) m/uL Neutrophils # (1.3-7.7) k/uL Lymphocytes # (1.0-4.8) k/uL D-Dimer (<0.60) mg/L FEU Sodium (137-145) mmol/L BUN (9-20) mg/dL Glucose (74-99) mg/dL POC Glucose (mg/dL) 196 H 185 H 211 H (75-99) mg/dL Calcium (8.4-10.2) mg/dL Ferritin (22.0-322.0) ng/mL ALT (4-49) U/L Lactate Dehydrogenase (313-618) U/L C-Reactive Protein (<10.0) mg/L Total Protein (6.3-8.2) g/dL Albumin (3.5-5.0) g/dL 03/04/20 03/04/20 03/04/20 Range/Units 15:45 21:10 23:40 WBC (3.8-10.6) k/uL RBC (4.30-5.90) m/uL Neutrophils # (1.3-7.7) k/uL Lymphocytes # (1.0-4.8) k/uL D-Dimer (<0.60) mg/L FEU Sodium (137-145) mmol/L BUN (9-20) mg/dL Glucose (74-99) mg/dL POC Glucose (mg/dL) 178 H 280 H 291 H (75-99) mg/dL Calcium (8.4-10.2) mg/dL Ferritin (22.0-322.0) ng/mL ALT (4-49) U/L Lactate Dehydrogenase (313-618) U/L C-Reactive Protein (<10.0) mg/L Total Protein (6.3-8.2) g/dL Albumin (3.5-5.0) g/dL 03/05/20 03/05/20 03/05/20 Range/Units 04:05 04:05 04:05 WBC 13.4 H (3.8-10.6) k/uL RBC 4.27 L (4.30-5.90) m/uL Neutrophils # 12.5 H (1.3-7.7) k/uL Lymphocytes # 0.4 L (1.0-4.8) k/uL D-Dimer 14.01 H (<0.60) mg/L FEU Sodium 135 L (137-145) mmol/L BUN 24 H (9-20) mg/dL Glucose 163 H (74-99) mg/dL POC Glucose (mg/dL) (75-99) mg/dL Calcium 8.1 L (8.4-10.2) mg/dL Ferritin 1019.2 H (22.0-322.0) ng/mL ALT 55 H (4-49) U/L Lactate Dehydrogenase 1456 H (313-618) U/L C-Reactive Protein 48.0 H (<10.0) mg/L Total Protein 5.3 L (6.3-8.2) g/dL Albumin 2.5 L (3.5-5.0) g/dL 03/05/20 03/05/20 Range/Units 04:48 09:39 WBC (3.8-10.6) k/uL RBC (4.30-5.90) m/uL Neutrophils # (1.3-7.7) k/uL Lymphocytes # (1.0-4.8) k/uL D-Dimer (<0.60) mg/L FEU Sodium (137-145) mmol/L BUN (9-20) mg/dL Glucose (74-99) mg/dL POC Glucose (mg/dL) 147 H 193 H (75-99) mg/dL Calcium (8.4-10.2) mg/dL Ferritin (22.0-322.0) ng/mL ALT (4-49) U/L Lactate Dehydrogenase (313-618) U/L C-Reactive Protein (<10.0) mg/L Total Protein (6.3-8.2) g/dL Albumin (3.5-5.0) g/dL Assessment and Plan Assessment: Worsening Covid 19 pneumonia Worsening acute hypoxic respiratory failure A. fib with RVR Fatigue generalized weakness secondary to Covid infection New-onset diabetes Hyponatremia due to dehydration, improved Dehydration Gastroenteritis secondary to covid infection Hypomagnesemia, improved Hypertension History of GA DVT prophylaxis: Xarelto GI prophylaxis: Pepcid Full code Plan: This is a pleasant 69 years old male who presents with Covid 19 infection with pneumonia, mild gastroenteritis and new diabetes. Also A. fib with RVR Continue with zinc and ascorbic acid, continue with gentle hydration. Patient was placed on an insulin drip along with 5 units of Levemir daily and will continue Accu-Cheks closely. Insulin drip has been discontinued and will increase long-acting and continue with sliding scale and close monitoring of Accu-Cheks. Currently sinus rhythm. Pulmonary and Cardiology is following along Patient continues on BiPAP at night and presently on Airvo and tolerating thus far. Chest x-ray continues to show progression of Covid 19 with no improvements noted. Will continue to monitor closely. Further recommendations to follow as per clinical course of the patient. Prognosis is poor and extremely guarded.
--- NOTE | 2020-03-05 13:51 | P.PN ---
Subjective Progress Note Date: 03/05/20 Principal diagnosis: Acute hypoxic respiratory failure secondary to covid 19 pneumonia. On 03/02/2020, the patient got transferred to the intensive care unit overnight. I saw him in a medical floor and the patient was having acute hypoxic respiratory failure secondary to coronavirus/Covid 19 related pneumonia. The patient was in the 100%. After arriving to the intensive care unit, the patient had to be placed on a BiPAP which is currently running at a pressure of 12/6 cm of water with an FiO2 of 20%. His pulse ox currently is 96%. Blood gases are pending from this morning. He is resting comfortably on the BiPAP and he is able to tolerated without any major difficulties. His cardiac rhythm has slowed down. He remains on atrial fibrillation. He is on a Cardizem drip running at 20 mg an hour. He is also on metoprolol at a dose of 75 mg by mouth three a day and amiodarone 400 mg by mouth twice a day. Patient is on Xarelto. D-dimer is elevated which is consistent with his coronavirus/Covid 19 related infection. His white cell count of 13.5. His LDH level is at 904. The proBNP level was 3940 and his troponin was at 0.142. I gave him a dose of Lasix yesterday. His fluid balance over the past 24 hours has been -996 mL. The chest x-ray still showing diffuse bilateral pulmonary infiltrates which is essentially unchanged compared to yesterday. There are diffuse peripheral infiltrates bilaterally. Reevaluated today on 03/03/20, patient is on BiPAP 12/6, FiO2 is 85%, patient seems to be comfortable, he is not in distress, asking to be fed, hence I will switch the patient to airvo, and continue to titrate accordingly to maintain O2 saturation above 90% possible. Patient remains on Cardizem drip for his atrial fibrillation, his rate is controlled, his IV fluid is a 0.9 normal saline. CBC is relatively normal. Inflammatory markers are elevated, LDH is 995 and his C- reactive protein is 24.2. *Normal renal profile is normal chest x-ray is quite abnormal showing diffuse interstitial infiltrates bilaterally. Reevaluated today on 03/04/20, patient remains in the ICU, his pulmonary status is marginal at best. Remains on high flow airvo, FiO2 of 85%, and 60 L flow. His O2 saturation is marginal between 90-93% at best. Patient is on insulin drip mostly, 2 units per hour, his Cardizem is off, and he is now in sinus rhythm. Patient completed his course of remdesivir, and he is on Decadron 6 mg every 12 hours, is also on Xarelto. Patient is complaining of shortness of breath with any activity. But looks comfortable at rest. Remains on the Covid 19 cocktail. CBC showed leukocytosis with WBC count of 15.9 hemoglobin is 13.4. Basic metabolic profile and renal profile are normal Reevaluated today on 03/05/20, remains in the ICU, patient is now on BiPAP, IPAP is 12 EPAP 6 FiO2 is 85%, and his O2 saturation is 94%. IV fluid is at 50 ML per hour, patient completed his treatment with remdesivir, remains on Decadron 6 mg IV push every 12 hours, and he remains on Xarelto. He is also on the Covid 19 cocktail. His pulmonary status is marginal at best, patient will be given today a trial of high flow nasal cannula or airvo. And will titrate accordingly. Chest x-ray continues to show diffuse interstitial infiltrates. And some consolidation noted in the right lower lobe. Inflammatory markers remain high LDH is 1456 C-reactive protein is 48. Electrolytes are normal renal profile is normal d-dimer is 14.01 Objective - Vital Signs Vital signs: Vital Signs Temp 98.1 F 03/05/20 12:00 Pulse 64 03/05/20 13:00 Resp 22 03/05/20 13:00 BP 146/81 03/05/20 13:00 Pulse Ox 93 L 03/05/20 13:00 Intake & Output 03/04/20 03/05/20 03/05/20 18:59 06:59 18:59 Intake Total 3224.955 0930 350 Output Total 1500 1450 300 Balance -454.937 -350 50 Weight 93.6 kg Intake: IV 600 600 350 Sodium Chloride 0.9% 1, 600 600 350 000 ml @ 50 mls/hr IV . Q20H [facility] Rx#:[id number] Intake, IV Titration 45.063 Amount Insulin Regular 100 unit 45.063 In Sodium Chloride 0.9% 100 ml @ Per Protocol IV .Q0M [facility] Rx#:[id number] Oral 400 500 Output: Urine 1500 1450 300 Other: Voiding Method Urinal Urinal Urinal - Exam GENERAL: The patient is alert and oriented x3, on BiPAP. 12/6/85% FiO2. HEENT: Pupils are round and equally reacting to light. EOMI. No scleral icterus. No conjunctival pallor. Normocephalic, atraumatic. No pharyngeal erythema. No thyromegaly. CARDIOVASCULAR: S1 and S2 present. No murmurs, rubs, or gallops. PULMONARY: Crackles at the bases, no rhonchi and no wheezes. ABDOMEN: Soft, nontender, nondistended, normoactive bowel sounds. No palpable organomegaly. MUSCULOSKELETAL: No joint swelling or deformity. EXTREMITIES: No clubbing edema or cyanosis NEUROLOGICAL: Alert and oriented 3, no gross focal deficits SKIN: No rashes. no petechiae. Psychiatric: Normal mood, affect and normal mental status examination - Labs CBC & Chem 7: 03/05/20 04:05 03/05/20 04:05 Labs: Abnormal Lab Results - Last 24 Hours (Table) 03/04/20 03/04/20 03/04/20 Range/Units 13:52 15:45 21:10 WBC (3.8-10.6) k/uL RBC (4.30-5.90) m/uL Neutrophils # (1.3-7.7) k/uL Lymphocytes # (1.0-4.8) k/uL D-Dimer (<0.60) mg/L FEU Sodium (137-145) mmol/L BUN (9-20) mg/dL Glucose (74-99) mg/dL POC Glucose (mg/dL) 211 H 178 H 280 H (75-99) mg/dL Calcium (8.4-10.2) mg/dL Ferritin (22.0-322.0) ng/mL ALT (4-49) U/L Lactate Dehydrogenase (313-618) U/L C-Reactive Protein (<10.0) mg/L Total Protein (6.3-8.2) g/dL Albumin (3.5-5.0) g/dL 03/04/20 03/05/20 03/05/20 Range/Units 23:40 04:05 04:05 WBC 13.4 H (3.8-10.6) k/uL RBC 4.27 L (4.30-5.90) m/uL Neutrophils # 12.5 H (1.3-7.7) k/uL Lymphocytes # 0.4 L (1.0-4.8) k/uL D-Dimer (<0.60) mg/L FEU Sodium 135 L (137-145) mmol/L BUN 24 H (9-20) mg/dL Glucose 163 H (74-99) mg/dL POC Glucose (mg/dL) 291 H (75-99) mg/dL Calcium 8.1 L (8.4-10.2) mg/dL Ferritin 1019.2 H (22.0-322.0) ng/mL ALT 55 H (4-49) U/L Lactate Dehydrogenase 1456 H (313-618) U/L C-Reactive Protein 48.0 H (<10.0) mg/L Total Protein 5.3 L (6.3-8.2) g/dL Albumin 2.5 L (3.5-5.0) g/dL 03/05/20 03/05/20 03/05/20 Range/Units 04:05 04:48 09:39 WBC (3.8-10.6) k/uL RBC (4.30-5.90) m/uL Neutrophils # (1.3-7.7) k/uL Lymphocytes # (1.0-4.8) k/uL D-Dimer 14.01 H (<0.60) mg/L FEU Sodium (137-145) mmol/L BUN (9-20) mg/dL Glucose (74-99) mg/dL POC Glucose (mg/dL) 147 H 193 H (75-99) mg/dL Calcium (8.4-10.2) mg/dL Ferritin (22.0-322.0) ng/mL ALT (4-49) U/L Lactate Dehydrogenase (313-618) U/L C-Reactive Protein (<10.0) mg/L Total Protein (6.3-8.2) g/dL Albumin (3.5-5.0) g/dL 03/05/20 Range/Units 11:27 WBC (3.8-10.6) k/uL RBC (4.30-5.90) m/uL Neutrophils # (1.3-7.7) k/uL Lymphocytes # (1.0-4.8) k/uL D-Dimer (<0.60) mg/L FEU Sodium (137-145) mmol/L BUN (9-20) mg/dL Glucose (74-99) mg/dL POC Glucose (mg/dL) 321 H (75-99) mg/dL Calcium (8.4-10.2) mg/dL Ferritin (22.0-322.0) ng/mL ALT (4-49) U/L Lactate Dehydrogenase (313-618) U/L C-Reactive Protein (<10.0) mg/L Total Protein (6.3-8.2) g/dL Albumin (3.5-5.0) g/dL Assessment and Plan Assessment: Impression: Acute hypoxic or short failure Acute covid 19 pneumonitis. New onset Atrial fibrillation with RVR. New-onset diabetes. Acute gastroenteritis secondary to Covid infection Benign essential hypertension. History of underlying coronary artery disease. Right upper lobe pulmonary embolism, patient is on Xarelto. Troponin leak. History of gout. History of right upper lobe nodule to be monitored on outpatient basis. Recommendation: Continue Decadron. done with remdesivir Titrate FiO2 accordingly.. Continue diuretics. Continue oral beta blockers. Continue Xarelto. Continue GI and DVT prophylaxis. Continue to monitor in the ICU, his pulmonary status is marginal at best. At this point does not require intubation and mechanical ventilation but again he is quite marginal. Prognosis is definitely poor and guarded, and his chest x-ray findings are very concerning. Critical care time is over 30 minutes. Time with Patient: Greater than 30
--- NOTE | 2020-03-05 15:46 | PN ---
PROGRESS NOTE DATE OF SERVICE: 03/05/2020 REASON FOR FOLLOWUP: Acute COVID-19 pneumonia. INTERVAL HISTORY: The patient is currently afebrile. The patient is still requiring high-flow oxygen. Feeling slightly better today. Denies having any chest pain. Minimal cough. No abdominal pain or diarrhea. PHYSICAL EXAMINATION: Blood pressure 146/81 with a pulse of 54, temperature 98.1. He is 93% on 50% FiO2. General description is an elderly male lying in bed in no distress. RESPIRATORY SYSTEM: Unlabored breathing. Coarse breath sounds at the bases bilaterally. No wheeze. HEART: S1, S2. Regular rate and rhythm. ABDOMEN: Soft. No tenderness. LABS: D-dimer is up to 14.01. BUN of 24, creatinine 0.85. DIAGNOSTIC IMPRESSION AND PLAN: Patient with acute respiratory failure which acute COVID-19 pneumonia currently covered with dexamethasone, Xarelto, zinc and respiratory support. Monitor his clinical course closely. MMODL / IJN: [id number] /
[2020-03-05 17:05] LABS: Glucose,Whole Blood 236 mg/dL (75-99)
[2020-03-05 20:13] LABS: Glucose,Whole Blood 250 mg/dL (75-99)
[2020-03-05 22:06] LABS: Glucose,Whole Blood 238 mg/dL (75-99)
[2020-03-05 23:46] LABS: Glucose,Whole Blood 113 mg/dL (75-99)
[2020-03-06] MEDS: INSULIN ASPART (NovoLOG) 100 UNIT/ML VIAL SQ SCH ×6 (00:24→21:22)
[2020-03-06 04:26] LABS: Glucose,Whole Blood 80 mg/dL (75-99)
[2020-03-06 04:44] LABS: Basophils % (A) 0 %; Eosinophils % (A) 0 %; HCT 39.5 % (39.0-53.0); HGB 13.2 gm/dL (13.0-17.5); Lymphocytes # (A) 0.4 k/uL (1.0-4.8); Lymphocytes % (A) 3 %; MCH 30.8 pg (25.0-35.0); MCHC 33.4 g/dL (31.0-37.0); MCV 92.2 fL (80.0-100.0); Mean Platelet Volume 7.6; Monocytes # (A) 0.3 k/uL (0-1.0); Monocytes % (A) 2 %; Neutrophils # (A) 13.5 k/uL (1.3-7.7); Neutrophils % (A) 95 %; Platelet Count 154 k/uL (150-450); RBC 4.28 m/uL (4.30-5.90); RDW 13.6 % (11.5-15.5); WBC 14.2 k/uL (3.8-10.6)
[2020-03-06 05:04] LABS: ALT 53 U/L (4-49); AST 35 U/L (17-59); African American GFR (CKD) >90 (>60 ml/min/1.73 sqM); Albumin 2.4 g/dL (3.5-5.0); Alkaline Phosphatase 92 U/L (38-126); Anion Gap 2 mmol/L; Blood Urea Nitrogen 23 mg/dL (9-20); Carbon Dioxide 25 mmol/L (22-30); Chloride 108 mmol/L (98-107); Creatine Kinase 33 U/L (55-170); Glucose 78 mg/dL (74-99); LDH 1475 U/L (313-618); Non-African American GFR(CKD) >90 (>60 ml/min/1.73 sqM); Sodium 135 mmol/L (137-145); Total Bilirubin 0.7 mg/dL (0.2-1.3); Total Protein 5.1 g/dL (6.3-8.2)
[2020-03-06] MEDS: DILTIAZEM 125 MG in SODIUM CHLORIDE 0.9% 100 ML IV SCH (06:13)
[2020-03-06] MEDS ORDERED: INSULIN DETEMIR (LEVEMIR) 100 UNIT/ML SYR SQ SCH (07:00)
--- NOTE | 2020-03-06 10:45 | XR ---
EXAMINATION TYPE: XR chest 1V portable DATE OF EXAM: 03/06/2020 COMPARISON: 03/05/2020 INDICATION: Short of breath TECHNIQUE: Single frontal view of the chest is obtained. FINDINGS: The heart size is normal. The pulmonary vasculature is normal. Diffuse patchy infiltrates are present, similar to prior. IMPRESSION: 1. Patchy diffuse infiltrates present bilaterally can be compatible with atypical pneumonia.
[2020-03-06 10:46] LABS: Ferritin 1054.3 ng/mL (22.0-322.0)
[2020-03-06] MEDS: DEXAMETHASONE SOD PHOSPHATE 10 MG/ML 1 ML VIAL IV SCH ×2 (11:53→21:23)
[2020-03-06] MEDS: PANTOPRAZOLE 40 MG TABLET PO SCH (11:53)
[2020-03-06] MEDS: ZINC SULFATE 220 MG CAP PO SCH (11:53)
[2020-03-06] MEDS: AMIODARONE 200 MG TAB PO SCH ×2 (11:53→21:23)
[2020-03-06] MEDS: allopurinoL 300 MG TAB PO SCH (11:53)
[2020-03-06] MEDS: METOPROLOL TARTRATE 25 MG TAB PO SCH ×3 (11:53→21:23)
[2020-03-06] MEDS: ASCORBIC ACID 500 MG TAB PO SCH (11:53)
--- NOTE | 2020-03-06 11:55 | CT ---
EXAMINATION TYPE: CT angio head neck DATE OF EXAM: 03/06/2020 COMPARISON: INDICATION: Right sided weakness and facial droop. DLP: 1964.3 mGycm, Automated exposure control for dose reduction was used. CONTRAST: None CT of the brain is performed utilizing 3 mm thick sections through the posterior fossa and 3 mm thick sections through the remaining calvarium. Study is not performed within 24 hours of arrival to the hospital. No abnormal hyperdensity is present to suggest an acute intracranial hemorrhage. No mass lesion is evident. No acute infarcts are evident. Scattered periventricular white matter hypodensity is present, likely on the basis of chronic white matter ischemic changes. Ventricles and sulci are prominent for the patient age. Some more focal atrophy may be within the rig ht occipital lobe with prominence of sulci. Paranasal sinuses and mastoid air cells within the [id number] are clear. IMPRESSIONS: 1. Atrophy with periventricular white matter ischemic changes. 2. No acute intracranial process. EXAMINATION TYPE: CT angio head neck DATE OF EXAM: 03/06/2020 HISTORY: Right sided weakness and facial droop. COMPARISON: None CT DLP: 1964.3 mGycm. Automated Exposure Control for Dose Reduction was Utilized. TECHNIQUE: CTA scan of the neck is performed without and with IV Contrast, patient injected with 65 mL of Isovue 370, axial images are obtained, coronal and sagittal reformatted images are reviewed. Th ree-D reconstructed images are created on an independent workstation and reviewed. Source images are reviewed. FINDINGS: Carotid/Vascular Structures: Carotid arteries bifurcate normally into internal and external carotid a rteries. There is some minimal atheromatous plaquing at the carotid bifurcations without significant flow-limiting stenosis. Cervical of [place]: Vertebral basilar system appears normal. Posterior cerebral vasculature is unrema rkable. Internal carotid arteries bifurcate normally into A1 and M1 segments. A2 segments are normal. The anterior communicating artery is patent. Communicating arteries are not identified. IMPRESSION: 1. No flow-limiting stenosis bilateral carotid bifurcations. Minimal atheromatous calcification is pr esent. 2. Normal [place] of [place]
[2020-03-06 12:05] LABS: Glucose,Whole Blood 223 mg/dL (75-99)
--- NOTE | 2020-03-06 12:17 | P.PN ---
Subjective Progress Note Date: 03/06/20 From Records Mr. Davis is a 69-year-old male, who is a patient of Dr. Frey with a past medical history of hypertension,NV coming in with a chief complaint of fatigue and generalized weakness that have been ongoing for past 1 week. Patient states that he has been having poor appetite loss of smell and loss of taste for the past 1 week. He states that he has been sleeping for more than 20 hours a day. Patient denies having any cough or difficulty in breathing. He denies having any chest pain or palpitations. He denies having any dysuria or hematuria. Patient denies having any history of diabetes but his blood sugars are in 300s to 400s. In the emergency room patient had a chest x-ray showing no acute cardiopulmonary process and an EKG showing normal sinus rhythm. He had labs done showing white count of 3.9, hemoglobin 14.4, platelets 166. Sodium 131, potassium 3.9, chloride. BUN 15, creatinine 0.93 C-reactive protein 59, albumin 3.3 coronavirus PCR positive. On 02/24/2020 patient was seen and examined. He is currently resting comfortably in bed. Appears to be no acute distress. On reviewing the vitals patient continues to fever as high as 102.3. His blood pressure has been stable around 130s 80s and he saturating at 95% on room air. Patient's blood sugars have been running on the higher side. On 02/25/2020- patient was seen and examined and the general medical floors. He is resting comfortably in bed. Overnight active issues reported by nursing staff. Patient states that his difficulty in breathing is improving. On reviewing the vitals patient's T-max is 98.4, heart rate 72, respiratory rate 127-79 and saturating at 93% on room air. On reviewing vitals patient's white count of 2.8, hemoglobin 14.4, platelets 189. Sodium 136, potassium 4.6, chloride 102. BUN 23 and creatinine of 1.0. Blood sugars have been running high in 200s to 300s. C-reactive protein 7.5. 02/26/2020 This is a pleasant 69 years old male who presents with cough with infection and found to have new onset diabetes with elevated hemoglobin A1c at 14%. Patient currently with no respiratory symptoms, no chest pain or dyspnea coughing. Yesterday he has a regular bowel movement but today he had 1 loose bowel movement but no significant abdominal pain or nausea vomiting. Also he is running a fever of 101. He saturating 90% at room air. BMP and CBC were reviewed and they were unremarkable except for mild leukopenia 2.8K. D-dimer is negative at 0.34. Coronavirus is detected. 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 Normal saline at 75 mL/h was added. Also Levemir 10 units daily and metformin 1000 mg twice daily has been added because his sugar still not controlled Patient is able to eat 75-100% of his meal 02/27/20 Patient had a rough night because of fever, his breathing is quiet and stable and he's only on 2 L oxygen. Is still have diarrhea about twice per day which is similar to the day before. No abdominal pain or vomiting. No significant coughing. unstable Chest x-ray: Worsening infiltrates, Pronecalcitonin is elevated at 0.27, patient is started on Rocephin and Zithromax. He is new onset diabetes and also is on dexamethasone and his sugar more than 300, so Levemir was decreased from 10-30 units daily. Also he is on metformin 1000 and Amaryl 1 mg. Continue on Xarelto, normocephalic 75, remedisivr, dexamethasone 6 mg daily. 02/28/2020 Patient hadn't good night because he could not sleep. No respiratory symptoms, ongoing generalized weakness. Yesterday he has watery diarrhea but this morning he had small more formed bowel movement. No abdominal pain. Persistent fever have subsided and his been afebrile for more than 24 hours. We will check Tylenol as needed His sugar is better controlled after increasing his insulin to 30 units. Antibiotics with ceftriaxone and Zithromax were admitted with high protei ncalcitonin. We will try to check sputum culture. Check labs in the morning 02/29/2020 Patient feels much better today, his fever subsided and his on Tylenol as needed currently. No respiratory issue or symptom. He had a little formed bowel movement today. Currently patient remains on the same cocktail for comfort infection besides remedisivr Hemodynamically stable. Vitals are stable showing mild leukocytosis of 11.6 K 03/01/2020 pt is moved to select unit , pt developed a fib and RVR and he was started on Cardizem and amiodarone drip and is already on Xarelto. Also patient on Lopressor 75 mg 3 times a day Also he developed more hypoxic and is currently on 50 L oxygen via nasal cannula saturating 90%. Repeat chest x-ray Moderate peripheral-based opacities throughout both lungs w ith no pleural effusion. Blood gas on BOTH HIS WITH PH 7.48, LOW PCO2 OF 22 AND LOW PO2 AT 58 PATIENT HAS BEEN EVALUATED BY PULMONARY SERVICE AND PATIENT MAY NEED TO GO TO THE ICU WELL. LEFT SHOWING STABLE LEUKOCYTOSIS AT 14.9 K, ELEVATED D-DIMER 3.1, BMP IS UNREMARKABLE AND WORSENING OF THE EDGE AND C-REACTIVE PROTEIN Patient is kept on remedisivr, dexamethasone 6 mg daily. However patient diarrhea has improved 03/02/2020 Patient today kept in the ICU on BiPAP saturating 100% however he looks comfortable. Distal short of breath and dyspneic Rest of vitals are stable Laps looks stable, inflammatory markers LDH and C-reactive protein still trending up slowly compared to yesterday.proCalcitonin is negative. D-dimer is trending up at 5.7 Chest x-ray showing stable bilateral lung infiltrates He remains on Decadron and remdesivir Also I kept on Cardizem drip at 20 mg an hour and amiodarone 400 mg twice daily and metoprolol 75 mg 3 times a day, vitamin C and A. fib and heart rate ranging between 80-100. He has an echo from 10/10/2019 showed ejection fraction of 50-55%. BNP is el evated at 3940. Discontinue ceftriaxone. Keep Zithromax for now. Patient to continue on Xarelto patient is nothing by mouth WE'LL KEEP HIM ON GENTLE HYDRATION AT 50 ML/H. ALSO GOT 1 DOSE OF LASIX 03/03/2020 Patient is seen and evaluated and follow-up continues to be closely monitored in the ICU. Patient has been taken off the BiPAP and placed on Airvo with an oxygen rate of 60 and FiO2 at 85% and is currently 91%. To continue to wean as tolerated with the use of BiPAP as needed as well. Patient is afebrile. Patient's d-dimer continues to be elevated and has increased at 11.67 and bhakti ent is maintained on Xarelto and will continue at this time. Patient is eating today and tolerating with no reports of nausea or vomiting noted. Multiple medical consultations following including cardiology. Cardizem drip has been decreased to 10 and will continue to monitor this patient continues on amiodarone as well. Heart rate currently in the 70s. Blood sugars being controlled and will continue sliding scale along with long-acting at this time. Patient to continue with dexamethasone along with vitamin C and D and zinc supplements. Patient is currently off antibiotics and will continue to monitor closely. Chest x-ray today shows cardiomegaly with bilateral multifocal acute infiltrates greatest in the periphery, organizing consolidation in the lower lungs with no significant change. 03/04/2020 Patient seen in follow-up continues to be closely monitored in the ICU. Patient is maintained on BiPAP at night and transitioning to Airvo during the day. Patient was placed on insulin drip and will continue to monitor Accu-Cheks closely. Patient continues to be severely dyspneic with any exertion and is 89- 90% with an O2 flow of 60 and FiO2 of 85. IV Cardizem drip has been d iscontinued and patient is maintained on amiodarone oral and will continue at this time. Anticoagulation of Xarelto continues. Chest x-rays continue to show worsening and consistent with Covid 19 infection progression. 03/05/2020 Patient continues to be in the ICU and maintained on BiPAP with airvo during the day and not really showing any improvements as far as oxygenation. Patient states his breathing has not worsened but is also not improved. Patient is hungry and awaiting to be switched to airvo so he can eat. Blood sugars continue to be elevated and insulin drip was discontinued. Will increase Levemir to 20 units daily and continue with sliding scale. Patient remains off Cardizem drip and is currently on oral amiodarone and will continue at this time. D-dimer also continues to be elevated and is currently 14.01. Patient is maintained on Xarelto. Current sodium is 135, potassium is 4.1, creatinine is 0.85, WBC is 13.4. Discussed with the patient about CODE STATUS and patient wishes to remain a full code. Chest x-ray continues to show no improvement from previous x-ray. 03/06/2020 Patient currently remains in the ICU although awaiting to be transferred to [facility]. Patient continues on the Airvo with BiPAP at night. Patient states he was having some right-sided weakness and facial droop since yesterday and CT angio done showing atrophy with very ventricular white matter ischemic changes with no acute intracranial process, normal [place] of [place], and no flow- limiting stenosis of the bilateral carotid bifurcations with minimal atheromatous calcifications present. Neurology was consulted for evaluation and is currently pending. Patient's chest x-ray today continues to show patchy diffuse infiltrates present bilaterally. Patient is currently tolerating diet and remains on sliding scale along with long-acting and will continue at this time. CONSTITUTIONAL: No fever, no malaise, no fatigue. HEENT: No recent visual problems or hearing problems. Denied any sore throat. CARDIOVASCULAR: No orthopnea, PND, no palpitations, no syncope. PULMONARY: reports continued shortness of breath, no cough, no hemoptysis. GASTROINTESTINAL: No diarrhea, no nausea, no vomiting, no abdominal pain. Normoactive bowel sounds. NEUROLOGICAL: No headaches, reports weakness, reports some right-sided facial drooping and right upper extremity weakness, no numbness. Objective - Vital Signs Vital signs: Vital Signs Temp 98.1 F 03/06/20 08:00 Pulse 55 L 03/06/20 09:00 Resp 21 03/06/20 09:00 BP 153/83 03/06/20 09:00 Pulse Ox 95 03/06/20 09:00 Intake & Output 03/05/20 03/06/20 03/06/20 18:59 06:59 18:59 Intake Total 600 600 150 Output Total 1550 1720 500 Balance -950 -1120 -350 Weight 94.8 kg Intake: IV 600 600 150 Sodium Chloride 0.9% 1, 600 600 150 000 ml @ 50 mls/hr IV . Q20H [facility] Rx#:[id number] Output: Urine 1550 1720 500 Other: Voiding Method Urinal Urinal - Exam GENERAL: The patient is alert and oriented x3, not in any acute distress. Well developed, well nourished. Presently on an airvo with intermittent BiPAP HEENT: Pupils are round and equally reacting to light. EOMI. No scleral icterus. No conjunctival pallor. Normocephalic, atraumatic. No pharyngeal erythema. No thyromegaly. CARDIOVASCULAR: S1 and S2 present. No murmurs, rubs, or gallops. PULMONARY: Diminished breath sounds bilaterally with a few scattered crackles noted ABDOMEN: Soft, nontender, nondistended, normoactive bowel sounds. No palpable organomegaly. MUSCULOSKELETAL: No joint swelling or deformity. EXTREMITIES: No cyanosis, clubbing, or pedal edema. NEUROLOGICAL: Gross neurological examination did not reveal any focal deficits. Able to move right upper and lower extremity with no deficits noted. No slurring of his speech noted in right side of the face does not appear to be drooping on exam SKIN: No rashes. no petechiae. - Labs CBC & Chem 7: 03/06/20 03:55 03/06/20 03:55 Labs: Abnormal Lab Results - Last 24 Hours (Table) 03/05/20 03/05/20 03/05/20 Range/Units 11:27 17:04 20:01 WBC (3.8-10.6) k/uL RBC (4.30-5.90) m/uL Neutrophils # (1.3-7.7) k/uL Lymphocytes # (1.0-4.8) k/uL Sodium (137-145) mmol/L Chloride (98-107) mmol/L BUN (9-20) mg/dL POC Glucose (mg/dL) 321 H 236 H 250 H (75-99) mg/dL Calcium (8.4-10.2) mg/dL Ferritin (22.0-322.0) ng/mL ALT (4-49) U/L Lactate Dehydrogenase (313-618) U/L Creatine Kinase (55-170) U/L C-Reactive Protein (<10.0) mg/L Total Protein (6.3-8.2) g/dL Albumin (3.5-5.0) g/dL 03/05/20 03/05/20 03/06/20 Range/Units 22:04 23:45 03:55 WBC (3.8-10.6) k/uL RBC (4.30-5.90) m/uL Neutrophils # (1.3-7.7) k/uL Lymphocytes # (1.0-4.8) k/uL Sodium 135 L (137-145) mmol/L Chloride 108 H (98-107) mmol/L BUN 23 H (9-20) mg/dL POC Glucose (mg/dL) 238 H 113 H (75-99) mg/dL Calcium 8.0 L (8.4-10.2) mg/dL Ferritin 1054.3 H (22.0-322.0) ng/mL ALT 53 H (4-49) U/L Lactate Dehydrogenase 1475 H (313-618) U/L Creatine Kinase 33 L (55-170) U/L C-Reactive Protein 35.0 H (<10.0) mg/L Total Protein 5.1 L (6.3-8.2) g/dL Albumin 2.4 L (3.5-5.0) g/dL 03/06/20 Range/Units 03:55 WBC 14.2 H (3.8-10.6) k/uL RBC 4.28 L (4.30-5.90) m/uL Neutrophils # 13.5 H (1.3-7.7) k/uL Lymphocytes # 0.4 L (1.0-4.8) k/uL Sodium (137-145) mmol/L Chloride (98-107) mmol/L BUN (9-20) mg/dL POC Glucose (mg/dL) (75-99) mg/dL Calcium (8.4-10.2) mg/dL Ferritin (22.0-322.0) ng/mL ALT (4-49) U/L Lactate Dehydrogenase (313-618) U/L Creatine Kinase (55-170) U/L C-Reactive Protein (<10.0) mg/L Total Protein (6.3-8.2) g/dL Albumin (3.5-5.0) g/dL Assessment and Plan Assessment: Worsening Covid 19 pneumonia Worsening acute hypoxic respiratory failure A. fib with RVR, presently rate controlled Fatigue generalized weakness secondary to Covid infection New-onset diabetes Hyponatremia due to dehydration, improved Dehydration Gastroenteritis secondary to covid infection Hypomagnesemia, improved Hypertension History of [place] DVT prophylaxis: Xarelto GI prophylaxis: Pepcid Full code Plan: This is a pleasant 69 years old male who presents with Covid 19 infection with pneumonia, mild gastroenteritis and new diabetes. Also A. fib with RVR Continue with zinc and ascorbic acid, continue with gentle hydration. Patient to continue with long-acting and continue with sliding scale and close monitoring of Accu-Cheks. Currently sinus rhythm. Pulmonary and Cardiology is following along Patient continues on BiPAP at night and presently on Airvo and tolerating thus far. Patient reportedly had some right-sided facial droop and upper extremity weakness that started yesterday and CT angios done as previously mentioned. No neurological deficits noted on exam. Patient is able to move upper and lower right extremity. Neurology consulted and pending at this time. Chest x-ray remains unchanged. Will continue to monitor closely. Patient currently awaiting transfer out of the ICU to [facility]. Further recommendations to follow as per clinical course of the patient. Prognosis is poor and extremely guarded.
[2020-03-06] MEDS: SODIUM CHLORIDE 0.9% 1,000 ML IV SCH (12:32)
[2020-03-06 13:31] VITALS: BMI 29.9
--- NOTE | 2020-03-06 14:32 | P.PN ---
Subjective Progress Note Date: 03/06/20 Principal diagnosis: Acute hypoxic respiratory failure secondary to COVID 19 pneumonia On 03/02/2020, the patient got transferred to the intensive care unit overnight. I saw him in a medical floor and the patient was having acute hypoxic respiratory failure secondary to coronavirus/Covid 19 related pneumonia. The patient was in the 100%. After arriving to the intensive care unit, the patient had to be placed on a BiPAP which is currently running at a pressure of 12/6 cm of water with an FiO2 of 20%. His pulse ox currently is 96%. Blood gases are pending from this morning. He is resting comfortably on the BiPAP and he is able to tolerated without any major difficulties. His cardiac rhythm has slowed down. He remains on atrial fibrillation. He is on a Cardizem drip running at 20 mg an hour. He is also on metoprolol at a dose of 75 mg by mouth three a day and amiodarone 400 mg by mouth twice a day. Patient is on Xarelto. D-dimer is elevated which is consistent with his coronavirus/Covid 19 related infection. His white cell count of 13.5. His LDH level is at 904. The proBNP level was 3940 and his troponin was at 0.142. I gave him a dose of Lasix yesterday. His fluid balance over the past 24 hours has been -996 mL. The chest x-ray still showing diffuse bilateral pulmonary infiltrates which is essentially unchanged compared to yesterday. There are diffuse peripheral infiltrates bilaterally. Reevaluated today on 03/03/20, patient is on BiPAP 12/6, FiO2 is 85%, patient seems to be comfortable, he is not in distress, asking to be fed, hence I will switch the patient to airvo, and continue to titrate accordingly to maintain O2 saturation above 90% possible. Patient remains on Cardizem drip for his atrial fibrillation, his rate is controlled, his IV fluid is a 0.9 normal saline. CBC is relatively normal. Inflammatory markers are elevated, LDH is 995 and his C- reactive protein is 24.2. *Normal renal profile is normal chest x-ray is quite abnormal showing diffuse interstitial infiltrates bilaterally. Reevaluated today on 03/04/20, patient remains in the ICU, his pulmonary status is marginal at best. Remains on high flow airvo, FiO2 of 85%, and 60 L flow. His O2 saturation is marginal between 90-93% at best. Patient is on insulin drip mostly, 2 units per hour, his Cardizem is off, and he is now in sinus rhythm. Patient completed his course of remdesivir, and he is on Decadron 6 mg every 12 hours, is also on Xarelto. Patient is complaining of shortness of breath with any activity. But looks comfortable at rest. Remains on the Covid 19 cocktail. CBC showed leukocytosis with WBC count of 15.9 hemoglobin is 13.4. Basic metabolic profile and renal profile are normal Reevaluated today on 03/05/20, remains in the ICU, patient is now on BiPAP, IPAP is 12 EPAP 6 FiO2 is 85%, and his O2 saturation is 94%. IV fluid is at 50 ML per hour, patient completed his treatment with remdesivir, remains on Decadron 6 mg IV push every 12 hours, and he remains on Xarelto. He is also on the Covid 19 cocktail. His pulmonary status is marginal at best, patient will be given today a trial of high flow nasal cannula or airvo. And will titrate accordingly. Chest x-ray continues to show diffuse interstitial infiltrates. And some consolidation noted in the right lower lobe. Inflammatory markers remain high LDH is 1456 C-reactive protein is 48. Electrolytes are normal renal profile is normal d-dimer is 14.01 On 03/06/2020 patient seen in follow-up in the intensive care unit, he still remains on Airvo at 60 L and FiO2 of 80%, his pulse ox is 93-97%, seems to be breathing comfortably, does not appear to be in any acute distress, his been afebrile overnight, hemodynamically has been stable, does have exertional dyspn ea, the patient has been in bed for the most part. No chest discomfort, today's chest x-ray has been reviewed showing patchy diffuse infiltrates bilaterally. He remains on Decadron 6 mg twice daily, he is on Xarelto for anticoagulation, he is on 0.9 normal saline at a rate is 50 ML per hour, no other drips. Patient has completed a course of Remdesivir, remains on steroids, remains on oral antic oagulation, today he was noted to have difficulty with right-sided weakness and facial droop, brain CT was completed showing atrophy with periventricular white matter ischemic changes, but no acute intracranial process. No slurred speech, no difficulty swallowing. Neurology has been consulted for neurologic evaluation, and right-sided weakness Objective - Vital Signs Vital signs: Vital Signs Temp 97.7 F 03/06/20 12:00 Pulse 66 03/06/20 12:00 Resp 21 03/06/20 12:00 BP 146/87 03/06/20 12:00 Pulse Ox 97 03/06/20 12:00 Intake & Output 03/05/20 03/06/20 03/06/20 18:59 06:59 18:59 Intake Total 600 600 300 Output Total 1550 1720 920 Balance -950 -1120 -620 Weight 94.8 kg 94.8 kg Intake: IV 600 600 300 Sodium Chloride 0.9% 1, 600 600 300 000 ml @ 50 mls/hr IV . Q20H DILCIA Rx#:[id number] Output: Urine 1550 1720 920 Other: Voiding Method Urinal Urinal # Bowel Movements 1 - Exam GENERAL EXAM: Alert, very pleasant, 69-year-old white male, resting in bed, awake and alert, oriented 3, he is currently on high flow oxygen per Airvo at 60 L, and FiO2 of 80%, with pulse ox of 93-97%, comfortable in no apparent distress. HEAD: Normocephalic/atraumatic. EYES: Normal reaction of pupils, equal size. Conjunctiva pink, sclera white. NOSE: Clear with pink turbinates. THROAT: No erythema or exudates. NECK: No masses, no JVD, no thyroid enlargement, no adenopathy. CHEST: No chest wall deformity. Symmetrical expansion. LUNGS: Equal air entry with bilateral crackles, no wheeze, rhonchi or dullness. CVS: Regular rate and rhythm, normal S1 and S2, no gallops, no murmurs, no rubs ABDOMEN: Soft, nontender. No hepatosplenomegaly, normal bowel sounds, no guarding or rigidity. EXTREMITIES: No clubbing, no edema, no cyanosis, 2+ pulses and upper and lower extremities. MUSCULOSKELETAL: Muscle strength and tone normal. SPINE: No scoliosis or deformity SKIN: No rashes CENTRAL NERVOUS SYSTEM: Alert and oriented -3. No focal deficits, tone is normal in all 4 extremities. PSYCHIATRIC: Alert and oriented -3. Appropriate affect. Intact judgment and insight. - Labs CBC & Chem 7: 03/06/20 03:55 03/06/20 03:55 Labs: Abnormal Lab Results - Last 24 Hours (Table) 03/05/20 03/05/20 03/05/20 Range/Units 17:04 20:01 22:04 WBC (3.8-10.6) k/uL RBC (4.30-5.90) m/uL Neutrophils # (1.3-7.7) k/uL Lymphocytes # (1.0-4.8) k/uL Sodium (137-145) mmol/L Chloride (98-107) mmol/L BUN (9-20) mg/dL POC Glucose (mg/dL) 236 H 250 H 238 H (75-99) mg/dL Calcium (8.4-10.2) mg/dL Ferritin (22.0-322.0) ng/mL ALT (4-49) U/L Lactate Dehydrogenase (313-618) U/L Creatine Kinase (55-170) U/L C-Reactive Protein (<10.0) mg/L Total Protein (6.3-8.2) g/dL Albumin (3.5-5.0) g/dL 03/05/20 03/06/20 03/06/20 Range/Units 23:45 03:55 03:55 WBC 14.2 H (3.8-10.6) k/uL RBC 4.28 L (4.30-5.90) m/uL Neutrophils # 13.5 H (1.3-7.7) k/uL Lymphocytes # 0.4 L (1.0-4.8) k/uL Sodium 135 L (137-145) mmol/L Chloride 108 H (98-107) mmol/L BUN 23 H (9-20) mg/dL POC Glucose (mg/dL) 113 H (75-99) mg/dL Calcium 8.0 L (8.4-10.2) mg/dL Ferritin 1054.3 H (22.0-322.0) ng/mL ALT 53 H (4-49) U/L Lactate Dehydrogenase 1475 H (313-618) U/L Creatine Kinase 33 L (55-170) U/L C-Reactive Protein 35.0 H (<10.0) mg/L Total Protein 5.1 L (6.3-8.2) g/dL Albumin 2.4 L (3.5-5.0) g/dL 03/06/20 Range/Units 12:03 WBC (3.8-10.6) k/uL RBC (4.30-5.90) m/uL Neutrophils # (1.3-7.7) k/uL Lymphocytes # (1.0-4.8) k/uL Sodium (137-145) mmol/L Chloride (98-107) mmol/L BUN (9-20) mg/dL POC Glucose (mg/dL) 223 H (75-99) mg/dL Calcium (8.4-10.2) mg/dL Ferritin (22.0-322.0) ng/mL ALT (4-49) U/L Lactate Dehydrogenase (313-618) U/L Creatine Kinase (55-170) U/L C-Reactive Protein (<10.0) mg/L Total Protein (6.3-8.2) g/dL Albumin (3.5-5.0) g/dL Assessment and Plan Plan: Assessment: #1. Acute hypoxic respiratory failure related to acute COVID 19 pneumonitis #2. New onset atrial fibrillation with RVR, in sinus rhythm #3. New onset diabetes mellitus #4. Acute gastroenteritis secondary to COVID 19 infection #5. Benign essential hypertension #6. History of underlying coronary artery disease #7. Right upper lobe pulmonary embolism, and patient is on Xarelto #8. Troponin leak #9. History of gout #10. History of right upper lobe nodule to be monitored on an outpatient basis #11. New onset right-sided right arm weakness, a CT brain showed no acute intracranial process, neurology evaluation pending Plan: Continue current dose steroids, continue supplements including vitamin C, vitamin D, zinc supplement, continue oral anticoagulation, brain CT has been reviewed, neurology evaluation is pending. Pulmonary perspective patient although still requiring high flow oxygen has maintained stable O2 saturations over 92% over the last 24 hours, breathing comfortably, no worsening pulmonary symptoms, no chest pain no fever or chills, he can be transferred to ICU to a monitor bed on selective care unit. Wean FiO2 to keep O2 sat at 90-91% I performed a history & physical examination of the patient and discussed their management with my nurse practitioner, Thais Marshall. I reviewed the nurse practitioner's note and agree with the documented findings and plan of care. Lung sounds are positive for diffuse wheezes throughout the lung allen. The findings and the impression was discussed with the patient. I attest to the documentation by the nurse practitioner. Time with Patient: Less than 30
[2020-03-06 16:07] LABS: Glucose,Whole Blood 335 mg/dL (75-99)
[2020-03-06 16:17] LABS: Glucose,Whole Blood 278 mg/dL (75-99)
[2020-03-06] MEDS: RIVAROXABAN 20 MG TAB PO SCH (16:33)
[2020-03-06] MEDS ORDERED: INSULIN ASPART (NovoLOG) 100 UNIT/ML VIAL SQ ONE (17:10)
--- NOTE | 2020-03-06 20:35 | P.CNNES ---
History of Present Illness Consult date: 03/06/20 Requesting physician: Lilia Melchor Reason for Consult: Possible CVA. History of Present Illness: Patient is a 69-year-old male, who came to the hospital on 02/23/2020 with 1 week history of fatigue and generalized weakness. He had poor appetite, with blood sugars over 400 by EMS. Patient was diagnosed with new onset uncontrolled diabetes, and acute COVID infection, patient's hemoglobin A1c 14.0. Patient was being managed for multiple medical issues. At 10:15 AM patient was noted to have right arm weakness, using left hand to move his right arm. His right arm was definitely weaker for squeezing compared to the left. His speech was clear. Right leg showed no deficit. Patient underwent stat CTA of the head and neck, which revealed no flow limiting stenosis bilateral carotid bifurcations. Minimal atherosclerotic calcification is present. Normal [place] of [place]. Patient was not a candidate for TPA as he was already on Xarelto. Exact timing of onset of symptoms was uncertain. Patient tells me that his symptoms started yesterday with right arm weakness. He also noticed that his right leg is also weak but not as compared to the right arm. Denies any slurred speech or problem with the vision. Patient states that when he is laying certain ways, he does feel pain across the shoulder on the right. Denies any vertigo. Patient has history of smoking 1-2 pack per day for 15-20 years, quit 20 years ago. Denies any alcohol. Patient has hypertension and hyperlipidemia with new onset diabetes. No previous history of strokes. Review of Systems Patient complains of generalized fatigue, shortness of breath, right-sided weakness. Denies headache. Denies double vision, loss of vision. Denies abdominal pain at this time. Does have some shortness of breath. Complains of some neck and right shoulder pain. All other review of systems noncontributory to present illness. Past Medical History Past Medical History: Hypertension, Myocardial Infarction (MA), Pulmonary Embolus (PE) Additional Past Medical History / Comment(s): Gout, right upper lobe lung nodule being monitored in the outpatient setting, left upper lobe pulmonary embolism in September 2019, on Xarelto Last Myocardial Infarction Date:: History of Any Multi-Drug Resistant Organisms: None Reported Past Surgical History: Appendectomy Additional Past Surgical History / Comment(s): pt states appendectomy 30-40 years ago. pt states he doesn't know when his last MA was, because he was in long-term at the time he also said it was about 6 years ago. Past Psychological History: No Psychological Hx Reported Smoking Status: Former smoker Past Alcohol Use History: None Reported Past Drug Use History: None Reported Medications and Allergies Home Medications Medication Instructions Recorded Confirmed Type Allopurinol [Zyloprim] 300 mg PO DAILY 10/09/19 02/23/20 History amLODIPine [Norvasc] 5 mg PO BID 10/09/19 02/23/20 History Metoprolol Succinate [Toprol XL] 50 mg PO DAILY 02/23/20 02/23/20 History Naproxen Sodium [Naprelan] 500 mg PO BID PRN 02/23/20 02/23/20 History Omeprazole 20 mg PO DAILY 02/23/20 02/23/20 History Rivaroxaban [Xarelto] 20 mg PO DAILY 02/23/20 02/23/20 History Allergies Allergy/AdvReac Type Severity Reaction Status Date / Time No Known Allergies Allergy Verified 02/23/20 15:10 Physical Examination - Vital Signs Vital Signs: Vital Signs Temp Pulse Pulse Resp BP BP Pulse Ox 03/06/20 16:00 98.1 F 63 18 138/82 94 L 03/06/20 15:07 92 L 03/06/20 12:00 97.7 F 66 21 146/87 97 03/06/20 11:00 67 20 146/87 97 03/06/20 10:00 65 20 127/70 93 L 03/06/20 09:00 55 L 21 153/83 95 03/06/20 08:00 98.1 F 63 30 H 137/83 92 L 03/06/20 07:00 57 L 19 133/80 97 03/06/20 06:00 56 L 10 L 134/81 98 03/06/20 05:00 58 L 20 142/90 95 03/06/20 04:00 97.8 F 59 L 24 124/72 97 03/06/20 03:00 54 L 22 130/80 96 03/06/20 02:00 55 L 21 135/81 97 03/06/20 01:00 56 L 21 140/93 97 03/06/20 00:00 61 22 143/86 93 L 03/05/20 23:00 98 F 59 L 21 155/91 93 L 03/05/20 22:00 62 13 139/80 92 L 03/05/20 21:00 60 24 133/77 97 03/05/20 20:00 97.8 F 60 18 140/126 97 03/05/20 19:00 60 16 135/75 95 Intake and Output 03/06/20 03/06/20 03/06/20 06:59 14:59 22:59 Intake Total 400 300 236 Output Total 900 920 Balance -500 -620 236 Intake: IV 400 300 Sodium Chloride 0.9% 1, 400 300 000 ml @ 50 mls/hr IV . Q20H DILCIA Rx#:[id number] Oral 236 Output: Urine 900 920 Other: Voiding Method Urinal Urinal # Voids 1 1 # Bowel Movements 1 Weight 94.8 kg 94.8 kg On examination patient is an elderly male, in mild respiratory distress, mildly tachypneic. He has Airvo in place. Patient is otherwise alert and awake fully oriented. Speech and language functions are normal. Attention, concentration fund of knowledge is adequate. On cranial examination pupils are round and reactive to light, visual allen are full on confrontation, extraocular muscles are intact with no nystagmus. Patient has right facial asymmetry. Tongue protrudes the midline. Palate was not checked because of acute COVID infection. Facial sensation normal. On muscle strength testing patient has right pronator drift. The strength is normal in left arm and left leg. On the right side, deltoid is 3+, biceps 4+ to 5-, triceps is 5, cognos analyst is 4. Hip flexion is 4+, ankle dorsiflexion 4+ to 5-. Sensory touch is equal. Patient is ataxic for [id number] testing on the right. Sensory to touch shows no neglect on either side. Bulk of muscles is normal. Reflexes are diminished and plantar is upgoing on the right, down on the left. Results - Laboratory Findings CBC and BMP: 03/06/20 03:55 03/06/20 03:55 Abnormal Lab Findings: Abnormal Labs 02/23/20 02/23/20 02/23/20 13:01 13:35 13:35 WBC RBC Hgb Hct Plt Count Neutrophils # Lymphocytes # 0.7 L Fibrinogen D-Dimer ABG pH ABG pCO2 ABG pO2 ABG HCO3 ABG Total CO2 ABG O2 Saturation Sodium Chloride Carbon Dioxide Anion Gap BUN Est GFR (CKD-EPI)NonAf BUN/Creatinine Ratio Glucose POC Glucose (mg/dL) 343 H Hemoglobin A1c Calcium Magnesium Ferritin AST ALT Lactate Dehydrogenase Creatine Kinase Troponin I C-Reactive Protein Total Protein Albumin Procalcitonin TSH Ur Specific [place] 1.038 H Urine Protein 1+ H Urine Glucose (UA) 4+ H Urine Ketones 2+ H Urine Blood Trace H Urine Mucus Rare H Coronavirus (PCR) 02/23/20 02/23/20 02/23/20 13:35 13:35 13:35 WBC RBC Hgb Hct Plt Count Neutrophils # Lymphocytes # Fibrinogen D-Dimer ABG pH ABG pCO2 ABG pO2 ABG HCO3 ABG Total CO2 ABG O2 Saturation Sodium 131 L Chloride Carbon Dioxide 20 L Anion Gap BUN Est GFR (CKD-EPI)NonAf BUN/Creatinine Ratio Glucose 331 H POC Glucose (mg/dL) Hemoglobin A1c 14.0 H Calcium 7.5 L Magnesium 1.5 L Ferritin AST ALT Lactate Dehydrogenase Creatine Kinase Troponin I C-Reactive Protein 59.0 H Total Protein 6.1 L Albumin 3.3 L Procalcitonin TSH Ur Specific [place] Urine Protein Urine Glucose (UA) Urine Ketones Urine Blood Urine Mucus Coronavirus (PCR) 02/23/20 02/24/20 02/24/20 14:06 07:19 11:47 WBC RBC Hgb Hct Plt Count Neutrophils # Lymphocytes # Fibrinogen D-Dimer ABG pH ABG pCO2 ABG pO2 ABG HCO3 ABG Total CO2 ABG O2 Saturation Sodium Chloride Carbon Dioxide Anion Gap BUN Est GFR (CKD-EPI)NonAf BUN/Creatinine Ratio Glucose POC Glucose (mg/dL) 248 H 223 H Hemoglobin A1c Calcium Magnesium Ferritin AST ALT Lactate Dehydrogenase Creatine Kinase Troponin I C-Reactive Protein Total Protein Albumin Procalcitonin TSH Ur Specific [place] Urine Protein Urine Glucose (UA) Urine Ketones Urine Blood Urine Mucus Coronavirus (PCR) Detected A 02/24/20 02/24/20 02/25/20 16:46 20:04 06:51 WBC 2.8 L RBC Hgb Hct Plt Count Neutrophils # Lymphocytes # 0.5 L Fibrinogen D-Dimer ABG pH ABG pCO2 ABG pO2 ABG HCO3 ABG Total CO2 ABG O2 Saturation Sodium Chloride Carbon Dioxide Anion Gap BUN Est GFR (CKD-EPI)NonAf BUN/Creatinine Ratio Glucose POC Glucose (mg/dL) 252 H 289 H Hemoglobin A1c Calcium Magnesium Ferritin AST ALT Lactate Dehydrogenase Creatine Kinase Troponin I C-Reactive Protein Total Protein Albumin Procalcitonin TSH Ur Specific [place] Urine Protein Urine Glucose (UA) Urine Ketones Urine Blood Urine Mucus Coronavirus (PCR) 02/25/20 02/25/20 02/25/20 06:51 07:16 11:10 WBC RBC Hgb Hct Plt Count Neutrophils # Lymphocytes # Fibrinogen D-Dimer ABG pH ABG pCO2 ABG pO2 ABG HCO3 ABG Total CO2 ABG O2 Saturation Sodium Chloride Carbon Dioxide Anion Gap BUN Est GFR (CKD-EPI)NonAf BUN/Creatinine Ratio 23.00 H Glucose 288 H POC Glucose (mg/dL) 295 H 277 H Hemoglobin A1c Calcium Magnesium Ferritin AST ALT Lactate Dehydrogenase Creatine Kinase Troponin I C-Reactive Protein 7.5 H Total Protein Albumin Procalcitonin TSH Ur Specific [place] Urine Protein Urine Glucose (UA) Urine Ketones Urine Blood Urine Mucus Coronavirus (PCR) 02/25/20 02/25/20 02/26/20 16:22 20:21 07:22 WBC RBC Hgb Hct Plt Count Neutrophils # Lymphocytes # Fibrinogen D-Dimer ABG pH ABG pCO2 ABG pO2 ABG HCO3 ABG Total CO2 ABG O2 Saturation Sodium Chloride Carbon Dioxide Anion Gap BUN Est GFR (CKD-EPI)NonAf BUN/Creatinine Ratio Glucose POC Glucose (mg/dL) 286 H 266 H 243 H Hemoglobin A1c Calcium Magnesium Ferritin AST ALT Lactate Dehydrogenase Creatine Kinase Troponin I C-Reactive Protein Total Protein Albumin Procalcitonin TSH Ur Specific [place] Urine Protein Urine Glucose (UA) Urine Ketones Urine Blood Urine Mucus Coronavirus (PCR) 02/26/20 02/26/20 02/26/20 11:56 16:54 20:39 WBC RBC Hgb Hct Plt Count Neutrophils # Lymphocytes # Fibrinogen D-Dimer ABG pH ABG pCO2 ABG pO2 ABG HCO3 ABG Total CO2 ABG O2 Saturation Sodium Chloride Carbon Dioxide Anion Gap BUN Est GFR (CKD-EPI)NonAf BUN/Creatinine Ratio Glucose POC Glucose (mg/dL) 229 H 244 H 230 H Hemoglobin A1c Calcium Magnesium Ferritin AST ALT Lactate Dehydrogenase Creatine Kinase Troponin I C-Reactive Protein Total Protein Albumin Procalcitonin TSH Ur Specific [place] Urine Protein Urine Glucose (UA) Urine Ketones Urine Blood Urine Mucus Coronavirus (PCR) 02/27/20 02/27/20 02/27/20 07:02 07:19 07:19 WBC RBC Hgb Hct Plt Count Neutrophils # Lymphocytes # 0.7 L Fibrinogen D-Dimer ABG pH ABG pCO2 ABG pO2 ABG HCO3 ABG Total CO2 ABG O2 Saturation Sodium Chloride Carbon Dioxide Anion Gap BUN Est GFR (CKD-EPI)NonAf BUN/Creatinine Ratio Glucose POC Glucose (mg/dL) 325 H Hemoglobin A1c Calcium Magnesium Ferritin AST ALT Lactate Dehydrogenase Creatine Kinase Troponin I C-Reactive Protein Total Protein Albumin Procalcitonin 0.27 H TSH Ur Specific [place] Urine Protein Urine Glucose (UA) Urine Ketones Urine Blood Urine Mucus Coronavirus (PCR) 02/27/20 02/27/20 02/27/20 07:19 07:19 11:41 WBC RBC Hgb Hct Plt Count Neutrophils # Lymphocytes # Fibrinogen D-Dimer 0.88 H ABG pH ABG pCO2 ABG pO2 ABG HCO3 ABG Total CO2 ABG O2 Saturation Sodium Chloride Carbon Dioxide 17.9 L Anion Gap 17.10 H BUN Est GFR (CKD-EPI)NonAf 55.3 L BUN/Creatinine Ratio Glucose 354 H POC Glucose (mg/dL) 341 H Hemoglobin A1c Calcium Magnesium Ferritin AST 54 H ALT 55 H Lactate Dehydrogenase 364 H Creatine Kinase Troponin I C-Reactive Protein 12.5 H Total Protein Albumin Procalcitonin TSH Ur Specific [place] Urine Protein Urine Glucose (UA) Urine Ketones Urine Blood Urine Mucus Coronavirus (PCR) 02/27/20 02/27/20 02/27/20 17:03 20:41 23:29 WBC RBC Hgb Hct Plt Count Neutrophils # Lymphocytes # Fibrinogen D-Dimer ABG pH ABG pCO2 ABG pO2 ABG HCO3 ABG Total CO2 ABG O2 Saturation Sodium Chloride Carbon Dioxide Anion Gap BUN Est GFR (CKD-EPI)NonAf BUN/Creatinine Ratio Glucose POC Glucose (mg/dL) 336 H 475 H 337 H Hemoglobin A1c Calcium Magnesium Ferritin AST ALT Lactate Dehydrogenase Creatine Kinase Troponin I C-Reactive Protein Total Protein Albumin Procalcitonin TSH Ur Specific [place] Urine Protein Urine Glucose (UA) Urine Ketones Urine Blood Urine Mucus Coronavirus (PCR) 02/28/20 02/28/20 02/28/20 07:11 11:55 16:54 WBC RBC Hgb Hct Plt Count Neutrophils # Lymphocytes # Fibrinogen D-Dimer ABG pH ABG pCO2 ABG pO2 ABG HCO3 ABG Total CO2 ABG O2 Saturation Sodium Chloride Carbon Dioxide Anion Gap BUN Est GFR (CKD-EPI)NonAf BUN/Creatinine Ratio Glucose POC Glucose (mg/dL) 283 H 285 H 331 H Hemoglobin A1c Calcium Magnesium Ferritin AST ALT Lactate Dehydrogenase Creatine Kinase Troponin I C-Reactive Protein Total Protein Albumin Procalcitonin TSH Ur Specific [place] Urine Protein Urine Glucose (UA) Urine Ketones Urine Blood Urine Mucus Coronavirus (PCR) 02/28/20 02/29/20 02/29/20 20:34 06:55 06:55 WBC 11.6 H RBC Hgb Hct Plt Count Neutrophils # 10.1 H Lymphocytes # 0.7 L Fibrinogen D-Dimer 0.63 H ABG pH ABG pCO2 ABG pO2 ABG HCO3 ABG Total CO2 ABG O2 Saturation Sodium Chloride Carbon Dioxide Anion Gap BUN Est GFR (CKD-EPI)NonAf BUN/Creatinine Ratio Glucose POC Glucose (mg/dL) 230 H Hemoglobin A1c Calcium Magnesium Ferritin AST ALT Lactate Dehydrogenase Creatine Kinase Troponin I C-Reactive Protein Total Protein Albumin Procalcitonin TSH Ur Specific [place] Urine Protein Urine Glucose (UA) Urine Ketones Urine Blood Urine Mucus Coronavirus (PCR) 02/29/20 02/29/20 02/29/20 06:55 06:57 11:31 WBC RBC Hgb Hct Plt Count Neutrophils # Lymphocytes # Fibrinogen D-Dimer ABG pH ABG pCO2 ABG pO2 ABG HCO3 ABG Total CO2 ABG O2 Saturation Sodium Chloride Carbon Dioxide 21.1 L Anion Gap BUN Est GFR (CKD-EPI)NonAf BUN/Creatinine Ratio 23.64 H Glucose 186 H POC Glucose (mg/dL) 168 H 204 H Hemoglobin A1c Calcium Magnesium Ferritin AST ALT Lactate Dehydrogenase 314 H Creatine Kinase Troponin I C-Reactive Protein 3.2 H Total Protein Albumin Procalcitonin TSH Ur Specific [place] Urine Protein Urine Glucose (UA) Urine Ketones Urine Blood Urine Mucus Coronavirus (PCR) 02/29/20 02/29/20 03/01/20 16:31 20:52 06:10 WBC RBC Hgb Hct Plt Count Neutrophils # Lymphocytes # Fibrinogen D-Dimer ABG pH ABG pCO2 ABG pO2 ABG HCO3 ABG Total CO2 ABG O2 Saturation Sodium Chloride Carbon Dioxide Anion Gap BUN Est GFR (CKD-EPI)NonAf BUN/Creatinine Ratio Glucose POC Glucose (mg/dL) 257 H 217 H 154 H Hemoglobin A1c Calcium Magnesium Ferritin AST ALT Lactate Dehydrogenase Creatine Kinase Troponin I C-Reactive Protein Total Protein Albumin Procalcitonin TSH Ur Specific [place] Urine Protein Urine Glucose (UA) Urine Ketones Urine Blood Urine Mucus Coronavirus (PCR) 03/01/20 03/01/20 03/01/20 09:11 09:11 09:11 WBC 14.4 H RBC Hgb Hct Plt Count Neutrophils # Lymphocytes # Fibrinogen D-Dimer ABG pH ABG pCO2 ABG pO2 ABG HCO3 ABG Total CO2 ABG O2 Saturation Sodium 136 L Chloride 109 H Carbon Dioxide 16 L Anion Gap BUN 21 H Est GFR (CKD-EPI)NonAf BUN/Creatinine Ratio Glucose 268 H POC Glucose (mg/dL) Hemoglobin A1c Calcium Magnesium Ferritin AST ALT Lactate Dehydrogenase Creatine Kinase Troponin I C-Reactive Protein Total Protein Albumin Procalcitonin TSH 0.403 L Ur Specific [place] Urine Protein Urine Glucose (UA) Urine Ketones Urine Blood Urine Mucus Coronavirus (PCR) 03/01/20 03/01/20 03/01/20 12:00 14:32 14:32 WBC 14.9 H RBC Hgb Hct Plt Count 502 H Neutrophils # 13.4 H Lymphocytes # 0.8 L Fibrinogen D-Dimer 3.15 H ABG pH ABG pCO2 ABG pO2 ABG HCO3 ABG Total CO2 ABG O2 Saturation Sodium Chloride Carbon Dioxide Anion Gap BUN Est GFR (CKD-EPI)NonAf BUN/Creatinine Ratio Glucose POC Glucose (mg/dL) 271 H Hemoglobin A1c Calcium Magnesium Ferritin AST ALT Lactate Dehydrogenase Creatine Kinase Troponin I C-Reactive Protein Total Protein Albumin Procalcitonin TSH Ur Specific [place] Urine Protein Urine Glucose (UA) Urine Ketones Urine Blood Urine Mucus Coronavirus (PCR) 03/01/20 03/01/20 03/01/20 14:32 14:32 14:42 WBC RBC Hgb Hct Plt Count Neutrophils # Lymphocytes # Fibrinogen D-Dimer ABG pH 7.48 H ABG pCO2 22 L ABG pO2 58 L* ABG HCO3 16 L ABG Total CO2 17 L ABG O2 Saturation 89.4 L Sodium 135 L Chloride Carbon Dioxide 17 L Anion Gap BUN 22 H Est GFR (CKD-EPI)NonAf BUN/Creatinine Ratio Glucose 274 H POC Glucose (mg/dL) Hemoglobin A1c Calcium Magnesium Ferritin AST ALT Lactate Dehydrogenase 858 H Creatine Kinase Troponin I 0.142 H* C-Reactive Protein 24.5 H Total Protein Albumin Procalcitonin TSH Ur Specific [place] Urine Protein Urine Glucose (UA) Urine Ketones Urine Blood Urine Mucus Coronavirus (PCR) 03/01/20 03/01/2020 16:34 20:00 00:00 WBC RBC Hgb Hct Plt Count Neutrophils # Lymphocytes # Fibrinogen D-Dimer ABG pH ABG pCO2 ABG pO2 ABG HCO3 ABG Total CO2 ABG O2 Saturation Sodium Chloride Carbon Dioxide Anion Gap BUN Est GFR (CKD-EPI)NonAf BUN/Creatinine Ratio Glucose POC Glucose (mg/dL) 228 H 227 H 155 H Hemoglobin A1c Calcium Magnesium Ferritin AST ALT Lactate Dehydrogenase Creatine Kinase Troponin I C-Reactive Protein Total Protein Albumin Procalcitonin TSH Ur Specific [place] Urine Protein Urine Glucose (UA) Urine Ketones Urine Blood Urine Mucus Coronavirus (PCR) 03/02/20 03/02/20 03/02/20 04:13 04:13 04:13 WBC 13.5 H RBC 4.13 L Hgb 12.7 L Hct 38.8 L Plt Count Neutrophils # 12.1 H Lymphocytes # 0.6 L Fibrinogen 538 H D-Dimer 5.77 H ABG pH ABG pCO2 ABG pO2 ABG HCO3 ABG Total CO2 ABG O2 Saturation Sodium 135 L Chloride 108 H Carbon Dioxide 20 L Anion Gap BUN 25 H Est GFR (CKD-EPI)NonAf BUN/Creatinine Ratio Glucose 169 H POC Glucose (mg/dL) Hemoglobin A1c Calcium 8.3 L Magnesium Ferritin 639.9 H AST ALT Lactate Dehydrogenase 904 H Creatine Kinase Troponin I C-Reactive Protein 31.2 H Total Protein 5.5 L Albumin 2.8 L Procalcitonin TSH Ur Specific [place] Urine Protein Urine Glucose (UA) Urine Ketones Urine Blood Urine Mucus Coronavirus (PCR) 03/02/20 03/02/20 03/02/20 07:03 08:34 08:40 WBC RBC Hgb Hct Plt Count Neutrophils # Lymphocytes # Fibrinogen D-Dimer ABG pH ABG pCO2 27 L ABG pO2 77 L ABG HCO3 18 L ABG Total CO2 ABG O2 Saturation 93.8 L Sodium Chloride Carbon Dioxide Anion Gap BUN Est GFR (CKD-EPI)NonAf BUN/Creatinine Ratio Glucose POC Glucose (mg/dL) 184 H Hemoglobin A1c Calcium Magnesium Ferritin AST ALT Lactate Dehydrogenase Creatine Kinase Troponin I 0.066 H* C-Reactive Protein Total Protein Albumin Procalcitonin TSH Ur Specific [place] Urine Protein Urine Glucose (UA) Urine Ketones Urine Blood Urine Mucus Coronavirus (PCR) 03/02/20 03/02/20 03/02/20 11:38 17:11 21:56 WBC RBC Hgb Hct Plt Count Neutrophils # Lymphocytes # Fibrinogen D-Dimer ABG pH ABG pCO2 ABG pO2 ABG HCO3 ABG Total CO2 ABG O2 Saturation Sodium Chloride Carbon Dioxide Anion Gap BUN Est GFR (CKD-EPI)NonAf BUN/Creatinine Ratio Glucose POC Glucose (mg/dL) 171 H 205 H 220 H Hemoglobin A1c Calcium Magnesium Ferritin AST ALT Lactate Dehydrogenase Creatine Kinase Troponin I C-Reactive Protein Total Protein Albumin Procalcitonin TSH Ur Specific [place] Urine Protein Urine Glucose (UA) Urine Ketones Urine Blood Urine Mucus Coronavirus (PCR) 03/03/20 03/03/20 03/03/20 03:54 03:54 03:54 WBC 13.3 H RBC 4.09 L Hgb 12.7 L Hct 38.5 L Plt Count Neutrophils # 12.2 H Lymphocytes # 0.5 L Fibrinogen D-Dimer 11.67 H ABG pH ABG pCO2 ABG pO2 ABG HCO3 ABG Total CO2 ABG O2 Saturation Sodium 134 L Chloride Carbon Dioxide Anion Gap BUN 29 H Est GFR (CKD-EPI)NonAf BUN/Creatinine Ratio Glucose 219 H POC Glucose (mg/dL) Hemoglobin A1c Calcium 7.8 L Magnesium Ferritin 672.1 H AST ALT Lactate Dehydrogenase 995 H Creatine Kinase Troponin I C-Reactive Protein 24.2 H Total Protein 5.2 L Albumin 2.6 L Procalcitonin TSH Ur Specific [place] Urine Protein Urine Glucose (UA) Urine Ketones Urine Blood Urine Mucus Coronavirus (PCR) 03/03/20 03/03/20 03/03/20 07:00 11:41 16:49 WBC RBC Hgb Hct Plt Count Neutrophils # Lymphocytes # Fibrinogen D-Dimer ABG pH ABG pCO2 ABG pO2 ABG HCO3 ABG Total CO2 ABG O2 Saturation Sodium Chloride Carbon Dioxide Anion Gap BUN Est GFR (CKD-EPI)NonAf BUN/Creatinine Ratio Glucose POC Glucose (mg/dL) 214 H 258 H 338 H Hemoglobin A1c Calcium Magnesium Ferritin AST ALT Lactate Dehydrogenase Creatine Kinase Troponin I C-Reactive Protein Total Protein Albumin Procalcitonin TSH Ur Specific [place] Urine Protein Urine Glucose (UA) Urine Ketones Urine Blood Urine Mucus Coronavirus (PCR) 03/03/20 03/03/20 03/03/20 17:51 18:53 19:52 WBC RBC Hgb Hct Plt Count Neutrophils # Lymphocytes # Fibrinogen D-Dimer ABG pH ABG pCO2 ABG pO2 ABG HCO3 ABG Total CO2 ABG O2 Saturation Sodium Chloride Carbon Dioxide Anion Gap BUN Est GFR (CKD-EPI)NonAf BUN/Creatinine Ratio Glucose POC Glucose (mg/dL) 313 H 274 H 163 H Hemoglobin A1c Calcium Magnesium Ferritin AST ALT Lactate Dehydrogenase Creatine Kinase Troponin I C-Reactive Protein Total Protein Albumin Procalcitonin TSH Ur Specific [place] Urine Protein Urine Glucose (UA) Urine Ketones Urine Blood Urine Mucus Coronavirus (PCR) 03/03/20 03/03/20 03/03/20 20:52 22:07 23:05 WBC RBC Hgb Hct Plt Count Neutrophils # Lymphocytes # Fibrinogen D-Dimer ABG pH ABG pCO2 ABG pO2 ABG HCO3 ABG Total CO2 ABG O2 Saturation Sodium Chloride Carbon Dioxide Anion Gap BUN Est GFR (CKD-EPI)NonAf BUN/Creatinine Ratio Glucose POC Glucose (mg/dL) 129 H 115 H 141 H Hemoglobin A1c Calcium Magnesium Ferritin AST ALT Lactate Dehydrogenase Creatine Kinase Troponin I C-Reactive Protein Total Protein Albumin Procalcitonin TSH Ur Specific [place] Urine Protein Urine Glucose (UA) Urine Ketones Urine Blood Urine Mucus Coronavirus (PCR) 03/04/20 03/04/20 03/04/20 01:10 02:17 04:40 WBC RBC Hgb Hct Plt Count Neutrophils # Lymphocytes # Fibrinogen D-Dimer ABG pH ABG pCO2 ABG pO2 ABG HCO3 ABG Total CO2 ABG O2 Saturation Sodium Chloride Carbon Dioxide Anion Gap BUN Est GFR (CKD-EPI)NonAf BUN/Creatinine Ratio Glucose POC Glucose (mg/dL) 141 H 137 H 148 H Hemoglobin A1c Calcium Magnesium Ferritin AST ALT Lactate Dehydrogenase Creatine Kinase Troponin I C-Reactive Protein Total Protein Albumin Procalcitonin TSH Ur Specific [place] Urine Protein Urine Glucose (UA) Urine Ketones Urine Blood Urine Mucus Coronavirus (PCR) 03/04/20 03/04/20 03/04/20 04:42 04:42 06:15 WBC 15.9 H RBC Hgb Hct Plt Count Neutrophils # 14.8 H Lymphocytes # 0.4 L Fibrinogen D-Dimer ABG pH ABG pCO2 ABG pO2 ABG HCO3 ABG Total CO2 ABG O2 Saturation Sodium 135 L Chloride 108 H Carbon Dioxide Anion Gap BUN 27 H Est GFR (CKD-EPI)NonAf BUN/Creatinine Ratio Glucose 150 H POC Glucose (mg/dL) 145 H Hemoglobin A1c Calcium 8.0 L Magnesium Ferritin AST ALT 71 H Lactate Dehydrogenase Creatine Kinase Troponin I C-Reactive Protein Total Protein 5.4 L Albumin 2.6 L Procalcitonin TSH Ur Specific [place] Urine Protein Urine Glucose (UA) Urine Ketones Urine Blood Urine Mucus Coronavirus (PCR) 03/04/20 03/04/20 03/04/20 07:16 08:02 09:08 WBC RBC Hgb Hct Plt Count Neutrophils # Lymphocytes # Fibrinogen D-Dimer ABG pH ABG pCO2 ABG pO2 ABG HCO3 ABG Total CO2 ABG O2 Saturation Sodium Chloride Carbon Dioxide Anion Gap BUN Est GFR (CKD-EPI)NonAf BUN/Creatinine Ratio Glucose POC Glucose (mg/dL) 157 H 162 H 185 H Hemoglobin A1c Calcium Magnesium Ferritin AST ALT Lactate Dehydrogenase Creatine Kinase Troponin I C-Reactive Protein Total Protein Albumin Procalcitonin TSH Ur Specific [place] Urine Protein Urine Glucose (UA) Urine Ketones Urine Blood Urine Mucus Coronavirus (PCR) 03/04/20 03/04/20 03/04/20 10:55 11:58 13:52 WBC RBC Hgb Hct Plt Count Neutrophils # Lymphocytes # Fibrinogen D-Dimer ABG pH ABG pCO2 ABG pO2 ABG HCO3 ABG Total CO2 ABG O2 Saturation Sodium Chloride Carbon Dioxide Anion Gap BUN Est GFR (CKD-EPI)NonAf BUN/Creatinine Ratio Glucose POC Glucose (mg/dL) 196 H 185 H 211 H Hemoglobin A1c Calcium Magnesium Ferritin AST ALT Lactate Dehydrogenase Creatine Kinase Troponin I C-Reactive Protein Total Protein Albumin Procalcitonin TSH Ur Specific [place] Urine Protein Urine Glucose (UA) Urine Ketones Urine Blood Urine Mucus Coronavirus (PCR) 03/04/20 03/04/20 03/04/20 15:45 21:10 23:40 WBC RBC Hgb Hct Plt Count Neutrophils # Lymphocytes # Fibrinogen D-Dimer ABG pH ABG pCO2 ABG pO2 ABG HCO3 ABG Total CO2 ABG O2 Saturation Sodium Chloride Carbon Dioxide Anion Gap BUN Est GFR (CKD-EPI)NonAf BUN/Creatinine Ratio Glucose POC Glucose (mg/dL) 178 H 280 H 291 H Hemoglobin A1c Calcium Magnesium Ferritin AST ALT Lactate Dehydrogenase Creatine Kinase Troponin I C-Reactive Protein Total Protein Albumin Procalcitonin TSH Ur Specific [place] Urine Protein Urine Glucose (UA) Urine Ketones Urine Blood Urine Mucus Coronavirus (PCR) 03/05/20 03/05/20 03/05/20 04:05 04:05 04:05 WBC 13.4 H RBC 4.27 L Hgb Hct Plt Count Neutrophils # 12.5 H Lymphocytes # 0.4 L Fibrinogen D-Dimer 14.01 H ABG pH ABG pCO2 ABG pO2 ABG HCO3 ABG Total CO2 ABG O2 Saturation Sodium 135 L Chloride Carbon Dioxide Anion Gap BUN 24 H Est GFR (CKD-EPI)NonAf BUN/Creatinine Ratio Glucose 163 H POC Glucose (mg/dL) Hemoglobin A1c Calcium 8.1 L Magnesium Ferritin 1019.2 H AST ALT 55 H Lactate Dehydrogenase 1456 H Creatine Kinase Troponin I C-Reactive Protein 48.0 H Total Protein 5.3 L Albumin 2.5 L Procalcitonin TSH Ur Specific [place] Urine Protein Urine Glucose (UA) Urine Ketones Urine Blood Urine Mucus Coronavirus (PCR) 03/05/20 03/05/20 03/05/20 04:48 09:39 11:27 WBC RBC Hgb Hct Plt Count Neutrophils # Lymphocytes # Fibrinogen D-Dimer ABG pH ABG pCO2 ABG pO2 ABG HCO3 ABG Total CO2 ABG O2 Saturation Sodium Chloride Carbon Dioxide Anion Gap BUN Est GFR (CKD-EPI)NonAf BUN/Creatinine Ratio Glucose POC Glucose (mg/dL) 147 H 193 H 321 H Hemoglobin A1c Calcium Magnesium Ferritin AST ALT Lactate Dehydrogenase Creatine Kinase Troponin I C-Reactive Protein Total Protein Albumin Procalcitonin TSH Ur Specific [place] Urine Protein Urine Glucose (UA) Urine Ketones Urine Blood Urine Mucus Coronavirus (PCR) 03/05/20 03/05/20 03/05/20 17:04 20:01 22:04 WBC RBC Hgb Hct Plt Count Neutrophils # Lymphocytes # Fibrinogen D-Dimer ABG pH ABG pCO2 ABG pO2 ABG HCO3 ABG Total CO2 ABG O2 Saturation Sodium Chloride Carbon Dioxide Anion Gap BUN Est GFR (CKD-EPI)NonAf BUN/Creatinine Ratio Glucose POC Glucose (mg/dL) 236 H 250 H 238 H Hemoglobin A1c Calcium Magnesium Ferritin AST ALT Lactate Dehydrogenase Creatine Kinase Troponin I C-Reactive Protein Total Protein Albumin Procalcitonin TSH Ur Specific [place] Urine Protein Urine Glucose (UA) Urine Ketones Urine Blood Urine Mucus Coronavirus (PCR) 03/05/20 03/06/20 03/06/20 23:45 03:55 03:55 WBC 14.2 H RBC 4.28 L Hgb Hct Plt Count Neutrophils # 13.5 H Lymphocytes # 0.4 L Fibrinogen D-Dimer ABG pH ABG pCO2 ABG pO2 ABG HCO3 ABG Total CO2 ABG O2 Saturation Sodium 135 L Chloride 108 H Carbon Dioxide Anion Gap BUN 23 H Est GFR (CKD-EPI)NonAf BUN/Creatinine Ratio Glucose POC Glucose (mg/dL) 113 H Hemoglobin A1c Calcium 8.0 L Magnesium Ferritin 1054.3 H AST ALT 53 H Lactate Dehydrogenase 1475 H Creatine Kinase 33 L Troponin I C-Reactive Protein 35.0 H Total Protein 5.1 L Albumin 2.4 L Procalcitonin TSH Ur Specific [place] Urine Protein Urine Glucose (UA) Urine Ketones Urine Blood Urine Mucus Coronavirus (PCR) 03/06/20 03/06/20 03/06/20 12:03 16:04 16:15 WBC RBC Hgb Hct Plt Count Neutrophils # Lymphocytes # Fibrinogen D-Dimer ABG pH ABG pCO2 ABG pO2 ABG HCO3 ABG Total CO2 ABG O2 Saturation Sodium Chloride Carbon Dioxide Anion Gap BUN Est GFR (CKD-EPI)NonAf BUN/Creatinine Ratio Glucose POC Glucose (mg/dL) 223 H 335 H 278 H Hemoglobin A1c Calcium Magnesium Ferritin AST ALT Lactate Dehydrogenase Creatine Kinase Troponin I C-Reactive Protein Total Protein Albumin Procalcitonin TSH Ur Specific [place] Urine Protein Urine Glucose (UA) Urine Ketones Urine Blood Urine Mucus Coronavirus (PCR) Assessment and Plan Assessment: * 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 * New onset Atrial fibrillation, on anticoagulation with Xarelto. * Acute COVID-19 pneumonitis * New onset diabetes, poorly controlled * Hypertension * Hyperlipidemia * History of CAD. Plan: * Patient has acute right hemiparesis, possible lacunar stroke from small vessel disease from uncontrolled diabetes. Need to rule out cardio-embolic event from atrial fibrillation, although patient has been on anticoagulation with Xarelto for atrial fibrillation since 02/24/2020. * MRI of brain to localize CVA. * No large vessel occlusion noted on CTA of head and neck. * Patient's diabetes is poorly controlled, need to optimize diabetes to target A1c <7.0 * Fasting a.m. lipid panel. Lipitor 40 mg daily. * Permissible hypertension for 24-48 hours. * 2-D echo rule out left ventricular thrombus/PFO. * PT and OT. * We will follow.
[2020-03-06 20:42] LABS: Glucose,Whole Blood 213 mg/dL (75-99)
--- NOTE | 2020-03-06 23:18 | PN ---
PROGRESS NOTE DATE OF SERVICE: 03/06/2020 REASON FOR FOLLOWUP: COVID-19 pneumonia. INTERVAL HISTORY: The patient is currently afebrile; has been breathing slightly comfortably; still requiring high-flow nasal cannula oxygen. Denies having any chest pain. Minimal cough. No vomiting. No abdominal pain or diarrhea. PHYSICAL EXAMINATION: Blood pressure 148/87 with a pulse of 64, temperature 97.8. He is 92% on 60% FiO2. General description is an elderly male lying in bed in no distress. RESPIRATORY SYSTEM: Unlabored breathing. Coarse breath sounds at the bases bilaterally. HEART: S1, S2. Regular rate and rhythm. ABDOMEN: Soft. No tenderness. LABS: Hemoglobin is 13.2, white count 14.2, BUN of 23, creatinine 0.73. DIAGNOSTIC IMPRESSION AND PLAN: Patient with acute COVID-19 pneumonia in this patient who completed his remdesivir therapy. Patient is currently on dexamethasone, Xarelto, zinc; to continue along with respiratory support and monitor his clinical course closely. MMODL / IJN: [id number] /
[2020-03-07 00:20] LABS: Glucose,Whole Blood 282 mg/dL (75-99)
[2020-03-07] MEDS: INSULIN ASPART (NovoLOG) 100 UNIT/ML VIAL SQ SCH ×7 (00:25→23:51)
[2020-03-07 04:07] LABS: Glucose,Whole Blood 209 mg/dL (75-99)
[2020-03-07] MEDS: SODIUM CHLORIDE 0.9% 1,000 ML IV SCH (04:35)
[2020-03-07] MEDS: INSULIN DETEMIR (LEVEMIR) 100 UNIT/ML SYR SQ SCH (06:34)
--- NOTE | 2020-03-07 07:48 | XR ---
EXAMINATION TYPE: XR chest 1V portable DATE OF EXAM: 03/07/2020 HISTORY: Shortness of breath. COMPARISON: 03/06/2020 TECHNIQUE: Single view of the chest is submitted. FINDINGS: Demonstrated are scattered senescent parenchymal change. Coarse bilateral infiltrates persist throughout both lung allen. The heart is stable. Hilar and mediastinal structures are within normal limits. Degenerative changes are seen of the dorsal spine. IMPRESSION: 1. Coarse bilateral infiltrates persist throughout both lung allen.
[2020-03-07 08:12] LABS: Glucose,Whole Blood 163 mg/dL (75-99)
[2020-03-07 08:18] LABS: Basophils % (A) 0 %; Eosinophils % (A) 0 %; HGB 13.7 gm/dL (13.0-17.5); Lymphocytes # (A) 0.5 k/uL (1.0-4.8); Lymphocytes % (A) 4 %; MCH 30.4 pg (25.0-35.0); MCHC 32.6 g/dL (31.0-37.0); MCV 93.2 fL (80.0-100.0); Mean Platelet Volume 8.4; Monocytes # (A) 0.3 k/uL (0-1.0); Monocytes % (A) 2 %; Neutrophils # (A) 12.8 k/uL (1.3-7.7); Neutrophils % (A) 94 %; Platelet Count 161 k/uL (150-450); RBC 4.51 m/uL (4.30-5.90); RDW 13.7 % (11.5-15.5); WBC 13.7 k/uL (3.8-10.6)
[2020-03-07 08:29] LABS: ALT 61 U/L (4-49); AST 33 U/L (17-59); African American GFR (CKD) >90 (>60 ml/min/1.73 sqM); Albumin 2.7 g/dL (3.5-5.0); Alkaline Phosphatase 98 U/L (38-126); Anion Gap 4 mmol/L; Blood Urea Nitrogen 26 mg/dL (9-20); C Reactive Protein 14.7 mg/L (<10.0); Calcium 8.6 mg/dL (8.4-10.2); Carbon Dioxide 27 mmol/L (22-30); Chloride 105 mmol/L (98-107); Creatine Kinase 34 U/L (55-170); Glucose 166 mg/dL (74-99); LDH 1485 U/L (313-618); Non-African American GFR(CKD) 88 (>60 ml/min/1.73 sqM); Potassium 4.7 mmol/L (3.5-5.1); Sodium 136 mmol/L (137-145); Total Bilirubin 0.7 mg/dL (0.2-1.3); Total Protein 5.6 g/dL (6.3-8.2)
[2020-03-07] MEDS: METOPROLOL TARTRATE 25 MG TAB PO SCH ×3 (08:46→21:03)
[2020-03-07] MEDS: PANTOPRAZOLE 40 MG TABLET PO SCH (08:46)
[2020-03-07] MEDS: AMIODARONE 200 MG TAB PO SCH ×2 (08:46→21:02)
[2020-03-07] MEDS: ZINC SULFATE 220 MG CAP PO SCH (08:46)
[2020-03-07] MEDS: allopurinoL 300 MG TAB PO SCH (08:46)
[2020-03-07] MEDS: ASCORBIC ACID 500 MG TAB PO SCH (08:46)
[2020-03-07] MEDS: DEXAMETHASONE SOD PHOSPHATE 10 MG/ML 1 ML VIAL IV SCH ×2 (08:47→21:03)
[2020-03-07 08:53] LABS: Cholesterol 159 mg/dL (<200); HDL Cholesterol 38 mg/dL (40-60); LDL Cholesterol,Calculated 105 mg/dL (0-99); Triglycerides 81 mg/dL (<150)
--- NOTE | 2020-03-07 10:47 | ECHOF ---
Referral Reason:Acute CVA, atrial fibrillation MEASUREMENTS -------- HEIGHT: 180.3 cm WEIGHT: 94.3 kg BP: 148/79 RVIDd: 2.2 cm (< 3.3) IVSd: 1.3 cm (0.6 - 1.1) LVIDd: 5.3 cm (3.9 - 5.3) LVPWd: 1.2 cm (0.6 - 1.1) IVSs: 1.5 cm LVIDs: 3.4 cm LVPWs: 2.0 cm Ao Diam: 2.9 cm (2.0 - 3.7) AV Cusp: 1.8 cm (1.5 - 2.6) LA Diam: 2.1 cm (2.7 - 3.8) MV EXCURSION: 13.536 mm (> 18.000) MV EF SLOPE: 54 mm/s (70 - 150) EPSS: 1.7 cm MV E Jer: 0.74 m/s MV DecT: 214 ms MV A Jer: 0.53 m/s MV E/A Ratio: 1.40 AR PHT: 660 ms RAP: 5.00 mmHg RVSP: 10.02 mmHg FINDINGS -------- This was a technically difficult study with suboptimal views. The left ventricular size is normal. There is mild concentric left ventricular hypertrophy. There is mild global hypokinesis of LV . Overall left ventricular systolic function is mildly impaired w ith, an EF between 45 - 50 %. There is paradoxical/dysynergic septal motion consistent with post-op erative status. The right ventricle is normal in size. The left atrial size is normal. The right atrial size is normal. Lumason used Aortic valve is trileaflet and is mildly thickened. Trace amount of aortic regurgitation. The mitral valve is normal. Mild mitral regurgitation is present. The tricuspid valve appears structurally normal. Mild tricuspid regurgitation present. Right vent ricular systolic pressure is normal at < 35 mmHg. There is no pulmonic regurgitation present. The aortic root size is normal. IVC Not well visulized. There is no pericardial effusion. CONCLUSIONS -------- 1. The left ventricular size is normal. 2. There is mild concentric left ventricular hypertrophy. 3. There is mild global hypokinesis of LV . 4. Overall left ventricular systolic function is mildly impaired with, an EF between 45 - 50 %. 5. There is paradoxical/dysynergic septal motion consistent with post-operative status. 6. Aortic valve is trileaflet and is mildly thickened. 7. Trace amount of aortic regurgitation. 8. Mild mitral regurgitation is present. 9. Mild tricuspid regurgitation present. 10. There is no pericardial effusion. [employer]: Alejandrina Wright RDCS
[2020-03-07 12:01] LABS: Glucose,Whole Blood 233 mg/dL (75-99)
--- NOTE | 2020-03-07 12:24 | P.PN ---
Subjective Progress Note Date: 03/07/20 From Records Mr. Davis is a 69-year-old male, who is a patient of Dr. Frey with a past medical history of hypertension,AR coming in with a chief complaint of fatigue and generalized weakness that have been ongoing for past 1 week. Patient states that he has been having poor appetite loss of smell and loss of taste for the past 1 week. He states that he has been sleeping for more than 20 hours a day. Patient denies having any cough or difficulty in breathing. He denies having any chest pain or palpitations. He denies having any dysuria or hematuria. Patient denies having any history of diabetes but his blood sugars are in 300s to 400s. In the emergency room patient had a chest x-ray showing no acute cardiopulmonary process and an EKG showing normal sinus rhythm. He had labs done showing white count of 3.9, hemoglobin 14.4, platelets 166. Sodium 131, potassium 3.9, chloride. BUN 15, creatinine 0.93 C-reactive protein 59, albumin 3.3 coronavirus PCR positive. On 02/24/2020 patient was seen and examined. He is currently resting comfortably in bed. Appears to be no acute distress. On reviewing the vitals patient continues to fever as high as 102.3. His blood pressure has been stable around 130s 80s and he saturating at 95% on room air. Patient's blood sugars have been running on the higher side. On 02/25/2020- patient was seen and examined and the general medical floors. He is resting comfortably in bed. Overnight active issues reported by nursing staff. Patient states that his difficulty in breathing is improving. On reviewing the vitals patient's T-max is 98.4, heart rate 72, respiratory rate 127-79 and saturating at 93% on room air. On reviewing vitals patient's white count of 2.8, hemoglobin 14.4, platelets 189. Sodium 136, potassium 4.6, chloride 102. BUN 23 and creatinine of 1.0. Blood sugars have been running high in 200s to 300s. C-reactive protein 7.5. 02/26/2020 This is a pleasant 69 years old male who presents with cough with infection and found to have new onset diabetes with elevated hemoglobin A1c at 14%. Patient currently with no respiratory symptoms, no chest pain or dyspnea coughing. Yesterday he has a regular bowel movement but today he had 1 loose bowel movement but no significant abdominal pain or nausea vomiting. Also he is running a fever of 101. He saturating 90% at room air. BMP and CBC were reviewed and they were unremarkable except for mild leukopenia 2.8K. D-dimer is negative at 0.34. Coronavirus is detected. 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 Normal saline at 75 mL/h was added. Also Levemir 10 units daily and metformin 1000 mg twice daily has been added because his sugar still not controlled Patient is able to eat 75-100% of his meal 02/27/20 Patient had a rough night because of fever, his breathing is quiet and stable and he's only on 2 L oxygen. Is still have diarrhea about twice per day which is similar to the day before. No abdominal pain or vomiting. No significant coughing. unstable Chest x-ray: Worsening infiltrates, Pronecalcitonin is elevated at 0.27, patient is started on Rocephin and Zithromax. He is new onset diabetes and also is on dexamethasone and his sugar more than 300, so Levemir was decreased from 10-30 units daily. Also he is on metformin 1000 and Amaryl 1 mg. Continue on Xarelto, normocephalic 75, remedisivr, dexamethasone 6 mg daily. 02/28/2020 Patient hadn't good night because he could not sleep. No respiratory symptoms, ongoing generalized weakness. Yesterday he has watery diarrhea but this morning he had small more formed bowel movement. No abdominal pain. Persistent fever have subsided and his been afebrile for more than 24 hours. We will check Tylenol as needed His sugar is better controlled after increasing his insulin to 30 units. Antibiotics with ceftriaxone and Zithromax were admitted with high protei ncalcitonin. We will try to check sputum culture. Check labs in the morning 02/29/2020 Patient feels much better today, his fever subsided and his on Tylenol as needed currently. No respiratory issue or symptom. He had a little formed bowel movement today. Currently patient remains on the same cocktail for comfort infection besides remedisivr Hemodynamically stable. Vitals are stable showing mild leukocytosis of 11.6 K 03/01/2020 pt is moved to [facility] , pt developed a fib and RVR and he was started on Cardizem and amiodarone drip and is already on Xarelto. Also patient on Lopressor 75 mg 3 times a day Also he developed more hypoxic and is currently on 50 L oxygen via nasal cannula saturating 90%. Repeat chest x-ray Moderate peripheral-based opacities throughout both lungs w ith no pleural effusion. Blood gas on BOTH HIS WITH PH 7.48, LOW PCO2 OF 22 AND LOW PO2 AT 58 PATIENT HAS BEEN EVALUATED BY PULMONARY SERVICE AND PATIENT MAY NEED TO GO TO THE ICU WELL. LEFT SHOWING STABLE LEUKOCYTOSIS AT 14.9 K, ELEVATED D-DIMER 3.1, BMP IS UNREMARKABLE AND WORSENING OF THE EDGE AND C-REACTIVE PROTEIN Patient is kept on remedisivr, dexamethasone 6 mg daily. However patient diarrhea has improved 03/02/2020 Patient today kept in the ICU on BiPAP saturating 100% however he looks comfortable. Distal short of breath and dyspneic Rest of vitals are stable Laps looks stable, inflammatory markers LDH and C-reactive protein still trending up slowly compared to yesterday.proCalcitonin is negative. D-dimer is trending up at 5.7 Chest x-ray showing stable bilateral lung infiltrates He remains on Decadron and remdesivir Also I kept on Cardizem drip at 20 mg an hour and amiodarone 400 mg twice daily and metoprolol 75 mg 3 times a day, vitamin C and A. fib and heart rate ranging between 80-100. He has an echo from 10/10/2019 showed ejection fraction of 50-55%. BNP is el evated at 3940. Discontinue ceftriaxone. Keep Zithromax for now. Patient to continue on Xarelto patient is nothing by mouth WE'LL KEEP HIM ON GENTLE HYDRATION AT 50 ML/H. ALSO GOT 1 DOSE OF LASIX 03/03/2020 Patient is seen and evaluated and follow-up continues to be closely monitored in the ICU. Patient has been taken off the BiPAP and placed on Airvo with an oxygen rate of 60 and FiO2 at 85% and is currently 91%. To continue to wean as tolerated with the use of BiPAP as needed as well. Patient is afebrile. Patient's d-dimer continues to be elevated and has increased at 11.67 and bhakti ent is maintained on Xarelto and will continue at this time. Patient is eating today and tolerating with no reports of nausea or vomiting noted. Multiple medical consultations following including cardiology. Cardizem drip has been decreased to 10 and will continue to monitor this patient continues on amiodarone as well. Heart rate currently in the 70s. Blood sugars being controlled and will continue sliding scale along with long-acting at this time. Patient to continue with dexamethasone along with vitamin C and D and zinc supplements. Patient is currently off antibiotics and will continue to monitor closely. Chest x-ray today shows cardiomegaly with bilateral multifocal acute infiltrates greatest in the periphery, organizing consolidation in the lower lungs with no significant change. 03/04/2020 Patient seen in follow-up continues to be closely monitored in the ICU. Patient is maintained on BiPAP at night and transitioning to Airvo during the day. Patient was placed on insulin drip and will continue to monitor Accu-Cheks closely. Patient continues to be severely dyspneic with any exertion and is 89- 90% with an O2 flow of 60 and FiO2 of 85. IV Cardizem drip has been d iscontinued and patient is maintained on amiodarone oral and will continue at this time. Anticoagulation of Xarelto continues. Chest x-rays continue to show worsening and consistent with Covid 19 infection progression. 03/05/2020 Patient continues to be in the ICU and maintained on BiPAP with airvo during the day and not really showing any improvements as far as oxygenation. Patient states his breathing has not worsened but is also not improved. Patient is hungry and awaiting to be switched to airvo so he can eat. Blood sugars continue to be elevated and insulin drip was discontinued. Will increase Levemir to 20 units daily and continue with sliding scale. Patient remains off Cardizem drip and is currently on oral amiodarone and will continue at this time. D-dimer also continues to be elevated and is currently 14.01. Patient is maintained on Xarelto. Current sodium is 135, potassium is 4.1, creatinine is 0.85, WBC is 13.4. Discussed with the patient about CODE STATUS and patient wishes to remain a full code. Chest x-ray continues to show no improvement from previous x-ray. 03/06/2020 Patient currently remains in the ICU although awaiting to be [facility]. Patient continues on the Airvo with BiPAP at night. Patient states he was having some right-sided weakness and facial droop since yesterday and CT angio done showing atrophy with very ventricular white matter ischemic changes with no acute intracranial process, normal la posta of [place], and no flow- limiting stenosis of the bilateral carotid bifurcations with minimal atheromatous calcifications present. Neurology was consulted for evaluation and is currently pending. Patient's chest x-ray today continues to show patchy diffuse infiltrates present bilaterally. Patient is currently tolerating diet and remains on sliding scale along with long-acting and will continue at this time. 03/07/2020 Patient is seen in follow-up currently on [facility] is a recent transfer to the ICU. Patient is maintained on Airvo and continued on this throughout the night. BiPAP was not used. Patient states his breathing feels somewhat better today. Neurology evaluating the patient recommending an MRI which is currently pending at this time as patient had some right-sided weakness along with slurred speech. Right side upper extremity strength is 4/5 with no deficits noted on the right lower extremity. No slurring of speech noted as well. Patient is tolerating diet with no difficulty in swallowing. Patient also underwent 2-D echo showing mild concentric left ventricular hypertrophy with mild local hypokinesis with overall left ventricular systolic function is mildly impaired with an EF between 45 and 50% along with some mitral and tricuspid regurgitation present. Sugars being closely monitored and adjustments have been made to long-acting and will continue sliding scale as well. Patient remains on IV dexamethasone along with Xarelto at this time. CONSTITUTIONAL: No fever, no malaise, no fatigue. HEENT: No recent visual problems or hearing problems. Denied any sore throat. CARDIOVASCULAR: No orthopnea, PND, no palpitations, no syncope. PULMONARY: reports continued shortness of breath, no cough, no hemoptysis. GASTROINTESTINAL: No diarrhea, no nausea, no vomiting, no abdominal pain. Normoactive bowel sounds. NEUROLOGICAL: No headaches, reports weakness, right upper extremity weakness with improvement, no numbness. Objective - Vital Signs Vital signs: Vital Signs Temp 97.6 F 03/07/20 09:00 Pulse 64 03/07/20 09:00 Resp 20 03/07/20 09:00 BP 136/71 03/07/20 09:00 Pulse Ox 96 03/07/20 09:00 Intake & Output 03/06/20 03/07/20 03/07/20 18:59 06:59 18:59 Intake Total 536 600 400 Output Total 920 2200 475 Balance -384 -1600 -75 Weight 94.8 kg 94.6 kg Intake: IV 300 600 Sodium Chloride 0.9% 1, 300 600 000 ml @ 50 mls/hr IV . Q20H [facility] Rx#:[id number] Oral 236 400 Output: Urine 920 2200 475 Other: Voiding Method Urinal Urinal # Voids 1 # Bowel Movements 1 - Exam GENERAL: The patient is alert and oriented x3, not in any acute distress. Well developed, well nourished. Presently on an airvo HEENT: Pupils are round and equally reacting to light. EOMI. No scleral icterus. No conjunctival pallor. Normocephalic, atraumatic. No pharyngeal erythema. No thyromegaly. CARDIOVASCULAR: S1 and S2 present. No murmurs, rubs, or gallops. PULMONARY: Diminished breath sounds bilaterally with a few scattered crackles noted ABDOMEN: Soft, nontender, nondistended, normoactive bowel sounds. No palpable organomegaly. MUSCULOSKELETAL: No joint swelling or deformity. EXTREMITIES: No cyanosis, clubbing, or pedal edema. NEUROLOGICAL: Gross neurological examination did not reveal any focal deficits. Able to move right upper and lower extremity with no deficits noted. Right side upper extremity strength 4/5, left side upper extremity strength 5/5. No slurring of his speech noted in right side of the face does not appear to be drooping on exam SKIN: No rashes. no petechiae. - Labs CBC & Chem 7: 03/07/20 06:56 03/07/20 06:56 Labs: Abnormal Lab Results - Last 24 Hours (Table) 03/06/20 03/06/20 03/06/20 Range/Units 03:55 12:03 16:04 WBC (3.8-10.6) k/uL Neutrophils # (1.3-7.7) k/uL Lymphocytes # (1.0-4.8) k/uL Sodium (137-145) mmol/L BUN (9-20) mg/dL Glucose (74-99) mg/dL POC Glucose (mg/dL) 223 H 335 H (75-99) mg/dL Ferritin 1054.3 H (22.0-322.0) ng/mL ALT (4-49) U/L Lactate Dehydrogenase (313-618) U/L Creatine Kinase (55-170) U/L C-Reactive Protein (<10.0) mg/L Total Protein (6.3-8.2) g/dL Albumin (3.5-5.0) g/dL LDL Cholesterol, Calc (0-99) mg/dL HDL Cholesterol (40-60) mg/dL 03/06/20 03/06/20 03/07/20 Range/Units 16:15 20:40 00:02 WBC (3.8-10.6) k/uL Neutrophils # (1.3-7.7) k/uL Lymphocytes # (1.0-4.8) k/uL Sodium (137-145) mmol/L BUN (9-20) mg/dL Glucose (74-99) mg/dL POC Glucose (mg/dL) 278 H 213 H 282 H (75-99) mg/dL Ferritin (22.0-322.0) ng/mL ALT (4-49) U/L Lactate Dehydrogenase (313-618) U/L Creatine Kinase (55-170) U/L C-Reactive Protein (<10.0) mg/L Total Protein (6.3-8.2) g/dL Albumin (3.5-5.0) g/dL LDL Cholesterol, Calc (0-99) mg/dL HDL Cholesterol (40-60) mg/dL 03/07/20 03/07/20 03/07/20 Range/Units 04:05 06:56 06:56 WBC 13.7 H (3.8-10.6) k/uL Neutrophils # 12.8 H (1.3-7.7) k/uL Lymphocytes # 0.5 L (1.0-4.8) k/uL Sodium 136 L (137-145) mmol/L BUN 26 H (9-20) mg/dL Glucose 166 H (74-99) mg/dL POC Glucose (mg/dL) 209 H (75-99) mg/dL Ferritin (22.0-322.0) ng/mL ALT 61 H (4-49) U/L Lactate Dehydrogenase 1485 H (313-618) U/L Creatine Kinase 34 L (55-170) U/L C-Reactive Protein 14.7 H (<10.0) mg/L Total Protein 5.6 L (6.3-8.2) g/dL Albumin 2.7 L (3.5-5.0) g/dL LDL Cholesterol, Calc 105 H (0-99) mg/dL HDL Cholesterol 38 L (40-60) mg/dL 03/07/20 Range/Units 08:11 WBC (3.8-10.6) k/uL Neutrophils # (1.3-7.7) k/uL Lymphocytes # (1.0-4.8) k/uL Sodium (137-145) mmol/L BUN (9-20) mg/dL Glucose (74-99) mg/dL POC Glucose (mg/dL) 163 H (75-99) mg/dL Ferritin (22.0-322.0) ng/mL ALT (4-49) U/L Lactate Dehydrogenase (313-618) U/L Creatine Kinase (55-170) U/L C-Reactive Protein (<10.0) mg/L Total Protein (6.3-8.2) g/dL Albumin (3.5-5.0) g/dL LDL Cholesterol, Calc (0-99) mg/dL HDL Cholesterol (40-60) mg/dL Assessment and Plan Assessment: Worsening Covid 19 pneumonia Worsening acute hypoxic respiratory failure A. fib with RVR, presently rate controlled Possible lacunar stroke due to small vessel disease secondary to uncontrolled diabetes, neurology following an MRI pending Fatigue generalized weakness secondary to Covid infection New-onset diabetes Hyponatremia due to dehydration, improved Dehydration Gastroenteritis secondary to covid infection Hypomagnesemia, improved Hypertension History of AR DVT prophylaxis: Xarelto GI prophylaxis: Pepcid Full code Plan: Continue current medications and management. Multiple medical consultations following. Neurology following and has ordered an MRI of the brain for possible stroke as patient has been experiencing some slurred speech and right side upper extremity weakness. No slurred speech noted on exam and right side upper extremity weakness has improved with a strength of 4/5 with no deficits noted of the right lower extremity. Adjustments to long-acting insulin have been made and will continue sliding scale and Accu-Cheks before meals at bedtime. Patient is maintained on airvo and will continue at this time. Continue to wean FiO2 as tolerated. PT/OT to evaluate the patient as patient continues to be extremely weak. Further recommendations to follow as per clinical course of the patient. Prognosis is poor and extremely guarded. Time with Patient: Greater than 30
--- NOTE | 2020-03-07 13:24 | P.PN ---
Subjective Progress Note Date: 03/07/20 Principal diagnosis: Acute hypoxic respiratory failure secondary to COVID 19 pneumonia On 03/02/2020, the patient got transferred to the intensive care unit overnight. I saw him in a medical floor and the patient was having acute hypoxic respiratory failure secondary to coronavirus/Covid 19 related pneumonia. The patient was in the 100%. After arriving to the intensive care unit, the patient had to be placed on a BiPAP which is currently running at a pressure of 12/6 cm of water with an FiO2 of 20%. His pulse ox currently is 96%. Blood gases are pending from this morning. He is resting comfortably on the BiPAP and he is able to tolerated without any major difficulties. His cardiac rhythm has slowed down. He remains on atrial fibrillation. He is on a Cardizem drip running at 20 mg an hour. He is also on metoprolol at a dose of 75 mg by mouth three a day and amiodarone 400 mg by mouth twice a day. Patient is on Xarelto. D-dimer is elevated which is consistent with his coronavirus/Covid 19 related infection. His white cell count of 13.5. His LDH level is at 904. The proBNP level was 3940 and his troponin was at 0.142. I gave him a dose of Lasix yesterday. His fluid balance over the past 24 hours has been -996 mL. The chest x-ray still showing diffuse bilateral pulmonary infiltrates which is essentially unchanged compared to yesterday. There are diffuse peripheral infiltrates bilaterally. Reevaluated today on 03/03/20, patient is on BiPAP 12/6, FiO2 is 85%, patient seems to be comfortable, he is not in distress, asking to be fed, hence I will switch the patient to airvo, and continue to titrate accordingly to maintain O2 saturation above 90% possible. Patient remains on Cardizem drip for his atrial fibrillation, his rate is controlled, his IV fluid is a 0.9 normal saline. CBC is relatively normal. Inflammatory markers are elevated, LDH is 995 and his C- reactive protein is 24.2. *Normal renal profile is normal chest x-ray is quite abnormal showing diffuse interstitial infiltrates bilaterally. Reevaluated today on 03/04/20, patient remains in the ICU, his pulmonary status is marginal at best. Remains on high flow airvo, FiO2 of 85%, and 60 L flow. His O2 saturation is marginal between 90-93% at best. Patient is on insulin drip mostly, 2 units per hour, his Cardizem is off, and he is now in sinus rhythm. Patient completed his course of remdesivir, and he is on Decadron 6 mg every 12 hours, is also on Xarelto. Patient is complaining of shortness of breath with any activity. But looks comfortable at rest. Remains on the Covid 19 cocktail. CBC showed leukocytosis with WBC count of 15.9 hemoglobin is 13.4. Basic metabolic profile and renal profile are normal Reevaluated today on 03/05/20, remains in the ICU, patient is now on BiPAP, IPAP is 12 EPAP 6 FiO2 is 85%, and his O2 saturation is 94%. IV fluid is at 50 ML per hour, patient completed his treatment with remdesivir, remains on Decadron 6 mg IV push every 12 hours, and he remains on Xarelto. He is also on the Covid 19 cocktail. His pulmonary status is marginal at best, patient will be given today a trial of high flow nasal cannula or airvo. And will titrate accordingly. Chest x-ray continues to show diffuse interstitial infiltrates. And some consolidation noted in the right lower lobe. Inflammatory markers remain high LDH is 1456 C-reactive protein is 48. Electrolytes are normal renal profile is normal d-dimer is 14.01 On 03/06/2020 patient seen in follow-up in the intensive care unit, he still remains on Airvo at 60 L and FiO2 of 80%, his pulse ox is 93-97%, seems to be breathing comfortably, does not appear to be in any acute distress, his been afebrile overnight, hemodynamically has been stable, does have exertional dyspn ea, the patient has been in bed for the most part. No chest discomfort, today's chest x-ray has been reviewed showing patchy diffuse infiltrates bilaterally. He remains on Decadron 6 mg twice daily, he is on Xarelto for anticoagulation, he is on 0.9 normal saline at a rate is 50 ML per hour, no other drips. Patient has completed a course of Remdesivir, remains on steroids, remains on oral antic oagulation, today he was noted to have difficulty with right-sided weakness and facial droop, brain CT was completed showing atrophy with periventricular white matter ischemic changes, but no acute intracranial process. No slurred speech, no difficulty swallowing. Neurology has been consulted for neurologic evaluation, and right-sided weakness On 03/07/2020 patient seen in follow-up on selective care unit, he remains on high flow oxygen at 60 L and FiO2 of 80%, his pulse ox is 95%, hemodynamically patient is stable, patient is afebrile. Yesterday patient was noted to have right-sided weakness, and very slight right facial droop, neurology was consulted, his angiography CT of the brain showed atrophy with the periventricular white matter ischemic changes, no acute intracranial process, MRI of the brain scheduled for today, patient denies any worsening dyspnea, he is breathing comfortably, he is generally weak. He is tolerating diet with no difficulty swallowing, patient had a 2-D echo showing mild concentric left ventricular hypertrophy with mild local hypokinesis and overall lethargy systolic function mildly impaired with an EF between 45 and 50% along with some mitral and tricuspid regurgitation. Chest x-ray today shows coarse bilateral infiltrates without significant change. LDH is relatively stable over the last 3 days, at 1485, and his CRP is trending down and is down to 14.7 at today's labs. Electrolytes and renal profile are relatively unremarkable. Xarelto for anticoagulation for history of atrial fibrillation, his rate is currently controlled. Objective - Vital Signs Vital signs: Vital Signs Temp 97.6 F 03/07/20 11:43 Pulse 60 03/07/20 11:43 Resp 24 03/07/20 11:43 BP 152/82 03/07/20 11:43 Pulse Ox 95 03/07/20 12:15 Intake & Output 03/06/20 03/07/20 03/07/20 18:59 06:59 18:59 Intake Total 536 600 400 Output Total 920 2200 475 Balance -384 -1600 -75 Weight 94.8 kg 94.6 kg Intake: IV 300 600 Sodium Chloride 0.9% 1, 300 600 000 ml @ 50 mls/hr IV . Q20H DILCIA Rx#:[id number] Oral 236 400 Output: Urine 920 2200 475 Other: Voiding Method Urinal Urinal # Voids 1 # Bowel Movements 1 - Exam GENERAL EXAM: Alert, very pleasant, 69-year-old white male, resting in bed, awake and alert, oriented 3, he is currently on high flow oxygen per Airvo at 60 L, and FiO2 of 80%, with pulse ox of 93-97%, comfortable in no apparent distress. HEAD: Normocephalic/atraumatic. EYES: Normal reaction of pupils, equal size. Conjunctiva pink, sclera white. NOSE: Clear with pink turbinates. THROAT: No erythema or exudates. NECK: No masses, no JVD, no thyroid enlargement, no adenopathy. CHEST: No chest wall deformity. Symmetrical expansion. LUNGS: Equal air entry with bilateral crackles, no wheeze, rhonchi or dullness. CVS: Regular rate and rhythm, normal S1 and S2, no gallops, no murmurs, no rubs ABDOMEN: Soft, nontender. No hepatosplenomegaly, normal bowel sounds, no guarding or rigidity. EXTREMITIES: No clubbing, no edema, no cyanosis, 2+ pulses and upper and lower extremities. MUSCULOSKELETAL: Muscle strength and tone normal. SPINE: No scoliosis or deformity SKIN: No rashes CENTRAL NERVOUS SYSTEM: Alert and oriented -3. No focal deficits, tone is normal in all 4 extremities. PSYCHIATRIC: Alert and oriented -3. Appropriate affect. Intact judgment and insight. - Labs CBC & Chem 7: 03/07/20 06:56 03/07/20 06:56 Labs: Abnormal Lab Results - Last 24 Hours (Table) 03/06/20 03/06/20 03/06/20 Range/Units 16:04 16:15 20:40 WBC (3.8-10.6) k/uL Neutrophils # (1.3-7.7) k/uL Lymphocytes # (1.0-4.8) k/uL Sodium (137-145) mmol/L BUN (9-20) mg/dL Glucose (74-99) mg/dL POC Glucose (mg/dL) 335 H 278 H 213 H (75-99) mg/dL ALT (4-49) U/L Lactate Dehydrogenase (313-618) U/L Creatine Kinase (55-170) U/L C-Reactive Protein (<10.0) mg/L Total Protein (6.3-8.2) g/dL Albumin (3.5-5.0) g/dL LDL Cholesterol, Calc (0-99) mg/dL HDL Cholesterol (40-60) mg/dL 03/07/20 03/07/20 03/07/20 Range/Units 00:02 04:05 06:56 WBC (3.8-10.6) k/uL Neutrophils # (1.3-7.7) k/uL Lymphocytes # (1.0-4.8) k/uL Sodium 136 L (137-145) mmol/L BUN 26 H (9-20) mg/dL Glucose 166 H (74-99) mg/dL POC Glucose (mg/dL) 282 H 209 H (75-99) mg/dL ALT 61 H (4-49) U/L Lactate Dehydrogenase 1485 H (313-618) U/L Creatine Kinase 34 L (55-170) U/L C-Reactive Protein 14.7 H (<10.0) mg/L Total Protein 5.6 L (6.3-8.2) g/dL Albumin 2.7 L (3.5-5.0) g/dL LDL Cholesterol, Calc 105 H (0-99) mg/dL HDL Cholesterol 38 L (40-60) mg/dL 03/07/20 03/07/20 03/07/20 Range/Units 06:56 08:11 11:59 WBC 13.7 H (3.8-10.6) k/uL Neutrophils # 12.8 H (1.3-7.7) k/uL Lymphocytes # 0.5 L (1.0-4.8) k/uL Sodium (137-145) mmol/L BUN (9-20) mg/dL Glucose (74-99) mg/dL POC Glucose (mg/dL) 163 H 233 H (75-99) mg/dL ALT (4-49) U/L Lactate Dehydrogenase (313-618) U/L Creatine Kinase (55-170) U/L C-Reactive Protein (<10.0) mg/L Total Protein (6.3-8.2) g/dL Albumin (3.5-5.0) g/dL LDL Cholesterol, Calc (0-99) mg/dL HDL Cholesterol (40-60) mg/dL Assessment and Plan Plan: Assessment: #1. Acute hypoxic respiratory failure related to acute COVID 19 pneumonitis #2. New onset atrial fibrillation with RVR, in sinus rhythm #3. New onset diabetes mellitus #4. Acute gastroenteritis secondary to COVID 19 infection #5. Benign essential hypertension #6. History of underlying coronary artery disease #7. Right upper lobe pulmonary embolism, and patient is on Xarelto #8. Troponin leak #9. History of gout #10. History of right upper lobe nodule to be monitored on an outpatient basis #11. New onset right-sided right arm weakness, a CT brain showed no acute intracranial process, rule out possibility of lacunar stroke Plan: Continue with current medical management, continue Decadron, continue oral anticoagulation, patient is afebrile, CRP trending down, LDH is relatively unchanged, no worsening dyspnea, still requiring high flow oxygen, weaning FiO2 to keep O2 sat at 90% or better, MRI of the brain is pending, neurology evalua tion is in progress. We will continue to follow, consult physical therapy, on Atripla oxygenation pattern, monitor febrile pattern, I performed a history & physical examination of the patient and discussed their management with my nurse practitioner, Thais Marshall. I reviewed the nurse practitioner's note and agree with the documented findings and plan of care. Lung sounds are positive for diffuse wheezes throughout the lung allen. The findings and the impression was discussed with the patient. I attest to the documentation by the nurse practitioner. Time with Patient: Less than 30
[2020-03-07 15:35] LABS: Ferritin 886.1 ng/mL (22.0-322.0)
[2020-03-07 16:02] LABS: Glucose,Whole Blood 227 mg/dL (75-99)
[2020-03-07] MEDS: RIVAROXABAN 20 MG TAB PO SCH (16:13)
[2020-03-07 20:40] LABS: Glucose,Whole Blood 307 mg/dL (75-99)
--- NOTE | 2020-03-07 23:33 | PN ---
PROGRESS NOTE DATE OF SERVICE: 03/07/2020 REASON FOR FOLLOWUP: COVID-19 pneumonia. INTERVAL HISTORY: The patient is currently afebrile, has been breathing comfortably. He remains to be on high-flow oxygen, but denies having any chest pain. Minimal cough. No abdominal pain or diarrhea. PHYSICAL EXAMINATION: Blood pressure 151/89, pulse of 83, temperature 98.3. He is 96% on 50 FIO2. General description is an elderly male up in the bed in no distress. Respiratory system: Unlabored breathing. Some coarse breath sounds in the bases. No wheeze. HEART: S1, S2. Regular rate and rhythm. Abdomen soft, no tenderness. LAB: Hemoglobin 13.1, white count 13.7. BUN of 26, creatinine 0.85. DIAGNOSTIC IMPRESSION AND PLAN: Patient with acute COVID-19 pneumonia. The patient completed his Remdesivir therapy, currently on dexamethasone and Xarelto, and zinc to continue and monitor clinical course closely. MMODL / IJN: [id number] /
[2020-03-07 23:50] LABS: Glucose,Whole Blood 263 mg/dL (75-99)
[2020-03-08 03:46] LABS: Glucose,Whole Blood 185 mg/dL (75-99)
[2020-03-08] MEDS: INSULIN ASPART (NovoLOG) 100 UNIT/ML VIAL SQ SCH ×6 (04:03→23:39)
[2020-03-08] MEDS: SODIUM CHLORIDE 0.9% 1,000 ML IV SCH (05:37)
[2020-03-08 06:47] LABS: Glucose,Whole Blood 212 mg/dL (75-99)
[2020-03-08] MEDS: INSULIN DETEMIR (LEVEMIR) 100 UNIT/ML SYR SQ SCH (06:55)
--- NOTE | 2020-03-08 07:51 | XR ---
EXAMINATION TYPE: XR chest 1V portable DATE OF EXAM: 03/08/2020 COMPARISON: 03/07/2020 HISTORY: Shortness of breath TECHNIQUE: Single frontal view of the chest is obtained. FINDINGS: Diffuse mixed airspace and interstitial infiltrates with tiny effusion and cardiomegaly st able. No sizable pneumothorax. Arthropathy of the shoulders. IMPRESSION: Stable diffuse pleural-parenchymal changes predominantly interstitial correlate for atyp ical pneumonia otherwise consider CHF.
[2020-03-08 08:17] LABS: Glucose,Whole Blood 278 mg/dL (75-99)
[2020-03-08 08:29] LABS: Basophils % (A) 0 %; Eosinophils % (A) 0 %; HCT 42.7 % (39.0-53.0); HGB 14.2 gm/dL (13.0-17.5); Lymphocytes # (A) 0.4 k/uL (1.0-4.8); Lymphocytes % (A) 3 %; MCH 30.7 pg (25.0-35.0); MCHC 33.3 g/dL (31.0-37.0); MCV 92.1 fL (80.0-100.0); Monocytes # (A) 0.4 k/uL (0-1.0); Monocytes % (A) 3 %; Neutrophils # (A) 12.6 k/uL (1.3-7.7); Neutrophils % (A) 94 %; Platelet Count 136 k/uL (150-450); RBC 4.63 m/uL (4.30-5.90); RDW 13.4 % (11.5-15.5); WBC 13.4 k/uL (3.8-10.6)
[2020-03-08 08:39] LABS: ALT 63 U/L (4-49); AST 30 U/L (17-59); African American GFR (CKD) >90 (>60 ml/min/1.73 sqM); Albumin 2.7 g/dL (3.5-5.0); Alkaline Phosphatase 84 U/L (38-126); Anion Gap 2 mmol/L; Blood Urea Nitrogen 27 mg/dL (9-20); Calcium 8.6 mg/dL (8.4-10.2); Carbon Dioxide 27 mmol/L (22-30); Chloride 104 mmol/L (98-107); Glucose 181 mg/dL (74-99); Non-African American GFR(CKD) >90 (>60 ml/min/1.73 sqM); Potassium 4.5 mmol/L (3.5-5.1); Sodium 133 mmol/L (137-145); Total Bilirubin 0.8 mg/dL (0.2-1.3); Total Protein 5.6 g/dL (6.3-8.2)
[2020-03-08] MEDS ORDERED: FUROSEMIDE 10 MG/ML 4 ML VIAL IV STA (08:54)
--- NOTE | 2020-03-08 08:59 | P.PN ---
Subjective 69-year-old male, who is a patient of Dr. Frey with a past medical history of hypertension,[place] coming in with a chief complaint of fatigue and generalized weakness that have been ongoing for past 1 week. Patient states that he has been having poor appetite loss of smell and loss of taste for the past 1 week. He states that he has been sleeping for more than 20 hours a day. Patient denies having any cough or difficulty in breathing. He denies having any chest pain or palpitations. He denies having any dysuria or hematuria. Patient den ies having any history of diabetes but his blood sugars are in 300s to 400s. In the emergency room patient had a chest x-ray showing no acute cardiopulmonary process and an EKG showing normal sinus rhythm. He had labs done showing white count of 3.9, hemoglobin 14.4, platelets 166. Sodium 131, potassium 3.9, chloride. BUN 15, creatinine 0.93 C-reactive protein 59, albumin 3.3 coronavirus PCR positive. On 02/24/2020 patient was seen and examined. He is currently resting comfortably in bed. Appears to be no acute distress. On reviewing the vitals patient continues to fever as high as 102.3. His blood pressure has been stable around 130s 80s and he saturating at 95% on room air. Patient's blood sugars have been running on the higher side. On 02/25/2020- patient was seen and examined and the general medical floors. He is resting comfortably in bed. Overnight active issues reported by nursing staff. Patient states that his difficulty in breathing is improving. On reviewing the vitals patient's T-max is 98.4, heart rate 72, respiratory rate 127-79 and saturating at 93% on room air. On reviewing vitals patient's white count of 2.8, hemoglobin 14.4, platelets 189. Sodium 136, potassium 4.6, chloride 102. BUN 23 and creatinine of 1.0. Blood sugars have been running high in 200s to 300s. C-reactive protein 7.5. 02/26/2020 This is a pleasant 69 years old male who presents with cough with infection and found to have new onset diabetes with elevated hemoglobin A1c at 14%. Patient currently with no respiratory symptoms, no chest pain or dyspnea coughing. Yesterday he has a regular bowel movement but today he had 1 loose bowel movement but no significant abdominal pain or nausea vomiting. Also he is running a fever of 101. He saturating 90% at room air. BMP and CBC were reviewed and they were unremarkable except for mild leukopenia 2.8K. D-dimer is negative at 0.34. Coronavirus is detected. 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 Normal saline at 75 mL/h was added. Also Levemir 10 units daily and metformin 1000 mg twice daily has been added because his sugar still not controlled Patient is able to eat 75-100% of his meal 02/27/20 Patient had a rough night because of fever, his breathing is quiet and stable and he's only on 2 L oxygen. Is still have diarrhea about twice per day which is similar to the day before. No abdominal pain or vomiting. No significant coughing. unstable Chest x-ray: Worsening infiltrates, Pronecalcitonin is elevated at 0.27, patient is started on Rocephin and Zithromax. He is new onset diabetes and also is on dexamethasone and his sugar more than 300, so Levemir was decreased from 10-30 units daily. Also he is on metformin 1000 and Amaryl 1 mg. Continue on Xarelto, normocephalic 75, remedisivr, dexamethasone 6 mg daily. 02/28/2020 Patient hadn't good night because he could not sleep. No respiratory symptoms, ongoing generalized weakness. Yesterday he has watery diarrhea but this morning he had small more formed bowel movement. No abdominal pain. Persistent fever have subsided and his been afebrile for more than 24 hours. We will check Tylenol as needed His sugar is better controlled after increasing his insulin to 30 units. Antibiotics with ceftriaxone and Zithromax were admitted with high proteincalcitonin. We will try to check sputum culture. Check labs in the morning 02/29/2020 Patient feels much better today, his fever subsided and his on Tylenol as needed currently. No respiratory issue or symptom. He had a little formed bowel movement today. Currently patient remains on the same cocktail for comfort infection besides remedisivr Hemodynamically stable. Vitals are stable showing mild leukocytosis of 11.6 K 03/01/2020 pt is moved to [facility] , pt developed a fib and RVR and he was started on Cardizem and amiodarone drip and is already on Xarelto. Also patient on Lopressor 75 mg 3 times a day Also he developed more hypoxic and is currently on 50 L oxygen via nasal cannula saturating 90%. Repeat chest x-ray Moderate peripheral-based opacities throughout both lungs with no pleural effusion. Blood gas on BOTH HIS WITH PH 7.48, LOW PCO2 OF 22 AND LOW PO2 AT 58 PATIENT HAS BEEN EVALUATED BY PULMONARY SERVICE AND PATIENT MAY NEED TO GO TO THE ICU WELL. LEFT SHOWING STABLE LEUKOCYTOSIS AT 14.9 K, ELEVATED D-DIMER 3.1, BMP IS UNREMARKABLE AND WORSENING OF THE EDGE AND C-REACTIVE PROTEIN Patient is kept on remedisivr, dexamethasone 6 mg daily. However patient diarrhea has improved 03/02/2020 Patient today kept in the ICU on BiPAP saturating 100% however he looks comfortable. Distal short of breath and dyspneic Rest of vitals are stable Laps looks stable, inflammatory markers LDH and C-reactive protein still trending up slowly compared to yesterday.proCalcitonin is negative. D-dimer is trending up at 5.7 Chest x-ray showing stable bilateral lung infiltrates He remains on Decadron and remdesivir Also I kept on Cardizem drip at 20 mg an hour and amiodarone 400 mg twice daily and metoprolol 75 mg 3 times a day, vitamin C and A. fib and heart rate ranging between 80-100. He has an echo from 10/10/2019 showed ejection fraction of 50-55%. BNP is elevated at 3940. Discontinue ceftriaxone. Keep Zithromax for now. Patient to continue on Xarelto patient is nothing by mouth WE'LL KEEP HIM ON GENTLE HYDRATION AT 50 ML/H. ALSO GOT 1 DOSE OF LASIX 03/03/2020 Patient is seen and evaluated and follow-up continues to be closely monitored in the ICU. Patient has been taken off the BiPAP and placed on Airvo with an oxy gen rate of 60 and FiO2 at 85% and is currently 91%. To continue to wean as tolerated with the use of BiPAP as needed as well. Patient is afebrile. Patient's d-dimer continues to be elevated and has increased at 11.67 and patient is maintained on Xarelto and will continue at this time. Patient is eating today and tolerating with no reports of nausea or vomiting noted. Multiple medical consultations following including cardiology. Cardizem drip has been decreased to 10 and will continue to monitor this patient continues on amiodarone as well. Heart rate currently in the 70s. Blood sugars being controlled and will continue sliding scale along with long-acting at this time. Patient to continue with dexamethasone along with vitamin C and D and zinc supplements. Patient is currently off antibiotics and will continue to monitor closely. Chest x-ray today shows cardiomegaly with bilateral multifocal acute infiltrates greatest in the periphery, organizing consolidation in the lower lungs with no significant change. 03/04/2020 Patient seen in follow-up continues to be closely monitored in the ICU. Patient is maintained on BiPAP at night and transitioning to Airvo during the day. Patient was placed on insulin drip and will continue to monitor Accu-Cheks closely. Patient continues to be severely dyspneic with any exertion and is 89- 90% with an O2 flow of 60 and FiO2 of 85. IV Cardizem drip has been discontinued and patient is maintained on amiodarone oral and will continue at this time. Anticoagulation of Xarelto continues. Chest x-rays continue to show worsening and consistent with Covid 19 infection progression. 03/05/2020 Patient continues to be in the ICU and maintained on BiPAP with airvo during the day and not really showing any improvements as far as oxygenation. Patient states his breathing has not worsened but is also not improved. Patient is hun gry and awaiting to be switched to airvo so he can eat. Blood sugars continue to be elevated and insulin drip was discontinued. Will increase Levemir to 20 units daily and continue with sliding scale. Patient remains off Cardizem drip and is currently on oral amiodarone and will continue at this time. D-dimer also continues to be elevated and is currently 14.01. Patient is maintained on Xarelto. Current sodium is 135, potassium is 4.1, creatinine is 0.85, WBC is 13.4. Discussed with the patient about CODE STATUS and patient wishes to remain a full code. Chest x-ray continues to show no improvement from previous x-ray. 03/06/2020 Patient currently remains in the ICU although awaiting to be transferred to [facility]. Patient continues on the Airvo with BiPAP at night. Patient states he was having some right-sided weakness and facial droop since yesterday and CT angio done showing atrophy with very ventricular white matter ischemic changes with no acute intracranial process, normal upper [place], and no flow- limiting stenosis of the bilateral carotid bifurcations with minimal atheromatous calcifications present. Neurology was consulted for evaluation and is currently pending. Patient's chest x-ray today continues to show patchy diffuse infiltrates present bilaterally. Patient is currently tolerating diet and remains on sliding scale along with long-acting and will continue at this time. 03/07/2020 Patient is seen in follow-up currently on [facility] is a recent transfer to the ICU. Patient is maintained on Airvo and continued on this throughout the night. BiPAP was not used. Patient states his breathing feels somewhat better today. Neurology evaluating the patient recommending an MRI which is currently pending at this time as patient had some right-sided weakness along with slurred speech. Right side upper extremity strength is 4/5 with no deficits noted on the right lower extremity. No slurring of speech noted as well. Patient is tolerating diet with no difficulty in swallowing. Patient also underwent 2-D echo showing mild concentric left ventricular hypertrophy with mild local hypokinesis with overall left ventricular systolic function is mildly impaired with an EF between 45 and 50% along with some mitral and tricuspid regurgitation present. Sugars being closely monitored and adjustments have been made to long-acting and will continue sliding scale as well. Patient remains on IV dexamethasone along with Xarelto at this time. 03/08/2020 Patient is awaiting for MRI chest x-ray is still showing significant the congestion possibility of pulmonary edema cannot be ruled out. Patient is off Lasix nephrology and pulmonology is following the patient. may need a dose of Lasix early the decision to pulmonary patient remains on 6 L of oxygen. Saturating 97%. CONSTITUTIONAL: No fever, no malaise, no fatigue. HEENT: No recent visual problems or hearing problems. Denied any sore throat. CARDIOVASCULAR: No orthopnea, PND, no palpitations, no syncope. PULMONARY: reports continued shortness of breath, no cough, no hemoptysis. GASTROINTESTINAL: No diarrhea, no nausea, no vomiting, no abdominal pain. Normoactive bowel sounds. NEUROLOGICAL: No headaches, reports weakness, right upper extremity weakness with improvement, no numbness. Objective - Vital Signs Vital signs: Vital Signs Temp 98.4 F 03/08/20 07:30 Pulse 53 L 03/08/20 07:30 Resp 20 03/08/20 07:30 BP 113/74 12/19/20 07:30 Pulse Ox 97 03/08/20 07:30 Intake & Output 03/07/20 03/08/20 03/08/20 18:59 06:59 18:59 Intake Total 1580 Output Total 1750 2325 Balance -170 -2325 Weight 82 kg Intake: IV 400 Sodium Chloride 0.9% 1, 400 000 ml @ 50 mls/hr IV . Q20H DILCIA Rx#:[id number] Oral 1180 Output: Urine 1750 2325 Other: Voiding Method Urinal # Voids 1 # Bowel Movements 1 - Exam PHYSICAL EXAMINATION: GENERAL: The patient is alert and oriented x3, not in any acute distress. Well developed, well nourished. HEENT: Pupils are round and equally reacting to light. EOMI. No scleral icterus. No conjunctival pallor. Normocephalic, atraumatic. No pharyngeal erythema. No thyromegaly. CARDIOVASCULAR: S1 and S2 present. No murmurs, rubs, or gallops. PULMONARY: Chest is clear to auscultation, no wheezing or crackles. ABDOMEN: Soft, nontender, nondistended, normoactive bowel sounds. No palpable organomegaly. MUSCULOSKELETAL: No joint swelling or deformity. EXTREMITIES: No cyanosis, clubbing, or pedal edema. NEUROLOGICAL: Gross neurological examination did not reveal any focal deficits. SKIN: No rashes. Note: Because of COVID 19 isolation, some of the history and physical exam findings are indirect and obtained from nursing staff, and other physician examinations to avoid unnecessary contact with the patient. - Labs CBC & Chem 7: 03/08/20 07:19 03/08/20 07:19 Labs: Abnormal Lab Results - Last 24 Hours (Table) 03/07/20 03/07/20 03/07/20 Range/Units 06:56 11:59 16:00 WBC (3.8-10.6) k/uL Plt Count (150-450) k/uL Neutrophils # (1.3-7.7) k/uL Lymphocytes # (1.0-4.8) k/uL Sodium (137-145) mmol/L BUN (9-20) mg/dL Glucose (74-99) mg/dL POC Glucose (mg/dL) 233 H 227 H (75-99) mg/dL Ferritin 886.1 H (22.0-322.0) ng/mL ALT (4-49) U/L Total Protein (6.3-8.2) g/dL Albumin (3.5-5.0) g/dL LDL Cholesterol, Calc 105 H (0-99) mg/dL HDL Cholesterol 38 L (40-60) mg/dL 03/07/20 03/07/20 03/08/20 Range/Units 20:32 23:48 03:44 WBC (3.8-10.6) k/uL Plt Count (150-450) k/uL Neutrophils # (1.3-7.7) k/uL Lymphocytes # (1.0-4.8) k/uL Sodium (137-145) mmol/L BUN (9-20) mg/dL Glucose (74-99) mg/dL POC Glucose (mg/dL) 307 H 263 H 185 H (75-99) mg/dL Ferritin (22.0-322.0) ng/mL ALT (4-49) U/L Total Protein (6.3-8.2) g/dL Albumin (3.5-5.0) g/dL LDL Cholesterol, Calc (0-99) mg/dL HDL Cholesterol (40-60) mg/dL 03/08/20 03/08/20 03/08/20 Range/Units 06:43 07:19 07:19 WBC 13.4 H (3.8-10.6) k/uL Plt Count 136 L (150-450) k/uL Neutrophils # 12.6 H (1.3-7.7) k/uL Lymphocytes # 0.4 L (1.0-4.8) k/uL Sodium 133 L (137-145) mmol/L BUN 27 H (9-20) mg/dL Glucose 181 H (74-99) mg/dL POC Glucose (mg/dL) 212 H (75-99) mg/dL Ferritin (22.0-322.0) ng/mL ALT 63 H (4-49) U/L Total Protein 5.6 L (6.3-8.2) g/dL Albumin 2.7 L (3.5-5.0) g/dL LDL Cholesterol, Calc (0-99) mg/dL HDL Cholesterol (40-60) mg/dL 03/08/20 Range/Units 08:16 WBC (3.8-10.6) k/uL Plt Count (150-450) k/uL Neutrophils # (1.3-7.7) k/uL Lymphocytes # (1.0-4.8) k/uL Sodium (137-145) mmol/L BUN (9-20) mg/dL Glucose (74-99) mg/dL POC Glucose (mg/dL) 278 H (75-99) mg/dL Ferritin (22.0-322.0) ng/mL ALT (4-49) U/L Total Protein (6.3-8.2) g/dL Albumin (3.5-5.0) g/dL LDL Cholesterol, Calc (0-99) mg/dL HDL Cholesterol (40-60) mg/dL Assessment and Plan Plan: Covid 19 pneumonia acute hypoxic respiratory failure A. fib with RVR, presently rate controlled Possible lacunar stroke due to small vessel disease secondary to uncontrolled diabetes, neurology following an MRI pending Fatigue generalized weakness secondary to Covid infection New-onset diabetes -That his heart failure chronic systolic dysfunction with acute exacerbation patient has EF of around the 45-50% patient appears to be hypovolemic will give him Lasix Hyponatremia . Hypervolemic hyponatremia Congestive heart failure improved Gastroenteritis secondary to covid infection Hypomagnesemia, improved Hypertension History of [place] DVT prophylaxis: Xarelto GI prophylaxis: Pepcid Full code Plan: Continue current medications and management. Multiple medical consultations following. Neurology following and has ordered an MRI of the brain for possible stroke as patient has been experiencing some slurred speech and right side upper extremity weakness. No slurred speech noted on exam and right side upper extremity weakness has improved with a strength of 4/5 with no deficits noted of the right lower extremity. Adjustments to long-acting insulin have been made and will continue sliding scale and Accu-Cheks before meals at bedtime. Patient is maintained on airvo and will continue at this time. Continue to wean FiO2 as tolerated. PT/OT to evaluate the patient as patient continues to be extremely weak. Further recommendations to follow as per clinical course of the patient. Prognosis is poor and extremely guarded.
[2020-03-08] MEDS: METOPROLOL TARTRATE 25 MG TAB PO SCH ×3 (09:51→20:54)
[2020-03-08] MEDS: ZINC SULFATE 220 MG CAP PO SCH (09:51)
[2020-03-08] MEDS: AMIODARONE 200 MG TAB PO SCH ×2 (09:51→20:54)
[2020-03-08] MEDS: DEXAMETHASONE SOD PHOSPHATE 10 MG/ML 1 ML VIAL IV SCH ×2 (09:51→20:54)
[2020-03-08] MEDS: PANTOPRAZOLE 40 MG TABLET PO SCH (09:51)
[2020-03-08] MEDS: allopurinoL 300 MG TAB PO SCH (09:51)
[2020-03-08] MEDS: ASCORBIC ACID 500 MG TAB PO SCH (09:51)
[2020-03-08 11:48] LABS: Glucose,Whole Blood 288 mg/dL (75-99)
--- NOTE | 2020-03-08 14:18 | P.PN ---
Subjective Progress Note Date: 03/08/20 Principal diagnosis: Acute hypoxic respiratory failure secondary to covid 19 pneumonia. On 03/02/2020, the patient got transferred to the intensive care unit overnight. I saw him in a medical floor and the patient was having acute hypoxic respiratory failure secondary to coronavirus/Covid 19 related pneumonia. The patient was in the 100%. After arriving to the intensive care unit, the patient had to be placed on a BiPAP which is currently running at a pressure of 12/6 cm of water with an FiO2 of 20%. His pulse ox currently is 96%. Blood gases are pending from this morning. He is resting comfortably on the BiPAP and he is able to tolerated without any major difficulties. His cardiac rhythm has slowed down. He remains on atrial fibrillation. He is on a Cardizem drip running at 20 mg an hour. He is also on metoprolol at a dose of 75 mg by mouth three a day and amiodarone 400 mg by mouth twice a day. Patient is on Xarelto. D-dimer is elevated which is consistent with his coronavirus/Covid 19 related infection. His white cell count of 13.5. His LDH level is at 904. The proBNP level was 3940 and his troponin was at 0.142. I gave him a dose of Lasix yesterday. His fluid balance over the past 24 hours has been -996 mL. The chest x-ray still showing diffuse bilateral pulmonary infiltrates which is essentially unchanged compared to yesterday. There are diffuse peripheral infiltrates bilaterally. Reevaluated today on 03/03/20, patient is on BiPAP 12/6, FiO2 is 85%, patient seems to be comfortable, he is not in distress, asking to be fed, hence I will switch the patient to airvo, and continue to titrate accordingly to maintain O2 saturation above 90% possible. Patient remains on Cardizem drip for his atrial fibrillation, his rate is controlled, his IV fluid is a 0.9 normal saline. CBC is relatively normal. Inflammatory markers are elevated, LDH is 995 and his C- reactive protein is 24.2. *Normal renal profile is normal chest x-ray is quite abnormal showing diffuse interstitial infiltrates bilaterally. Reevaluated today on 03/04/20, patient remains in the ICU, his pulmonary status is marginal at best. Remains on high flow airvo, FiO2 of 85%, and 60 L flow. His O2 saturation is marginal between 90-93% at best. Patient is on insulin drip mostly, 2 units per hour, his Cardizem is off, and he is now in sinus rhythm. Patient completed his course of remdesivir, and he is on Decadron 6 mg every 12 hours, is also on Xarelto. Patient is complaining of shortness of breath with any activity. But looks comfortable at rest. Remains on the Covid 19 cocktail. CBC showed leukocytosis with WBC count of 15.9 hemoglobin is 13.4. Basic metabolic profile and renal profile are normal Reevaluated today on 03/05/20, remains in the ICU, patient is now on BiPAP, IPAP is 12 EPAP 6 FiO2 is 85%, and his O2 saturation is 94%. IV fluid is at 50 ML per hour, patient completed his treatment with remdesivir, remains on Decadron 6 mg IV push every 12 hours, and he remains on Xarelto. He is also on the Covid 19 cocktail. His pulmonary status is marginal at best, patient will be given today a trial of high flow nasal cannula or airvo. And will titrate accordingly. Chest x-ray continues to show diffuse interstitial infiltrates. And some consolidation noted in the right lower lobe. Inflammatory markers remain high LDH is 1456 C-reactive protein is 48. Electrolytes are normal renal profile is normal d-dimer is 14.01 On 03/06/2020 patient seen in follow-up in the intensive care unit, he still remains on Airvo at 60 L and FiO2 of 80%, his pulse ox is 93-97%, seems to be breathing comfortably, does not appear to be in any acute distress, his been afebrile overnight, hemodynamically has been stable, does have exertional dyspn ea, the patient has been in bed for the most part. No chest discomfort, today's chest x-ray has been reviewed showing patchy diffuse infiltrates bilaterally. He remains on Decadron 6 mg twice daily, he is on Xarelto for anticoagulation, he is on 0.9 normal saline at a rate is 50 ML per hour, no other drips. Patient has completed a course of Remdesivir, remains on steroids, remains on oral antic oagulation, today he was noted to have difficulty with right-sided weakness and facial droop, brain CT was completed showing atrophy with periventricular white matter ischemic changes, but no acute intracranial process. No slurred speech, no difficulty swallowing. Neurology has been consulted for neurologic evaluation, and right-sided weakness On 03/07/2020 patient seen in follow-up on selective care unit, he remains on high flow oxygen at 60 L and FiO2 of 80%, his pulse ox is 95%, hemodynamically patient is stable, patient is afebrile. Yesterday patient was noted to have right-sided weakness, and very slight right facial droop, neurology was consulted, his angiography CT of the brain showed atrophy with the periventricular white matter ischemic changes, no acute intracranial process, MRI of the brain scheduled for today, patient denies any worsening dyspnea, he is breathing comfortably, he is generally weak. He is tolerating diet with no difficulty swallowing, patient had a 2-D echo showing mild concentric left ventricular hypertrophy with mild local hypokinesis and overall lethargy systolic function mildly impaired with an EF between 45 and 50% along with some mitral and tricuspid regurgitation. Chest x-ray today shows coarse bilateral infiltrates without significant change. LDH is relatively stable over the last 3 days, at 1485, and his CRP is trending down and is down to 14.7 at today's labs. Electrolytes and renal profile are relatively unremarkable. Xarelto for anticoagulation for history of atrial fibrillation, his rate is currently controlled. Reevaluated today on 03/08/20, patient is now on the regular medical floor, remains on high flow oxygen at 60 L/m, and FiO2 is at 75%. O2 saturation is ranging between 95 up to 97%. Patient is feeling a bit better, breathing easier. He is afebrile with a temp of 98.4, blood pressure is 152/80, respiration is 20. WBC count today is 13.4, hemoglobin is 14.2, a left lites are normal renal profile is normal. Chest x-ray continues to show diffuse pleural parenchymal changes, and interstitial infiltrates, difficult to rule out any component of interstitial edema considering the findings of covid19 pneumoni tis. Patient did receive a dose of Lasix 40 mg IV push 1 today. Objective - Vital Signs Vital signs: Vital Signs Temp 98.4 F 03/08/20 07:30 Pulse 50 L 03/08/20 11:00 Resp 20 03/08/20 11:00 BP 132/83 03/08/20 11:00 Pulse Ox 97 12/19/20 11:00 Intake & Output 03/07/20 03/08/20 03/08/20 18:59 06:59 18:59 Intake Total 1580 240 Output Total 1750 2325 925 Balance -170 -5889 -687 Weight 82 kg Intake: IV 400 Sodium Chloride 0.9% 1, 400 000 ml @ 50 mls/hr IV . Q20H [facility] Rx#:[id number] Oral 1180 240 Output: Urine 1750 2325 925 Other: Voiding Method Urinal # Voids 1 # Bowel Movements 1 - Exam GENERAL: The patient is alert and oriented x3, on airvo HEENT: Pupils are round and equally reacting to light. EOMI. No scleral icterus. No conjunctival pallor. Normocephalic, atraumatic. No pharyngeal erythema. No thyromegaly. CARDIOVASCULAR: S1 and S2 present. No murmurs, rubs, or gallops. PULMONARY: Crackles at the bases, no rhonchi and no wheezes. ABDOMEN: Soft, nontender, nondistended, normoactive bowel sounds. No palpable organomegaly. MUSCULOSKELETAL: No joint swelling or deformity. EXTREMITIES: No clubbing 1+ bipedal edema or cyanosis NEUROLOGICAL: Alert and oriented 3, no gross focal deficits SKIN: No rashes. no petechiae. Psychiatric: Normal mood, affect and normal mental status examination - Labs CBC & Chem 7: 03/08/20 07:19 03/08/20 07:19 Labs: Abnormal Lab Results - Last 24 Hours (Table) 03/07/20 03/07/20 03/07/20 Range/Units 06:56 16:00 20:32 WBC (3.8-10.6) k/uL Plt Count (150-450) k/uL Neutrophils # (1.3-7.7) k/uL Lymphocytes # (1.0-4.8) k/uL Sodium (137-145) mmol/L BUN (9-20) mg/dL Glucose (74-99) mg/dL POC Glucose (mg/dL) 227 H 307 H (75-99) mg/dL Ferritin 886.1 H (22.0-322.0) ng/mL ALT (4-49) U/L Total Protein (6.3-8.2) g/dL Albumin (3.5-5.0) g/dL 03/07/20 03/08/20 03/08/20 Range/Units 23:48 03:44 06:43 WBC (3.8-10.6) k/uL Plt Count (150-450) k/uL Neutrophils # (1.3-7.7) k/uL Lymphocytes # (1.0-4.8) k/uL Sodium (137-145) mmol/L BUN (9-20) mg/dL Glucose (74-99) mg/dL POC Glucose (mg/dL) 263 H 185 H 212 H (75-99) mg/dL Ferritin (22.0-322.0) ng/mL ALT (4-49) U/L Total Protein (6.3-8.2) g/dL Albumin (3.5-5.0) g/dL 03/08/20 03/08/20 03/08/20 Range/Units 07:19 07:19 08:16 WBC 13.4 H (3.8-10.6) k/uL Plt Count 136 L (150-450) k/uL Neutrophils # 12.6 H (1.3-7.7) k/uL Lymphocytes # 0.4 L (1.0-4.8) k/uL Sodium 133 L (137-145) mmol/L BUN 27 H (9-20) mg/dL Glucose 181 H (74-99) mg/dL POC Glucose (mg/dL) 278 H (75-99) mg/dL Ferritin (22.0-322.0) ng/mL ALT 63 H (4-49) U/L Total Protein 5.6 L (6.3-8.2) g/dL Albumin 2.7 L (3.5-5.0) g/dL 03/08/20 Range/Units 11:45 WBC (3.8-10.6) k/uL Plt Count (150-450) k/uL Neutrophils # (1.3-7.7) k/uL Lymphocytes # (1.0-4.8) k/uL Sodium (137-145) mmol/L BUN (9-20) mg/dL Glucose (74-99) mg/dL POC Glucose (mg/dL) 288 H (75-99) mg/dL Ferritin (22.0-322.0) ng/mL ALT (4-49) U/L Total Protein (6.3-8.2) g/dL Albumin (3.5-5.0) g/dL Assessment and Plan Assessment: Impression: Acute hypoxic respiratory failure Acute covid 19 pneumonitis. New onset Atrial fibrillation with RVR. New-onset diabetes. Acute gastroenteritis secondary to Covid infection Benign essential hypertension. History of underlying coronary artery disease. Right upper lobe pulmonary embolism, patient is on Xarelto. Troponin leak. History of gout. History of right upper lobe nodule to be monitored on outpatient basis. New-onset right sided arm weakness, CT of the brain is nondiagnostic. Recommendation: Continue Decadron. done with remdesivir Continue to titrate oxygen Continue diuretics. Agree with Lasix given today by admitting physician. Continue obeta blockers. Continue Xarelto. Continue GI and DVT prophylaxis. Not ready at this point for any discharge planning. We'll continue to follow. Time with Patient: Less than 30
[2020-03-08 16:46] LABS: Glucose,Whole Blood 315 mg/dL (75-99)
[2020-03-08] MEDS: RIVAROXABAN 20 MG TAB PO SCH (17:26)
--- NOTE | 2020-03-08 18:01 | P.PN ---
Subjective Progress Note Date: 03/07/20 Patient was seen for a follow-up. Continues to be in respiratory distress. Denies any new focal symptoms. Objective - Vital Signs Vital signs: Vital Signs Temp 97.6 F 03/07/20 11:43 Pulse 60 03/07/20 11:43 Resp 24 03/07/20 11:43 BP 152/82 03/07/20 11:43 Pulse Ox 95 03/07/20 12:15 Intake & Output 03/06/20 03/07/20 03/07/20 18:59 06:59 18:59 Intake Total 536 600 400 Output Total 920 2200 475 Balance -384 -1600 -75 Weight 94.8 kg 94.6 kg Intake: IV 300 600 Sodium Chloride 0.9% 1, 300 600 000 ml @ 50 mls/hr IV . Q20H [facility] Rx#:[id number] Oral 236 400 Output: Urine 920 2200 475 Other: Voiding Method Urinal Urinal # Voids 1 # Bowel Movements 1 - Exam On examination patient is an elderly male, laying in the bed, in mild to moderate respiratory distress. Speech and language functions are normal. Cranial nerves significant for mild right facial asymmetry. On muscle strength testing patient's strength is normal on the left side. 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 Sensory touch is equal. Patient has less ataxia for [id number] on the right. Tone and bulk of muscles normal. Gait deferred. - Labs CBC & Chem 7: 03/08/20 07:19 03/08/20 07:19 Labs: Abnormal Lab Results - Last 24 Hours (Table) 03/06/20 03/06/20 03/06/20 Range/Units 16:04 16:15 20:40 WBC (3.8-10.6) k/uL Neutrophils # (1.3-7.7) k/uL Lymphocytes # (1.0-4.8) k/uL Sodium (137-145) mmol/L BUN (9-20) mg/dL Glucose (74-99) mg/dL POC Glucose (mg/dL) 335 H 278 H 213 H (75-99) mg/dL ALT (4-49) U/L Lactate Dehydrogenase (313-618) U/L Creatine Kinase (55-170) U/L C-Reactive Protein (<10.0) mg/L Total Protein (6.3-8.2) g/dL Albumin (3.5-5.0) g/dL LDL Cholesterol, Calc (0-99) mg/dL HDL Cholesterol (40-60) mg/dL 03/07/20 03/07/20 03/07/20 Range/Units 00:02 04:05 06:56 WBC (3.8-10.6) k/uL Neutrophils # (1.3-7.7) k/uL Lymphocytes # (1.0-4.8) k/uL Sodium 136 L (137-145) mmol/L BUN 26 H (9-20) mg/dL Glucose 166 H (74-99) mg/dL POC Glucose (mg/dL) 282 H 209 H (75-99) mg/dL ALT 61 H (4-49) U/L Lactate Dehydrogenase 1485 H (313-618) U/L Creatine Kinase 34 L (55-170) U/L C-Reactive Protein 14.7 H (<10.0) mg/L Total Protein 5.6 L (6.3-8.2) g/dL Albumin 2.7 L (3.5-5.0) g/dL LDL Cholesterol, Calc 105 H (0-99) mg/dL HDL Cholesterol 38 L (40-60) mg/dL 03/07/20 03/07/20 03/07/20 Range/Units 06:56 08:11 11:59 WBC 13.7 H (3.8-10.6) k/uL Neutrophils # 12.8 H (1.3-7.7) k/uL Lymphocytes # 0.5 L (1.0-4.8) k/uL Sodium (137-145) mmol/L BUN (9-20) mg/dL Glucose (74-99) mg/dL POC Glucose (mg/dL) 163 H 233 H (75-99) mg/dL ALT (4-49) U/L Lactate Dehydrogenase (313-618) U/L Creatine Kinase (55-170) U/L C-Reactive Protein (<10.0) mg/L Total Protein (6.3-8.2) g/dL Albumin (3.5-5.0) g/dL LDL Cholesterol, Calc (0-99) mg/dL HDL Cholesterol (40-60) mg/dL Assessment and Plan Assessment: * 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 * New onset Atrial fibrillation, on anticoagulation with Xarelto. * Acute COVID-19 pneumonitis * New onset diabetes, poorly controlled * Hypertension * Hyperlipidemia * History of CAD. Plan: * Acute right hemiparesis, possible lacunar stroke from small vessel disease from uncontrolled diabetes. Right hemiparesis slightly better as compared to yesterday. Need to rule out cardio-embolic event from atrial fibrillation, although patient has been on anticoagulation with Xarelto for atrial fibrillation since 02/24/2020. * Await MRI of brain to localize CVA. * No large vessel occlusion noted on CTA of head and neck. * Patient's diabetes is poorly controlled, need to optimize diabetes to target A1c <7.0 * Fasting a.m. lipid panel showed cholesterol 159, LDL 105, HDL 38 and triglycerides 81. We will start Lipitor 40 mg daily. * Blood pressure is well controlled. * 2-D echo revealed normal left-ventricular size. Mild concentric LVH, mild global hypokinesis of left ventricle with an EF 45-50% there is paradoxical/dyssynergy septal motion consistent with postoperative status. * PT and OT when possible. Patient at present sick with COVID-19 infection. * Neurology service not available over the weekend. Please perfect serve if any questions. * Dr. Darius Valladares Will resume service on Tuesday.
[2020-03-08 20:20] LABS: Glucose,Whole Blood 455 mg/dL (75-99)
[2020-03-08] MEDS ORDERED: INSULIN ASPART (NovoLOG) 100 UNIT/ML VIAL SQ STA (20:42)
--- NOTE | 2020-03-08 22:10 | PN ---
PROGRESS NOTE DATE OF SERVICE: 03/08/2020 REASON FOR FOLLOWUP: COVID-19 infection. INTERVAL HISTORY: Patient is currently afebrile. Patient is breathing more comfortably. The patient denies having any chest pain. No shortness of breath. Minimal cough. No nausea, no vomiting. No abdominal pain. No diarrhea. PHYSICAL EXAMINATION: Blood pressure 122/73, with a pulse of 51. Temperature 97.8. He is 98% on 55% FiO2. General description is an elderly male lying in bed in no distress. Respiratory system: Unlabored breathing, decreased breath sounds in the bases with no wheeze. Heart S1, S2. Regular rate and rhythm. Abdomen soft. No tenderness. LABS: Hemoglobin is 14.1, white count 13.4, BUN of 27, creatinine 0.80. Blood culture negative. IMPRESSION/PLAN: Patient with acute COVID-19 pneumonia. Patient has completed Remdesivir therapy. Currently on Dexamethasone, Xarelto and Zinc to continue along with respiratory support. Monitor clinical course closely. MMODL / IJN: [id number] /
[2020-03-08 23:36] LABS: Glucose,Whole Blood 245 mg/dL (75-99)
[2020-03-09 04:06] LABS: Glucose,Whole Blood 189 mg/dL (75-99)
[2020-03-09] MEDS: INSULIN ASPART (NovoLOG) 100 UNIT/ML VIAL SQ SCH ×6 (05:12→23:27)
[2020-03-09] MEDS: INSULIN DETEMIR (LEVEMIR) 100 UNIT/ML SYR SQ SCH (06:20)
--- NOTE | 2020-03-09 07:54 | P.PN ---
Subjective 69-year-old male, who is a patient of Dr. Frey with a past medical history of hypertension,[place] coming in with a chief complaint of fatigue and generalized weakness that have been ongoing for past 1 week. Patient states that he has been having poor appetite loss of smell and loss of taste for the past 1 week. He states that he has been sleeping for more than 20 hours a day. Patient denies having any cough or difficulty in breathing. He denies having any chest pain or palpitations. He denies having any dysuria or hematuria. Patient den ies having any history of diabetes but his blood sugars are in 300s to 400s. In the emergency room patient had a chest x-ray showing no acute cardiopulmonary process and an EKG showing normal sinus rhythm. He had labs done showing white count of 3.9, hemoglobin 14.4, platelets 166. Sodium 131, potassium 3.9, chloride. BUN 15, creatinine 0.93 C-reactive protein 59, albumin 3.3 coronavirus PCR positive. On 02/24/2020 patient was seen and examined. He is currently resting comfortably in bed. Appears to be no acute distress. On reviewing the vitals patient continues to fever as high as 102.3. His blood pressure has been stable around 130s 80s and he saturating at 95% on room air. Patient's blood sugars have been running on the higher side. On 02/25/2020- patient was seen and examined and the general medical floors. He is resting comfortably in bed. Overnight active issues reported by nursing staff. Patient states that his difficulty in breathing is improving. On reviewing the vitals patient's T-max is 98.4, heart rate 72, respiratory rate 127-79 and saturating at 93% on room air. On reviewing vitals patient's white count of 2.8, hemoglobin 14.4, platelets 189. Sodium 136, potassium 4.6, chloride 102. BUN 23 and creatinine of 1.0. Blood sugars have been running high in 200s to 300s. C-reactive protein 7.5. 02/26/2020 This is a pleasant 69 years old male who presents with cough with infection and found to have new onset diabetes with elevated hemoglobin A1c at 14%. Patient currently with no respiratory symptoms, no chest pain or dyspnea coughing. Yesterday he has a regular bowel movement but today he had 1 loose bowel movement but no significant abdominal pain or nausea vomiting. Also he is running a fever of 101. He saturating 90% at room air. BMP and CBC were reviewed and they were unremarkable except for mild leukopenia 2.8K. D-dimer is negative at 0.34. Coronavirus is detected. 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 Normal saline at 75 mL/h was added. Also Levemir 10 units daily and metformin 1000 mg twice daily has been added because his sugar still not controlled Patient is able to eat 75-100% of his meal 02/27/20 Patient had a rough night because of fever, his breathing is quiet and stable and he's only on 2 L oxygen. Is still have diarrhea about twice per day which is similar to the day before. No abdominal pain or vomiting. No significant coughing. unstable Chest x-ray: Worsening infiltrates, Pronecalcitonin is elevated at 0.27, patient is started on Rocephin and Zithromax. He is new onset diabetes and also is on dexamethasone and his sugar more than 300, so Levemir was decreased from 10-30 units daily. Also he is on metformin 1000 and Amaryl 1 mg. Continue on Xarelto, normocephalic 75, remedisivr, dexamethasone 6 mg daily. 02/28/2020 Patient hadn't good night because he could not sleep. No respiratory symptoms, ongoing generalized weakness. Yesterday he has watery diarrhea but this morning he had small more formed bowel movement. No abdominal pain. Persistent fever have subsided and his been afebrile for more than 24 hours. We will check Tylenol as needed His sugar is better controlled after increasing his insulin to 30 units. Antibiotics with ceftriaxone and Zithromax were admitted with high proteincalcitonin. We will try to check sputum culture. Check labs in the morning 02/29/2020 Patient feels much better today, his fever subsided and his on Tylenol as needed currently. No respiratory issue or symptom. He had a little formed bowel movement today. Currently patient remains on the same cocktail for comfort infection besides remedisivr Hemodynamically stable. Vitals are stable showing mild leukocytosis of 11.6 K 03/01/2020 pt is moved to [facility] unit , pt developed a fib and RVR and he was started on Cardizem and amiodarone drip and is already on Xarelto. Also patient on Lopressor 75 mg 3 times a day Also he developed more hypoxic and is currently on 50 L oxygen via nasal cannula saturating 90%. Repeat chest x-ray Moderate peripheral-based opacities throughout both lungs with no pleural effusion. Blood gas on BOTH HIS WITH PH 7.48, LOW PCO2 OF 22 AND LOW PO2 AT 58 PATIENT HAS BEEN EVALUATED BY PULMONARY SERVICE AND PATIENT MAY NEED TO GO TO THE ICU WELL. LEFT SHOWING STABLE LEUKOCYTOSIS AT 14.9 K, ELEVATED D-DIMER 3.1, BMP IS UNREMARKABLE AND WORSENING OF THE EDGE AND C-REACTIVE PROTEIN Patient is kept on remedisivr, dexamethasone 6 mg daily. However patient diarrhea has improved 03/02/2020 Patient today kept in the ICU on BiPAP saturating 100% however he looks comfortable. Distal short of breath and dyspneic Rest of vitals are stable Laps looks stable, inflammatory markers LDH and C-reactive protein still trending up slowly compared to yesterday.proCalcitonin is negative. D-dimer is trending up at 5.7 Chest x-ray showing stable bilateral lung infiltrates He remains on Decadron and remdesivir Also I kept on Cardizem drip at 20 mg an hour and amiodarone 400 mg twice daily and metoprolol 75 mg 3 times a day, vitamin C and A. fib and heart rate ranging between 80-100. He has an echo from 10/10/2019 showed ejection fraction of 50-55%. BNP is elevated at 3940. Discontinue ceftriaxone. Keep Zithromax for now. Patient to continue on Xarelto patient is nothing by mouth WE'LL KEEP HIM ON GENTLE HYDRATION AT 50 ML/H. ALSO GOT 1 DOSE OF LASIX 03/03/2020 Patient is seen and evaluated and follow-up continues to be closely monitored in the ICU. Patient has been taken off the BiPAP and placed on Airvo with an oxy gen rate of 60 and FiO2 at 85% and is currently 91%. To continue to wean as tolerated with the use of BiPAP as needed as well. Patient is afebrile. Patient's d-dimer continues to be elevated and has increased at 11.67 and patient is maintained on Xarelto and will continue at this time. Patient is eating today and tolerating with no reports of nausea or vomiting noted. Multiple medical consultations following including cardiology. Cardizem drip has been decreased to 10 and will continue to monitor this patient continues on amiodarone as well. Heart rate currently in the 70s. Blood sugars being controlled and will continue sliding scale along with long-acting at this time. Patient to continue with dexamethasone along with vitamin C and D and zinc supplements. Patient is currently off antibiotics and will continue to monitor closely. Chest x-ray today shows cardiomegaly with bilateral multifocal acute infiltrates greatest in the periphery, organizing consolidation in the lower lungs with no significant change. 03/04/2020 Patient seen in follow-up continues to be closely monitored in the ICU. Patient is maintained on BiPAP at night and transitioning to Airvo during the day. Patient was placed on insulin drip and will continue to monitor Accu-Cheks closely. Patient continues to be severely dyspneic with any exertion and is 89- 90% with an O2 flow of 60 and FiO2 of 85. IV Cardizem drip has been discontinued and patient is maintained on amiodarone oral and will continue at this time. Anticoagulation of Xarelto continues. Chest x-rays continue to show worsening and consistent with Covid 19 infection progression. 03/05/2020 Patient continues to be in the ICU and maintained on BiPAP with airvo during the day and not really showing any improvements as far as oxygenation. Patient states his breathing has not worsened but is also not improved. Patient is hun gry and awaiting to be switched to airvo so he can eat. Blood sugars continue to be elevated and insulin drip was discontinued. Will increase Levemir to 20 units daily and continue with sliding scale. Patient remains off Cardizem drip and is currently on oral amiodarone and will continue at this time. D-dimer also continues to be elevated and is currently 14.01. Patient is maintained on Xarelto. Current sodium is 135, potassium is 4.1, creatinine is 0.85, WBC is 13.4. Discussed with the patient about CODE STATUS and patient wishes to remain a full code. Chest x-ray continues to show no improvement from previous x-ray. 03/06/2020 Patient currently remains in the ICU although awaiting to be transferred to [facility]. Patient continues on the Airvo with BiPAP at night. Patient states he was having some right-sided weakness and facial droop since yesterday and CT angio done showing atrophy with very ventricular white matter ischemic changes with no acute intracranial process, normal [place], and no flow- limiting stenosis of the bilateral carotid bifurcations with minimal atheromatous calcifications present. Neurology was consulted for evaluation and is currently pending. Patient's chest x-ray today continues to show patchy diffuse infiltrates present bilaterally. Patient is currently tolerating diet and remains on sliding scale along with long-acting and will continue at this time. 03/07/2020 Patient is seen in follow-up currently on [facility] is a recent transfer to the ICU. Patient is maintained on Airvo and continued on this throughout the night. BiPAP was not used. Patient states his breathing feels somewhat better today. Neurology evaluating the patient recommending an MRI which is currently pending at this time as patient had some right-sided weakness along with slurred speech. Right side upper extremity strength is 4/5 with no deficits noted on the right lower extremity. No slurring of speech noted as well. Patient is tolerating diet with no difficulty in swallowing. Patient also underwent 2-D echo showing mild concentric left ventricular hypertrophy with mild local hypokinesis with overall left ventricular systolic function is mildly impaired with an EF between 45 and 50% along with some mitral and tricuspid regurgitation present. Sugars being closely monitored and adjustments have been made to long-acting and will continue sliding scale as well. Patient remains on IV dexamethasone along with Xarelto at this time. 03/08/2020 Patient is awaiting for MRI chest x-ray is still showing significant the congestion possibility of pulmonary edema cannot be ruled out. Patient is off Lasix nephrology and pulmonology is following the patient. may need a dose of Lasix early the decision to pulmonary patient remains on 6 L of oxygen. Saturating 97%. 03/09/2020 Patient still didn't get an MRI. Although patient is already on anticoagulation. Patient also requirements have gone down to around 45% patient is bit hyponatremic probably because of the one dose of Lasix that was given yesterday. Continue to improve but pretty slow CONSTITUTIONAL: No fever, no malaise, no fatigue. HEENT: No recent visual problems or hearing problems. Denied any sore throat. CARDIOVASCULAR: No orthopnea, PND, no palpitations, no syncope. PULMONARY: reports continued shortness of breath, no cough, no hemoptysis. GASTROINTESTINAL: No diarrhea, no nausea, no vomiting, no abdominal pain. Normoactive bowel sounds. NEUROLOGICAL: No headaches, reports weakness, right upper extremity weakness with improvement, no numbness. Objective - Vital Signs Vital signs: Vital Signs Temp 97.9 F 03/08/20 23:42 Pulse 49 L 03/09/20 04:00 Resp 21 03/09/20 04:00 BP 145/84 03/09/20 04:00 Pulse Ox 95 03/09/20 04:52 Intake & Output 03/08/20 03/09/20 03/09/20 18:59 06:59 18:59 Intake Total 1020 Output Total 2975 775 Balance -1954 -5 Weight 74.5 kg Intake: Oral 1020 Output: Urine 2975 775 Other: Voiding Method Urinal Urinal # Voids 1 # Bowel Movements 1 - Exam PHYSICAL EXAMINATION: GENERAL: The patient is alert and oriented x3, not in any acute distress. Well developed, well nourished. HEENT: Pupils are round and equally reacting to light. EOMI. No scleral icterus. No conjunctival pallor. Normocephalic, atraumatic. No pharyngeal erythema. No thyromegaly. CARDIOVASCULAR: S1 and S2 present. No murmurs, rubs, or gallops. PULMONARY: Chest is clear to auscultation, no wheezing or crackles. ABDOMEN: Soft, nontender, nondistended, normoactive bowel sounds. No palpable organomegaly. MUSCULOSKELETAL: No joint swelling or deformity. EXTREMITIES: No cyanosis, clubbing, or pedal edema. NEUROLOGICAL: Gross neurological examination did not reveal any focal deficits. SKIN: No rashes. Note: Because of COVID 19 isolation, some of the history and physical exam findings are indirect and obtained from nursing staff, and other physician examinations to avoid unnecessary contact with the patient. - Labs CBC & Chem 7: 03/08/20 07:19 03/08/20 07:19 Labs: Abnormal Lab Results - Last 24 Hours (Table) 03/08/20 03/08/20 03/08/20 Range/Units 07:19 07:19 08:16 WBC 13.4 H (3.8-10.6) k/uL Plt Count 136 L (150-450) k/uL Neutrophils # 12.6 H (1.3-7.7) k/uL Lymphocytes # 0.4 L (1.0-4.8) k/uL Sodium 133 L (137-145) mmol/L BUN 27 H (9-20) mg/dL Glucose 181 H (74-99) mg/dL POC Glucose (mg/dL) 278 H (75-99) mg/dL ALT 63 H (4-49) U/L Total Protein 5.6 L (6.3-8.2) g/dL Albumin 2.7 L (3.5-5.0) g/dL 03/08/20 03/08/20 03/08/20 Range/Units 11:45 16:45 20:16 WBC (3.8-10.6) k/uL Plt Count (150-450) k/uL Neutrophils # (1.3-7.7) k/uL Lymphocytes # (1.0-4.8) k/uL Sodium (137-145) mmol/L BUN (9-20) mg/dL Glucose (74-99) mg/dL POC Glucose (mg/dL) 288 H 315 H 455 H (75-99) mg/dL ALT (4-49) U/L Total Protein (6.3-8.2) g/dL Albumin (3.5-5.0) g/dL 03/08/20 03/09/20 Range/Units 23:35 04:05 WBC (3.8-10.6) k/uL Plt Count (150-450) k/uL Neutrophils # (1.3-7.7) k/uL Lymphocytes # (1.0-4.8) k/uL Sodium (137-145) mmol/L BUN (9-20) mg/dL Glucose (74-99) mg/dL POC Glucose (mg/dL) 245 H 189 H (75-99) mg/dL ALT (4-49) U/L Total Protein (6.3-8.2) g/dL Albumin (3.5-5.0) g/dL Assessment and Plan Plan: Covid 19 pneumonia acute hypoxic respiratory failure A. fib with RVR, presently rate controlled Possible lacunar stroke due to small vessel disease secondary to uncontrolled diabetes, neurology following an MRI pending Fatigue generalized weakness secondary to Covid infection New-onset diabetes -That his heart failure chronic systolic dysfunction with acute exacerbation patient has EF of around the 45-50% patient appears to be hypovolemic will give him Lasix Hyponatremia . Hypervolemic hyponatremia Congestive heart failure improved Gastroenteritis secondary to covid infection Hypomagnesemia, improved Hypertension History of [place] DVT prophylaxis: Xarelto GI prophylaxis: Pepcid Full code Plan: Continue current medications and management. Multiple medical consultations following. Neurology following and has ordered an MRI of the brain for possible stroke as patient has been experiencing some slurred speech and right side upper extremity weakness. No slurred speech noted on exam and right side upper extremity weakness has improved with a strength of 4/5 with no deficits noted of the right lower extremity. Adjustments to long-acting insulin have been made and will continue sliding scale and Accu-Cheks before meals at bedtime. Patient is maintained on airvo and will continue at this time. Continue to wean FiO2 as tolerated. PT/OT to evaluate the patient as patient continues to be extremely weak. Further recommendations to follow as per clinical course of the patient. Prognosis is poor and extremely guarded.
[2020-03-09 08:09] LABS: Glucose,Whole Blood 156 mg/dL (75-99)
[2020-03-09] MEDS: ZINC SULFATE 220 MG CAP PO SCH (08:30)
[2020-03-09] MEDS: ASCORBIC ACID 500 MG TAB PO SCH (08:30)
[2020-03-09] MEDS: AMIODARONE 200 MG TAB PO SCH ×2 (08:30→20:43)
[2020-03-09] MEDS: allopurinoL 300 MG TAB PO SCH (08:30)
[2020-03-09] MEDS: METOPROLOL TARTRATE 50 MG TAB PO SCH ×2 (08:31→20:57)
[2020-03-09] MEDS: DEXAMETHASONE SOD PHOSPHATE 10 MG/ML 1 ML VIAL IV SCH ×2 (08:31→20:43)
[2020-03-09] MEDS: PANTOPRAZOLE 40 MG TABLET PO SCH (08:31)
[2020-03-09 11:47] LABS: Glucose,Whole Blood 261 mg/dL (75-99)
--- NOTE | 2020-03-09 15:51 | P.PN ---
Subjective Progress Note Date: 03/09/20 Principal diagnosis: Acute hypoxic respiratory failure secondary to covid 19 pneumonia. On 03/02/2020, the patient got transferred to the intensive care unit overnight. I saw him in a medical floor and the patient was having acute hypoxic respiratory failure secondary to coronavirus/Covid 19 related pneumonia. The patient was in the 100%. After arriving to the intensive care unit, the patient had to be placed on a BiPAP which is currently running at a pressure of 12/6 cm of water with an FiO2 of 20%. His pulse ox currently is 96%. Blood gases are pending from this morning. He is resting comfortably on the BiPAP and he is able to tolerated without any major difficulties. His cardiac rhythm has slowed down. He remains on atrial fibrillation. He is on a Cardizem drip running at 20 mg an hour. He is also on metoprolol at a dose of 75 mg by mouth three a day and amiodarone 400 mg by mouth twice a day. Patient is on Xarelto. D-dimer is elevated which is consistent with his coronavirus/Covid 19 related infection. His white cell count of 13.5. His LDH level is at 904. The proBNP level was 3940 and his troponin was at 0.142. I gave him a dose of Lasix yesterday. His fluid balance over the past 24 hours has been -996 mL. The chest x-ray still showing diffuse bilateral pulmonary infiltrates which is essentially unchanged compared to yesterday. There are diffuse peripheral infiltrates bilaterally. Reevaluated today on 03/03/20, patient is on BiPAP 12/6, FiO2 is 85%, patient seems to be comfortable, he is not in distress, asking to be fed, hence I will switch the patient to airvo, and continue to titrate accordingly to maintain O2 saturation above 90% possible. Patient remains on Cardizem drip for his atrial fibrillation, his rate is controlled, his IV fluid is a 0.9 normal saline. CBC is relatively normal. Inflammatory markers are elevated, LDH is 995 and his C- reactive protein is 24.2. *Normal renal profile is normal chest x-ray is quite abnormal showing diffuse interstitial infiltrates bilaterally. Reevaluated today on 03/04/20, patient remains in the ICU, his pulmonary status is marginal at best. Remains on high flow airvo, FiO2 of 85%, and 60 L flow. His O2 saturation is marginal between 90-93% at best. Patient is on insulin drip mostly, 2 units per hour, his Cardizem is off, and he is now in sinus rhythm. Patient completed his course of remdesivir, and he is on Decadron 6 mg every 12 hours, is also on Xarelto. Patient is complaining of shortness of breath with any activity. But looks comfortable at rest. Remains on the Covid 19 cocktail. CBC showed leukocytosis with WBC count of 15.9 hemoglobin is 13.4. Basic metabolic profile and renal profile are normal Reevaluated today on 03/05/20, remains in the ICU, patient is now on BiPAP, IPAP is 12 EPAP 6 FiO2 is 85%, and his O2 saturation is 94%. IV fluid is at 50 ML per hour, patient completed his treatment with remdesivir, remains on Decadron 6 mg IV push every 12 hours, and he remains on Xarelto. He is also on the Covid 19 cocktail. His pulmonary status is marginal at best, patient will be given today a trial of high flow nasal cannula or airvo. And will titrate accordingly. Chest x-ray continues to show diffuse interstitial infiltrates. And some consolidation noted in the right lower lobe. Inflammatory markers remain high LDH is 1456 C-reactive protein is 48. Electrolytes are normal renal profile is normal d-dimer is 14.01 On 03/06/2020 patient seen in follow-up in the intensive care unit, he still remains on Airvo at 60 L and FiO2 of 80%, his pulse ox is 93-97%, seems to be breathing comfortably, does not appear to be in any acute distress, his been afebrile overnight, hemodynamically has been stable, does have exertional dyspn ea, the patient has been in bed for the most part. No chest discomfort, today's chest x-ray has been reviewed showing patchy diffuse infiltrates bilaterally. He remains on Decadron 6 mg twice daily, he is on Xarelto for anticoagulation, he is on 0.9 normal saline at a rate is 50 ML per hour, no other drips. Patient has completed a course of Remdesivir, remains on steroids, remains on oral antic oagulation, today he was noted to have difficulty with right-sided weakness and facial droop, brain CT was completed showing atrophy with periventricular white matter ischemic changes, but no acute intracranial process. No slurred speech, no difficulty swallowing. Neurology has been consulted for neurologic evaluation, and right-sided weakness On 03/07/2020 patient seen in follow-up on selective care unit, he remains on high flow oxygen at 60 L and FiO2 of 80%, his pulse ox is 95%, hemodynamically patient is stable, patient is afebrile. Yesterday patient was noted to have right-sided weakness, and very slight right facial droop, neurology was consulted, his angiography CT of the brain showed atrophy with the periventricular white matter ischemic changes, no acute intracranial process, MRI of the brain scheduled for today, patient denies any worsening dyspnea, he is breathing comfortably, he is generally weak. He is tolerating diet with no difficulty swallowing, patient had a 2-D echo showing mild concentric left ventricular hypertrophy with mild local hypokinesis and overall lethargy systolic function mildly impaired with an EF between 45 and 50% along with some mitral and tricuspid regurgitation. Chest x-ray today shows coarse bilateral infiltrates without significant change. LDH is relatively stable over the last 3 days, at 1485, and his CRP is trending down and is down to 14.7 at today's labs. Electrolytes and renal profile are relatively unremarkable. Xarelto for anticoagulation for history of atrial fibrillation, his rate is currently controlled. Reevaluated today on 03/08/20, patient is now on the regular medical floor, remains on high flow oxygen at 60 L/m, and FiO2 is at 75%. O2 saturation is ranging between 95 up to 97%. Patient is feeling a bit better, breathing easier. He is afebrile with a temp of 98.4, blood pressure is 152/80, respiration is 20. WBC count today is 13.4, hemoglobin is 14.2, a left lites are normal renal profile is normal. Chest x-ray continues to show diffuse pleural parenchymal changes, and interstitial infiltrates, difficult to rule out any component of interstitial edema considering the findings of covid19 pneumoni tis. Patient did receive a dose of Lasix 40 mg IV push 1 today. Reevaluated today on 03/09/20, patient remains on the regular medical floor, remains high flow nasal cannula at 8 L/m, and his O2 saturation is 95%. Patient seems to be doing better overall, less cough, less shortness of breath, his blood pressure is stable, and his breathing is nonlabored. No chest x-ray was done today, but his last chest x-ray from yesterday continues to show bilateral interstitial infiltrates consistent with Covid 19 pneumonitis. CBC is relatively normal electrolytes are normal renal profile is normal, normal inflammatory markers were noted today, his last LDH 2 days ago was 1485. Patient is old done with his treatment including remdesivir, remains on the Covid 19 cocktail. Objective - Vital Signs Vital signs: Vital Signs Temp 97.9 F 03/09/20 08:29 Pulse 50 L 03/09/20 13:36 Resp 22 03/09/20 13:36 BP 137/81 03/09/20 11:29 Pulse Ox 95 03/09/20 11:29 Intake & Output 03/08/20 03/09/20 03/09/20 18:59 06:59 18:59 Intake Total 1020 250 Output Total 2975 775 1125 Balance -5 -775 -875 Weight 74.5 kg Intake: Oral 1020 250 Output: Urine 2975 775 1125 Other: Voiding Method Urinal Urinal Urinal # Voids 1 2 # Bowel Movements 1 - Exam GENERAL: The patient is alert and oriented x3, 8 L high flow nasal cannula with O2 saturation 95%. HEENT: Pupils are round and equally reacting to light. EOMI. No scleral icterus. No conjunctival pallor. Normocephalic, atraumatic. No pharyngeal erythema. No thyromegaly. CARDIOVASCULAR: S1 and S2 present. No murmurs, rubs, or gallops. PULMONARY: Crackles at the bases, no rhonchi and no wheezes. ABDOMEN: Soft, nontender, nondistended, normoactive bowel sounds. No palpable organomegaly. MUSCULOSKELETAL: No joint swelling or deformity. EXTREMITIES: No clubbing 1+ bipedal edema or cyanosis NEUROLOGICAL: Alert and oriented 3, no gross focal deficits SKIN: No rashes. no petechiae. Psychiatric: Normal mood, affect and normal mental status examination - Labs CBC & Chem 7: 03/08/20 07:19 03/08/20 07:19 Labs: Abnormal Lab Results - Last 24 Hours (Table) 03/08/20 03/08/20 03/08/20 Range/Units 16:45 20:16 23:35 POC Glucose (mg/dL) 315 H 455 H 245 H (75-99) mg/dL 03/09/20 03/09/20 03/09/20 Range/Units 04:05 08:07 11:45 POC Glucose (mg/dL) 189 H 156 H 261 H (75-99) mg/dL Microbiology - Last 24 Hours (Table) 03/09/20 01:30 Gram Stain - Preliminary Sputum Sputum Culture - Preliminary Assessment and Plan Assessment: Impression: Acute hypoxic respiratory failure Acute covid 19 pneumonitis. New onset Atrial fibrillation with RVR. New-onset diabetes. Acute gastroenteritis secondary to Covid infection Benign essential hypertension. History of underlying coronary artery disease. Right upper lobe pulmonary embolism, patient is on Xarelto. Troponin leak. History of gout. History of right upper lobe nodule to be monitored on outpatient basis. New-onset right sided arm weakness, CT of the brain is nondiagnostic. Recommendation: Continue Decadron. done with remdesivir Continue to titrate oxygen, if we could get the patient down to 4 L nasal cannula, we can possibly consider discharging the patient home on oxygen. Continue diuretics. Continue obeta blockers. Continue Xarelto. Continue GI and DVT prophylaxis. Possible discharge home in the next 24-48 hours. Time with Patient: Less than 30
[2020-03-09 16:27] LABS: Glucose,Whole Blood 333 mg/dL (75-99)
[2020-03-09] MEDS: RIVAROXABAN 20 MG TAB PO SCH (17:16)
[2020-03-09 20:23] LABS: Glucose,Whole Blood 323 mg/dL (75-99)
[2020-03-09 23:08] LABS: Glucose,Whole Blood 262 mg/dL (75-99)
--- NOTE | 2020-03-10 00:56 | PN ---
PROGRESS NOTE DATE OF SERVICE: 03/09/2020 REASON FOR FOLLOWUP: COVID-19 infection. INTERVAL HISTORY: The patient is currently afebrile. He is breathing more comfortably. Patient denies having any chest pain. Occasional cough. No abdominal pain or diarrhea. PHYSICAL EXAMINATION: Blood pressure 147/81 with a pulse of 50, temperature 97.7. He is 96% on 8 L high-flow oxygen. General description is an elderly male up in the chair in no distress. RESPIRATORY SYSTEM: Unlabored breathing with decreased intensity of breath sounds. No wheeze. HEART: S1, S2. Regular rate and rhythm. ABDOMEN: Soft, no tenderness. LABS: No new labs have been obtained today. DIAGNOSTIC IMPRESSION AND PLAN: Patient with acute COVID-19 pneumonia in this patient with slow clinical improvement, has completed his remdesivir therapy; currently on anticoagulation, and monitor his clinical course closely. YOSELIN / GARETT: [id number] / MTDD
[2020-03-10 03:15] LABS: Glucose,Whole Blood 277 mg/dL (75-99)
[2020-03-10] MEDS: INSULIN ASPART (NovoLOG) 100 UNIT/ML VIAL SQ SCH ×5 (03:18→20:47)
[2020-03-10] MEDS: INSULIN DETEMIR (LEVEMIR) 100 UNIT/ML SYR SQ SCH (06:29)
[2020-03-10 08:04] LABS: Glucose,Whole Blood 310 mg/dL (75-99)
--- NOTE | 2020-03-10 08:24 | P.PN ---
Subjective 69-year-old male, who is a patient of Dr. Frey with a past medical history of hypertension,SC coming in with a chief complaint of fatigue and generalized weakness that have been ongoing for past 1 week. Patient states that he has been having poor appetite loss of smell and loss of taste for the past 1 week. He states that he has been sleeping for more than 20 hours a day. Patient denies having any cough or difficulty in breathing. He denies having any chest pain or palpitations. He denies having any dysuria or hematuria. Patient den ies having any history of diabetes but his blood sugars are in 300s to 400s. In the emergency room patient had a chest x-ray showing no acute cardiopulmonary process and an EKG showing normal sinus rhythm. He had labs done showing white count of 3.9, hemoglobin 14.4, platelets 166. Sodium 131, potassium 3.9, chloride. BUN 15, creatinine 0.93 C-reactive protein 59, albumin 3.3 coronavirus PCR positive. On 02/24/2020 patient was seen and examined. He is currently resting comfortably in bed. Appears to be no acute distress. On reviewing the vitals patient continues to fever as high as 102.3. His blood pressure has been stable around 130s 80s and he saturating at 95% on room air. Patient's blood sugars have been running on the higher side. On 02/25/2020- patient was seen and examined and the general medical floors. He is resting comfortably in bed. Overnight active issues reported by nursing staff. Patient states that his difficulty in breathing is improving. On reviewing the vitals patient's T-max is 98.4, heart rate 72, respiratory rate 127-79 and saturating at 93% on room air. On reviewing vitals patient's white count of 2.8, hemoglobin 14.4, platelets 189. Sodium 136, potassium 4.6, chloride 102. BUN 23 and creatinine of 1.0. Blood sugars have been running high in 200s to 300s. C-reactive protein 7.5. 02/26/2020 This is a pleasant 69 years old male who presents with cough with infection and found to have new onset diabetes with elevated hemoglobin A1c at 14%. Patient currently with no respiratory symptoms, no chest pain or dyspnea coughing. Yesterday he has a regular bowel movement but today he had 1 loose bowel movement but no significant abdominal pain or nausea vomiting. Also he is running a fever of 101. He saturating 90% at room air. BMP and CBC were reviewed and they were unremarkable except for mild leukopenia 2.8K. D-dimer is negative at 0.34. Coronavirus is detected. 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 Normal saline at 75 mL/h was added. Also Levemir 10 units daily and metformin 1000 mg twice daily has been added because his sugar still not controlled Patient is able to eat 75-100% of his meal 02/27/20 Patient had a rough night because of fever, his breathing is quiet and stable and he's only on 2 L oxygen. Is still have diarrhea about twice per day which is similar to the day before. No abdominal pain or vomiting. No significant coughing. unstable Chest x-ray: Worsening infiltrates, Pronecalcitonin is elevated at 0.27, patient is started on Rocephin and Zithromax. He is new onset diabetes and also is on dexamethasone and his sugar more than 300, so Levemir was decreased from 10-30 units daily. Also he is on metformin 1000 and Amaryl 1 mg. Continue on Xarelto, normocephalic 75, remedisivr, dexamethasone 6 mg daily. 02/28/2020 Patient hadn't good night because he could not sleep. No respiratory symptoms, ongoing generalized weakness. Yesterday he has watery diarrhea but this morning he had small more formed bowel movement. No abdominal pain. Persistent fever have subsided and his been afebrile for more than 24 hours. We will check Tylenol as needed His sugar is better controlled after increasing his insulin to 30 units. Antibiotics with ceftriaxone and Zithromax were admitted with high proteincalcitonin. We will try to check sputum culture. Check labs in the morning 02/29/2020 Patient feels much better today, his fever subsided and his on Tylenol as needed currently. No respiratory issue or symptom. He had a little formed bowel movement today. Currently patient remains on the same cocktail for comfort infection besides remedisivr Hemodynamically stable. Vitals are stable showing mild leukocytosis of 11.6 K 03/01/2020 pt is moved to [facility] unit , pt developed a fib and RVR and he was started on Cardizem and amiodarone drip and is already on Xarelto. Also patient on Lopressor 75 mg 3 times a day Also he developed more hypoxic and is currently on 50 L oxygen via nasal cannula saturating 90%. Repeat chest x-ray Moderate peripheral-based opacities throughout both lungs with no pleural effusion. Blood gas on BOTH HIS WITH PH 7.48, LOW PCO2 OF 22 AND LOW PO2 AT 58 PATIENT HAS BEEN EVALUATED BY PULMONARY SERVICE AND PATIENT MAY NEED TO GO TO THE ICU WELL. LEFT SHOWING STABLE LEUKOCYTOSIS AT 14.9 K, ELEVATED D-DIMER 3.1, BMP IS UNREMARKABLE AND WORSENING OF THE EDGE AND C-REACTIVE PROTEIN Patient is kept on remedisivr, dexamethasone 6 mg daily. However patient diarrhea has improved 03/02/2020 Patient today kept in the ICU on BiPAP saturating 100% however he looks comfortable. Distal short of breath and dyspneic Rest of vitals are stable Laps looks stable, inflammatory markers LDH and C-reactive protein still trending up slowly compared to yesterday.proCalcitonin is negative. D-dimer is trending up at 5.7 Chest x-ray showing stable bilateral lung infiltrates He remains on Decadron and remdesivir Also I kept on Cardizem drip at 20 mg an hour and amiodarone 400 mg twice daily and metoprolol 75 mg 3 times a day, vitamin C and A. fib and heart rate ranging between 80-100. He has an echo from 10/10/2019 showed ejection fraction of 50-55%. BNP is elevated at 3940. Discontinue ceftriaxone. Keep Zithromax for now. Patient to continue on Xarelto patient is nothing by mouth WE'LL KEEP HIM ON GENTLE HYDRATION AT 50 ML/H. ALSO GOT 1 DOSE OF LASIX 03/03/2020 Patient is seen and evaluated and follow-up continues to be closely monitored in the ICU. Patient has been taken off the BiPAP and placed on Airvo with an oxy gen rate of 60 and FiO2 at 85% and is currently 91%. To continue to wean as tolerated with the use of BiPAP as needed as well. Patient is afebrile. Patient's d-dimer continues to be elevated and has increased at 11.67 and patient is maintained on Xarelto and will continue at this time. Patient is eating today and tolerating with no reports of nausea or vomiting noted. Multiple medical consultations following including cardiology. Cardizem drip has been decreased to 10 and will continue to monitor this patient continues on amiodarone as well. Heart rate currently in the 70s. Blood sugars being controlled and will continue sliding scale along with long-acting at this time. Patient to continue with dexamethasone along with vitamin C and D and zinc supplements. Patient is currently off antibiotics and will continue to monitor closely. Chest x-ray today shows cardiomegaly with bilateral multifocal acute infiltrates greatest in the periphery, organizing consolidation in the lower lungs with no significant change. 03/04/2020 Patient seen in follow-up continues to be closely monitored in the ICU. Patient is maintained on BiPAP at night and transitioning to Airvo during the day. Patient was placed on insulin drip and will continue to monitor Accu-Cheks closely. Patient continues to be severely dyspneic with any exertion and is 89- 90% with an O2 flow of 60 and FiO2 of 85. IV Cardizem drip has been discontinued and patient is maintained on amiodarone oral and will continue at this time. Anticoagulation of Xarelto continues. Chest x-rays continue to show worsening and consistent with Covid 19 infection progression. 03/05/2020 Patient continues to be in the ICU and maintained on BiPAP with airvo during the day and not really showing any improvements as far as oxygenation. Patient states his breathing has not worsened but is also not improved. Patient is hun gry and awaiting to be switched to airvo so he can eat. Blood sugars continue to be elevated and insulin drip was discontinued. Will increase Levemir to 20 units daily and continue with sliding scale. Patient remains off Cardizem drip and is currently on oral amiodarone and will continue at this time. D-dimer also continues to be elevated and is currently 14.01. Patient is maintained on Xarelto. Current sodium is 135, potassium is 4.1, creatinine is 0.85, WBC is 13.4. Discussed with the patient about CODE STATUS and patient wishes to remain a full code. Chest x-ray continues to show no improvement from previous x-ray. 03/06/2020 Patient currently remains in the ICU although awaiting to be transferred to [facility]. Patient continues on the Airvo with BiPAP at night. Patient states he was having some right-sided weakness and facial droop since yesterday and CT angio done showing atrophy with very ventricular white matter ischemic changes with no acute intracranial process, normal [place], and no flow- limiting stenosis of the bilateral carotid bifurcations with minimal atheromatous calcifications present. Neurology was consulted for evaluation and is currently pending. Patient's chest x-ray today continues to show patchy diffuse infiltrates present bilaterally. Patient is currently tolerating diet and remains on sliding scale along with long-acting and will continue at this time. 03/07/2020 Patient is seen in follow-up currently on [facility] [place] is a recent transfer to the ICU. Patient is maintained on Airvo and continued on this throughout the night. BiPAP was not used. Patient states his breathing feels somewhat better today. Neurology evaluating the patient recommending an MRI which is currently pending at this time as patient had some right-sided weakness along with slurred speech. Right side upper extremity strength is 4/5 with no deficits noted on the right lower extremity. No slurring of speech noted as well. Patient is tolerating diet with no difficulty in swallowing. Patient also underwent 2-D echo showing mild concentric left ventricular hypertrophy with mild local hypokinesis with overall left ventricular systolic function is mildly impaired with an EF between 45 and 50% along with some mitral and tricuspid regurgitation present. Sugars being closely monitored and adjustments have been made to long-acting and will continue sliding scale as well. Patient remains on IV dexamethasone along with Xarelto at this time. 03/08/2020 Patient is awaiting for MRI chest x-ray is still showing significant the congestion possibility of pulmonary edema cannot be ruled out. Patient is off Lasix nephrology and pulmonology is following the patient. may need a dose of Lasix early the decision to pulmonary patient remains on 6 L of oxygen. Saturating 97%. 03/09/2020 Patient still didn't get an MRI. Although patient is already on anticoagulation. Patient also requirements have gone down to around 45% patient is bit hyponatremic probably because of the one dose of Lasix that was given yesterday. Continue to improve but pretty slow 03/10/2020 Patient is on 5 lit of oxygen. Physical therapy evaluated in the past but not a bony any subacute rehabilitation as and reevaluate the patient today. Once we're able to wean him off to around 2-3 L patient will be discharged at that time patient is otherwise clinically doing well is significantly doing better. CONSTITUTIONAL: No fever, no malaise, no fatigue. HEENT: No recent visual problems or hearing problems. Denied any sore throat. CARDIOVASCULAR: No orthopnea, PND, no palpitations, no syncope. PULMONARY: reports continued shortness of breath, no cough, no hemoptysis. GASTROINTESTINAL: No diarrhea, no nausea, no vomiting, no abdominal pain. Normoactive bowel sounds. NEUROLOGICAL: No headaches, reports weakness, right upper extremity weakness with improvement, no numbness. Objective - Vital Signs Vital signs: Vital Signs Temp 97.5 F L 03/10/20 03:38 Pulse 51 L 03/10/20 03:38 Resp 18 03/10/20 03:38 BP 135/74 03/10/20 03:38 Pulse Ox 95 03/10/20 03:38 Intake & Output 03/09/20 03/10/20 03/10/20 18:59 06:59 18:59 Intake Total 670 480 Output Total 1300 2250 Balance -630 -1770 Weight 74 kg Intake: Oral 670 480 Output: Urine 1300 2250 Other: Voiding Method Urinal # Voids 2 1 - Exam PHYSICAL EXAMINATION: GENERAL: The patient is alert and oriented x3, not in any acute distress. Well developed, well nourished. HEENT: Pupils are round and equally reacting to light. EOMI. No scleral icterus. No conjunctival pallor. Normocephalic, atraumatic. No pharyngeal erythema. No thyromegaly. CARDIOVASCULAR: S1 and S2 present. No murmurs, rubs, or gallops. PULMONARY: Chest is clear to auscultation, no wheezing or crackles. ABDOMEN: Soft, nontender, nondistended, normoactive bowel sounds. No palpable organomegaly. MUSCULOSKELETAL: No joint swelling or deformity. EXTREMITIES: No cyanosis, clubbing, or pedal edema. NEUROLOGICAL: Gross neurological examination did not reveal any focal deficits. SKIN: No rashes. Note: Because of COVID 19 isolation, some of the history and physical exam findings are indirect and obtained from nursing staff, and other physician examinations to avoid unnecessary contact with the patient. - Labs CBC & Chem 7: 03/08/20 07:19 03/08/20 07:19 Labs: Abnormal Lab Results - Last 24 Hours (Table) 03/09/20 03/09/20 03/09/20 Range/Units 11:45 16:24 19:58 POC Glucose (mg/dL) 261 H 333 H 323 H (75-99) mg/dL 03/09/20 03/10/20 03/10/20 Range/Units 23:06 03:07 08:02 POC Glucose (mg/dL) 262 H 277 H 310 H (75-99) mg/dL Microbiology - Last 24 Hours (Table) 03/09/20 01:30 Gram Stain - Preliminary Sputum Sputum Culture - Preliminary Assessment and Plan Plan: Covid 19 pneumonia acute hypoxic respiratory failure A. fib with RVR, presently rate controlled Possible lacunar stroke due to small vessel disease secondary to uncontrolled diabetes, neurology following an MRI pending Fatigue generalized weakness secondary to Covid infection New-onset diabetes -That his heart failure chronic systolic dysfunction with acute exacerbation patient has EF of around the 45-50% patient appears to be hypovolemic will give him Lasix Hyponatremia . Hypervolemic hyponatremia Congestive heart failure improved Gastroenteritis secondary to covid infection Hypomagnesemia, improved Hypertension History of SC DVT prophylaxis: Xarelto GI prophylaxis: Pepcid Full code Plan: Continue current medications and management. Multiple medical consultations following. Neurology following and has ordered an MRI of the brain for possible stroke as patient has been experiencing some slurred speech and right side upper extremity weakness, because of his CODE STATUS patient is unable to complete the or get an MRI. Neurology will be evaluated the patient will reassess the necessity of for doing an MRI again. No slurred speech noted on exam and right side upper extremity weakness has improved with a strength of 4/5 with no deficits noted of the right lower extremity. Adjustments to long-acting insulin have been made and will continue sliding scale and Accu-Cheks before meals at bedtime. Patient is liters of oxygen today we'll try to wean it off to around 2-3 L before his discharge most probably tomorrow. Continue to wean FiO2 as tolerated. PT/OT to evaluate the patient as patient continues to be extremely weak. Prognosis is poor and extremely guarded.
[2020-03-10] MEDS: AMIODARONE 200 MG TAB PO SCH ×2 (08:27→20:47)
[2020-03-10] MEDS: DEXAMETHASONE SOD PHOSPHATE 10 MG/ML 1 ML VIAL IV SCH ×2 (08:27→20:47)
[2020-03-10] MEDS: allopurinoL 300 MG TAB PO SCH (08:27)
[2020-03-10] MEDS: PANTOPRAZOLE 40 MG TABLET PO SCH (08:27)
[2020-03-10] MEDS: ASCORBIC ACID 500 MG TAB PO SCH (08:27)
[2020-03-10] MEDS: ZINC SULFATE 220 MG CAP PO SCH (08:27)
[2020-03-10] MEDS: METOPROLOL TARTRATE 50 MG TAB PO SCH ×2 (08:33→20:40)
[2020-03-10 11:49] LABS: Glucose,Whole Blood 267 mg/dL (75-99)
--- NOTE | 2020-03-10 14:11 | MR ---
EXAMINATION TYPE: MR brain wo con DATE OF EXAM: 03/10/2020 12:33 PM COMPARISON: NONE HISTORY: CVA FINDINGS: The ventricles, basal cisterns and sulci overlying the cerebral convexities are moderately enlarged. There is evidence of mild periventricular white matter ischemic demyelination. Remote deep white matter insults are also noted. Diffusion-weighted imaging demonstrates scattered foci of hyperintensity within the posterior fossa a s well as both cerebral hemispheres involving the right parietal occipital region, left and right fro ntal regions as well as the centrum semioval bilaterally bilaterally left greater than right. Finding s suggest embolic process. There is no evidence for midline shift or mass effect. Acute intracranial hemorrhage or extra-axial collection is not evident. Complete opacification left sided mastoid air cells. Mucous retention cyst or polyp right maxillary s inus. IMPRESSION: Diffusion-weighted imaging demonstrates scattered foci of hyperintensity within the posterior fossa a s well as both cerebral hemispheres involving the right parietal occipital region, left and right fro ntal regions as well as the centrum semioval bilaterally bilaterally left greater than right. Finding s suggest embolic process.
[2020-03-10 16:03] LABS: Glucose,Whole Blood 364 mg/dL (75-99)
--- NOTE | 2020-03-10 16:10 | PN ---
PROGRESS NOTE PULMONARY/CRITICAL CARE PROGRESS NOTE: DATE OF SERVICE: 03/10/2020 This patient is a 69-year-old gentleman who was admitted with a diagnosis of acute hypoxemic respiratory failure secondary to acute COVID-19 pneumonitis/pneumonia. In addition, the patient was discovered to have new-onset atrial fibrillation with RVR, new-onset diabetes mellitus, and acute gastroenteritis secondary to COVID infection. In addition, the patient suffers from benign essential hypertension, CAD, right upper lobe pulmonary embolism, troponin leak, gout and right upper lobe pulmonary nodule. The patient was going for an MRI scan today. Other than that, the patient is doing reasonably well. PHYSICAL EXAMINATION: VITAL SIGNS: Current vital signs are reviewed. Temperature 97.6, heart rate 54, respiratory rate 20, blood pressure 144/58, mean 86, 5-liter saturation 97%. GENERAL APPEARANCE: Appears in no acute distress. HEENT: Examination is grossly unremarkable. NECK: Supple. Full range of motion. No adenopathy. Neck veins are flat. CARDIOVASCULAR: Examination reveals regular rhythm and rate. Heart sounds are distant. S1, S2 normal. No S3, S4 or murmur. LUNGS: Lungs reveal mostly clear breath sounds. A few scattered crackles at the bases. No wheezes or rhonchi. ABDOMEN: Soft. Bowel sounds are heard. No masses or tenderness. EXTREMITIES: Intact. No cyanosis, clubbing or edema. SKIN: Without rash. NEUROLOGIC: Neurologic examination is brief but nonfocal. LABS/IMAGING: Reviewed. Nothing to report. Microbiology is currently negative. An MRI of the brain done today shows diffusion-weighted imaging demonstrating scattered foci of hyperintensity within the posterior fossa as well as both cerebral hemispheres involving the right parietal occipital region, left and right frontal regions as well as the centrum semiovale bilaterally, left greater than right. Findings suggest an embolic process. CURRENT MEDICATIONS: Reviewed. He is on Tylenol, zyloprim, Cordarone, vitamin C, Decadron, insulin, metoprolol, Narcan, naproxen, Protonix, Xarelto and zinc. ASSESSMENT: 1. Acute hypoxemic respiratory failure secondary to COVID-19 pneumonitis/pneumonia. 2. New-onset atrial fibrillation with rapid ventricular response. 3. New-onset diabetes mellitus. 4. Acute gastroenteritis secondary to COVID infection. 5. Benign essential hypertension. 6. History of coronary artery disease. 7. Right upper lobe pulmonary embolism; patient currently on Xarelto. 8. Troponin leak. 9. History of gout. 10.History of right upper lobe nodule, to be monitored in the outpatient setting. 11.New-onset right-sided arm weakness, with an MRI showing multiple embolic ischemic events. PLAN: From the pulmonary standpoint, the patient is doing reasonably well. The patient remains on oxygen of 5 L by nasal cannula. Saturations are excellent. The patient is already on a blood thinner, i.e., Xarelto. Will continue to follow. Prognosis is guarded. MMODL / IJN: [id number] /
[2020-03-10] MEDS: RIVAROXABAN 20 MG TAB PO SCH (16:38)
--- NOTE | 2020-03-10 16:43 | P.PN ---
Subjective Progress Note Date: 03/10/20 The patient was seen at bedside and he stated that he is doing somewhat better today compared to couple days ago. He denies of any new weakness, numbness, visual disturbance. He denies of any worsening of his weakness. Objective - Vital Signs Vital signs: Vital Signs Temp 97.6 F 03/10/20 11:26 Pulse 54 L 03/10/20 11:26 Resp 20 03/10/20 11:26 BP 144/58 03/10/20 11:26 Pulse Ox 97 03/10/20 11:26 Intake & Output 03/09/20 03/10/20 03/10/20 18:59 06:59 18:59 Intake Total 670 480 240 Output Total 1300 2250 600 Balance -630 -8510 -360 Weight 74 kg Intake: Oral 670 480 240 Output: Urine 1300 2250 600 Other: Voiding Method Urinal # Voids 2 1 - Exam On examination patient is an elderly male, laying in the bed, in mild to moderate respiratory distress. Neurological exam: Higher mental function: The patient is awake alert oriented to self, place and time. Following simple commands. No aphasia or neglect. Cranial Nerves: The pupils are round, equal and reactive to light bilaterally. Ocular movement is intact and no nystagmus noted bilaterally. Mild right facial asymmetry. Mild dysarthria. Tongue is midline and moved [id number] without any difficulty. Motor: Gait deferred. On muscle strength testing patient's strength is normal on the left side. On the right side, deltoid 5-, biceps 5-, triceps 5, mint wafer depositor 4+5-, hip flexion 5-. Tone and bulk of muscles normal. Cerebellar: Has mild ataxia for [id number] on the right. Heel to genao in normal bilaterally. Sensory touch is equal. - Labs CBC & Chem 7: 03/08/20 07:19 03/08/20 07:19 Labs: Abnormal Lab Results - Last 24 Hours (Table) 03/09/20 03/09/20 03/09/20 Range/Units 16:24 19:58 23:06 POC Glucose (mg/dL) 333 H 323 H 262 H (75-99) mg/dL 03/10/20 03/10/20 03/10/20 Range/Units 03:07 08:02 11:47 POC Glucose (mg/dL) 277 H 310 H 267 H (75-99) mg/dL Microbiology - Last 24 Hours (Table) 03/09/20 01:30 Gram Stain - Preliminary Sputum Sputum Culture - Preliminary Assessment and Plan Assessment: * 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 Etiology is Cardioembolic (has new onset atrial fibrillation per patient during this admission) * Acute stroke at different territories (MRI showed scattered foci of hyperintensity within the posterior fossa as well as both cerebral hemisphere involving the right parietal occipital region, left and right frontal region as well as the centrum semiovale old valve bilaterally left greater than the right). Etiology is likely cardioembolic. * New onset Atrial fibrillation, on anticoagulation with Xarelto. * Acute COVID-19 pneumonitis * New onset diabetes, poorly controlled * Hypertension * Hyperlipidemia * History of CAD. Plan: * MR the brain without gadolinium on 03/10/2020 is reported as diffusion- weighted imaging demonstrates scattered foci of hyperintensity within the posterior fossa as well as both cerebral hemisphere involving the right parietal occipital region, left and right frontal region as well as the centrum semiovale old valve bilaterally left greater than the right. Finding suggest embolic process. * No large vessel occlusion noted on CTA of head and neck. * Patient is on Xarelto 20 mg daily and has been on it since 02/24/2020. I started the patient on the atorvastatin 40 mg daily for secondary stroke prophylaxis. * Patient's diabetes is poorly controlled, need to optimize diabetes to target A1c <7.0 * Fasting a.m. lipid panel showed cholesterol 159, LDL 105, HDL 38 and triglycerides 81. We will start Lipitor 40 mg daily. * Blood pressure is well controlled. * 2-D echo revealed normal left-ventricular size. Mild concentric LVH, mild global hypokinesis of left ventricle with an EF 45-50% there is paradoxical/d yssynergy septal motion consistent with postoperative status. * PT and OT are on board. I consulted the patient * I CONSULTED cardiology to rule out any thrombus in the left the atrial a ppendage and to rule out any large PFO. * Patient at present sick with COVID-19 infection and will defer management to Pulmonary team and ID team. Time with Patient: Less than 30
[2020-03-10 20:33] LABS: Glucose,Whole Blood 299 mg/dL (75-99)
[2020-03-10] MEDS ORDERED: ATORVASTATIN 40 MG TAB PO SCH (21:00)
[2020-03-10 23:38] LABS: Glucose,Whole Blood 318 mg/dL (75-99)
[2020-03-11] MEDS: INSULIN ASPART (NovoLOG) 100 UNIT/ML VIAL SQ SCH ×5 (00:04→16:20)
[2020-03-11 03:28] LABS: Glucose,Whole Blood 238 mg/dL (75-99)
[2020-03-11] MEDS ORDERED: INSULIN DETEMIR (LEVEMIR) 100 UNIT/ML SYR SQ SCH (07:00)
[2020-03-11 08:09] LABS: Glucose,Whole Blood 213 mg/dL (75-99)
[2020-03-11] MEDS: AMIODARONE 200 MG TAB PO SCH (08:43)
[2020-03-11] MEDS: PANTOPRAZOLE 40 MG TABLET PO SCH (08:43)
[2020-03-11] MEDS: allopurinoL 300 MG TAB PO SCH (08:43)
[2020-03-11] MEDS: ZINC SULFATE 220 MG CAP PO SCH (08:43)
[2020-03-11] MEDS: ASCORBIC ACID 500 MG TAB PO SCH (08:43)
[2020-03-11] MEDS: DEXAMETHASONE SOD PHOSPHATE 10 MG/ML 1 ML VIAL IV SCH (08:44)
[2020-03-11] MEDS: METOPROLOL TARTRATE 50 MG TAB PO SCH (08:50)
[2020-03-11 09:06] LABS: African American GFR (CKD) >90 (>60 ml/min/1.73 sqM); Anion Gap 2 mmol/L; Blood Urea Nitrogen 32 mg/dL (9-20); Calcium 8.3 mg/dL (8.4-10.2); Carbon Dioxide 30 mmol/L (22-30); Chloride 100 mmol/L (98-107); Glucose 191 mg/dL (74-99); Non-African American GFR(CKD) >90 (>60 ml/min/1.73 sqM); Potassium 4.7 mmol/L (3.5-5.1); Sodium 132 mmol/L (137-145)
[2020-03-11] MEDS ORDERED: FUROSEMIDE 10 MG/ML 4 ML VIAL IV STA (09:10)
--- NOTE | 2020-03-11 10:06 | P.PN ---
Subjective 69-year-old male, who is a patient of Dr. Frey with a past medical history of hypertension,RI coming in with a chief complaint of fatigue and generalized weakness that have been ongoing for past 1 week. Patient states that he has been having poor appetite loss of smell and loss of taste for the past 1 week. He states that he has been sleeping for more than 20 hours a day. Patient denies having any cough or difficulty in breathing. He denies having any chest pain or palpitations. He denies having any dysuria or hematuria. Patient den ies having any history of diabetes but his blood sugars are in 300s to 400s. In the emergency room patient had a chest x-ray showing no acute cardiopulmonary process and an EKG showing normal sinus rhythm. He had labs done showing white count of 3.9, hemoglobin 14.4, platelets 166. Sodium 131, potassium 3.9, chloride. BUN 15, creatinine 0.93 C-reactive protein 59, albumin 3.3 coronavirus PCR positive. On 02/24/2020 patient was seen and examined. He is currently resting comfortably in bed. Appears to be no acute distress. On reviewing the vitals patient continues to fever as high as 102.3. His blood pressure has been stable around 130s 80s and he saturating at 95% on room air. Patient's blood sugars have been running on the higher side. On 02/25/2020- patient was seen and examined and the general medical floors. He is resting comfortably in bed. Overnight active issues reported by nursing staff. Patient states that his difficulty in breathing is improving. On reviewing the vitals patient's T-max is 98.4, heart rate 72, respiratory rate 127-79 and saturating at 93% on room air. On reviewing vitals patient's white count of 2.8, hemoglobin 14.4, platelets 189. Sodium 136, potassium 4.6, chloride 102. BUN 23 and creatinine of 1.0. Blood sugars have been running high in 200s to 300s. C-reactive protein 7.5. 02/26/2020 This is a pleasant 69 years old male who presents with cough with infection and found to have new onset diabetes with elevated hemoglobin A1c at 14%. Patient currently with no respiratory symptoms, no chest pain or dyspnea coughing. Yesterday he has a regular bowel movement but today he had 1 loose bowel movement but no significant abdominal pain or nausea vomiting. Also he is running a fever of 101. He saturating 90% at room air. BMP and CBC were reviewed and they were unremarkable except for mild leukopenia 2.8K. D-dimer is negative at 0.34. Coronavirus is detected. 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 Normal saline at 75 mL/h was added. Also Levemir 10 units daily and metformin 1000 mg twice daily has been added because his sugar still not controlled Patient is able to eat 75-100% of his meal 02/27/20 Patient had a rough night because of fever, his breathing is quiet and stable and he's only on 2 L oxygen. Is still have diarrhea about twice per day which is similar to the day before. No abdominal pain or vomiting. No significant coughing. unstable Chest x-ray: Worsening infiltrates, Pronecalcitonin is elevated at 0.27, patient is started on Rocephin and Zithromax. He is new onset diabetes and also is on dexamethasone and his sugar more than 300, so Levemir was decreased from 10-30 units daily. Also he is on metformin 1000 and Amaryl 1 mg. Continue on Xarelto, normocephalic 75, remedisivr, dexamethasone 6 mg daily. 02/28/2020 Patient hadn't good night because he could not sleep. No respiratory symptoms, ongoing generalized weakness. Yesterday he has watery diarrhea but this morning he had small more formed bowel movement. No abdominal pain. Persistent fever have subsided and his been afebrile for more than 24 hours. We will check Tylenol as needed His sugar is better controlled after increasing his insulin to 30 units. Antibiotics with ceftriaxone and Zithromax were admitted with high proteincalcitonin. We will try to check sputum culture. Check labs in the morning 02/29/2020 Patient feels much better today, his fever subsided and his on Tylenol as needed currently. No respiratory issue or symptom. He had a little formed bowel movement today. Currently patient remains on the same cocktail for comfort infection besides remedisivr Hemodynamically stable. Vitals are stable showing mild leukocytosis of 11.6 K 03/01/2020 pt is moved to [facility] unit , pt developed a fib and RVR and he was started on Cardizem and amiodarone drip and is already on Xarelto. Also patient on Lopressor 75 mg 3 times a day Also he developed more hypoxic and is currently on 50 L oxygen via nasal cannula saturating 90%. Repeat chest x-ray Moderate peripheral-based opacities throughout both lungs with no pleural effusion. Blood gas on BOTH HIS WITH PH 7.48, LOW PCO2 OF 22 AND LOW PO2 AT 58 PATIENT HAS BEEN EVALUATED BY PULMONARY SERVICE AND PATIENT MAY NEED TO GO TO THE ICU WELL. LEFT SHOWING STABLE LEUKOCYTOSIS AT 14.9 K, ELEVATED D-DIMER 3.1, BMP IS UNREMARKABLE AND WORSENING OF THE EDGE AND C-REACTIVE PROTEIN Patient is kept on remedisivr, dexamethasone 6 mg daily. However patient diarrhea has improved 03/02/2020 Patient today kept in the ICU on BiPAP saturating 100% however he looks comfortable. Distal short of breath and dyspneic Rest of vitals are stable Laps looks stable, inflammatory markers LDH and C-reactive protein still trending up slowly compared to yesterday.proCalcitonin is negative. D-dimer is trending up at 5.7 Chest x-ray showing stable bilateral lung infiltrates He remains on Decadron and remdesivir Also I kept on Cardizem drip at 20 mg an hour and amiodarone 400 mg twice daily and metoprolol 75 mg 3 times a day, vitamin C and A. fib and heart rate ranging between 80-100. He has an echo from 10/10/2019 showed ejection fraction of 50-55%. BNP is elevated at 3940. Discontinue ceftriaxone. Keep Zithromax for now. Patient to continue on Xarelto patient is nothing by mouth WE'LL KEEP HIM ON GENTLE HYDRATION AT 50 ML/H. ALSO GOT 1 DOSE OF LASIX 03/03/2020 Patient is seen and evaluated and follow-up continues to be closely monitored in the ICU. Patient has been taken off the BiPAP and placed on Airvo with an oxy gen rate of 60 and FiO2 at 85% and is currently 91%. To continue to wean as tolerated with the use of BiPAP as needed as well. Patient is afebrile. Patient's d-dimer continues to be elevated and has increased at 11.67 and patient is maintained on Xarelto and will continue at this time. Patient is eating today and tolerating with no reports of nausea or vomiting noted. Multiple medical consultations following including cardiology. Cardizem drip has been decreased to 10 and will continue to monitor this patient continues on amiodarone as well. Heart rate currently in the 70s. Blood sugars being controlled and will continue sliding scale along with long-acting at this time. Patient to continue with dexamethasone along with vitamin C and D and zinc supplements. Patient is currently off antibiotics and will continue to monitor closely. Chest x-ray today shows cardiomegaly with bilateral multifocal acute infiltrates greatest in the periphery, organizing consolidation in the lower lungs with no significant change. 03/04/2020 Patient seen in follow-up continues to be closely monitored in the ICU. Patient is maintained on BiPAP at night and transitioning to Airvo during the day. Patient was placed on insulin drip and will continue to monitor Accu-Cheks closely. Patient continues to be severely dyspneic with any exertion and is 89- 90% with an O2 flow of 60 and FiO2 of 85. IV Cardizem drip has been discontinued and patient is maintained on amiodarone oral and will continue at this time. Anticoagulation of Xarelto continues. Chest x-rays continue to show worsening and consistent with Covid 19 infection progression. 03/05/2020 Patient continues to be in the ICU and maintained on BiPAP with airvo during the day and not really showing any improvements as far as oxygenation. Patient states his breathing has not worsened but is also not improved. Patient is hun gry and awaiting to be switched to airvo so he can eat. Blood sugars continue to be elevated and insulin drip was discontinued. Will increase Levemir to 20 units daily and continue with sliding scale. Patient remains off Cardizem drip and is currently on oral amiodarone and will continue at this time. D-dimer also continues to be elevated and is currently 14.01. Patient is maintained on Xarelto. Current sodium is 135, potassium is 4.1, creatinine is 0.85, WBC is 13.4. Discussed with the patient about CODE STATUS and patient wishes to remain a full code. Chest x-ray continues to show no improvement from previous x-ray. 03/06/2020 Patient currently remains in the ICU although awaiting to be transferred to [facility]. Patient continues on the Airvo with BiPAP at night. Patient states he was having some right-sided weakness and facial droop since yesterday and CT angio done showing atrophy with very ventricular white matter ischemic changes with no acute intracranial process, normal [place], and no flow- limiting stenosis of the bilateral carotid bifurcations with minimal atheromatous calcifications present. Neurology was consulted for evaluation and is currently pending. Patient's chest x-ray today continues to show patchy diffuse infiltrates present bilaterally. Patient is currently tolerating diet and remains on sliding scale along with long-acting and will continue at this time. 03/07/2020 Patient is seen in follow-up currently on [facility] is a recent transfer to the ICU. Patient is maintained on Airvo and continued on this throughout the night. BiPAP was not used. Patient states his breathing feels somewhat better today. Neurology evaluating the patient recommending an MRI which is currently pending at this time as patient had some right-sided weakness along with slurred speech. Right side upper extremity strength is 4/5 with no deficits noted on the right lower extremity. No slurring of speech noted as well. Patient is tolerating diet with no difficulty in swallowing. Patient also underwent 2-D echo showing mild concentric left ventricular hypertrophy with mild local hypokinesis with overall left ventricular systolic function is mildly impaired with an EF between 45 and 50% along with some mitral and tricuspid regurgitation present. Sugars being closely monitored and adjustments have been made to long-acting and will continue sliding scale as well. Patient remains on IV dexamethasone along with Xarelto at this time. 03/08/2020 Patient is awaiting for MRI chest x-ray is still showing significant the congestion possibility of pulmonary edema cannot be ruled out. Patient is off Lasix nephrology and pulmonology is following the patient. may need a dose of Lasix early the decision to pulmonary patient remains on 6 L of oxygen. Saturating 97%. 03/09/2020 Patient still didn't get an MRI. Although patient is already on anticoagulation. Patient also requirements have gone down to around 45% patient is bit hyponatremic probably because of the one dose of Lasix that was given yesterday. Continue to improve but pretty slow 03/10/2020 Patient is on 5 lit of oxygen. Physical therapy evaluated in the past but not a bony any subacute rehabilitation as and reevaluate the patient today. Once we're able to wean him off to around 2-3 L patient will be discharged at that time patient is otherwise clinically doing well is significantly doing better. 03/11/2020 Patient is presently on 3 L of oxygen. Patient is bit more hyponatremic believe patient has mild CHF patient will be given a dose of Lasix patient had an MRI which showed scattered foci of hyperintensity in the posterior foci as well as both cerebral hemispheres involving the right parietal and occipital areas these findings are consistent with embolic process. Neurology recommended the a transesophageal echocardiogram because of his Covid status cardiology is not planning on transesophageal echocardiogram. Patient will need placement in subacute intimidation patient has been on steroids for long time. Since Decadron is highly potent we need to slowly taper down will cut down his Decadron to 60 g daily. Once we cut down on steroids his insulin requirements will go down CONSTITUTIONAL: No fever, no malaise, no fatigue. HEENT: No recent visual problems or hearing problems. Denied any sore throat. CARDIOVASCULAR: No orthopnea, PND, no palpitations, no syncope. PULMONARY: reports continued shortness of breath, no cough, no hemoptysis. GASTROINTESTINAL: No diarrhea, no nausea, no vomiting, no abdominal pain. Normoactive bowel sounds. NEUROLOGICAL: No headaches, weakness improved Objective - Vital Signs Vital signs: Vital Signs Temp 98 F 03/11/20 03:46 Pulse 52 L 03/11/20 03:46 Resp 16 03/11/20 03:46 BP 136/82 03/11/20 03:46 Pulse Ox 94 L 03/11/20 03:46 Intake & Output 03/10/20 03/11/20 03/11/20 18:59 06:59 18:59 Intake Total 1140 540 Output Total 1000 3 Balance 140 537 Weight 83 kg Intake: Oral 1140 540 Output: Urine 1000 3 Other: # Voids 600 - Exam PHYSICAL EXAMINATION: GENERAL: The patient is alert and oriented x3, not in any acute distress. Well developed, well nourished. HEENT: Pupils are round and equally reacting to light. EOMI. No scleral icterus. No conjunctival pallor. Normocephalic, atraumatic. No pharyngeal erythema. No thyromegaly. CARDIOVASCULAR: S1 and S2 present. No murmurs, rubs, or gallops. PULMONARY: Chest is clear to auscultation, no wheezing or crackles. ABDOMEN: Soft, nontender, nondistended, normoactive bowel sounds. No palpable organomegaly. MUSCULOSKELETAL: No joint swelling or deformity. EXTREMITIES: No cyanosis, clubbing, or pedal edema. NEUROLOGICAL: Gross neurological examination did not reveal any focal deficits. SKIN: No rashes. Note: Because of COVID 19 isolation, some of the history and physical exam findings are indirect and obtained from nursing staff, and other physician examinations to avoid unnecessary contact with the patient. - Labs CBC & Chem 7: 03/08/20 07:19 03/11/20 08:32 Labs: Abnormal Lab Results - Last 24 Hours (Table) 03/10/20 03/10/20 03/10/20 Range/Units 11:47 16:02 20:32 Sodium (137-145) mmol/L BUN (9-20) mg/dL Glucose (74-99) mg/dL POC Glucose (mg/dL) 267 H 364 H 299 H (75-99) mg/dL Calcium (8.4-10.2) mg/dL 03/10/20 03/11/20 03/11/20 Range/Units 23:37 03:27 08:05 Sodium (137-145) mmol/L BUN (9-20) mg/dL Glucose (74-99) mg/dL POC Glucose (mg/dL) 318 H 238 H 213 H (75-99) mg/dL Calcium (8.4-10.2) mg/dL 03/11/20 Range/Units 08:32 Sodium 132 L (137-145) mmol/L BUN 32 H (9-20) mg/dL Glucose 191 H (74-99) mg/dL POC Glucose (mg/dL) (75-99) mg/dL Calcium 8.3 L (8.4-10.2) mg/dL Microbiology - Last 24 Hours (Table) 03/09/20 01:30 Gram Stain - Final Sputum Sputum Culture - Final Assessment and Plan Plan: Covid 19 pneumonia acute hypoxic respiratory failure secondary to labile and congestive heart failure A. fib with RVR, presently rate controlled on anticoagulation. Heart rate is in 50 physis probably can cut down the amiodarone Embolic stroke on MRI: Patient is already on anticoagulation patient was started on statin Fatigue generalized weakness secondary to Covid infection New-onset diabetes: Uncontrolled elevated blood sugars due to systemic steroids -That his heart failure chronic systolic dysfunction with acute exacerbation patient has EF of around the 45-50% patient appears to be hypovolemic will give him Lasix Hyponatremia . Hypervolemic hyponatremia Congestive heart failure . Patient is presently medically mild acute exacerbation patient will be given a dose of Lasix patient will be discharged on Lasix 40 mg daily. Patient will benefit from NORMA inhibitor once his blood pressure is stabilized and once he is off Decadron Gastroenteritis secondary to covid infection Hypomagnesemia, improved Hypertension History of RI DVT prophylaxis: Xarelto GI prophylaxis: Pepcid Full code Plan: Continue current medications and management. Multiple medical consultations following. MRI results as mentioned above. Patient is on anticoagulation. No slurred speech noted on exam and right side upper extremity weakness has improved with a strength of 4+/5 with no deficits noted of the right lower extremity. Adjustments to long-acting insulin have been made and will continue sliding scale and Accu-Cheks before meals at bedtime. Continue to wean FiO2 as tolerated. PT/OT to evaluate the patient as patient continues to be extremely weak. Prognosis is poor and extremely guarded.
[2020-03-11 10:28] VITALS: RESP 20
[2020-03-11 11:49] LABS: Glucose,Whole Blood 264 mg/dL (75-99)
--- NOTE | 2020-03-11 12:49 | ECHOF ---
Referral Reason:r/o PFO MEASUREMENTS -------- HEIGHT: 182.9 cm WEIGHT: 113.4 kg BP: FINDINGS -------- Echo done 03/07/20 Limited study done for bubble study, no crossing noted. CONCLUSIONS -------- 1. Echo done 03/07/20 Limited study done for bubble study, no crossing noted. BUFFER MACHINE: Sandrita Fournier RDCS
--- NOTE | 2020-03-11 13:46 | P.DS ---
Providers Date of admission: 02/23/20 15:32 Attending physician: Maye Tran Consults: 02/23/20 23:47 Consult Physician Routine Consulting Provider: Omar Valladares Consult Reason/Comments: COVID Do you want consulting provider notified?: Yes 02/26/20 10:58 Consult Physician Urgent Consulting Provider: Amie Davis Consult Reason/Comments: Covid, fever Do you want consulting provider notified?: Yes 03/01/20 13:12 Consult Physician Routine Consulting Provider: Prosper Sánchez Consult Reason/Comments: Hypoxia, A TEAM transfer from [address] [place] [address] Do you want consulting provider notified?: Yes 03/06/20 11:31 Consult Physician Routine Consulting Provider: Mulugeta Damon Consult Reason/Comments: Possible CVA Do you want consulting provider notified?: Yes 03/10/20 15:45 Consult Physician Routine Consulting Provider: Nathaniel Paige Consult Reason/Comments: yamil Do you want consulting provider notified?: Yes Primary care physician: [facility] Course: 69-year-old male, who is a patient of Dr. Frey with a past medical history of hypertension,LA coming in with a chief complaint of fatigue and generalized weakness that have been ongoing for past 1 week. Patient states that he has been having poor appetite loss of smell and loss of taste for the past 1 week. He states that he has been sleeping for more than 20 hours a day. Patient denies having any cough or difficulty in breathing. He denies having any chest pain or palpitations. He denies having any dysuria or hematuria. Patient denies having any history of diabetes but his blood sugars are in 300s to 400s. In the emergency room patient had a chest x-ray showing no acute cardiopulmonary process and an EKG showing normal sinus rhythm. He had labs done showing white count of 3.9, hemoglobin 14.4, platelets 166. Sodium 131, potassium 3.9, chloride. BUN 15, creatinine 0.93 C-reactive protein 59, albumin 3.3 coronavirus PCR positive. On 02/24/2020 patient was seen and examined. He is currently resting comfortably in bed. Appears to be no acute distress. On reviewing the vitals patient continues to fever as high as 102.3. His blood pressure has been stable around 130s 80s and he saturating at 95% on room air. Patient's blood sugars have been running on the higher side. On 02/25/2020- patient was seen and examined and the general medical floors. He is resting comfortably in bed. Overnight active issues reported by nursing staff. Patient states that his difficulty in breathing is improving. On reviewing the vitals patient's T-max is 98.4, heart rate 72, respiratory rate 127-79 and saturating at 93% on room air. On reviewing vitals patient's white count of 2.8, hemoglobin 14.4, platelets 189. Sodium 136, potassium 4.6, chloride 102. BUN 23 and creatinine of 1.0. Blood sugars have been running high in 200s to 300s. C-reactive protein 7.5. 02/26/2020 This is a pleasant 69 years old male who presents with cough with infection and found to have new onset diabetes with elevated hemoglobin A1c at 14%. Patient currently with no respiratory symptoms, no chest pain or dyspnea coughing. Yesterday he has a regular bowel movement but today he had 1 loose bowel movement but no significant abdominal pain or nausea vomiting. Also he is running a fever of 101. He saturating 90% at room air. BMP and CBC were reviewed and they were unremarkable except for mild leukopenia 2.8K. D-dimer is negative at 0.34. Coronavirus is detected. 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 Normal saline at 75 mL/h was added. Also Levemir 10 units daily and metformin 1000 mg twice daily has been added because his sugar still not controlled Patient is able to eat 75-100% of his meal 02/27/20 Patient had a rough night because of fever, his breathing is quiet and stable and he's only on 2 L oxygen. Is still have diarrhea about twice per day which is similar to the day before. No abdominal pain or vomiting. No significant coughing. unstable Chest x-ray: Worsening infiltrates, Pronecalcitonin is elevated at 0.27, patient is started on Rocephin and Zithromax. He is new onset diabetes and also is on dexamethasone and his sugar more than 300, so Levemir was decreased from 10-30 units daily. Also he is on metformin 1000 and Amaryl 1 mg. Continue on Xarelto, normocephalic 75, remedisivr, dexamethasone 6 mg daily. 02/28/2020 Patient hadn't good night because he could not sleep. No respiratory symptoms, ongoing generalized weakness. Yesterday he has watery diarrhea but this morning he had small more formed bowel movement. No abdominal pain. Persistent fever have subsided and his been afebrile for more than 24 hours. We will check Tylenol as needed His sugar is better controlled after increasing his insulin to 30 units. Antibiotics with ceftriaxone and Zithromax were admitted with high proteincalcitonin. We will try to check sputum culture. Check labs in the morning 02/29/2020 Patient feels much better today, his fever subsided and his on Tylenol as needed currently. No respiratory issue or symptom. He had a little formed bowel movement today. Currently patient remains on the same cocktail for comfort infection besides remedisivr Hemodynamically stable. Vitals are stable showing mild leukocytosis of 11.6 K 03/01/2020 pt is moved to [facility] unit , pt developed a fib and RVR and he was started on Cardizem and amiodarone drip and is already on Xarelto. Also patient on Lopressor 75 mg 3 times a day Also he developed more hypoxic and is currently on 50 L oxygen via nasal cannula saturating 90%. Repeat chest x-ray Moderate peripheral-based opacities throughout both lungs with no pleural effusion. Blood gas on BOTH HIS WITH PH 7.48, LOW PCO2 OF 22 AND LOW PO2 AT 58 PATIENT HAS BEEN EVALUATED BY PULMONARY SERVICE AND PATIENT MAY NEED TO GO TO THE ICU WELL. LEFT SHOWING STABLE LEUKOCYTOSIS AT 14.9 K, ELEVATED D-DIMER 3.1, BMP IS UNREMARKABLE AND WORSENING OF THE EDGE AND C-REACTIVE PROTEIN Patient is kept on remedisivr, dexamethasone 6 mg daily. However patient diarrhea has improved 03/02/2020 Patient today kept in the ICU on BiPAP saturating 100% however he looks comfortable. Distal short of breath and dyspneic Rest of vitals are stable Laps looks stable, inflammatory markers LDH and C-reactive protein still trending up slowly compared to yesterday.proCalcitonin is negative. D-dimer is trending up at 5.7 Chest x-ray showing stable bilateral lung infiltrates He remains on Decadron and remdesivir Also I kept on Cardizem drip at 20 mg an hour and amiodarone 400 mg twice daily and metoprolol 75 mg 3 times a day, vitamin C and A. fib and heart rate ranging between 80-100. He has an echo from 10/10/2019 showed ejection fraction of 50-55%. BNP is elevated at 3940. Discontinue ceftriaxone. Keep Zithromax for now. Patient to continue on Xarelto patient is nothing by mouth WE'LL KEEP HIM ON GENTLE HYDRATION AT 50 ML/H. ALSO GOT 1 DOSE OF LASIX 03/03/2020 Patient is seen and evaluated and follow-up continues to be closely monitored in the ICU. Patient has been taken off the BiPAP and placed on Airvo with an oxygen rate of 60 and FiO2 at 85% and is currently 91%. To continue to wean as tolerated with the use of BiPAP as needed as well. Patient is afebrile. Patient's d-dimer continues to be elevated and has increased at 11.67 and patient is maintained on Xarelto and will continue at this time. Patient is eating today and tolerating with no reports of nausea or vomiting noted. Multiple medical consultations following including cardiology. Cardizem drip has been decreased to 10 and will continue to monitor this patient continues on amiodarone as well. Heart rate currently in the 70s. Blood sugars being controlled and will continue sliding scale along with long-acting at this time. Patient to continue with dexamethasone along with vitamin C and D and zinc supplements. Patient is currently off antibiotics and will continue to monitor closely. Chest x-ray today shows cardiomegaly with bilateral multifocal acute infiltrates greatest in the periphery, organizing consolidation in the lower lungs with no significant change. 03/04/2020 Patient seen in follow-up continues to be closely monitored in the ICU. Patient is maintained on BiPAP at night and transitioning to Airvo during the day. Patient was placed on insulin drip and will continue to monitor Accu-Cheks closely. Patient continues to be severely dyspneic with any exertion and is 89- 90% with an O2 flow of 60 and FiO2 of 85. IV Cardizem drip has been discontinued and patient is maintained on amiodarone oral and will continue at this time. Anticoagulation of Xarelto continues. Chest x-rays continue to show worsening and consistent with Covid 19 infection progression. 03/05/2020 Patient continues to be in the ICU and maintained on BiPAP with airvo during the day and not really showing any improvements as far as oxygenation. Patient states his breathing has not worsened but is also not improved. Patient is hungry and awaiting to be switched to airvo so he can eat. Blood sugars continue to be elevated and insulin drip was discontinued. Will increase Levemir to 20 units daily and continue with sliding scale. Patient remains off Cardizem drip and is currently on oral amiodarone and will continue at this time. D-dimer also continues to be elevated and is currently 14.01. Patient is maintained on Xarelto. Current sodium is 135, potassium is 4.1, creatinine is 0.85, WBC is 13.4. Discussed with the patient about CODE STATUS and patient wishes to remain a full code. Chest x-ray continues to show no improvement from previous x-ray. 03/06/2020 Patient currently remains in the ICU although awaiting to be transferred to [facility]. Patient continues on the Airvo with BiPAP at night. Patient states he was having some right-sided weakness and facial droop since yesterday and CT angio done showing atrophy with very ventricular white matter ischemic changes with no acute intracranial process, normal [place], and no flow- limiting stenosis of the bilateral carotid bifurcations with minimal atheromatous calcifications present. Neurology was consulted for evaluation and is currently pending. Patient's chest x-ray today continues to show patchy diffuse infiltrates present bilaterally. Patient is currently tolerating diet and remains on sliding scale along with long-acting and will continue at this time. 03/07/2020 Patient is seen in follow-up currently on [facility] is a recent transfer to the ICU. Patient is maintained on Airvo and continued on this throughout the night. BiPAP was not used. Patient states his breathing feels somewhat better today. Neurology evaluating the patient recommending an MRI which is currently pending at this time as patient had some right-sided weakness along with slurred speech. Right side upper extremity strength is 4/5 with no deficits noted on the right lower extremity. No slurring of speech noted as well. Patient is tolerating diet with no difficulty in swallowing. Patient also underwent 2-D echo showing mild concentric left ventricular hypertrophy with mild local hypokinesis with overall left ventricular systolic function is mildly impaired with an EF between 45 and 50% along with some mitral and tricuspid regurgitation present. Sugars being closely monitored and adjustments have been made to long-acting and will continue sliding scale as well. Patient remains on IV dexamethasone along with Xarelto at this time. 03/08/2020 Patient is awaiting for MRI chest x-ray is still showing significant the congestion possibility of pulmonary edema cannot be ruled out. Patient is off Lasix nephrology and pulmonology is following the patient. may need a dose of Lasix early the decision to pulmonary patient remains on 6 L of oxygen. Saturating 97%. 03/09/2020 Patient still didn't get an MRI. Although patient is already on anticoagulation. Patient also requirements have gone down to around 45% patient is bit hyponatremic probably because of the one dose of Lasix that was given yesterday. Continue to improve but pretty slow 03/10/2020 Patient is on 5 lit of oxygen. Physical therapy evaluated in the past but not a bony any subacute rehabilitation as and reevaluate the patient today. Once we're able to wean him off to around 2-3 L patient will be discharged at that time patient is otherwise clinically doing well is significantly doing better. 03/11/2020 Patient is presently on 3 L of oxygen. Patient is bit more hyponatremic believe patient has mild CHF patient will be given a dose of Lasix patient had an MRI which showed scattered foci of hyperintensity in the posterior foci as well as both cerebral hemispheres involving the right parietal and occipital areas these findings are consistent with embolic process. Neurology recommended the a transesophageal echocardiogram because of his Covid status cardiology is not planning on transesophageal echocardiogram. Patient will need placement in subacute intimidation patient has been on steroids for long time. Since Decadron is highly potent we need to slowly taper down will cut down his Decadron to 60 g daily. Once we cut down on steroids his insulin requirements will go down. PHYSICAL EXAMINATION: GENERAL: The patient is alert and oriented x3, not in any acute distress. Well developed, well nourished. HEENT: Pupils are round and equally reacting to light. EOMI. No scleral icterus. No conjunctival pallor. Normocephalic, atraumatic. No pharyngeal erythema. No thyromegaly. CARDIOVASCULAR: S1 and S2 present. No murmurs, rubs, or gallops. PULMONARY: Chest is clear to auscultation, no wheezing or crackles. ABDOMEN: Soft, nontender, nondistended, normoactive bowel sounds. No palpable organomegaly. MUSCULOSKELETAL: No joint swelling or deformity. EXTREMITIES: No cyanosis, clubbing, or pedal edema. NEUROLOGICAL: Gross neurological examination did not reveal any focal deficits. SKIN: No rashes. Note: Because of COVID 19 isolation, some of the history and physical exam findings are indirect and obtained from nursing staff, and other physician examinations to avoid unnecessary contact with the patient. Assessment and Plan Plan: Covid 19 pneumonia acute hypoxic respiratory failure secondary to labile and congestive heart failure A. fib with RVR, presently rate controlled on anticoagulation. Heart rate is in 50 s probably can cut down the amiodarone Embolic stroke on MRI: Patient is already on anticoagulation patient was started on statin Fatigue generalized weakness secondary to Covid infection New-onset diabetes: Uncontrolled elevated blood sugars due to systemic steroids -That his heart failure chronic systolic dysfunction with acute exacerbation patient has EF of around the 45-50% patient appears to be hypovolemic will give him Lasix Hyponatremia . Hypervolemic hyponatremia Congestive heart failure . Patient is presently medically mild acute exacerbation patient will be given a dose of Lasix patient will be discharged on Lasix 40 mg daily. Patient will benefit from NORMA inhibitor once his blood pressure is stabilized and once he is off Decadron Gastroenteritis secondary to covid infection Hypomagnesemia, improved Hypertension History of LA DVT prophylaxis: Xarelto GI prophylaxis: Pepcid Full code Patient Condition at Discharge: Stable Plan - Discharge Summary Discharge Rx Participant: No New Discharge Prescriptions: New Dexamethasone [Decadron] 4 mg PO DAILY #1 tablet Furosemide [Lasix] 40 mg PO DAILY #30 tablet Insulin Detemir (Levemir) [Levemir] 30 unit SQ DAILY@0700 syr Atorvastatin [Lipitor] 40 mg PO HS tab Metoprolol Tartrate [Lopressor] 50 mg PO BID tab INSULIN LISPRO (humaLOG) [humaLOG] 1 injection SQ DIRECTED #10 ml Amiodarone [Cordarone] 400 mg PO DAILY tab Continue Allopurinol [Zyloprim] 300 mg PO DAILY Naproxen Sodium [Naprelan] 500 mg PO BID PRN PRN Reason: Pain Omeprazole 20 mg PO DAILY Rivaroxaban [Xarelto] 20 mg PO DAILY Discontinued amLODIPine [Norvasc] 5 mg PO BID Metoprolol Succinate [Toprol XL] 50 mg PO DAILY Discharge Medication List Allopurinol [Zyloprim] 300 mg PO DAILY 10/09/19 [History] Naproxen Sodium [Naprelan] 500 mg PO BID PRN 02/23/20 [History] Omeprazole 20 mg PO DAILY 02/23/20 [History] Rivaroxaban [Xarelto] 20 mg PO DAILY 02/23/20 [History] Amiodarone [Cordarone] 400 mg PO DAILY tab 03/11/20 [Rx] Atorvastatin [Lipitor] 40 mg PO HS tab 03/11/20 [Rx] Dexamethasone [Decadron] 4 mg PO DAILY #1 tablet 03/11/20 [Rx] Furosemide [Lasix] 40 mg PO DAILY #30 tablet 03/11/20 [Rx] INSULIN LISPRO (humaLOG) [humaLOG] 1 injection SQ DIRECTED #10 ml 03/11/20 [Rx] Insulin Detemir (Levemir) [Levemir] 30 unit SQ DAILY@0700 syr 03/11/20 [Rx] Metoprolol Tartrate [Lopressor] 50 mg PO BID tab 03/11/20 [Rx] Follow up Appointment(s)/Referral(s): Den Kim MD [STAFF PHYSICIAN] - 2 Weeks (pulmonolgist ) Sandy Frey DO [Primary Care Provider] - 1-2 days Wong Camacho MD [STAFF PHYSICIAN] - 1-2 Days Activity/Diet/Wound Care/Special Instructions: diabetic 1800 k.emperatriz per day activity is limited till you see your doctor [employer] will mail you an agreement form to obtain a glucometer to check your blood glucose levels. Please fill this out and mail it back. They will mail you a permanent glucometer after that and supplies when they run low. Their phone #: [phone] if you have any questions. Discharge Disposition: TRANSFER TO SNF/ECF
--- NOTE | 2020-03-11 14:10 | PN ---
PROGRESS NOTE PULMONARY/CRITICAL CARE PROGRESS NOTE: DATE OF SERVICE: March 11, 2020 This is a patient who is 69 years of age. He was admitted back on February 22 with a diagnosis of acute hypoxemic respiratory failure secondary to acute COVID-19 pneumonia/pneumonitis. The patient was also found to have atrial fibrillation with RVR, new onset diabetes mellitus, and acute gastroenteritis secondary to COVID infection. Currently, the patient is doing reasonably well. The patient feels much better. The patient is hoping to be discharged relatively soon. PHYSICAL EXAMINATION: VITAL SIGNS: Current vital signs are reviewed. Temperature is 97.9, heart rate 54, respiratory rate 20, blood pressure 131/83, mean 99 and 2 L saturation 96%. GENERAL: Appears in no acute distress. Certainly no respiratory distress, audible wheezing, use of accessory muscles or conversational dyspnea. HEENT: Examination is grossly unremarkable. NECK: Supple. Full range of motion. No adenopathy. Neck veins are flat. CARDIOVASCULAR: Examination reveals regular rhythm and rate. S1, S2 normal. Heart rate 54. No murmur. LUNGS: Reveal mostly clear breath sounds. A few scattered rhonchi. No wheezes or crackles. ABDOMEN: Soft. Bowel sounds are heard. EXTREMITIES: Are intact. No cyanosis, clubbing, or edema. SKIN: Without rash. NEUROLOGIC: Examination is brief but nonfocal. LABS: Labs are reviewed. Sodium 132, potassium 4.7, chloride 100, CO2 of 30. Anion gap is 2. BUN and creatinine were 32 and 0.76. Microbiology is currently negative. No recent chest x-ray. Brain MRI was discussed in my note yesterday. CURRENT MEDICATIONS: Current medications are reviewed. He is currently on Tylenol, Zyloprim, amiodarone, ascorbic acid, Lipitor, dexamethasone, insulin, metoprolol, Narcan, naproxen, Protonix, Xarelto, and zinc. ASSESSMENT: 1. Acute hypoxemic respiratory failure secondary to COVID-19 pneumonitis/pneumonia. 2. New onset atrial fibrillation with RVR. 3. New onset diabetes mellitus. 4. Acute gastroenteritis secondary to COVID infection. 5. Benign essential hypertension. 6. History of coronary artery disease. 7. Right upper lobe pulmonary embolism, patient currently on Xarelto. 8. History of troponin leak. 9. History of gout. 10.History of right upper lobe nodule to be monitored in the outpatient setting. 11.New onset right-sided arm weakness with MRI showing multiple embolic/ischemic event. PLAN: Currently, from the pulmonary standpoint, the patient could be discharged. The patient is already on blood thinners. The MRI was reviewed. The Decadron can be discontinued if he has had it for 10 days. Certainly it could be switched to p.o. No additional recommendations are made. Prognosis is guarded. MMODL / IJN: [id number] /
--- NOTE | 2020-03-11 14:32 | P.PN ---
Subjective Progress Note Date: 03/11/20 HISTORY OF PRESENT ILLNESS: Patient examined at the bedside. He denies chest pain or pressure. Denies shortness of breath. Patient remains on xarelto. Vital signs are stable. PHYSICAL EXAM: VITAL SIGNS: Reviewed. GENERAL: Well-developed in no acute distress. NECK: Supple. No JVD or thyromegaly LUNGS: Respirations even and unlabored. Lungs essentially clear to auscultation bilaterally. HEART: Regular rate and rhythm. S1 and S2 heard. EXTREMITIES: Normal range of motion. No clubbing or cyanosis. Peripheral pulses intact. No lower extremity edema ASSESSMENT: Paraoxysmal atrial fibrillation with RVR, maintaining SR Acute covid 19 History of PE CVA PLAN: Cardiology was reconsulted for requested NIRALI. Patient is already on anticoagulation. Per Dr. Paige, NIRALI will not change the course of patients treatment and is not necessary at this time, especially with the patients covid status. Echo performed this morning with bubble study with no evidence of PFO. No further intervention from a cardiac standpoint. Nurse practitioner note has been reviewed by physician. Signing provider agrees with the documented findings, assessment, and plan of care. Objective - Vital Signs Vital signs: Vital Signs Temp 97.9 F 03/11/20 11:52 Pulse 54 L 03/11/20 11:52 Resp 20 03/11/20 11:52 BP 131/83 03/11/20 11:52 Pulse Ox 96 03/11/20 11:52 Intake & Output 03/10/20 03/11/20 03/11/20 18:59 06:59 18:59 Intake Total 1140 540 Output Total 1000 3 500 Balance 140 537 -500 Weight 83 kg Intake: Oral 1140 540 Output: Urine 1000 3 500 Other: # Voids 600 - Labs CBC & Chem 7: 03/08/20 07:19 03/11/20 08:32 Labs: Abnormal Lab Results - Last 24 Hours (Table) 03/10/20 03/10/20 03/10/20 Range/Units 16:02 20:32 23:37 Sodium (137-145) mmol/L BUN (9-20) mg/dL Glucose (74-99) mg/dL POC Glucose (mg/dL) 364 H 299 H 318 H (75-99) mg/dL Calcium (8.4-10.2) mg/dL 03/11/20 03/11/20 03/11/20 Range/Units 03:27 08:05 08:32 Sodium 132 L (137-145) mmol/L BUN 32 H (9-20) mg/dL Glucose 191 H (74-99) mg/dL POC Glucose (mg/dL) 238 H 213 H (75-99) mg/dL Calcium 8.3 L (8.4-10.2) mg/dL 03/11/20 Range/Units 11:47 Sodium (137-145) mmol/L BUN (9-20) mg/dL Glucose (74-99) mg/dL POC Glucose (mg/dL) 264 H (75-99) mg/dL Calcium (8.4-10.2) mg/dL Microbiology - Last 24 Hours (Table) 03/09/20 01:30 Gram Stain - Final Sputum Sputum Culture - Final
[2020-03-11 15:42] VITALS: BP 116/67; PULSE 52; TEMP 97.5
[2020-03-11 16:07] LABS: Glucose,Whole Blood 407 mg/dL (75-99)
[2020-03-11 16:11] LABS: Glucose,Whole Blood 339 mg/dL (75-99)
--- NOTE | 2020-03-11 17:08 | P.PN ---
Subjective Progress Note Date: 03/11/20 The patient was seen at bedside and he states that he's doing better today compared to yesterday. He feels a little bit more energetic today compared to yesterday. He denies any worsening of his weakness. He denies visual disturbance, getting his words out. I consulted the cardiology for a transesophageal echocardiogram but that they stated that the they will not do it since old not provide a more information and since he is a COVID-19 positive. Objective - Vital Signs Vital signs: Vital Signs Temp 97.5 F L 03/11/20 15:37 Pulse 52 L 03/11/20 15:37 Resp 20 03/11/20 15:37 BP 116/67 03/11/20 15:37 Pulse Ox 97 03/11/20 15:37 Intake & Output 03/10/20 03/11/20 03/11/20 18:59 06:59 18:59 Intake Total 1140 540 480 Output Total 1000 3 1000 Balance 140 537 -520 Weight 83 kg Intake: Oral 1140 540 480 Output: Urine 1000 3 1000 Other: # Voids 600 - Exam On examination patient is an elderly male, laying in the bed, in mild to moderate respiratory distress. Neurological exam: Higher mental function: The patient is awake alert oriented to self, place and time. Following simple commands. No aphasia or neglect. Cranial Nerves: The pupils are round, equal and reactive to light bilaterally. Ocular movement is intact and no nystagmus noted bilaterally. Mild right facial asymmetry. Mild dysarthria. Tongue is midline and moved [id number] without any difficulty. Motor: Gait deferred. On muscle strength testing patient's strength is normal on the left side. On the right side, deltoid 5-, biceps 5-, triceps 5, white sourer 4+5-, hip flexion 5-. Tone and bulk of muscles normal. Cerebellar: Has mild ataxia for [id number] on the right. Heel to genao in normal bilaterally. Sensory touch is equal. - Labs CBC & Chem 7: 03/08/20 07:19 03/11/20 08:32 Labs: Abnormal Lab Results - Last 24 Hours (Table) 03/10/20 03/10/20 03/11/20 Range/Units 20:32 23:37 03:27 Sodium (137-145) mmol/L BUN (9-20) mg/dL Glucose (74-99) mg/dL POC Glucose (mg/dL) 299 H 318 H 238 H (75-99) mg/dL Calcium (8.4-10.2) mg/dL 03/11/20 03/11/20 03/11/20 Range/Units 08:05 08:32 11:47 Sodium 132 L (137-145) mmol/L BUN 32 H (9-20) mg/dL Glucose 191 H (74-99) mg/dL POC Glucose (mg/dL) 213 H 264 H (75-99) mg/dL Calcium 8.3 L (8.4-10.2) mg/dL 03/11/20 03/11/20 Range/Units 16:05 16:08 Sodium (137-145) mmol/L BUN (9-20) mg/dL Glucose (74-99) mg/dL POC Glucose (mg/dL) 407 H 339 H (75-99) mg/dL Calcium (8.4-10.2) mg/dL Microbiology - Last 24 Hours (Table) 03/09/20 01:30 Gram Stain - Final Sputum Sputum Culture - Final Assessment and Plan Assessment: * 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 Etiology is Cardioembolic (has new onset atrial fibrillation per patient during this admission) * Acute stroke at different territories (MRI showed scattered foci of hyperintensity within the posterior fossa as well as both cerebral hemisphere involving the right parietal occipital region, left and right frontal region as well as the centrum semiovale old valve bilaterally left greater than the right). Etiology is likely cardioembolic. * New onset Atrial fibrillation, on anticoagulation with Xarelto. * Acute COVID-19 pneumonitis * New onset diabetes, poorly controlled * Hypertension * Hyperlipidemia * History of CAD. Plan: * MR the brain without gadolinium on 03/10/2020 is reported as diffusion- weighted imaging demonstrates scattered foci of hyperintensity within the posterior fossa as well as both cerebral hemisphere involving the right parietal occipital region, left and right frontal region as well as the centrum semiovale old valve bilaterally left greater than the right. Finding suggest embolic process. * No large vessel occlusion noted on CTA of head and neck. * Patient is on Xarelto 20 mg daily and has been on it since 02/24/2020. Continue atorvastatin 40 mg daily for secondary stroke prophylaxis. * Patient's diabetes is poorly controlled, need to optimize diabetes to target A1c <7.0 * Fasting a.m. lipid panel showed cholesterol 159, LDL 105, HDL 38 and triglycerides 81. We will start Lipitor 40 mg daily. * Blood pressure is well controlled. * 2-D echo revealed normal left-ventricular size. Mild concentric LVH, mild global hypokinesis of left ventricle with an EF 45-50% there is p aradoxical/dyssynergy septal motion consistent with postoperative status. * PT and OT are on board and [employer] BIOLOGIST are consulted. * Cardiology to rule out any thrombus in the left the atrial appendage and to rule out any large PFO. Was notified by the cardiology nurse practitioner that the cardiology attending does not feel like OB any beneficial and the since the patient is Covid 19 there is no need for it. An echo was performed this morning with bubble study with no evidence of PFO. * Patient at present sick with COVID-19 infection and will defer management to Pulmonary team and ID team. * The patient was notified that he needs to follow-up with a neurologist within 1-2 weeks upon discharge. He also needs to follow-up with a educational psychology professor as an outpatient as well. Plan was discussed with the patient as well as the primary team. Darius Valladares MD Neuro-hospitalist Time with Patient: Less than 30
[2020-03-11] MEDS: RIVAROXABAN 20 MG TAB PO SCH (17:12)
--- NOTE | 2020-03-11 21:23 | P.PN ---
Progress Note - Text Progress Note Date: 03/11/20 REASON FOR FOLLOWUP: COVID-19 infection. INTERVAL HISTORY: The patient is afebrile. The pt is breathing more comfortably. Patient denies having any chest pain. Occasional cough. No abdominal pain or diarrhea. PHYSICAL EXAMINATION: Blood pressure 140/80 with a pulse of 55, temperature 97.7. He is 96% on 8 L high-flow oxygen. General description is an elderly male up in the chair in no distress. RESPIRATORY SYSTEM: Unlabored breathing with decreased intensity of breath sounds. No wheeze. HEART: S1, S2. Regular rate and rhythm. ABDOMEN: Soft, no tenderness. LABS: reviewed DIAGNOSTIC IMPRESSION AND PLAN: Patient with acute COVID-19 pneumonia in this patient with slow clinical improv ement, has completed his remdesivir therapy; currently on dexamethasone to finish his 10 day course of therapy and close out patient follow up
[2020-03-12] MEDS ORDERED: AMIODARONE 200 MG TAB PO SCH (09:00)
[2020-03-12] MEDS ORDERED: DEXAMETHASONE SOD PHOSPHATE 10 MG/ML 1 ML VIAL IV SCH (09:00)
== END 2020-03-11 18:04 | DRG 177 ==
LOC: EC 12:48 → 6NMEDSUR 15:32 → 4SSUR 20:54 → 3SCARD 02-29 22:58 → 2SICU 03-01 23:40 → 3SCARD 03-06 13:15
PROVIDERS: ADMIT Internal Medicine; ATTEND Internal Medicine
PROC: 5A09557 Assistance with Respiratory Ventilation, Greater than 96 Consecutive Hours, Continuous Positive Airway Pressure (ICD-10-PCS; principal; 2020-03-01)
PROC: XW033E5 Introduction of Remdesivir Anti-infective into Peripheral Vein, Percutaneous Approach, New Technology Group 5 (ICD-10-PCS; principal; 2020-03-01)
DX: U07.1 COVID-19 (principal); J12.89 Other viral pneumonia; J96.21 Acute and chronic respiratory failure with hypoxia; I63.81 Other cerebral infarction due to occlusion or stenosis of small artery; I50.33 Acute on chronic diastolic (congestive) heart failure; E87.1 Hypo-osmolality and hyponatremia; G81.91 Hemiplegia, unspecified affecting right dominant side; I27.82 Chronic pulmonary embolism; I48.0 Paroxysmal atrial fibrillation; T38.0X5A Adverse effect of glucocorticoids and synthetic analogues, initial encounter; T50.1X5A Adverse effect of loop [high-ceiling] diuretics, initial encounter; K52.9 Noninfective gastroenteritis and colitis, unspecified; E11.65 Type 2 diabetes mellitus with hyperglycemia; E11.51 Type 2 diabetes mellitus with diabetic peripheral angiopathy without gangrene; I11.0 Hypertensive heart disease with heart failure; R27.0 Ataxia, unspecified; R29.810 Facial weakness; R47.81 Slurred speech; E86.0 Dehydration; E83.42 Hypomagnesemia; D72.819 Decreased white blood cell count, unspecified; A08.4 Viral intestinal infection, unspecified; I25.10 Atherosclerotic heart disease of native coronary artery without angina pectoris; I08.1 Rheumatic disorders of both mitral and tricuspid valves; E78.5 Hyperlipidemia, unspecified; K21.9 Gastro-esophageal reflux disease without esophagitis; R63.0 Anorexia; R91.1 Solitary pulmonary nodule; M10.9 Gout, unspecified; I25.2 Old myocardial infarction; Z79.899 Other long term (current) drug therapy; Z79.01 Long term (current) use of anticoagulants; Z87.891 Personal history of nicotine dependence; Z86.711 Personal history of pulmonary embolism; Z90.49 Acquired absence of other specified parts of digestive tract; Z79.4 Long term (current) use of insulin
CPT/HCPCS: 36415; 36600; 70496; 70498; 70551; 71045; 71046; 80048; 80053; 80061; 81001; 82009; 82550; 82728; 82805; 83036; 83605; 83615; 83735; 83880; 84145; 84439; 84443; 84484; 85025; 85027; 85379; 85384; 85610; 85730; 86140; 87040; 87070; 87205; 87449; 87635; 93005; 93306; 93308; 94660; 94760; 96361; 96365; 99285